=== PATIENT | male | born 1970 | race Caucasian/White ===

== ENCOUNTER 2018-01-30 13:18 | Emergency (ER) | payer MEDICAID, SELFPAY ==
[2018-01-30 13:31] VITALS: BP 142/74; PULSE 94; RESP 16; TEMP 36.6; O2SAT 99
--- NOTE | 2018-01-30 14:40 | W.ED.GENAD ---
Discharge Plan Disposition Patient Disposition: HOME Condition: Stable Discharge Details Chief Complaint: GenMedical Clinical Impression: Abscess, Cellulitis Primary Care Provider: Jefferson Bhakta ED Provider: Deb Ramirez Home Meds and New Rx's Prescriptions: New clindamycin HCl 150 mg capsule 450 mg PO TID 7 Days Qty: 63 RF: 0 Continue blood sugar diagnostic [FreeStyle Lite Strips] 1 EACH strip 1 ea Miscellaneous BID Qty: 100 RF: 0 blood-glucose meter [FreeStyle Lite Meter] 1 EACH kit 1 ea Miscellaneous DAILY PRNQty: 1 RF: 0 lancets [FreeStyle Lancets] 1 EACH misc 1 ea Miscellaneous BID Qty: 100 RF: 0 insulin glargine [Lantus Solostar U-100 Insulin] 100 UNIT/1 ML insulin pen 14 unit SQ HS Qty: 5 RF: 3 glimepiride 4 MG tablet 4 mg PO DAILY Qty: 90 RF: 3 pen needle, diabetic 1 EACH needle 1 ea Miscellaneous DAILY Qty: 100 RF: 11 tenofovir disoproxil fumarate [Viread] 300 mg tablet 300 mg PO DAILY Qty: 60 RF: 0 buprenorphine-naloxone [Suboxone] 8-2 mg Film 6 mg Sublingual RF: 0 metformin [Glucophage XR] 500 MG tablet extended release 24 hr 500 mg PO DAILY RF: 0 Discharge Instructions Instructions: Cellulitis (ED), Abscess (ED) Additional Instructions: Take the antibiotics until finished. Check your sugar regularly and take your regular medications as directed. Apply warm compresses to the affected area several times daily for 20 minutes at a time. Follow-up with your primary care doctor in 1 week for reevaluation. Return immediately to the emergency department any worsening or new concerning symptoms such as fever, increased pain redness or swelling. Discharge Data Discharge Physician: Deb Ramirez Medical Decision Making 47-year-old male with history of diabetes hepatitis B who presents for right buttock abscess for the past month. Vitals within normal limits. Patient afebrile and he appears nontoxic. There is an approximate 4 x 4 centimeter area of tender erythematous induration on the right upper buttock. It is not in the midline and not consistent with a pilonidal abscess. The area appears more indurated and is not fluctuant. He was offered incision and drainage for further treatment, but he is declining and would rather treat with warm compresses and antibiotics. It was discussed that the area may become worse due to not performing an incision and drainage and patient is aware and will return immediately if worse. Patient has been checking his sugars regularly and have been in the 140s. Patient declines Accu-Chek here and will check it when he gets home. Patient states he is having problems with it would fill the prescription until tomorrow. We will give 1 dose of clindamycin here, 1 dose for home tonight and tomorrow morning. HPI General Mode of arrival: ambulatory. Date/Time Provider Initiated Documentation: 01/30/18 13:48. Limitations to Documentation: no limitations. Information obtained by: patient. HPI Narrative: Patient is a 47-year-old male with a history of diabetes and hepatitis B who presents for tender lump on his right buttock for the past month. Patient states that initially started as a rash several months ago which had been itchy and which seemed to improve with [id number] hemorrhoid creams. Patient states 1 month ago he noticed a small bump that is now become bigger and painful. Patient states he tried to pop it a few days ago with some discharge but none since then. Patient states he has been eating and drinking well. He denies any fever or recent antibiotics. Past medical history: Diabetes, hepatitis B Surgical history: None Social history: Smokes tobacco, denies alcohol or drugs Medications: Suboxone, glimepiride, insulin, metformin, tenofovir Allergies: NKDA PCP: [facility] Related Data Home Medications Medication Instructions Recorded Confirmed blood sugar diagnostic [FreeStyle #100 strip 03/25/16 11/25/17 Lite Strips] blood-glucose meter [FreeStyle #1 kit 03/25/16 11/25/17 Lite Meter] lancets [FreeStyle Lancets] #100 ea 03/25/16 11/25/17 insulin glargine [Lantus Solostar 14 unit SQ HS #5 pen 05/05/17 01/30/18 U-100 Insulin] glimepiride 4 mg PO DAILY #90 tab-cap 06/22/17 01/30/18 pen needle, diabetic #100 units 07/23/17 11/25/17 tenofovir disoproxil fumarate 300 300 mg PO DAILY #60 tab 11/27/17 01/30/18 mg tablet buprenorphine-naloxone [Suboxone] 6 mg SUBLINGUAL 01/30/18 clindamycin HCl 450 mg PO TID 7 Days #63 cap 01/30/18 metformin [Glucophage XR] 500 mg PO DAILY 01/30/18 01/30/18 Previous Rx's Medication Instructions Recorded insulin glargine [Lantus Solostar 14 unit SQ HS #5 pen 05/05/17 U-100 Insulin] glimepiride 4 mg PO DAILY #90 tab-cap 06/22/17 pen needle, diabetic #100 units 07/23/17 tenofovir disoproxil fumarate 300 300 mg PO DAILY #60 tab 11/27/17 mg tablet clindamycin HCl 450 mg PO TID 7 Days #63 cap 01/30/18 Allergies Allergy/AdvReac Type Severity Reaction Status Date / Time No Known Allergies Allergy Unverified 01/30/18 13:33 General Stated Complaint: GenMedical JAMES: 3 Review of Systems Review of Systems All systems reviewed & are unremarkable except as noted in HPI and below Constitutional Reports as per HPI, Denies chills and Denies fever(s) Eyes Denies blurry vision ENT Denies dizziness, Denies sore throat and Denies throat swelling Cardiovascular Denies chest pain and Denies dyspnea Respiratory Denies dyspnea Gastrointestinal Denies abdominal pain, Denies diarrhea and Denies vomiting Genitourinary Denies hematuria and Denies dysuria Musculoskeletal Denies back pain and Denies numbness Integumentary/Breasts Reports lesions and Denies rash Neurologic Denies dizziness and Denies numbness Allergic/Immunologic Denies throat swelling PFSH Family History Brother No problems noted. Brother No problems noted. Sister No problems noted. Social History Smoking/Tobacco Use Status: Current every day Surgical History Endoscopy (12/09/12) Exam Const General: cooperative and healthy appearing Orientation: alert and awake [facility] Head: normal to inspection Ears: hearing grossly normal bilaterally and external ears normal General nose exam: external nose normal Face and sinus: normal facial exam Eyes General: appearance normal, both eyes and all related structures Eyelids: eyelids normal Neck Neck: normal visual inspection Resp Effort & Inspection: normal respiratory effort and able to speak in complete sentences Cardio Rate: regular rate Back/Spine/Pelvis Back/spine/pelvis image: 1. 4x4cm tender erythematous area of induration noted on R side of upper medial buttock. There is an approximately 1x1cm crusted yellow erosion in center. No discrete fluctuance or drainage noted. Neuro General: alert and awake Cognition: normal cognition Speech: speech normal Gait: normal gait Motor: muscle tone normal throughout Sensory Exam: no sensory deficits noted Extrem General: normal to inspection and full ROM Psych Appearance: grossly normal Mental Status: mental status grossly normal Speech and Movement: speech and movement normal Affect: normal affect Thought Process: normal Course Vital Signs Temperature 97.9 F 01/30/18 13:31 Pulse 94 H 01/30/18 13:31 Respiratory Rate 16 01/30/18 13:31 Blood Pressure 142/74 H 01/30/18 13:31 Pulse Oximetry 99 01/30/18 13:31 Temperature 97.9 F 01/30/18 13:31 Temperature Source Temporal Artery Scan 01/30/18 13:31 Pulse 94 H 01/30/18 13:31 Respiratory Rate 16 01/30/18 13:31 Blood Pressure 142/74 H 01/30/18 13:31 Blood Pressure Position Sitting 01/30/18 13:31 Pulse Oximetry 99 01/30/18 13:31 Oxygen Delivery Method Room Air 01/30/18 13:31 Oxygen Flow Rate 0 01/30/18 13:31 Pain Level 6 01/30/18 13:31
[2018-01-30] MEDS: Clindamycin 150 MG CAP 900 MG PO (14:53)
[2018-01-30] MEDS: Clindamycin 150 MG CAP 450 MG PO (14:56)
--- NOTE | 2018-01-30 15:00 | ED.GENADUL_ITS ---
Discharge Plan Disposition Patient Disposition: HOME Condition: Stable Discharge Details Chief Complaint: GenMedical Clinical Impression: Abscess, Cellulitis Primary Care Provider: Jefferson Bhakta ED Provider: Deb Ramirez Home Meds and New Rx's Prescriptions: New clindamycin HCl 150 mg capsule 450 mg PO TID 7 Days Qty: 63 RF: 0 Continue blood sugar diagnostic [FreeStyle Lite Strips] 1 EACH strip 1 ea Miscellaneous BID Qty: 100 RF: 0 blood-glucose meter [FreeStyle Lite Meter] 1 EACH kit 1 ea Miscellaneous DAILY PRNQty: 1 RF: 0 lancets [FreeStyle Lancets] 1 EACH misc 1 ea Miscellaneous BID Qty: 100 RF: 0 insulin glargine [Lantus Solostar U-100 Insulin] 100 UNIT/1 ML insulin pen 14 unit SQ HS Qty: 5 RF: 3 glimepiride 4 MG tablet 4 mg PO DAILY Qty: 90 RF: 3 pen needle, diabetic 1 EACH needle 1 ea Miscellaneous DAILY Qty: 100 RF: 11 tenofovir disoproxil fumarate [Viread] 300 mg tablet 300 mg PO DAILY Qty: 60 RF: 0 buprenorphine-naloxone [Suboxone] 8-2 mg Film 6 mg Sublingual RF: 0 metformin [Glucophage XR] 500 MG tablet extended release 24 hr 500 mg PO DAILY RF: 0 Discharge Instructions Instructions: Cellulitis (ED), Abscess (ED) Additional Instructions: Take the antibiotics until finished. Check your sugar regularly and take your regular medications as directed. Apply warm compresses to the affected area several times daily for 20 minutes at a time. Follow-up with your primary care doctor in 1 week for reevaluation. Return immediately to the emergency department any worsening or new concerning symptoms such as fever, increased pain redness or swelling. Discharge Data Discharge Physician: Deb Ramirez Medical Decision Making 47-year-old male with history of diabetes hepatitis B who presents for right buttock abscess for the past month. Vitals within normal limits. Patient afebrile and he appears nontoxic. There is an approximate 4 x 4 centimeter area of tender erythematous induration on the right upper buttock. It is not in the midline and not consistent with a pilonidal abscess. The area appears more indurated and is not fluctuant. He was offered incision and drainage for further treatment, but he is declining and would rather treat with warm compresses and antibiotics. It was discussed that the area may become worse due to not performing an incision and drainage and patient is aware and will return immediately if worse. Patient has been checking his sugars regularly and have been in the 140s. Patient declines Accu-Chek here and will check it when he gets home. Patient states he is having problems with it would fill the prescription until tomorrow. We will give 1 dose of clindamycin here, 1 dose for home tonight and tomorrow morning. HPI General Mode of arrival: ambulatory . Date/Time Provider Initiated Documentation: 01/30/18 13:48 . Limitations to Documentation: no limitations . Information obtained by: patient . HPI Narrative: Patient is a 47-year-old male with a history of diabetes and hepatitis B who presents for tender lump on his right buttock for the past month. Patient states that initially started as a rash several months ago which had been itchy and which seemed to improve with [id number]-[id number] hemorrhoid creams. Patient states 1 month ago he noticed a small bump that is now become bigger and painful. Patient states he tried to pop it a few days ago with some discharge but none since then. Patient states he has been eating and drinking well. He denies any fever or recent antibiotics. Past medical history: Diabetes, hepatitis B Surgical history: None Social history: Smokes tobacco, denies alcohol or drugs Medications: Suboxone, glimepiride, insulin, metformin, tenofovir Allergies: NKDA PCP: [facility] Related Data Home Medications Medication Instructions Recorded Confirmed blood sugar diagnostic [FreeStyle #100 strip 03/25/16 11/25/17 Lite Strips] blood-glucose meter [FreeStyle #1 kit 03/25/16 11/25/17 Lite Meter] lancets [FreeStyle Lancets] #100 ea 03/25/16 11/25/17 insulin glargine [Lantus Solostar 14 unit SQ HS #5 pen 05/05/17 01/30/18 U-100 Insulin] glimepiride 4 mg PO DAILY #90 tab-cap 06/22/17 01/30/18 pen needle, diabetic #100 units 07/23/17 11/25/17 tenofovir disoproxil fumarate 300 300 mg PO DAILY #60 tab 11/27/17 01/30/18 mg tablet buprenorphine-naloxone [Suboxone] 6 mg SUBLINGUAL 01/30/18 clindamycin HCl 450 mg PO TID 7 Days #63 cap 01/30/18 metformin [Glucophage XR] 500 mg PO DAILY 01/30/18 01/30/18 Previous Rx's Medication Instructions Recorded insulin glargine [Lantus Solostar 14 unit SQ HS #5 pen 05/05/17 U-100 Insulin] glimepiride 4 mg PO DAILY #90 tab-cap 06/22/17 pen needle, diabetic #100 units 07/23/17 tenofovir disoproxil fumarate 300 300 mg PO DAILY #60 tab 11/27/17 mg tablet clindamycin HCl 450 mg PO TID 7 Days #63 cap 01/30/18 Allergies Allergy/AdvReac Type Severity Reaction Status Date / Time No Known Allergies Allergy Unverified 01/30/18 13:33 General Stated Complaint: GenMedical JAMES: 3 Review of Systems Review of Systems All systems reviewed & are unremarkable except as noted in HPI and below Constitutional Reports as per HPI, Denies chills and Denies fever(s) Eyes Denies blurry vision ENT Denies dizziness, Denies sore throat and Denies throat swelling Cardiovascular Denies chest pain and Denies dyspnea Respiratory Denies dyspnea Gastrointestinal Denies abdominal pain, Denies diarrhea and Denies vomiting Genitourinary Denies hematuria and Denies dysuria Musculoskeletal Denies back pain and Denies numbness Integumentary/Breasts Reports lesions and Denies rash Neurologic Denies dizziness and Denies numbness Allergic/Immunologic Denies throat swelling PFSH Family History Brother No problems noted. Brother No problems noted. Sister No problems noted. Social History Smoking/Tobacco Use Status: Current every day Surgical History Endoscopy (12/09/12) Exam Const General: cooperative and healthy appearing Orientation: alert and awake [facility] Head: normal to inspection Ears: hearing grossly normal bilaterally and external ears normal General nose exam: external nose normal Face and sinus: normal facial exam Eyes General: appearance normal, both eyes and all related structures Eyelids: eyelids normal Neck Neck: normal visual inspection Resp Effort & Inspection: normal respiratory effort and able to speak in complete sentences Cardio Rate: regular rate Back/Spine/Pelvis Back/spine/pelvis image: 2 1. 4x4cm tender erythematous area of induration noted on R side of upper medial buttock. There is an approximately 1x1cm crusted yellow erosion in center. No discrete fluctuance or drainage noted. Neuro General: alert and awake Cognition: normal cognition Speech: speech normal Gait: normal gait Motor: muscle tone normal throughout Sensory Exam: no sensory deficits noted Extrem General: normal to inspection and full ROM Psych Appearance: grossly normal Mental Status: mental status grossly normal Speech and Movement: speech and movement normal Affect: normal affect Thought Process: normal Course Vital Signs Temperature 97.9 F 01/30/18 13:31 Pulse 94 H 01/30/18 13:31 Respiratory Rate 16 01/30/18 13:31 Blood Pressure 142/74 H 01/30/18 13:31 Pulse Oximetry 99 01/30/18 13:31 Temperature 97.9 F 01/30/18 13:31 Temperature Source Temporal Artery Scan 01/30/18 13:31 Pulse 94 H 01/30/18 13:31 Respiratory Rate 16 01/30/18 13:31 Blood Pressure 142/74 H 01/30/18 13:31 Blood Pressure Position Sitting 01/30/18 13:31 Pulse Oximetry 99 01/30/18 13:31 Oxygen Delivery Method Room Air 01/30/18 13:31 Oxygen Flow Rate 0 01/30/18 13:31 Pain Level 6 01/30/18 13:31
== END 2018-01-30 14:52 | disposition home or self-care (01) ==
LOC: ER 15:00
PROVIDERS: Emergency Provider Physician Assistant; PCP Family Medicine
DX: L02.31 Cutaneous abscess of buttock (principal); L03.317 Cellulitis of buttock; E11.9 Type 2 diabetes mellitus without complications; Z79.4 Long term (current) use of insulin
CPT/HCPCS: 99283

== ENCOUNTER 2018-03-07 13:46 | Emergency (ER) | payer MEDICAID, SELFPAY ==
[2018-03-07 13:56] VITALS: BP 151/83; PULSE 61; RESP 16; TEMP 37; O2SAT 100
--- NOTE | 2018-03-07 17:47 | NUR.NOTE ---
Patient was triaged by the nurse and was seated in the rear waiting room, patient eloped before he was brought back to a room.
== END 2018-03-07 16:25 ==
PROVIDERS: PCP Family Medicine
DX: Z53.21 Procedure and treatment not carried out due to patient leaving prior to being seen by health care provider (principal)

== ENCOUNTER 2018-03-08 15:53 | Emergency (ER) | payer MEDICAID, SELFPAY ==
[2018-03-08 16:11] VITALS: BP 118/67; PULSE 72; RESP 20; TEMP 36.7; O2SAT 98
--- NOTE | 2018-03-08 16:18 | DI.RAD_ITS ---
SYMPTOM/DIAGNOSIS: COUGH, PAIN LT LOWER RIBS PA AND LATERAL CHEST: Comparison is made with 08/25/17. There has been clearing of the previously noted bilateral infiltrates. The heart size is normal. No new abnormalities are seen. IMPRESSION: Negative chest xray.
--- NOTE | 2018-03-08 16:46 | ED.GENADUL_ITS ---
Discharge Plan Disposition Patient Disposition: HOME Condition: Good Discharge Details Chief Complaint: RespSymp Clinical Impression: Pneumonia, Mild reactive airways disease Primary Care Provider: Jefferson Bhakta ED Provider: Brodie Fernandes Home Meds and New Rx's Prescriptions: New azithromycin 250 mg tablet See Rx Instructions .ROUTE .COMPLEX Qty: 6 RF: 0 prednisone 50 MG tablet 50 mg PO DAILY Qty: 5 RF: 0 albuterol sulfate 90 mcg/actuation HFA aerosol inhaler 1 puff IH Q6H PRN (Reason: shortness of breath or wheezing) Qty: 6.7 RF: 0 No Action FreeStyle Lite Strips 1 EACH strip 1 ea Miscellaneous BID Qty: 100 RF: 0 blood-glucose meter [FreeStyle Lite Meter] 1 EACH kit 1 ea Miscellaneous DAILY PRNQty: 1 RF: 0 lancets [FreeStyle Lancets] 1 EACH misc 1 ea Miscellaneous BID Qty: 100 RF: 0 Lantus Solostar U-100 Insulin 100 UNIT/1 ML insulin pen 14 unit SQ HS Qty: 5 RF: 3 glimepiride 4 MG tablet 4 mg PO DAILY Qty: 90 RF: 3 pen needle, diabetic 1 EACH needle 1 ea Miscellaneous DAILY Qty: 100 RF: 11 tenofovir disoproxil fumarate [Viread] 300 mg tablet 300 mg PO DAILY Qty: 60 RF: 0 buprenorphine-naloxone [Suboxone] 8-2 mg Film 6 mg Sublingual RF: 0 metformin [Glucophage XR] 500 MG tablet extended release 24 hr 500 mg PO DAILY RF: 0 Discharge Instructions Instructions: Reactive Airways Disease (ED), Pneumonia (ED) Additional Instructions: Please take the antibiotic, steroid, and inhaler as directed. If you notice any worsening of your symptoms, or any new symptoms such as vomiting, diarrhea, fever, chills, shortness of breath, chest pain, numbness, weakness, or fainting , please return immediately to the emergency department for reevaluation. Please follow up with your primary care provider as soon as possible for reassessment and reevaluation. As always, it was a pleasure participating in your medical care today. Referrals: Jefferson Bhakta DO [Primary Care Provider] - Medical Decision Making This is a 47-year-old male who presents today for evaluation of cough with productive green sputum for the last week. He has no associated fever or chills. Vital signs are stable and reassuring. Lung sounds are clear. Patient states that his symptoms resemble the last 2 times he has had pneumonia. We will get a chest x-ray to evaluate. We will give a breathing treatment as well as he has had notable improvement with this at home. 5: 42 PM Patient's chest x-ray shows no acute signs of pneumonia per virtual radiology however does appear to be some scarring versus mild pneumonia on the left side. This correlates with the patient's mild pain as well. May be secondary to old scarring versus pneumonia. With his cough, productive green sputum, and consistent symptoms for a week, as well as his risk factors of tobacco use, I do feel that he would be a good candidate for treatment of clinical pneumonia. He had improvement with the breathing treatment. We will give him a prescription for home albuterol so he does not have to use his friend's albuterol. Get steroids, and azithromycin. We discussed red flags which return the importance of smoking cessation and close follow-up I have extensively reviewed the treatment plan and discharge instructions with the patient. I have addressed all patient concerns at this time. The patient was made aware of what symptoms to monitor for that would warrant a return to the emergency department. Discussed the plan with the patient, they demonstrate verbal understanding and agreement with our assessment and plan at this time. . FINDINGS: The lung tovar are clear bilaterally. No focal pulmonary consolidation is present. The cardiac silhouette is within normal limits. The costophrenic angles are sharp. The bony structures appear unremarkable. IMPRESSION: No evidence of acute cardiopulmonary disease. Dictated and Authenticated by: Joel Pruitt MD. HPI General Date/Time Provider Initiated Documentation: 03/08/18 15:55 . 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 Patient states that for the last week he has had a cough that is productive with green sputum. It is associated left and right sided chest pain that is only present with cough. Symptoms are improved with breathing treatment. The patient denies any associated fever or chills. He does state that this feels similar but not as severe as his previous episodes of pneumonia. The patient has received his pneumonia vaccine. Patient denies any other modifying factors. Related Data Home Medications Medication Instructions Recorded Confirmed FreeStyle Lite Strips #100 strip 03/25/16 03/08/18 blood-glucose meter [FreeStyle #1 kit 03/25/16 03/08/18 Lite Meter] lancets [FreeStyle Lancets] #100 ea 03/25/16 03/08/18 Lantus Solostar U-100 Insulin 14 unit SQ HS #5 pen 05/05/17 03/08/18 glimepiride 4 mg PO DAILY #90 tab-cap 06/22/17 03/08/18 pen needle, diabetic #100 units 07/23/17 03/08/18 buprenorphine-naloxone [Suboxone] 6 mg SUBLINGUAL 01/30/18 metformin [Glucophage XR] 500 mg PO DAILY 01/30/18 03/08/18 tenofovir disoproxil fumarate 300 300 mg PO DAILY #60 tab 03/01/18 03/08/18 mg tablet albuterol sulfate 1 puff IH Q6H PRN #6.7 gm 03/08/18 azithromycin See Rx Instructions .ROUTE 03/08/18 .COMPLEX #6 tab prednisone 50 mg PO DAILY #5 tab 03/08/18 Previous Rx's Medication Instructions Recorded Lantus Solostar U-100 Insulin 14 unit SQ HS #5 pen 05/05/17 glimepiride 4 mg PO DAILY #90 tab-cap 06/22/17 pen needle, diabetic #100 units 07/23/17 tenofovir disoproxil fumarate 300 300 mg PO DAILY #60 tab 03/01/18 mg tablet albuterol sulfate 1 puff IH Q6H PRN #6.7 gm 03/08/18 azithromycin See Rx Instructions .ROUTE 03/08/18 .COMPLEX #6 tab prednisone 50 mg PO DAILY #5 tab 03/08/18 Allergies Allergy/AdvReac Type Severity Reaction Status Date / Time No Known Allergies Allergy Unverified 03/08/18 16:13 General Stated Complaint: RespSymp JAMES: 3 Review of Systems Review of Systems All systems reviewed & are unremarkable except as noted in HPI and below PFSH Social History Smoking/Tobacco Use Status: Current every day Exam Narrative Exam Narrative: 1.Const: Well-nourished, Well-developed, appearing stated age 2.Eyes: PERRL, no conjunctival injection, and symmetrical lids. 3.ENT: Atraumatic external nose and ears. Moist MM. Neck: Symmetric, trachea midline, No thyromegaly. 4.CVS: +S1/S2, No murmurs or gallops. Peripheral pulses 2+ and equal in all extremities. Brisk capillary refill in all extremities. 5.RESP: Unlabored respiratory effort. Clear to auscultation bilaterally. No wheezes rales or rhonchi 6.GI: Soft, Nontender/Nondistended, No hepatosplenomegaly. No guarding or rebound. 7.MSK: Normocephalic/Atraumatic, Extremities w/o deformity or ttp No cyanosis or clubbing, Normal movement of all extremities 8.Skin: Warm, Dry. No rashes or lesions. 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 Sensation grossly intact, no focal neurologic deficits. 10.Psych: (AAO) x3. Appropriate mood and affect Course Vital Signs Temperature 36.7 C 03/08/18 16:11 Pulse 72 03/08/18 16:11 Respiratory Rate 20 03/08/18 16:11 Blood Pressure 118/67 03/08/18 16:11 Pulse Oximetry 98 03/08/18 16:11 Temperature 36.7 C 03/08/18 16:11 Temperature Source Temporal Artery Scan 03/08/18 16:11 Pulse 72 03/08/18 16:11 Respiratory Rate 20 03/08/18 16:11 Respiratory Effort Non-Labored 03/08/18 16:11 Blood Pressure 118/67 03/08/18 16:11 Blood Pressure Position Sitting 03/08/18 16:11 Pulse Oximetry 98 03/08/18 16:11 Oxygen Delivery Method Room Air 03/08/18 16:11 Oxygen Flow Rate 0 03/08/18 16:11 Pain Level 4 03/08/18 16:11
[2018-03-08 17:03] VITALS: PULSE 72; RESP 20; O2SAT 98
[2018-03-08] MEDS: Albuterol/Ipratropium 3 ML UPD VIAL UPD (17:03)
--- NOTE | 2018-03-08 17:12 | DI.VRAD_ITS ---
EXAM: XR Chest, 2 Views EXAM DATE/TIME: 03/08/2018 4:19 PM CLINICAL HISTORY: 47 years old, male; Signs and symptoms; Cough TECHNIQUE: XR of the chest, 2 views. COMPARISON: CR CHEST 2 VIEWS PA,LAT 08/25/2017 6:26 AM FINDINGS: The lung tovar are clear bilaterally. No focal pulmonary consolidation is present. The cardiac silhouette is within normal limits. The costophrenic angles are sharp. The bony structures appear unremarkable. IMPRESSION: No evidence of acute cardiopulmonary disease. Dictated and Authenticated by: Joel Pruitt MD. Ordering:MONICA Calloway MD
[2018-03-08 17:47] VITALS: BP 118/67; PULSE 72; RESP 20; TEMP 36.7; O2SAT 98
== END 2018-03-08 18:00 | disposition home or self-care (01) ==
PROVIDERS: Emergency Provider Student in an Organized Health Care Education/Training Program; PCP Family Medicine
DX: J18.9 Pneumonia, unspecified organism (principal); J45.909 Unspecified asthma, uncomplicated
CPT/HCPCS: 94640; 99283; 71046; J7620

== ENCOUNTER 2018-04-24 14:25 | Emergency (ER) | payer MEDICAID, SELFPAY ==
[2018-04-24 14:30] VITALS: BP 139/81; PULSE 88; RESP 16; TEMP 37.2; O2SAT 96
[2018-04-24] MEDS: Acetaminophen 325 MG TAB 650 MG PO (15:30)
--- NOTE | 2018-04-24 15:40 | DI.RAD_ITS ---
SYMPTOM/DIAGNOSIS: COUGH, RT PELVIC HEMATOMA AP PELVIS: Two views. No acute fracture or dislocation is seen. The sacroiliac joints and symphysis pubis are unremarkable. The soft tissues are unremarkable. IMPRESSION: No acute abnormality. PA AND LATERAL CHEST: Comparison is made with 03/08/18. The heart is normal in size. The lungs are clear. The mediastinal structures and pleura appear intact. CONCLUSION: Normal chest.
--- NOTE | 2018-04-24 16:22 | DI.VRAD_ITS ---
EXAM: XR Pelvis, 1 or 2 Views EXAM DATE/TIME: 04/24/2018 4:02 PM CLINICAL HISTORY: 47 years old, male; Signs and symptoms; Other: Right pelvic hematoma TECHNIQUE: XR pelvis, 1 or 2 views COMPARISON: No relevant prior studies available. FINDINGS: Bones/joints: There is no evidence of acute fracture.. There is no evidence of malalignment or dislocation. Soft tissues: Normal. Gastrointestinal tract: Constipation in the right colon IMPRESSION: There is no evidence of acute fracture.. Dictated and Authenticated by: Sravanthi Cortes MD. Ordering:CHARU Shahid MD
--- NOTE | 2018-04-24 16:30 | W.ED.GENAD ---
Discharge Plan Disposition Patient Disposition: HOME Discharge Details Chief Complaint: RespSymp Clinical Impression: Bronchitis, Traumatic hematoma of lower back Primary Care Provider: Jefferson Bhakta ED Provider: Kleber Fernandez Home Meds and New Rx's Prescriptions: Continued Lantus Solostar U-100 Insulin 100 unit/mL (3 mL) insulin pen 36 unit subcut HS RF: 0 buprenorphine-naloxone 2-0.5 mg tablet, sublingual 2 tab SL DAILY Qty: 28 RF: 0 FreeStyle Lite Strips 1 EACH strip 1 ea Miscellaneous BID Qty: 100 RF: 0 blood-glucose meter [FreeStyle Lite Meter] 1 EACH kit 1 ea Miscellaneous DAILY PRNQty: 1 RF: 0 lancets [FreeStyle Lancets] 1 EACH misc 1 ea Miscellaneous BID Qty: 100 RF: 0 pen needle, diabetic 1 EACH needle 1 ea Miscellaneous DAILY Qty: 100 RF: 11 tenofovir disoproxil fumarate [Viread] 300 mg tablet 300 mg PO DAILY Qty: 60 RF: 0 metformin [Glucophage XR] 500 MG tablet extended release 24 hr 500 mg PO DAILY RF: 0 albuterol sulfate 90 mcg/actuation HFA aerosol inhaler 1 puff IH Q6H PRN (Reason: shortness of breath or wheezing) Qty: 6.7 RF: 0 Discharge Instructions Instructions: Acute Bronchitis (ED), Contusion in Adults (ED) Additional Instructions: Please contact your primary care physician to arrange follow-up as needed. Return to the ER for any worsening or new concerning symptoms. Referrals: Jefferson Bhakta DO [Primary Care Provider] - Medical Decision Making 47-year-old male smoker here with 2 days of cough productive of lopez sputum with associated body aches. Patient is saturating well and in no respiratory distress. He has no wheeze. Chest x-ray reviewed and interpreted by radiology: No acute findings. Suspect bronchitis. Antibiotics are not indicated. Consider flu. I recommend checking rapid flu testing and patient provided informed refusal. I also recommended checking a fingerstick glucose and patient provided informed refusal. Patient also with right lower back hematoma over his iliac crest from fall 1 week ago. X-ray of the pelvis was performed and reviewed and interpreted by radiology: There is no evidence of acute fracture. Plan to treat supportively. Usual and customary discharge instructions were provided -I explained to patient that antibiotics were not indicated at this time HPI General Mode of arrival: ambulatory. Date/Time Provider Initiated Documentation: 04/24/18 14:49. Limitations to Documentation: no limitations. Information obtained by: patient. HPI Narrative: 47-year-old male with history of insulin-dependent diabetes, presents with chief complaint of cough. Patient notes that he has had cough for the past 2 days, intermittently productive of lopez sputum, with associated generalized body aches, symptoms are moderate, no modifiers. No fever. Patient also notes that about a week ago he slipped and fell on ice and landed on his right low back and leg. He was seen by his primary care physician who ordered an x-ray that has not yet been performed. Patient is concerned that he had an area of swelling right lower back over his pelvis that has persisted and is tender. Patient does note sugars have been well controlled. Related Data Home Medications Medication Instructions Recorded Confirmed FreeStyle Lite Strips #100 strip 03/25/16 04/24/18 blood-glucose meter [FreeStyle #1 kit 03/25/16 04/24/18 Lite Meter] lancets [FreeStyle Lancets] #100 ea 03/25/16 04/24/18 pen needle, diabetic #100 units 07/23/17 04/24/18 metformin [Glucophage XR] 500 mg PO DAILY 01/30/18 04/24/18 tenofovir disoproxil fumarate 300 300 mg PO DAILY #60 tab 03/01/18 04/24/18 mg tablet albuterol sulfate 1 puff IH Q6H PRN #6.7 gm 03/08/18 04/24/18 insulin glargine (U-100) 100 36 unit SUBCUT HS ml 04/06/18 04/24/18 unit/mL (3 mL) subcutaneous pen buprenorphine 2 mg-naloxone 0.5 mg 2 tab SL DAILY #28 tab 04/20/18 04/24/18 sublingual tablet Previous Rx's Medication Instructions Recorded pen needle, diabetic #100 units 07/23/17 tenofovir disoproxil fumarate 300 300 mg PO DAILY #60 tab 03/01/18 mg tablet albuterol sulfate 1 puff IH Q6H PRN #6.7 gm 03/08/18 buprenorphine 2 mg-naloxone 0.5 mg 2 tab SL DAILY #28 tab 04/20/18 sublingual tablet Allergies Allergy/AdvReac Type Severity Reaction Status Date / Time No Known Allergies Allergy Verified 04/24/18 14:30 General Stated Complaint: RespSymp JAMES: 3 Review of Systems Review of Systems All systems reviewed & are unremarkable except as noted in HPI and below Constitutional Reports body ache(s) and Denies fever(s) Respiratory Reports as per HPI Musculoskeletal Reports as per HPI [facility] Medical History Adventitious breath sounds (Resolved) Urinary frequency (Chronic 08/16/13) Type II diabetes mellitus, uncontrolled (Chronic) Smoker (Chronic 05/06/11) Opioid use disorder, moderate, dependence (Chronic 12/10/15) Opioid dependence on agonist therapy (Chronic) Onychomycosis of toenail (Resolved 08/16/13) Folliculitis (Resolved 05/17/12) Continuous opioid dependence (Chronic 03/05/05) Cirrhosis of liver (Chronic 05/06/11) Chronic hepatitis C (Resolved 08/11/05) Hep B w/ coma, chronic, 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 Brother No problems noted. Sister No problems noted. 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 what type of physical activity do you participate in: none Smoking and Tabacco status: Current every day alcohol intake: never working smoke detector in home: Yes carbon monox detector in home: Yes Exam Const General: cooperative and no acute distress HENMT Head: normocephalic and atraumatic Mouth: moist mucous membranes Eyes Conjunctivae: normal conjunctivae Sclera: normal sclerae EOM: EOM intact bilaterally Neck Neck: trachea midline and supple Resp Auscultation: clear to auscultation bilaterally, no rales, no rhonchi and no wheezes Cardio Jugular venous pressure: no JVD Rate: regular rate and not tachycardic Rhythm: regular rhythm GI Palpation: soft, not firm, no guarding, no masses, not rigid and nontender Back/Spine/Pelvis Cervical Spine: No cervical spinal tenderness Thoracic/Lumbar Spine: No thoracic spinal tenderness and No lumbar spinal tenderness Pelvis: other (hematoma right iliac crest, ttp) Coccyx: other (hematoma right iliac crest, ttp) Skin General skin exam: no rashes or lesions noted Neuro General: alert, awake, oriented x3 and tone normal Extrem General: no edema Right lower extremity: hip/thigh Details: no tenderness Psych Appearance: grossly normal Mental Status: mental status grossly normal Speech and Movement: speech and movement normal Course Vital Signs Temperature 37.2 C 04/24/18 14:30 Pulse 88 04/24/18 14:30 Respiratory Rate 16 04/24/18 14:30 Blood Pressure 139/81 04/24/18 14:30 Pulse Oximetry 96 04/24/18 14:30 Temperature 37.2 C 04/24/18 14:30 Temperature Source Temporal Artery Scan 04/24/18 14:30 Pulse 88 04/24/18 14:30 Respiratory Rate 16 04/24/18 14:30 Respiratory Effort 04/24/18 14:34 Blood Pressure 139/81 04/24/18 14:30 Blood Pressure Position Sitting 04/24/18 14:30 Pulse Oximetry 96 04/24/18 14:30 Oxygen Delivery Method Room Air 04/24/18 14:30 Oxygen Flow Rate 0 04/24/18 14:30
--- NOTE | 2018-04-24 16:38 | DI.VRAD_ITS ---
EXAM: XR Chest, 2 Views EXAM DATE/TIME: 04/24/2018 3:42 PM CLINICAL HISTORY: 47 years old, male; Signs and symptoms; Other: Cough 2 days TECHNIQUE: XR of the chest, 2 views. COMPARISON: CR XR CHEST 2V PA LATERAL 03/08/2018 4:47 PM FINDINGS: Lungs: Unremarkable. No consolidation. Pleural space: Unremarkable. No pleural effusion. No pneumothorax. Heart/Mediastinum: Unremarkable. No cardiomegaly. Bones/joints: Unremarkable. IMPRESSION: No acute findings. Dictated and Authenticated by: Sravanthi Cortes MD. Ordering:CHARU Shahid MD
--- NOTE | 2018-04-24 19:04 | NUR.NOTE ---
pt left without notifying staff after being asked to wait. rn walked back to the room and pt was missing =
== END 2018-04-24 15:05 | disposition home or self-care (01) ==
PROVIDERS: Emergency Provider Student in an Organized Health Care Education/Training Program; PCP Family Medicine
DX: M79.10 Myalgia, unspecified site (principal); J20.9 Acute bronchitis, unspecified; M54.5 Low back pain; S30.0XXA Contusion of lower back and pelvis, initial encounter; W00.0XXA Fall on same level due to ice and snow, initial encounter; E11.9 Type 2 diabetes mellitus without complications; Z79.4 Long term (current) use of insulin; Z53.29 Procedure and treatment not carried out because of patient's decision for other reasons
CPT/HCPCS: 99284; 71046; 72170; 99285

== ENCOUNTER 2018-05-24 08:02 | Emergency (ER) | payer MEDICAID, SELFPAY ==
[2018-05-24] VITALS (29 sets, daily range): BP systolic 110–140; BP diastolic 58–75; PULSE 56–70; RESP 13–31; TEMP 36.5–36.7; O2SAT 96–100
--- NOTE | 2018-05-24 08:31 | ED.GENADUL_ITS ---
Discharge Plan Disposition Patient Disposition: HOME Condition: Stable Discharge Details Chief Complaint: Chest Pain Clinical Impression: Pneumonia, Chest pain Primary Care Provider: Jefferson Bhakta ED Provider: Deepika Fernandez Home Meds and New Rx's Prescriptions: New levofloxacin [Levaquin] 750 mg tablet 750 mg PO DAILY Qty: 4 RF: 0 Continued Lantus Solostar U-100 Insulin 100 unit/mL (3 mL) insulin pen 40 unit subcut HS RF: 0 buprenorphine-naloxone 2-0.5 mg tablet, sublingual 2 tab SL DAILY Qty: 56 RF: 0 albuterol sulfate 90 mcg/actuation HFA aerosol inhaler 1 puff IH Q6H PRN (Reason: shortness of breath or wheezing) Qty: 6.7 RF: 12 FreeStyle Lite Strips 1 EACH strip 1 ea Miscellaneous BID Qty: 100 RF: 0 blood-glucose meter [FreeStyle Lite Meter] 1 EACH kit 1 ea Miscellaneous DAILY PRNQty: 1 RF: 0 lancets [FreeStyle Lancets] 1 EACH misc 1 ea Miscellaneous BID Qty: 100 RF: 0 pen needle, diabetic 1 EACH needle 1 ea Miscellaneous DAILY Qty: 100 RF: 11 tenofovir disoproxil fumarate [Viread] 300 mg tablet 300 mg PO DAILY Qty: 60 RF: 0 metformin [Glucophage XR] 500 MG tablet extended release 24 hr 500 mg PO DAILY RF: 0 Discharge Instructions Instructions: Chest Pain (ED), Pneumonia (ED) Additional Instructions: Please return immediately to the emergency department if you develop any new or worsening symptoms or if you become otherwise concerned. It is extremely important that you make an appointment to be seen as soon as possible by your primary care doctor in follow-up for this visit. Referrals: Jefferson Bhakta DO [Primary Care Provider] - Discharge Data Discharge Date/Time-TO BE ENTERED AT DEPARTURE: 05/24/18 13:33 Medical Decision Making Shaw Kowalski is a 47-year-old man with history of diabetes, hepatitis C, opiate use on buprenorphine who presented to the emergency department with several days of bilateral lateral chest pain, worse on the left and persistent cough over the past month. On exam patient is well and nontoxic appearing and appears comfortable until he has a slight position change which elicits his lateral rib pain. He is exquisitely tender over bilateral lateral lower ribs. Concern for musculoskeletal pain, pleurisy, pneumonia, influenza, other. Doubt PE, ACS. Exam/history is not consistent with acute aortic etiology, sepsis, acute emergent intra-abdominal process. Will monitor and reassess. D-dimer elevated. Plan for CTA of the chest for rule out PE. Chest x-ray visualized and interpreted by myself in conjunction with radiology shows possi ble left lower lobe atelectasis versus infiltrate. CT of the chest shows left lower lobe infiltrate, no PE. Patient was recently on doxycycline, plan for Levaquin for possible continued pneumonia. I had a lengthy discussion with the patient regarding return to emergency department precautions and importance of outpatient follow-up with his PCP. Patient verbalized understanding of the plan and is amenable. All questions were answered Medical Records Medical records reviewed: Yes I reviewed the patient's medical records. Imaging Data Radiologic Study: Attestation: I personally reviewed and interpreted this imaging study as follows: Radiologist's impression: CT SCAN OF THE CHEST: CT angiography was performed with multi slice acquisition and multi planar and 3D reconstruction. CT scan of the chest was performed according to the pulmonary embolus protocol. There is mild patient motion artifact present. There is no evidence of a pulmonary embolus. The thoracic aorta is normal in caliber. No evidence of thoracic aortic dissection or aneurysm is seen. The heart size is within normal limits. No significant pericardial effusion is seen. No evidence of right ventricular dysfunction is present. No significant thoracic adenopathy, pleural effusion or pneumothorax is present. Mild central lobular emphysematous changes are present. There is a small infiltrate in the lateral aspect of the left lower lobe. This may represent atelectasis. Pneumonia cannot be excluded. The tracheobronchial tree is unremarkable. The thoracic spine appears intact. IMPRESSION: 1. No evidence of a pulmonary embolus, thoracic aortic dissection or aneurysm. 2. Small infiltrate in the lateral aspect of the left lower lobe. This may represent atelectasis. Pneumonia cannot be excluded. CHEST X-RAY, PA AND LATERAL: Comparison is 04/24/18. The heart size and pulmonary vasculature are within normal limits. There is plate atelectasis in the left lung base. No focal consolidating infiltrate, effusion or pneumothorax is identified. The bones appear intact. IMPRESSION: Atelectatic changes in the left lung base. No acute pulmonary process. Lab Data Lab results reviewed: Yes I reviewed the patient's lab results. ECG Data Attestation: I personally reviewed and interpreted this ECG (s) as follows: Interpretation: EKG shows sinus bradycardia at 57, normal axis, [address] elevation in V1, V2, V3, no other ST changes, no STEMI, nondiagnostic EKG HPI General Mode of arrival: ambulatory . Date/Time Provider Initiated Documentation: 05/24/18 08:30 . Limitations to Documentation: no limitations . Information obtained by: patient, RN notes reviewed and old records reviewed . HPI Narrative: Shaw Kowalski is a 47-year-old man with history of insulin dependent diabetes, opiate use in the past now on buprenorphine, hepatitis C presenting to the emergency department with chest pain. Patient reports that he has had chronic cough for the past month or so. He was given steroids and doxycycline within the past few weeks that he finished at least a week ago. Patient reports that his symptoms did seem to improve while he was taking his medications, however he has had return of symptoms in the past 2 or 3 days. Patient reports symptoms of cough and bilateral lateral rib pain. He reports that pain is present with coughing and also just when you touch the skin. Pain is positional and pleuritic but not exertional. He has had chills but no fevers. Does not feel short of breath. No vomiting, diarrhea, weakness the extremities, or other pain. Patient is a smoker. Related Data Home Medications Medication Instructions Recorded Confirmed FreeStyle Lite Strips #100 strip 03/25/16 04/27/18 blood-glucose meter [FreeStyle #1 kit 03/25/16 04/27/18 Lite Meter] lancets [FreeStyle Lancets] #100 ea 03/25/16 04/27/18 pen needle, diabetic #100 units 07/23/17 04/27/18 metformin [Glucophage XR] 500 mg PO DAILY 01/30/18 05/24/18 tenofovir disoproxil fumarate 300 300 mg PO DAILY #60 tab 03/01/18 05/24/18 mg tablet insulin glargine (U-100) 100 40 unit SUBCUT HS ml 04/27/18 05/24/18 unit/mL (3 mL) subcutaneous pen albuterol sulfate HFA 90 1 puff IH Q6H PRN #6.7 gm 05/04/18 05/24/18 mcg/actuation aerosol inhaler buprenorphine 2 mg-naloxone 0.5 mg 2 tab SL DAILY #56 tab 05/04/18 05/24/18 sublingual tablet levofloxacin [Levaquin] 750 mg PO DAILY #4 tab 05/24/18 Previous Rx's Medication Instructions Recorded pen needle, diabetic #100 units 07/23/17 tenofovir disoproxil fumarate 300 300 mg PO DAILY #60 tab 03/01/18 mg tablet albuterol sulfate HFA 90 1 puff IH Q6H PRN #6.7 gm 05/04/18 mcg/actuation aerosol inhaler buprenorphine 2 mg-naloxone 0.5 mg 2 tab SL DAILY #56 tab 05/04/18 sublingual tablet levofloxacin [Levaquin] 750 mg PO DAILY #4 tab 05/24/18 Allergies Allergy/AdvReac Type Severity Reaction Status Date / Time No Known Allergies Allergy Verified 05/24/18 09:10 General AJMES: 3 Review of Systems Review of Systems Constitutional: denies fevers, reports chills Eyes: denies eye pain ENT: denies facial pain, dental pain, sore throat Cardiovascular: Reports bilateral lateral chest pain Respiratory: denies SOB, reports cough GI: denies abdominal pain, vomiting, diarrhea : denies flank pain MSK: denies back pain, neck pain, arthralgias, myalgias Skin: denies rash Neuro: denies headaches, weakness, reports chronic tingling in both feet that is unchanged. 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) Adjustment disorder, unspecified (Resolved 12/10/15) Social History Smoking/Tobacco Use Status: Current every day Tobacco Type: cigarettes Alcohol Intake: current Alcohol Intake frequency: holidays/special occasions only Drug use: Current Sobriety Substance use type: does not use Details: on Suboxone Housing: apartment Number of Children: 2 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 Appears uncomfortable with any slight position change HENT: head atraumatic/normocephalic/normal inspection, mucous membranes moist Eyes: conjunctiva normal, sclera normal, pupils 3mm b/l Neck: no stridor, normal ROM, trachea midline Chest: normal inspection. Exquisite tenderness to palpation with light touch to bilateral lower lateral ribs without overlying skin changes, crepitus Resp: normal work of breathing, LCTAB Cardio: normal rate, normal rhythm, no murmur appreciated Back: normal inspection, no rash Skin: warm, dry, normal color, no rash Neuro: alert, not altered, grossly non-focal, normal tone Ext: no edema, no posterior calf tenderness to palpation Psych: normal mood, normal affect, normal behavior
[2018-05-24] MEDS: Normal Saline 1,000 ML 1000 ML IV (08:50)
[2018-05-24] MEDS: Ketorolac 15 MG/ML VIAL IVP (08:56)
[2018-05-24 09:08] LABS: Abs Immature Grans 0.02 k/cumm (0.0-0.09); Absolute Basophil Count 0.02 k/cumm (0.0-0.2); Absolute Eosinophil Count 0.09 k/cumm (0.0-0.7); Absolute Lymphocyte Count 0.99 k/cumm (1.2-3.4); Absolute Monocyte Count 0.51 k/cumm (0.11-0.7); Absolute Neutrophil Count 3.84 k/cumm (1.2-6.7); Basophils % 0.4; Eosinophils % 1.6; HCT 42.5 % (40.0-50.0); HGB 15.3 g/dL (13.5-17.5); Immature Grans % 0.4; Lymphocytes % 18.1; Mean Corpuscular Hemoglobin 33.6 pg (27.0-33.0); Mean Corpuscular Volume 93.4 fL (80-95); Mean Platelet Volume 9.6 fL (8.0-11.0); Monocytes % 9.3; Neutrophils % 70.2; Platelet Count 128 x1000/uL (130-400); RBC 4.55 m/cumm (4.50-6.00); RBC Distribution Width 13.5 % (11.8-14.1); White Blood Cell Count 5.47 k/cumm (4.4-10.8)
--- NOTE | 2018-05-24 09:21 | DI.RAD_ITS ---
SYMPTOMS/DIAGNOSIS: BILATERAL CHEST PAIN, COUGH CHEST X-RAY, PA AND LATERAL: Comparison is 04/24/18. The heart size and pulmonary vasculature are within normal limits. There is plate atelectasis in the left lung base. No focal consolidating infiltrate, effusion or pneumothorax is identified. The bones appear intact. IMPRESSION: Atelectatic changes in the left lung base. No acute pulmonary process.
--- NOTE | 2018-05-24 09:26 | NUR.NOTE ---
Nursing Note: Pt refused a Flu swab.
[2018-05-24 09:29] LABS: ALT 63 U/L (12-78); AST 70 U/L (15-37); Albumin 3.7 g/dL (3.4-5.0); Alkaline Phosphatase 92 U/L (46-116); BUN 10 mg/dL (7-18); Bilirubin, Total 1.1 mg/dL (0.2-1.0); CREATININE 0.77 mg/dL (0.70-1.30); Chloride 96 mmol/L (98-107); Glucose 328 mg/dL (70-100); Sodium 133 mmol/L (136-145); Total Protein 7.3 g/dL (6.4-8.2)
[2018-05-24 09:32] LABS: Troponin I < 0.02 ng/mL (0.00-0.06)
[2018-05-24 09:40] LABS: D-Dimer 635 ng/mlFEU (<500)
--- NOTE | 2018-05-24 09:46 | DI.CT_ITS ---
SYMPTOMS/DIAGNOSIS: BILATERAL CHEST PAIN CT SCAN OF THE CHEST: CT angiography was performed with multi slice acquisition and multi planar and 3D reconstruction. CT scan of the chest was performed according to the pulmonary embolus protocol. There is mild patient motion artifact present. There is no evidence of a pulmonary embolus. The thoracic aorta is normal in caliber. No evidence of thoracic aortic dissection or aneurysm is seen. The heart size is within normal limits. No significant pericardial effusion is seen. No evidence of right ventricular dysfunction is present. No significant thoracic adenopathy, pleural effusion or pneumothorax is present. Mild central lobular emphysematous changes are present. There is a small infiltrate in the lateral aspect of the left lower lobe. This may represent atelectasis. Pneumonia cannot be excluded. The tracheobronchial tree is unremarkable. The thoracic spine appears intact. IMPRESSION: 1. No evidence of a pulmonary embolus, thoracic aortic dissection or aneurysm. 2. Small infiltrate in the lateral aspect of the left lower lobe. This may represent atelectasis. Pneumonia cannot be excluded. The findings were discussed with the Emergency Department on the date of the examination.
[2018-05-24] MEDS: Omnipaque 350 MG/ML 100 ML BTL IV (11:01)
[2018-05-24 12:49] LABS: Troponin I < 0.02 ng/mL (0.00-0.06)
[2018-05-24] MEDS: Ibuprofen 400 MG TAB PO (13:29)
[2018-05-24] MEDS: LEVOFLOXACIN 500 MG, LEVOFLOXACIN 250 MG 750 MG PO (13:30)
== END 2018-05-24 13:33 | disposition home or self-care (01) ==
PROVIDERS: Emergency Provider Student in an Organized Health Care Education/Training Program; PCP Family Medicine
DX: F17.210 Nicotine dependence, cigarettes, uncomplicated (principal); E11.9 Type 2 diabetes mellitus without complications
CPT/HCPCS: 36415; 71275; 80053; 87449; 96361; 96374; 99285; 71046; 84484; 85025; 85379; 99284; J1885; J3490

== ENCOUNTER 2018-08-16 10:05 | Emergency (ER) | payer SELFPAY ==
[2018-08-16 10:11] VITALS: BP 136/83; PULSE 101; RESP 18; TEMP 37.1; O2SAT 97
--- NOTE | 2018-08-16 10:15 | ED.GENADUL_ITS ---
Discharge Plan Disposition Patient Disposition: HOME Condition: Stable Discharge Details Chief Complaint: Chest/Rib Clinical Impression: Cough Primary Care Provider: Jefferson Bhakta ED Provider: Deepika Fernandez Home Meds and New Rx's Prescriptions: New doxycycline hyclate 100 mg tablet 100 mg PO DAILY Qty: 13 RF: 0 Discontinued levofloxacin [Levaquin] 750 mg tablet 750 mg PO DAILY Qty: 7 RF: 0 No Action Lantus Solostar U-100 Insulin 100 unit/mL (3 mL) insulin pen 40 unit subcut HS RF: 0 tenofovir disoproxil fumarate [Viread] 300 mg tablet 300 mg PO DAILY Qty: 90 RF: 3 albuterol sulfate 90 mcg/actuation HFA aerosol inhaler 1 puff IH Q6H PRN (Reason: shortness of breath or wheezing) Qty: 6.7 RF: 12 FreeStyle Lite Strips 1 EACH strip 1 ea Miscellaneous BID Qty: 100 RF: 0 blood-glucose meter [FreeStyle Lite Meter] 1 EACH kit 1 ea Miscellaneous DAILY PRNQty: 1 RF: 0 lancets [FreeStyle Lancets] 1 EACH misc 1 ea Miscellaneous BID Qty: 100 RF: 0 pen needle, diabetic 1 EACH needle 1 ea Miscellaneous DAILY Qty: 100 RF: 11 metformin [Glucophage XR] 500 MG tablet extended release 24 hr 500 mg PO DAILY RF: 0 Discharge Instructions Instructions: Doxycycline (By mouth), Acute Cough (ED) Additional Instructions: Please return immediately to the emergency department he develop any new or worsening symptoms or if you become otherwise concerned. It is extremely important that you call as soon as possible to make an appointment to be seen in follow-up by your primary care doctor. Referrals: Jefferson Bhakta DO [Primary Care Provider] - Medical Decision Making Shaw Kowalski is a 48 y/o man with history of hepatitis, opioid use disorder on Suboxone, recurrent pulmonary infections over the past year treated with an tibiotics who presented to the emergency department with his typical symptoms of lung infection with our lateral lower rib pain and cough. On exam patient is well and nontoxic appearing but with frequent productive cough. Lungs are clear to auscultation bilaterally. Pt with borderline tachycardia triage, heart rate 80 at my encounter. Exam/history is not consistent with ACS, sepsis. Doubt PE a t this time, however patient does not rule out by PERC given tachycardia at triage. I discussed plan for d-dimer with patient, and he states repeatedly that his symptoms are exactly typical of his prior lung infections and he does not want to wait for blood draw. Patient reports that he missed his Suboxone dose yesterday, feels that he is beginning to have withdrawal symptoms and needs to leave the emergency department as soon as possible for Suboxone dosing. He agrees to chest x-ray only and no other work-up. Chest x-ray negative per radiology over the phone, concern for occult pneumonia. Plan to treat with doxycycline. I had a lengthy discussion with the patient regarding smoking cessation, return to emergency department precautions, home care, importance of outpatient follow-up with his PCP. Patient verbalized understanding of the plan was amenable. Patient was discharged home with clear plan for outpatient follow-up. All questions were answered. Medical Records Medical records reviewed: Yes I reviewed the patient's medical records. ECG Data Attestation: I personally reviewed and interpreted this ECG (s) as follows: Interpretation: EKG shows sinus rhythm 88 with nl axis, no STEMI, non-diagnostic EKG HPI General Mode of arrival: ambulatory . Date/Time Provider Initiated Documentation: 08/16/18 10:14 . Limitations to Documentation: no limitations . Information obtained by: patient, RN notes reviewed and old records reviewed . HPI Narrative: Shaw Kowalski is a 48 y/o man with history of diabetes, hepatitis, opiate use disorder on Suboxone presenting to the emergency department with bilateral rib pain. Patient reports that he has had 4 to 5 lung infections over the past year that have been treated with antibiotics. He was seen at [facility] for this 05/25 and treated with antibiotics after being diagnosed with pneumonia. Patient reports that he saw his PCP approximately 1 month ago, was diagnosed clinically with pneumonia and was started on Levaquin. Patient reports that after each course of antibiotics he has felt significantly improved, and then symptoms gradually returned. Patient reports that he has had several days of cough, and bilateral lower lateral rib pain, consistent with all of his prior lung infections. Patient denies any exertional symptoms. Patient reports that he does not have pain while resting if he holds his breath, but he does have pain in the right and left lower ribs laterally when breathing. He reports that he has had a productive cough for the past few days and nasal congestion. He denies fevers, shortness of breath, vomiting, diarrhea, any other pain. Has been eating and drinking as usual. 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 No recent travel. No other recent illness. Related Data Home Medications Medication Instructions Recorded Confirmed FreeStyle Lite Strips #100 strip 03/25/16 07/26/18 blood-glucose meter [FreeStyle #1 kit 03/25/16 07/26/18 Lite Meter] lancets [FreeStyle Lancets] #100 ea 03/25/16 07/26/18 pen needle, diabetic #100 units 07/23/17 07/26/18 metformin [Glucophage XR] 500 mg PO DAILY 01/30/18 07/26/18 insulin glargine (U-100) 100 40 unit SUBCUT HS ml 04/27/18 07/26/18 unit/mL (3 mL) subcutaneous pen albuterol sulfate HFA 90 1 puff IH Q6H PRN #6.7 gm 05/04/18 07/26/18 mcg/actuation aerosol inhaler tenofovir disoproxil fumarate 300 300 mg PO DAILY #90 tab 07/26/18 07/26/18 mg tablet doxycycline hyclate 100 mg PO DAILY #13 tab 08/16/18 Previous Rx's Medication Instructions Recorded pen needle, diabetic #100 units 07/23/17 albuterol sulfate HFA 90 1 puff IH Q6H PRN #6.7 gm 05/04/18 mcg/actuation aerosol inhaler tenofovir disoproxil fumarate 300 300 mg PO DAILY #90 tab 07/26/18 mg tablet doxycycline hyclate 100 mg PO DAILY #13 tab 08/16/18 Allergies Allergy/AdvReac Type Severity Reaction Status Date / Time No Known Allergies Allergy Verified 08/16/18 10:14 General Stated Complaint: Chest/Rib JAMES: 3 Review of Systems Review of Systems Constitutional: denies fevers Eyes: denies eye pain ENT: denies facial pain, dental pain, sore throat Cardiovascular: denies chest pain, edema, reports lower lateral rib pain on left and right Respiratory: denies SOB, reports productive cough GI: denies abdominal pain, vomiting, diarrhea : denies flank pain MSK: denies back pain, neck pain, arthralgias, myalgias Skin: denies rash Neuro: denies headaches, numbness, weakness [facility] Medical History Adventitious breath sounds (Resolved) Urinary frequency (Chronic 08/16/13) Type II diabetes mellitus, uncontrolled (Chronic) Smoker (Chronic 05/06/11) Opioid use disorder, moderate, dependence (Chronic 12/10/15) Opioid dependence on agonist therapy (Chronic) Onychomycosis of toenail (Resolved 08/16/13) Folliculitis (Resolved 05/17/12) Continuous opioid dependence (Chronic 03/05/05) Cirrhosis of liver (Chronic 05/06/11) Chronic hepatitis C (Resolved 08/11/05) Hep B w/ coma, chronic, 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) Adjustment disorder, unspecified (Resolved 12/10/15) Social History Smoking/Tobacco Use Status: Current-Occasional Tobacco Type: cigarettes Alcohol Intake: current Alcohol Intake frequency: holidays/special occasions only Drug use: Current Sobriety Substance use type: does not use Details: on Suboxone Household members: significant other Housing: apartment Number of Children: 2 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 What is your relationship status?: living with partner Panel score (0-1 are the most socially isolated patients): 1 What type of physical activity do you participate in: none Drive intox or ride w/intox medical delivery driver: No Working smoke detector in home: Yes Carbon monox detector in home: Yes Do you feel safe at home: Yes Do you feel safe in your relationship?: Yes Exam Narrative Exam Narrative: Constitutional: well and [id number], pleasant, conversing normally, frequent cough HENT: head atraumatic/normocephalic/normal inspection, mucous membranes moist Eyes: conjunctiva normal, sclera normal, pupils 3mm b/l Neck: no stridor, normal ROM, trachea midline Chest: normal inspection Resp: normal work of breathing, LCTAB, left and right lower lateral ribs tender to palpation without crepitus or deformity Cardio: normal rate, normal rhythm, no murmur appreciated Back: normal inspection, no rash Skin: warm, dry, normal color, no rash Neuro: alert, not altered, grossly non-focal, normal tone Ext: no edema, no posterior calf tenderness to palpation Psych: normal mood, normal affect, normal behavior Course Vital Signs Temperature 37.1 C 08/16/18 10:11 Pulse 101 H 08/16/18 10:11 Respiratory Rate 18 08/16/18 10:11 Blood Pressure 136/83 08/16/18 10:11 Pulse Oximetry 97 08/16/18 10:11 Temperature 37.1 C 08/16/18 10:11 Temperature Source Temporal Artery Scan 08/16/18 10:11 Pulse 101 H 08/16/18 10:11 Respiratory Rate 18 08/16/18 10:11 Blood Pressure 136/83 08/16/18 10:11 Pulse Oximetry 97 08/16/18 10:11 Oxygen Delivery Method Room Air 08/16/18 10:11 Oxygen Flow Rate 0 08/16/18 10:11
--- NOTE | 2018-08-16 10:28 | NUR.NOTE ---
Nursing Note:EKG provided to
--- NOTE | 2018-08-16 10:53 | DI.RAD_ITS ---
SYMPTOM/DIAGNOSIS: COUGH CHEST X-RAY: PA and lateral. Comparison 05/24/18 The heart is normal in size. The lungs are clear. The mediastinal structures and pleura appear intact. CONCLUSION: Normal chest.
[2018-08-16 11:12] VITALS: BP 141/88; PULSE 81; RESP 14; O2SAT 95
[2018-08-16] MEDS: Doxycycline Hyclate 100 MG CAP PO (11:18)
== END 2018-08-16 11:22 | disposition home or self-care (01) ==
LOC: ER 11:33
PROVIDERS: Emergency Provider Student in an Organized Health Care Education/Training Program; PCP Family Medicine
DX: R05 Cough (principal); R07.89 Other chest pain; F11.20 Opioid dependence, uncomplicated
CPT/HCPCS: 99283; 71046

== ENCOUNTER 2018-09-14 08:22 | Emergency (ER) | payer MEDICAID, SELFPAY ==
[2018-09-14 08:29] VITALS: BP 157/85; PULSE 71; RESP 18; TEMP 36.6; O2SAT 98
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
--- NOTE | 2018-09-14 09:06 | DI.RAD_ITS ---
SYMPTOM/DIAGNOSIS: LATERAL PLANTAR LACERATION, CONCERN FOR FOREIGN BODY RIGHT FOOT: 09/14 Three views were obtained. No bony abnormality is seen. Some superficial or soft tissue debris is present adjacent to the IP joints of the 5th toe. Please correlate with site of patient's injury. No gross foreign body identified.
[2018-09-14] MEDS: Ibuprofen 600 MG TAB PO (09:22)
[2018-09-14] MEDS: Ciprofloxacin 500 MG TAB PO (10:09)
[2018-09-14] MEDS: Cephalexin 500 MG CAP PO (10:09)
[2018-09-14] MEDS: Tetanus & Diphtheria Tox,ADULT 0.5 ML VIAL IM (10:22)
--- NOTE | 2018-09-14 10:27 | NUR.NOTE ---
Nursing Note: Dressing applied to right foot. Walking shoe applied as well per [employer] request.
== END 2018-09-14 10:51 | disposition home or self-care (01) ==
PROVIDERS: Emergency Provider Nurse Practitioner Family; PCP Family Medicine
DX: S91.311A Laceration without foreign body, right foot, initial encounter (principal); F10.10 Alcohol abuse, uncomplicated; E11.9 Type 2 diabetes mellitus without complications
CPT/HCPCS: 90471; 99283; 73630

== ENCOUNTER 2018-10-19 15:14 | Emergency (ER) | payer MEDICAID, SELFPAY ==
--- NOTE | 2018-10-19 15:18 | NUR.NOTE ---
Nursing Note: of PT is in ER pt states that wile i was here i figured id get checked up for the toxins that are in my lungs i get this all the time i have been seen here by every doctor for this PT describes a sharp pain in his right side and states that antibiotics always fix it in a day they kill the toxins
[2018-10-19 15:20] VITALS: BP 138/72; PULSE 77; RESP 17; TEMP 36.6; O2SAT 95
--- NOTE | 2018-10-19 15:31 | W.ED.GENAD ---
Discharge Plan Disposition Patient Disposition: HOME Condition: Stable Discharge Details Chief Complaint: RespSymp Clinical Impression: Bronchitis Primary Care Provider: Jefferson Bhakta ED Provider: Trey Benton Home Meds and New Rx's Prescriptions: New azithromycin 250 mg tablet See Rx Instructions .ROUTE .COMPLEX Qty: 6 RF: 0 No Action Lantus Solostar U-100 Insulin 100 unit/mL (3 mL) insulin pen 40 unit subcut HS RF: 0 tenofovir disoproxil fumarate [Viread] 300 mg tablet 300 mg PO DAILY Qty: 90 RF: 3 albuterol sulfate 90 mcg/actuation HFA aerosol inhaler 1 puff IH Q6H PRN (Reason: shortness of breath or wheezing) Qty: 6.7 RF: 12 (DME) FreeStyle Lite Strips 1 EACH strip 1 ea Miscellaneous BID Qty: 100 RF: 0 (DME) blood-glucose meter [FreeStyle Lite Meter] 1 EACH kit 1 ea Miscellaneous DAILY Qty: 1 RF: 0 (DME) lancets [FreeStyle Lancets] 1 EACH misc 1 ea Miscellaneous BID Qty: 100 RF: 0 (DME) pen needle, diabetic 1 EACH needle 1 ea Miscellaneous DAILY Qty: 100 RF: 11 doxycycline hyclate 100 mg tablet 100 mg PO DAILY Qty: 13 RF: 0 metformin [Glucophage XR] 500 MG tablet extended release 24 hr 500 mg PO DAILY RF: 0 Discharge Instructions Instructions: Acute Bronchitis (ED) Medical Decision Making Pt comes in requesting abx for cough. He states he has had an increase in cough for the past 3 days without fevers or chills. He states he thinks it is something to do with where he lives. has no severe pain and is speaking in full sentences on exam in no distress. He has clear lungs and appears well systemically with stable vitals. He is convinced abx will get rid of the cough and I am unsure ofthis given lack of physical exam finidngs, declining xray or other workup at this time. Will start azithromycin and advised f/u with his pcp and return if worsening Differential Diagnosis bronchitis, copd HPI General Mode of arrival: ambulatory. Date/Time Provider Initiated Documentation: 10/19/18 15:24. Limitations to Documentation: no limitations. Information obtained by: patient. History of Present Illness 48 year old M presents to the emergency department with the chief complaint of cough, described as moderate, No relieving factors improve symptom(s), No exacerbating factors reported . Patient did receive the following treatments prior to arrival, none Related Data Home Medications Medication Instructions Recorded Confirmed FreeStyle Lite Strips #100 strip 03/25/16 10/19/18 blood-glucose meter [FreeStyle #1 kit 03/25/16 10/19/18 Lite Meter] lancets [FreeStyle Lancets] #100 ea 03/25/16 10/19/18 pen needle, diabetic #100 units 07/23/17 10/19/18 metformin [Glucophage XR] 500 mg PO DAILY 01/30/18 10/19/18 insulin glargine 100 unit/mL (3 40 unit SUBCUT HS ml 04/27/18 10/19/18 mL) subcutaneous pen albuterol sulfate 90 mcg/actuation 1 puff IH Q6H PRN #6.7 gm 05/04/18 10/19/18 aerosol inhaler tenofovir disoproxil fumarate 300 300 mg PO DAILY #90 tab 07/26/18 10/19/18 mg tablet doxycycline hyclate 100 mg PO DAILY #13 tab 08/16/18 10/19/18 azithromycin See Rx Instructions .ROUTE 10/19/18 .COMPLEX #6 tab Previous Rx's Medication Instructions Recorded pen needle, diabetic #100 units 07/23/17 albuterol sulfate 90 mcg/actuation 1 puff IH Q6H PRN #6.7 gm 05/04/18 aerosol inhaler tenofovir disoproxil fumarate 300 300 mg PO DAILY #90 tab 07/26/18 mg tablet doxycycline hyclate 100 mg PO DAILY #13 tab 08/16/18 azithromycin See Rx Instructions .ROUTE 10/19/18 .COMPLEX #6 tab Allergies Allergy/AdvReac Type Severity Reaction Status Date / Time No Known Allergies Allergy Verified 10/19/18 15:22 General Stated Complaint: RespSymp JAMES: 4 Review of Systems Review of Systems All systems reviewed & are unremarkable except as noted in HPI and below Constitutional Denies chills, Denies fever(s) and Denies weakness Cardiovascular Denies chest pain and Denies dyspnea Respiratory Denies cough and Denies dyspnea Gastrointestinal Denies abdominal pain, Denies nausea and Denies vomiting Musculoskeletal Denies joint swelling Neurologic Denies weakness PFSH Social History Smoking/Tobacco Use Status: Current-Occasional Tobacco Type: cigarettes Alcohol Intake: never Drug use: Current Sobriety Substance use type: does not use Details: on Suboxone Household members: significant other Housing: apartment Number of Children: 2 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 What is your relationship status?: living with partner Panel score (0-1 are the most socially isolated patients): 1 What type of physical activity do you participate in: none Drive intox or ride w/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: No Working smoke detector in home: Yes Carbon monox detector in home: Yes Do you feel safe at home: Yes Do you feel safe in your relationship?: Yes Exam Const General: no acute distress Orientation: alert HENMT Head: normal to inspection Ears: external ears normal General nose exam: external nose normal Mouth: moist mucous membranes Eyes General: appearance normal, both eyes and all related structures Neck Neck: normal visual inspection Resp Effort & Inspection: normal respiratory effort and able to speak in complete sentences Cardio Rate: regular rate Skin General skin exam: no rashes or lesions noted Neuro General: alert and oriented x3 Extrem General: normal to inspection Psych Mental Status: mental status grossly normal Course Vital Signs Temperature 36.6 C 10/19/18 15:20 Pulse 77 10/19/18 15:20 Respiratory Rate 17 10/19/18 15:20 Blood Pressure 138/72 10/19/18 15:20 Pulse Oximetry 95 10/19/18 15:20 Temperature 36.6 C 10/19/18 15:20 Temperature Source Skin 10/19/18 15:20 Pulse 77 10/19/18 15:20 Respiratory Rate 17 10/19/18 15:20 Respiratory Effort 10/19/18 15:23 Blood Pressure 138/72 10/19/18 15:20 Blood Pressure Position Supine 10/19/18 15:20 Pulse Oximetry 95 10/19/18 15:20 Oxygen Delivery Method Room Air 10/19/18 15:20 Oxygen Flow Rate 0 10/19/18 15:20 Pain Level 5 10/19/18 15:20
== END 2018-10-19 15:43 | disposition home or self-care (01) ==
LOC: ER 15:44
PROVIDERS: Emergency Provider Emergency Medicine; PCP Family Medicine
DX: J20.9 Acute bronchitis, unspecified (principal); E11.9 Type 2 diabetes mellitus without complications; Z79.4 Long term (current) use of insulin
CPT/HCPCS: 99283

== ENCOUNTER 2018-10-27 12:09 | Emergency (ER) | payer MEDICAID, SELFPAY ==
[2018-10-27 12:12] VITALS: BP 135/70; PULSE 100; RESP 16; TEMP 36.6; O2SAT 96
--- NOTE | 2018-10-27 12:46 | DI.RAD_ITS ---
SYMPTOMS/DIAGNOSIS: TRAUMA DISTAL DIGIT LACERATION, ? GLASS LEFT HAND: Three views were obtained. The patient has reportedly had trauma to the index finger. There is a soft tissue defect of the index finger. No underlying bony abnormality or foreign body seen.
--- NOTE | 2018-10-27 13:40 | W.ED.GENAD ---
Discharge Plan Disposition Patient Disposition: HOME Condition: Stable Discharge Details Chief Complaint: Laceration Clinical Impression: Laceration of left index finger Primary Care Provider: Jefferson Bhakta ED Provider: Socrates Alcantara Home Meds and New Rx's Prescriptions: New cephalexin 500 mg tablet 500 mg PO QID 5 Days Qty: 20 RF: 0 Continued Lantus Solostar U-100 Insulin 100 unit/mL (3 mL) insulin pen 40 unit subcut HS RF: 0 tenofovir disoproxil fumarate [Viread] 300 mg tablet 300 mg PO DAILY Qty: 90 RF: 3 albuterol sulfate 90 mcg/actuation HFA aerosol inhaler 1 puff IH Q6H PRN (Reason: shortness of breath or wheezing) Qty: 6.7 RF: 12 (DME) FreeStyle Lite Strips 1 EACH strip 1 ea Miscellaneous BID Qty: 100 RF: 0 (DME) blood-glucose meter [FreeStyle Lite Meter] 1 EACH kit 1 ea Miscellaneous DAILY Qty: 1 RF: 0 (DME) lancets [FreeStyle Lancets] 1 EACH misc 1 ea Miscellaneous BID Qty: 100 RF: 0 (DME) pen needle, diabetic 1 EACH needle 1 ea Miscellaneous DAILY Qty: 100 RF: 11 insulin NPH and regular human 100 unit/mL (70-30) Insulin Pen SUBCUT RF: 0 buprenorphine-naloxone [Suboxone] 4-1 mg Film 6 film RF: 0 metformin [Glucophage XR] 500 MG tablet extended release 24 hr 500 mg PO DAILY RF: 0 Discharge Instructions Instructions: Finger Laceration (ED) Additional Instructions: Please take your antibiotics as prescribed and return to the emergency department in 2 days for wound reassessment to ensure that your wound is continued to heal well. You may leave dressing that we placed on for the next 24 to 48-hour and then wound may be left open to air as long as it would be in a clean and dry environment. Return immediately for any significant or rapid worsening of symptoms. Referrals: [facility] Emergency Dept. [Outside] - 2 days (Return to emergency department for reassessment of your wound) Discharge Data Discharge Date/Time-TO BE ENTERED AT DEPARTURE: 10/27/18 14:24 Medical Decision Making Patient presenting to the emergency department for chief complaint of left index finger laceration. He states that this occurred 2 days ago when attempting to reposition a window that he was not where was broken. Patient denies any fever chills, streaking redness, or purulent drainage, physical exam shows open laceration to left index finger with well-controlled bleeding. There is slight necrosis versus ecchymosis to the distal aspect of the fingertip. Plan to do radiological imaging to ensure no foreign bodies or retained and no bony involvement. Patient reports tetanus within the last 2 months. After review of radiological imaging that shows no foreign body or bony involvement discussed with patient healing via secondary intention given that patient is a diabetic and that initial wound occurred 2 days ago. Patient was placed upon Keflex due to being a diabetic and concern for possible development of infection in spite of none currently being seen. I do feel that patient needs reassessment of his wound given distal necrosis/ecchymosis but I do not feel that any interventions are needed at this time. Discussed close return precautions with patient. After discussion of diagnosis and plan of care patient has no further needs, questions, or concerns and states clear understanding to return to the emergency department for any worsening symptoms. HPI General Mode of arrival: ambulatory. Date/Time Provider Initiated Documentation: 10/27/18 12:46. Limitations to Documentation: no limitations. Information obtained by: patient and RN notes reviewed. History of Present Illness 48 year old M presents to the emergency department with the chief complaint of Left index finger laceration, described as moderate, with intensity rated at 6. Quality is described as aching, and is localized to the left and upper extremity. Patient started experiencing this day(s) (2) and it has been constant. Patient notes no other symptoms.. Patient did receive the following treatments prior to arrival, none Related Data Home Medications Medication Instructions Recorded Confirmed FreeStyle Lite Strips #100 strip 03/25/16 10/19/18 blood-glucose meter [FreeStyle #1 kit 03/25/16 10/19/18 Lite Meter] lancets [FreeStyle Lancets] #100 ea 03/25/16 10/19/18 pen needle, diabetic #100 units 07/23/17 10/19/18 metformin [Glucophage XR] 500 mg PO DAILY 01/30/18 10/27/18 insulin glargine 100 unit/mL (3 40 unit SUBCUT HS ml 04/27/18 10/27/18 mL) subcutaneous pen albuterol sulfate 90 mcg/actuation 1 puff IH Q6H PRN #6.7 gm 05/04/18 10/27/18 aerosol inhaler tenofovir disoproxil fumarate 300 300 mg PO DAILY #90 tab 07/26/18 10/27/18 mg tablet buprenorphine-naloxone [Suboxone] 6 film 10/27/18 cephalexin 500 mg PO QID 5 Days #20 tab 10/27/18 insulin NPH and regular human SUBCUT 10/27/18 Previous Rx's Medication Instructions Recorded pen needle, diabetic #100 units 07/23/17 albuterol sulfate 90 mcg/actuation 1 puff IH Q6H PRN #6.7 gm 05/04/18 aerosol inhaler tenofovir disoproxil fumarate 300 300 mg PO DAILY #90 tab 07/26/18 mg tablet cephalexin 500 mg PO QID 5 Days #20 tab 10/27/18 Allergies Allergy/AdvReac Type Severity Reaction Status Date / Time No Known Allergies Allergy Verified 10/19/18 15:22 General Stated Complaint: Laceration JAMES: 4 Review of Systems Constitutional Denies chills and Denies fever(s) Musculoskeletal Reports as per HPI, Denies limited range of motion and Denies numbness Integumentary/Breasts Reports as per HPI Neurologic Denies numbness and Denies paresthesias PFS Social History Smoking/Tobacco Use Status: Current-Occasional Tobacco Type: cigarettes Alcohol Intake: never Drug use: Current Sobriety Substance use type: does not use Details: on Suboxone Household members: significant other Housing: apartment Number of Children: 2 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 What is your relationship status?: living with partner Panel score (0-1 are the most socially isolated patients): 1 What type of physical activity do you participate in: none Drive intox 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: No Working smoke detector in home: Yes Carbon monox detector in home: Yes Do you feel safe at home: Yes Do you feel safe in your relationship?: Yes Exam Const General: cooperative and no acute distress Orientation: alert, awake and oriented x3 Resp Effort & Inspection: normal respiratory effort and able to speak in complete sentences Cardio Rate: regular rate Rhythm: regular rhythm Skin Trauma: laceration left palmar 2nd finger linear, flap, motor nerve function intact and sensation intact; does not involve muscle tissue Extrem General: normal exam except as noted Course Vital Signs Temperature 36.6 C 10/27/18 12:12 Pulse 100 H 10/27/18 12:12 Respiratory Rate 16 10/27/18 12:12 Blood Pressure 135/70 10/27/18 12:12 Pulse Oximetry 96 10/27/18 12:12 Temperature 36.6 C 10/27/18 12:12 Temperature Source Temporal Artery Scan 10/27/18 12:12 Pulse 100 H 10/27/18 12:12 Respiratory Rate 16 10/27/18 12:12 Blood Pressure 135/70 10/27/18 12:12 Blood Pressure Position Sitting 10/27/18 12:12 Pulse Oximetry 96 10/27/18 12:12 Oxygen Delivery Method Room Air 10/27/18 12:12 Oxygen Flow Rate 0 10/27/18 12:12
[2018-10-27] MEDS: Cephalexin 500 MG CAP PO (13:56)
== END 2018-10-27 14:24 | disposition home or self-care (01) ==
PROVIDERS: Emergency Provider Nurse Practitioner Family; PCP Family Medicine
DX: S61.211A Laceration without foreign body of left index finger without damage to nail, initial encounter (principal); W25.XXXA Contact with sharp glass, initial encounter; E11.9 Type 2 diabetes mellitus without complications; Z79.4 Long term (current) use of insulin
CPT/HCPCS: 99283; 73140

== ENCOUNTER 2018-11-04 11:47 | Emergency (ER) | payer MEDICAID, SELFPAY ==
[2018-11-04 11:53] VITALS: BP 137/80; PULSE 85; RESP 16; TEMP 36.7; O2SAT 96
--- NOTE | 2018-11-04 12:09 | ED.GENADUL_ITS ---
Discharge Plan Disposition Patient Disposition: HOME Condition: Stable Discharge Details Chief Complaint: Recheck Clinical Impression: Stab wound of left index finger Primary Care Provider: Jefferson Bhakta ED Provider: Trey Benton Home Meds and New Rx's Prescriptions: New cephalexin 500 mg tablet 500 mg PO TID Qty: 21 RF: 0 Continued Lantus Solostar U-100 Insulin 100 unit/mL (3 mL) insulin pen 40 unit subcut HS RF: 0 tenofovir disoproxil fumarate [Viread] 300 mg tablet 300 mg PO DAILY Qty: 90 RF: 3 albuterol sulfate 90 mcg/actuation HFA aerosol inhaler 1 puff IH Q6H PRN (Reason: shortness of breath or wheezing) Qty: 6.7 RF: 12 (DME) FreeStyle Lite Strips 1 EACH strip 1 ea Miscellaneous BID Qty: 100 RF: 0 (DME) blood-glucose meter [FreeStyle Lite Meter] 1 EACH kit 1 ea Miscellaneous DAILY Qty: 1 RF: 0 (DME) lancets [FreeStyle Lancets] 1 EACH misc 1 ea Miscellaneous BID Qty: 100 RF: 0 (DME) pen needle, diabetic 1 EACH needle 1 ea Miscellaneous DAILY Qty: 100 RF: 11 insulin NPH and regular human 100 unit/mL (70-30) Insulin Pen SUBCUT RF: 0 buprenorphine-naloxone [Suboxone] 4-1 mg Film 6 film RF: 0 metformin [Glucophage XR] 500 MG tablet extended release 24 hr 500 mg PO DAILY RF: 0 Discharge Instructions Additional Instructions: if redness spreads down the finger or you have fevers return to the emergency department try to soak the finger twice daily and if it gets dirty Medical Decision Making 48 yo male comes in with left distal finger wound. Cut it on glass 4 days ago an d seen in ED. He was prescribed cephalexin at that time but never filled it. Denies fevers or chills, came back today because he lost his script. He has a 1cm laceration to distal anterior finger and the very tip of the finger is blue/black. Does have intact sensation. suspect the skin is going to fall off and will heal by secondar intention. Has mild erythema around the wound which I will tx with abx. Has no flexor tendon pain and full rom so doubt felxor tenosynovitis. Will d/c with abx and return precautions given Differential Diagnosis wound, cellulitis HPI General Mode of arrival: ambulatory . Date/Time Provider Initiated Documentation: 11/04/18 12:00 . Limitations to Documentation: no limitations . Information obtained by: patient . History of Present Illness 48 year old M presents to the emergency department with the chief complaint of left finger wound, described as moderate, Patient started experiencing this day(s) (4) and it has been constant. No relieving factors improve symptom(s), No exacerbating factors reported . Patient did receive the following treatments prior to arrival, none Related Data Home Medications Medication Instructions Recorded Confirmed FreeStyle Lite Strips #100 strip 03/25/16 10/19/18 blood-glucose meter [FreeStyle #1 kit 03/25/16 10/19/18 Lite Meter] lancets [FreeStyle Lancets] #100 ea 03/25/16 10/19/18 pen needle, diabetic #100 units 07/23/17 10/19/18 metformin [Glucophage XR] 500 mg PO DAILY 01/30/18 11/04/18 insulin glargine 100 unit/mL (3 40 unit SUBCUT HS ml 04/27/18 11/04/18 mL) subcutaneous pen albuterol sulfate 90 mcg/actuation 1 puff IH Q6H PRN #6.7 gm 05/04/18 11/04/18 aerosol inhaler tenofovir disoproxil fumarate 300 300 mg PO DAILY #90 tab 07/26/18 11/04/18 mg tablet buprenorphine-naloxone [Suboxone] 6 film 10/27/18 insulin NPH and regular human SUBCUT 10/27/18 cephalexin 500 mg PO TID #21 tab 11/04/18 Previous Rx's Medication Instructions Recorded pen needle, diabetic #100 units 07/23/17 albuterol sulfate 90 mcg/actuation 1 puff IH Q6H PRN #6.7 gm 05/04/18 aerosol inhaler tenofovir disoproxil fumarate 300 300 mg PO DAILY #90 tab 07/26/18 mg tablet cephalexin 500 mg PO TID #21 tab 11/04/18 Allergies Allergy/AdvReac Type Severity Reaction Status Date / Time No Known Allergies Allergy Verified 11/04/18 11:57 General Stated Complaint: Recheck JAMES: 5 Review of Systems Review of Systems All systems reviewed & are unremarkable except as noted in HPI and below Constitutional Denies chills, Denies fever(s) and Denies weakness Eyes Denies loss of vision ENT Denies change in voice Cardiovascular Denies chest pain and Denies dyspnea Respiratory Denies cough and Denies dyspnea Gastrointestinal Denies abdominal pain, Denies nausea and Denies vomiting Musculoskeletal Denies joint swelling Neurologic Denies loss of vision and Denies weakness Psychiatric Denies depression Endocrine Denies cold intolerance and Denies heat intolerance PFSH Social History Smoking/Tobacco Use Status: Current-Occasional Tobacco Type: cigarettes Alcohol Intake: never Drug use: Current Sobriety Substance use type: does not use Details: on Suboxone Household members: significant other Housing: apartment Number of Children: 2 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 What is your relationship status?: living with partner Panel score (0-1 are the most socially isolated patients): 1 What type of physical activity do you participate in: none Drive intox 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: No Working smoke detector in home: Yes Carbon monox detector in home: Yes Do you feel safe at home: Yes Do you feel safe in your relationship?: Yes Exam Const General: no acute distress Orientation: alert HENMT Head: normal to inspection Ears: external ears normal General nose exam: external nose normal Mouth: moist mucous membranes Eyes General: appearance normal, both eyes and all related structures Neck Neck: normal visual inspection Resp Effort & Inspection: normal respiratory effort and able to speak in complete sentences Cardio Rate: regular rate Skin General skin exam: elasticity normal Neuro General: alert and oriented x3 Extrem General: full ROM Psych Mental Status: mental status grossly normal Course Vital Signs Temperature 36.7 C 11/04/18 11:53 Pulse 85 11/04/18 11:53 Respiratory Rate 16 11/04/18 11:53 Blood Pressure 137/80 11/04/18 11:53 Pulse Oximetry 96 11/04/18 11:53 Temperature 36.7 C 11/04/18 11:53 Temperature Source Skin 11/04/18 11:53 Pulse 85 11/04/18 11:53 Respiratory Rate 16 11/04/18 11:53 Respiratory Effort Non-Labored 11/04/18 11:53 Blood Pressure 137/80 11/04/18 11:53 Blood Pressure Position Sitting 11/04/18 11:53 Pulse Oximetry 96 11/04/18 11:53 Oxygen Delivery Method Room Air 11/04/18 11:53 Oxygen Flow Rate 0 11/04/18 11:53 Pain Level 6 11/04/18 11:53
[2018-11-04] MEDS: Cephalexin 500 MG CAP PO (12:15)
[2018-11-04] MEDS: Ibuprofen 600 MG TAB PO (12:15)
== END 2018-11-04 12:17 | disposition home or self-care (01) ==
PROVIDERS: Emergency Provider Emergency Medicine; PCP Family Medicine
DX: S61.211D Laceration without foreign body of left index finger without damage to nail, subsequent encounter (principal); W25.XXXD Contact with sharp glass, subsequent encounter; Z76.0 Encounter for issue of repeat prescription; E11.9 Type 2 diabetes mellitus without complications; Z79.4 Long term (current) use of insulin
CPT/HCPCS: 99283; 99282

== ENCOUNTER 2018-12-31 13:12 | Outpatient (REF) | payer MEDICAID, SELFPAY ==
[2018-12-31 15:10] LABS: COMMENT (LAB VIEW ONLY) 70.69 mg/dL
[2018-12-31 15:11] LABS: Microalb ug/mg Crea 155.3 ug/mg Cr
== END 2018-12-31 13:32 ==
LOC: NCHCN 13:12
PROVIDERS: Visit Provider Nurse Practitioner Family
DX: E11.9 Type 2 diabetes mellitus without complications (principal)
CPT/HCPCS: 82043; 82570

== ENCOUNTER 2019-01-08 20:11 | Inpatient (IN) | payer MEDICAID, SELFPAY ==
[2019-01-08] VITALS (7 sets, daily range): BP systolic 124–136; BP diastolic 65–82; PULSE 79–91; RESP 16–20; TEMP 36.4–37.5; O2SAT 95–98
[2019-01-08] MEDS: Normal Saline 1,000 ML 1000 ML IV ×2 (20:31→22:08)
--- NOTE | 2019-01-08 20:31 | DI.CT_ITS ---
EXAM: CT HEAD WO CT HEAD WO CT HEAD WO CLINICAL HISTORY: syncpe, hit head. syncpe, hit head syncpe, hit head TECHNIQUE: Imaging Protocol: Axial computed tomography images with coronal and sagittal reformatted images were created and reviewed COMPARISON: No exams were available for comparison FINDINGS: Ventricles and Extra axial spaces: Normal in size and morphology for the patient's age. Hemorrhage: None. Cerebral parenchyma: Normal. Midline shift: None. Brainstem/Cerebellum: Normal. Calvarium: Normal. Visualized Paranasal sinuses/Mastoids: Clear. IMPRESSION: Normal CT of the head. DATA REPOSITORY: All CT scans at this facility are submitted to the National Radiology Data Registry (NRDR) Dose Index Registry (DIR) with the [employer] (A[employer]). RADIATION OPTIMIZATION: All CT scans at this facility use at least one of these dose optimization te chniques: automated exposure control; mA and/or kV adjustment per patient size (includes targeted exa ms where dose is matched to clinical indication); or iterative reconstruction.
--- NOTE | 2019-01-08 20:33 | ED.GENADUL_ITS ---
Discharge Plan Disposition Patient Disposition: [facility] INPATIENT Condition: Good Discharge Details Chief Complaint: Diabetes Clinical Impression: History of medication noncompliance, Acute hyperglycemia, Syncope Primary Care Provider: Unknown,Unknown ED Provider: Brodie Fernandes Home Meds and New Rx's Prescriptions: No Action Lantus Solostar U-100 Insulin 100 unit/mL (3 mL) insulin pen 40 unit subcut HS RF: 0 tenofovir disoproxil fumarate [Viread] 300 mg tablet 300 mg PO DAILY Qty: 90 RF: 3 albuterol sulfate 90 mcg/actuation HFA aerosol inhaler 1 puff IH Q6H PRN (Reason: shortness of breath or wheezing) Qty: 6.7 RF: 12 (DME) FreeStyle Lite Strips 1 EACH strip 1 ea Miscellaneous BID Qty: 100 RF: 0 (DME) blood-glucose meter [FreeStyle Lite Meter] 1 EACH kit 1 ea Miscellaneous DAILY Qty: 1 RF: 0 (DME) lancets [FreeStyle Lancets] 1 EACH misc 1 ea Miscellaneous BID Qty: 100 RF: 0 (DME) pen needle, diabetic 1 EACH needle 1 ea Miscellaneous DAILY Qty: 100 RF: 11 insulin NPH and regular human 100 unit/mL (70-30) Insulin Pen SUBCUT RF: 0 buprenorphine-naloxone [Suboxone] 4-1 mg Film 6 film sublingual DAILY RF: 0 metformin [Glucophage XR] 500 MG tablet extended release 24 hr 500 mg PO DAILY RF: 0 methadone 10 mg Tablet 10 mg PO DAILY RF: 0 Medical Decision Making This is a 48-year-old male with past medical history of type 2 diabe kenny on subcu insulin, as well as reactive airway disease, chronic hepatitis C and previous hepatitis B. He presents today for evaluation of uncontrolled blood sugar secondary to taking no insulin over the last few weeks which he attributes to being homeless and not having any medications. He is also had one episode of syncope associated with mild dizziness over the last states that sugars continue to climb. He denies any significant headache eye pain chest pain shortness of breath. Neurologic exam demonstrates no focal neurologic deficits. He is mildly tachycardic but otherwise hemodynamically stable. Blood sugar is greater than 500. Additionally the patient does admit to alcohol intake today which will certainly obscure to degree his clinical picture. Differential at this time includes HHN K, potential alcoholic ketosis, notable hyperglycemia and suspected severe dehydration. We will evaluate for any acute cardiac etiology, get a CT scan of his head and chest x-ray secondary to his syncope. We will rehydrate, treat with subcu insulin to start, and reassess. 10:15 PM Patient's labs have returned are notably unremarkable. Electrolytes do show mild hyponatremia at 127, no anion gap, no acidosis. Lactate is elevated at 3.2, glucose 500. Troponin normal. CT head and chest x-ray unremarkable per virtual radiology. Lipase normal. Patient tolerating p.o. well. Urinalysis shows no ketones. Patient feels well. The patient's notably elevated blood sugars which are improving now down to the 400s after insulin and fluids, feel that there is no indication for IV insulin at all. However because of the patient's current homeless status, and his lack of medical compliance in addition to his lack of insulin at home I do feel that he would benefit from 24- hour observation, evaluation by case management, potential health and resource assistance at home to help with his lack of medications. Discussed the plan with hospitalist Dr. Zimmerman, he agrees with the assessment and plan. I have extensively reviewed the treatment plan with the patient. I have addressed all patient concerns at this time. I have also discussed the plan with the admitting physician and they agree with the current assessment and plan and have agreed to assume responsibility for the patient. All parties demonstrate verbal understanding and agreement with our assessment and plan at this time. EKG 20: 39 Rate 79, MT 154, QTc 481, QRS 98, sinus rhythm, negative precordial T waves, questionable U waves in V3. No evidence of STEMI. Less than [address] elevation in V3, with no reciprocal depression. Review from prior EKG on 08/16/2018 demonstrates similar repolarization and previous V2. FINDINGS: Lungs: Unremarkable. No consolidation. Pleural space: Unremarkable. No pleural effusion. No pneumothorax. Heart/Mediastinum: Unremarkable. No cardiomegaly. Bones/joints: Unremarkable. IMPRESSION: No acute findings. Thank you for allowing us to participate in the care of your patient. Dictated and Authenticated by: Jefferson Perez DO 01/08/2019 9:54 PM Eastern Time ([place] & [place]) FINDINGS: Brain: Normal. No hemorrhage. Unremarkable white matter. No mass effect. Ventricles: Normal. No ventriculomegaly. Bones/joints: Unremarkable. No acute fracture. Sinuses: Scattered, opacified mucoperiosteal thickening in left frontal both maxillary sinuses. ethmoid air cells Mastoid air cells: Visualized mastoid air cells are well aerated. Soft tissues: Unremarkable. IMPRESSION: 1. No acute intracerebral findings. 2. Sinus disease. Thank you for allowing us to participate in the care of your patient. Dictated and Authenticated by: Jefferson Perez DO 01/08/2019 9:53 PM Eastern Time ([place] & [place]) HPI General Date/Time Provider Initiated Documentation: 01/08/19 20:21 . HPI Narrative: This is a 48-year-old male with a past medical history of reactive airway, type 2 diabetes on both long-acting and short acting insulin including metformin who presents today for evaluation of lightheadedness, syncope, notably high sugars. Patient states that over the last few weeks he has been homeless and because of this he has not taken any insulin. He has not been managing his blood sugars at all. Today as his sugars continued to climb he noticed his symptoms of dizziness and lightheadedness even more. When he did pass out he did hit his head earlier today. He denies any exertional complaints of chest pain or shortness of breath. He denies any cough fever or chills. He does admit to chronic numbness and tingling in his feet, but states that this is normal for him. He does also admit to drinking alcohol today. He did miss his methadone today. He denies any other complaints at this time. He denies any other modifying factors. Related Data Home Medications Medication Instructions Recorded Confirmed FreeStyle Lite Strips #100 strip 03/25/16 10/19/18 blood-glucose meter [FreeStyle #1 kit 03/25/16 10/19/18 Lite Meter] lancets [FreeStyle Lancets] #100 ea 03/25/16 10/19/18 pen needle, diabetic #100 units 07/23/17 10/19/18 metformin [Glucophage XR] 500 mg PO DAILY 01/30/18 01/08/19 insulin glargine 100 unit/mL (3 40 unit SUBCUT HS ml 04/27/18 01/08/19 mL) subcutaneous pen albuterol sulfate 90 mcg/actuation 1 puff IH Q6H PRN #6.7 gm 05/04/18 01/08/19 aerosol inhaler tenofovir disoproxil fumarate 300 300 mg PO DAILY #90 tab 07/26/18 01/08/19 mg tablet buprenorphine-naloxone [Suboxone] 6 film SUBLINGUAL DAILY 10/27/18 01/08/19 insulin NPH and regular human SUBCUT 10/27/18 methadone 10 mg PO DAILY 01/08/19 01/08/19 Previous Rx's Medication Instructions Recorded pen needle, diabetic #100 units 07/23/17 albuterol sulfate 90 mcg/actuation 1 puff IH Q6H PRN #6.7 gm 05/04/18 aerosol inhaler tenofovir disoproxil fumarate 300 300 mg PO DAILY #90 tab 07/26/18 mg tablet Allergies Allergy/AdvReac Type Severity Reaction Status Date / Time No Known Allergies Allergy Verified 01/08/19 20:20 General Stated Complaint: Diabetes JAMES: 3 Review of Systems All systems reviewed & are unremarkable except as noted in HPI and below PFSH Social History Smoking/Tobacco Use Status: Current every day Tobacco Type: cigarettes Alcohol Intake: current Alcohol Intake frequency: holidays/special occasions only Drug use: Occasionally Substance use type: marijuana Details: on Suboxone Household members: significant other Housing: apartment Number of Children: 2 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 3.ENT: Atraumatic external nose and ears. Notably dry MM. Neck: Symmetric, trachea midline, No thyromegaly. There is no evidence of raccoon eyes, decker sign, CSF rhinorrhea, mastoid tenderness, cranial crepitus, exophthalmos, or hyphema. Patient demonstrates intact dentition with no signs of tooth avulsion or fracture, no signs of jaw deformity, no evidence of a LeFort's fracture, with an intact palate, nose and orbital region. There is no evidence of a nasal septal hematoma. No proptosis. Jaw closes symmetrically. Airway is clear. 4.CVS: +S1/S2, No murmurs or gallops. Peripheral pulses 2+ and equal in all extremities. Brisk capillary refill in all extremities. 5.RESP: Unlabored respiratory effort. Mild crackles in right lower lung field. No wheezes or rhonchi. 6.GI: Soft, Nontender/Nondistended, No hepatosplenomegaly. No guarding or rebound. 7.MSK: Normocephalic/Atraumatic, Extremities w/o deformity or ttp No cyanosis or clubbing, Normal movement of all extremities 8.Skin: Warm, Dry. No rashes or lesions. 9.Neuro: solutions development analyst II-XII grossly intact. Sensation grossly intact except for over his feet which the patient states is chronic, no focal neurologic deficits. All 6 cardinal planes of vision are fully intact. No evidence of rotatory or vertical nystagmus. The patient demonstrated a normal [id number], good dexterity. There was no evidence of dysdiadochokinesia. Patient was able to ambulate without difficulty. There was no wide-based gait. Sensation was intact bilaterally as well as muscle strength bilaterally for all extremities. Patient was able to verbalize butter cup with no slurring, or miss pronunciation. 10.Psych: (AAO) x3. Appropriate mood and affect Course Vital Signs Vital signs: Vital Signs Temperature 36.4 C L 01/08/19 20:15 Pulse 91 H 01/08/19 20:15 Respiratory Rate 01/08/19 20:15 Blood Pressure 136/82 01/08/19 20:15 Pulse Oximetry 98 01/08/19 20:15 Temperature 36.4 C L 01/08/19 20:15 Temperature Source Skin 01/08/19 20:15 Pulse 91 H 01/08/19 20:15 Respiratory Rate 01/08/19 20:15 Respiratory Effort 01/08/19 20:20 Blood Pressure 136/82 01/08/19 20:15 Blood Pressure Position Sitting 01/08/19 20:15 Pulse Oximetry 98 01/08/19 20:15 Oxygen Delivery Method Room Air 01/08/19 20:15 Oxygen Flow Rate 0 01/08/19 20:15 Pain Level 0 01/08/19 20:15
[2019-01-08] MEDS: Insulin REGULAR-Human 100 UNITS/ML UNIT 20 UNITS SC (20:37)
--- NOTE | 2019-01-08 20:37 | DI.RAD_ITS ---
EXAM: XR CHEST 2V PA LATERAL CLINICAL HISTORY: cough, crackles Right lower lung TECHNIQUE: 2D digital imaging was performed. COMPARISON: XR CHEST 2V PA LATERAL from 08/16/2018 FINDINGS: The heart is not enlarged. The lungs are clear and well expanded. No pleural effusion seen. Mediastin al contours appear intact. IMPRESSION: Normal chest
[2019-01-08 20:41] LABS: BE (Venous) 3.9 mmol/L (-3-3); HCO3 (Venous) 29 mmol/L (22-28); O2 Sat (Venous) 92 % (70-80); TCO2 (Venous) 25 mmol/L (22-29); pCO2 (Venous) 45 mm/Hg (34-47); pH (Venous) 7.41 (7.32-7.43); pO2 (Venous) 69 mm/Hg (28-44)
[2019-01-08 20:43] LABS: Abs Immature Grans 0.01 k/cumm (0.0-0.09); Absolute Basophil Count 0.03 k/cumm (0.0-0.2); Absolute Eosinophil Count 0.01 k/cumm (0.0-0.7); Absolute Lymphocyte Count 1.65 k/cumm (1.2-3.4); Absolute Monocyte Count 0.38 k/cumm (0.11-0.7); Basophils % 0.3; Eosinophils % 0.1; HGB 14.4 g/dL (13.5-17.5); Immature Grans % 0.1; Lymphocytes % 18.2; Mean Corp. HGB Concentration 36.9 g/dL (32.0-36.0); Mean Corpuscular Hemoglobin 34.3 pg (27.0-33.0); Mean Corpuscular Volume 92.9 fL (80-95); Monocytes % 4.2; Neutrophils % 77.1; Platelet Count 135 x1000/uL (130-400); RBC Distribution Width 12.2 % (11.8-14.1); White Blood Cell Count 9.08 k/cumm (4.4-10.8)
[2019-01-08 20:46] LABS: Lactate 3.2 mmol/L (0.6-1.4)
[2019-01-08 20:51] LABS: INR 0.9 (0.9-1.1); PTT Activated 24.1 sec (21.0-31.4); Prothrombin Time 9.4 sec (9.3-11.0)
[2019-01-08 20:58] LABS: ALT 66 U/L (16-63); AST 51 U/L (15-37); Alkaline Phosphatase 97 U/L (46-116); Anion Gap 6.9 mmol/L (3-11); BUN 8 mg/dL (7-18); Bilirubin, Total 0.6 mg/dL (0.2-1.0); CO2 26.1 mmol/L (21.0-32.0); CREATININE 0.79 mg/dL (0.70-1.30); Calcium 8.6 mg/dL (8.5-10.1); Chloride 94 mmol/L (98-107); ETHANOL BLOOD 247.4 mg/dL (<3); Lipase 132 U/L (73-393); Potassium 4.2 mmol/L (3.5-5.1); Sodium 127 mmol/L (136-145); Total Protein 7.9 g/dL (6.4-8.2)
[2019-01-08 21:02] LABS: Glucose 505 mg/dL (70-100)
[2019-01-08 21:03] LABS: Troponin I < 0.05 ng/mL (0.00-0.06)
--- NOTE | 2019-01-08 21:54 | DI.VRAD_ITS ---
PROCEDURE INFORMATION: Exam: CT Head Without Contrast Exam date and time: 01/08/2019 8:32 PM Clinical history: 48 years old, male; Injury or trauma; Fall; Initial encounter; Injury details: Syncope, hit head TECHNIQUE: Imaging protocol: Computed tomography of the head without contrast. COMPARISON: No relevant prior studies available. FINDINGS: Brain: Normal. No hemorrhage. Unremarkable white matter. No mass effect. Ventricles: Normal. No ventriculomegaly. Bones/joints: Unremarkable. No acute fracture. Sinuses: Scattered, opacified mucoperiosteal thickening in left frontal both maxillary sinuses. ethmoid air cells Mastoid air cells: Visualized mastoid air cells are well aerated. Soft tissues: Unremarkable. IMPRESSION: 1. No acute intracerebral findings. 2. Sinus disease. Dictated and Authenticated by: Jefferson Perez MD. Ordering:MONICA Calloway MD
--- NOTE | 2019-01-08 21:54 | DI.VRAD_ITS ---
PROCEDURE INFORMATION: Exam: XR Chest, 2 Views Exam date and time: 01/08/2019 8:38 PM Clinical history: 48 years old, male; Cough TECHNIQUE: Imaging protocol: XR of the chest Views: 2 views. COMPARISON: CR XR CHEST 2V PA LATERAL 08/16/2018 11:04 AM FINDINGS: Lungs: Unremarkable. No consolidation. Pleural space: Unremarkable. No pleural effusion. No pneumothorax. Heart/Mediastinum: Unremarkable. No cardiomegaly. Bones/joints: Unremarkable. IMPRESSION: No acute findings. Dictated and Authenticated by: Jefferson Perez MD. Ordering:MONICA Calloway MD
[2019-01-08 21:55] LABS: Bilirubin Negative (Negative); Blood Trace-intact (Negative); Clarity Clear (Clear); Glucose 500 mg/dL (Negative); Ketones Negative (Negative); Leukocyte Esterase Negative (Negative); Nitrite Negative (Negative)
[2019-01-08 22:00] LABS: Bacteria Rare HPF (Negative); C & S Indicated? No; Casts Negative LPF (Negative); Crystals Negative HPF (Negative); Epithelial Cells Rare HPF (Negative); Mucus Negative (Negative); Other Cells Negative (Negative); RBC 0-2 (0-2); WBC Negative HPF (0-5)
--- NOTE | 2019-01-08 22:26 | W.PM.HP.N ---
Date of service: 01/08/19 Time of Service: 22:26 Assessment and Plan Assessment and plan (1) Type II diabetes mellitus, uncontrolled: Start date: 01/08/19 Status: Acute Assessment and plan: This a 48-year-old gentleman who is been homeless for the last several weeks and off his usual regimen of insulin with hyperglycemia in the ED which responded quickly to regular insulin and in fact he did have a glucometer below 100 after receiving his lower dose of Lantus upon admission. We will watch for hypoglycemia and IV hydrate with the patient restarting his short acting insulin but we may need to reevaluate the use of Lantus. Long-term need to have discharged on his medications with some social security assessor evaluation for his homeless situation. He appears to have more a picture of HHNC than DKA has been off his usual insulin treatment. He will have rehydration as part of his treatment. Qualifiers: Glycemic state: with hyperglycemia Qualified Code(s): E11.65 - Type 2 diabetes mellitus with hyperglycemia (2) Syncope and collapse: Start date: 01/08/19 Status: Acute Assessment and plan: Patient has several abrasions which appear at variable stages of healing and has been drinking more recently with most likely his intoxication causing his falling. Also he is homeless and very unkempt with dirt under his fingernails and toenails. To be living in the outside recently. I am unsure of his hydration and nutritional status. We will monitor home on telemetry but there is no reason to trend his troponins. Neurologically he is intact and his CT scan of the head was negative. (3) Cellulitis: Start date: 01/08/19 Status: Acute Assessment and plan: Left hand appears to be swollen and have early signs of cellulitis with the patient being diabetic uncontrolled and also having some compromised immunity with his diabetes and chronic hepatitis B not on treatment recently for either. We will treat him aggressively with IV antibiotics which will cover his cellulitis but also his sinusitis which was seen on CT. He is a smoker and not complaining of sinus pain or pressure. He has had no fever. Qualifiers: Site of cellulitis: unspecified site Qualified Code(s): L03.90 - Cellulitis, unspecified (4) Continuous opioid dependence: Status: Chronic Assessment and plan: The patient's methadone dose will be confirmed in the morning and restarted. Long-term he will follow-up with [facility]. (5) Smoker: Status: Chronic Assessment and plan: Nicotine patch will be applied and patient counseled in the hospital. Long-term he should stop smoking and drinking alcohol though this will be a long-term effort with his local physician. (6) Hep B w/ coma, chronic, w/o delt: Status: Chronic Assessment and plan: Patient's antiviral medication will be restarted appropriate since he has been on this for years having been treated and cleared of hepatitis C in the past. He should follow-up with hepatology long-term. History of Present Illness History of Present Illness Chief Complaint: Uncontrolled hyperglycemia Narrative: This is a 48-year-old male patient who is been homeless for several weeks after losing his housing with financial stressors during his separation from his . He uses on insulin and has been out of insulin and most of his medications for the last few weeks. He reported to the ED because of controlled hypertension and was excessively drinking high alcohol content beer at least for the last week. He had been falling and had several abrasions over his head and extremities with noted erythema and swelling with some tenderness over his hands especially when he was [facility]. He denied any fever chills or shakes and he had no headache or focal neurological symptoms. His imaging in the ED was negative. 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 In the ED his evaluation did not reveal any acidosis or ketosis and he was dehydrated with his recent drinking. He usually is on methadone and missed his last dose prior to this admission. Will be checked in the morning. Other than being depressed with his recent events patient had no other complaints. He denies any IV use and most likely was falling because of his drinking. Review of Systems Narrative: 13 point review of systems otherwise unrevealing or stable. [facility] Medical History Adjustment disorder, unspecified (Resolved 12/10/15) Adventitious breath sounds (Resolved) Chronic hepatitis C (Resolved 08/11/05) RX [facility] DARIO JACOB; began Aniceto 08/07/14 Cirrhosis of liver (Chronic 05/06/11) Continuous opioid dependence (Chronic 03/05/05) [facility] RX [place], <2004; counselling Meagan Garcia; prefers tablets Folliculitis (Resolved 05/17/12) Dr Donnie ng, consult Dr. 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) [facility] Onychomycosis of toenail (Resolved 08/16/13) Opioid dependence on agonist therapy (Chronic) [facility] RX [place], <2004; prefers tablets (PA) due to dental plate; counselor Zhang Atkins Opioid use disorder, moderate, dependence (Chronic 12/10/15) Smoker (Chronic 05/06/11) Type II diabetes mellitus, uncontrolled (Chronic) A1c 9.4 01/2014; uncontrolled; goal A1c < 7.5 Urinary frequency (Chronic 08/16/13) Surgical History Endoscopy (12/09/12) repeat in 3 years Family History Brother No problems noted. Brother No problems noted. Sister No problems noted. 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 What is your relationship status?: living with partner Panel score (0-1 are the most socially isolated patients): 1 What type of physical activity do you participate in: none Drive intox or ride w/intox team driver: No Working smoke detector in home: Yes Carbon monox detector in home: Yes Do you feel safe at home: Yes Do you feel safe in your relationship?: Yes Meds Home Medications and Allergies Home Medications Medication Instructions Recorded Confirmed Type FreeStyle Lite Strips #100 strip 03/25/16 10/19/18 History blood-glucose meter [FreeStyle #1 kit 03/25/16 10/19/18 History Lite Meter] lancets [FreeStyle Lancets] #100 ea 03/25/16 10/19/18 History pen needle, diabetic #100 units 07/23/17 10/19/18 Rx metformin [Glucophage XR] 500 mg PO DAILY 01/30/18 01/08/19 History insulin glargine 100 unit/mL (3 40 unit SUBCUT HS ml 04/27/18 01/08/19 History mL) subcutaneous pen albuterol sulfate 90 mcg/actuation 1 puff IH Q6H PRN #6.7 gm 05/04/18 01/08/19 Rx aerosol inhaler tenofovir disoproxil fumarate 300 300 mg PO DAILY #90 tab 07/26/18 01/08/19 Rx mg tablet buprenorphine-naloxone [Suboxone] 6 film SUBLINGUAL DAILY 10/27/18 01/08/19 History insulin NPH and regular human SUBCUT 10/27/18 History methadone 10 mg PO DAILY 01/08/19 01/08/19 History Allergies Allergy/AdvReac Type Severity Reaction Status Date / Time No Known Allergies Allergy Verified 01/08/19 20:20 Exam Narrative Exam Narrative: General: Patient appears appropriate for age but disheveled and with pressured speech and poor eye contact. He appears to hand over his head and extremities with a Band-Aid marj over his left hand which is white appearing to have been protecting them from the sun. He is alert and oriented x2 with answering the wrong date. He is in moderate distress with moderate inebriation. HEENT: Normocephalic and atraumatic with his right forehead revealing what appears to be old abrasions. There is no swelling over the face. Eyes reveal pupils equal and reactive to light symmetrically, extraocular movement intact and sclera anicteric. Ears normal. Oropharynx with dry oral mucosa and poor dentition. Neck: Supple without JVD. Lungs: Bronchovesicular breath sounds diffusely without rales, rhonchi or expiratory wheezing. Slightly decreased aeration diffusely. Chest: Symmetrical and no focal tenderness. Heart: Regular rate and rhythm no appreciable murmurs or gallops. Back: Stooped posture with no CVA tenderness. Abdomen: Scaphoid contour, soft and nontender to palpation with no palpable hepatosplenomegaly. Bowel sounds positive in all quadrants. Genitalia and rectal: Not examined. Extremities: Without clubbing, cyanosis or edema. There is erythema and slight localized swelling of the dorsum of his left hand with abrasions and slight tenderness to palpation over the same area. There are old abrasions over the right hand and right lower extremity without swelling and less erythema but what appears to be signed burn at least first-degree over the extremities that were exposed. No joint swelling or decreased range of motion over the joints. Peripheral pulses are intact. Skin: Sun tanning or at least first-degree sunburn over his face and neck as well as his extremities especially the left hand with the Band-Aids over the fracture abrasions removed with a white shadow of where they existed. Normal turgor and no other rashes. Neuro: Cranial nerves II through XII grossly intact, no focalizing motor deficits, sensory appears grossly intact. Psych: Decreased eye contact but flattened affect, slightly restless and seemed to not want to give a history of are discussed most about his situation with some denial as to how much he has been drinking recently. He appears depressed. Results Imaging Imaging Studies: Exam(s) PROCEDURE INFORMATION: Exam: XR Chest, 2 Views Exam date and time: 01/08/2019 8:38 PM Clinical history: 48 years old, male; Cough TECHNIQUE: Imaging protocol: XR of the chest Views: 2 views. COMPARISON: CR XR CHEST 2V PA LATERAL 08/16/2018 11:04 AM FINDINGS: Lungs: Unremarkable. No consolidation. Pleural space: Unremarkable. No pleural effusion. No pneumothorax. Heart/Mediastinum: Unremarkable. No cardiomegaly. Bones/joints: Unremarkable. IMPRESSION: No acute findings. Dictated and Authenticated by: Jefferson Perez MD Exam(s) PROCEDURE INFORMATION: Exam: CT Head Without Contrast Exam date and time: 01/08/2019 8:32 PM Clinical history: 48 years old, male; Injury or trauma; Fall; Initial encounter; Injury details: Syncope, hit head TECHNIQUE: Imaging protocol: Computed tomography of the head without contrast. COMPARISON: No relevant prior studies available. FINDINGS: Brain: Normal. No hemorrhage. Unremarkable white matter. No mass effect. Ventricles: Normal. No ventriculomegaly. Bones/joints: Unremarkable. No acute fracture. Sinuses: Scattered, opacified mucoperiosteal thickening in left frontal both maxillary sinuses. ethmoid air cells Mastoid air cells: Visualized mastoid air cells are well aerated. Soft tissues: Unremarkable. IMPRESSION: 1. No acute intracerebral findings. 2. Sinus disease. Dictated and Authenticated by: Jefferson Perez MD. Labs Result diagrams: 01/08/19 20:30 01/08/19 20:30 Labs: Laboratory Results - last 24 hr 01/08/19 01/08/19 01/08/19 20:30 20:30 20:30 WBC 9.08 RBC 4.20 L Hgb 14.4 Hct 39.0 L MCV 92.9 MCH 34.3 H MCHC 36.9 H RDW 12.2 Plt Count 135 MPV 9.0 Immature Gran % 0.1 Neutrophils % 77.1 Lymphocytes % 18.2 Monocytes % 4.2 Eosinophils % 0.1 Basophils % 0.3 Absolute Neutrophils 7.00 H Absolute Lymphocytes 1.65 Absolute Monocytes 0.38 Absolute Eosinophils 0.01 Absolute Basophils 0.03 PT INR APTT VBG pH VBG pCO2 VBG pO2 VBG HCO3 VBG Total CO2 VBG O2 Saturation VBG Base Excess Sodium 127 L Potassium 4.2 Chloride 94 L Carbon Dioxide 26.1 Anion Gap 6.9 BUN 8 Creatinine 0.79 Estimated GFR/1.73 m2 >= 60.00 Glucose 505 H* Lactate 3.2 H* Calcium 8.6 Total Bilirubin 0.6 AST 51 H ALT 66 H Alkaline Phosphatase 97 Troponin I Total Protein 7.9 Albumin 4.0 Lipase 132 Urine Color Urine Clarity Urine pH Ur Specific [place] Urine Protein Urine Ketones Urine Blood Urine Nitrite Urine Bilirubin Urine Urobilinogen Ur Leukocyte Esterase Urine RBC Urine WBC Ur Epithelial Cells Urine Crystals Urine Bacteria Urine Casts Urine Mucus Urine Other Ur Culture Indicated? Urine Glucose Ethyl Alcohol 247.4 01/08/19 01/08/19 01/08/19 20:30 20:30 20:30 WBC RBC Hgb Hct MCV MCH MCHC RDW Plt Count MPV Immature Gran % Neutrophils % Lymphocytes % Monocytes % Eosinophils % Basophils % Absolute Neutrophils Absolute Lymphocytes Absolute Monocytes Absolute Eosinophils Absolute Basophils PT 9.4 INR 0.9 APTT 24.1 VBG pH 7.41 VBG pCO2 45 VBG pO2 69 H VBG HCO3 29 H VBG Total CO2 25 VBG O2 Saturation 92 H VBG Base Excess 3.9 H Sodium Potassium Chloride Carbon Dioxide Anion Gap BUN Creatinine Estimated GFR/1.73 m2 Glucose Lactate Calcium Total Bilirubin AST ALT Alkaline Phosphatase Troponin I < 0.05 Total Protein Albumin Lipase Urine Color Urine Clarity Urine pH Ur Specific [place] Urine Protein Urine Ketones Urine Blood Urine Nitrite Urine Bilirubin Urine Urobilinogen Ur Leukocyte Esterase Urine RBC Urine WBC Ur Epithelial Cells Urine Crystals Urine Bacteria Urine Casts Urine Mucus Urine Other Ur Culture Indicated? Urine Glucose Ethyl Alcohol 01/08/19 21:48 WBC RBC Hgb Hct MCV MCH MCHC RDW Plt Count MPV Immature Gran % Neutrophils % Lymphocytes % Monocytes % Eosinophils % Basophils % Absolute Neutrophils Absolute Lymphocytes Absolute Monocytes Absolute Eosinophils Absolute Basophils PT INR APTT VBG pH VBG pCO2 VBG pO2 VBG HCO3 VBG Total CO2 VBG O2 Saturation VBG Base Excess Sodium Potassium Chloride Carbon Dioxide Anion Gap BUN Creatinine Estimated GFR/1.73 m2 Glucose Lactate Calcium Total Bilirubin AST ALT Alkaline Phosphatase Troponin I Total Protein Albumin Lipase Urine Color Straw Urine Clarity Clear Urine pH 6.0 Ur Specific [place] 1.010 Urine Protein Negative Urine Ketones Negative Urine Blood Trace-intact H Urine Nitrite Negative Urine Bilirubin Negative Urine Urobilinogen 1.0 H Ur Leukocyte Esterase Negative Urine RBC 0-2 Urine WBC Negative Ur Epithelial Cells Rare Urine Crystals Negative Urine Bacteria Rare Urine Casts Negative Urine Mucus Negative Urine Other Negative Ur Culture Indicated? No Urine Glucose 500 H Ethyl Alcohol Last Vital Signs Temp 36.4 C L 01/08/19 20:15 Pulse 79 01/08/19 21:00 Resp 17 01/08/19 21:10 BP 124/67 01/08/19 21:00 Pulse Ox 95 01/08/19 21:10
[2019-01-08 23:13] LABS: Magnesium 2.3 mg/dL (1.8-2.4)
[2019-01-09] VITALS (9 sets, daily range): BP systolic 140–156; BP diastolic 76–83; PULSE 57–84; RESP 17–18; TEMP 36.2–37.4; O2SAT 97–99
[2019-01-09] MEDS: Acetaminophen 325 MG TAB 650 MG PO ×3 (00:50→20:12)
[2019-01-09] MEDS: Docusate Sodium 100 MG CAP PO (00:50)
[2019-01-09] MEDS: Insulin Glargine 300 UNITS/3 ML PEN 20 UNITS SC (00:51)
[2019-01-09] MEDS: Normal Saline 1,000 ML 250 ML IV ×3 (00:52→11:13)
[2019-01-09] MEDS: Dextrose 50%-Water 25 GM/50 ML SYR IVP (01:12)
[2019-01-09] MEDS: PIPERACILLIN/TAZO 4.5 GM in Normal Saline 100 ML IVPB ×2 (01:25→08:19)
[2019-01-09 08:08] LABS: ALT 68 U/L (16-63); AST 63 U/L (15-37); Albumin 3.6 g/dL (3.4-5.0); Alkaline Phosphatase 104 U/L (46-116); Anion Gap 10.5 mmol/L (3-11); BUN 12 mg/dL (7-18); CO2 29.5 mmol/L (21.0-32.0); CREATININE 0.71 mg/dL (0.70-1.30); Calcium 8.5 mg/dL (8.5-10.1); Chloride 101 mmol/L (98-107); Potassium 3.5 mmol/L (3.5-5.1); Total Protein 7.4 g/dL (6.4-8.2)
[2019-01-09 08:09] LABS: HCT 39.5 % (40.0-50.0); HGB 14.4 g/dL (13.5-17.5); Mean Corp. HGB Concentration 36.5 g/dL (32.0-36.0); Mean Corpuscular Hemoglobin 34.2 pg (27.0-33.0); Mean Corpuscular Volume 93.8 fL (80-95); Mean Platelet Volume 9.7 fL (8.0-11.0); Platelet Count 124 x1000/uL (130-400); RBC 4.21 m/cumm (4.50-6.00); RBC Distribution Width 12.1 % (11.8-14.1); White Blood Cell Count 6.47 k/cumm (4.4-10.8)
[2019-01-09 08:16] LABS: Glucose 81 mg/dL (70-100); Sodium 141 mmol/L (136-145)
[2019-01-09] MEDS: Methadone 5 MG TAB 15 MG PO (08:18)
[2019-01-09] MEDS: Enoxaparin 40 MG/0.4 ML SYR SC (08:18)
[2019-01-09 08:44] LABS: Lactate 0.6 mmol/L (0.6-1.4)
[2019-01-09] MEDS: THIAMINE 100 MG in Normal Saline 100 ML 200 MG IVPB (11:13)
--- NOTE | 2019-01-09 11:34 | PGE_ITS ---
Date of Service Date of service: 01/09/19 Time of Service: 11:34 Assessment and Plan Assessment and plan (1) Type II diabetes mellitus, uncontrolled: Start date: 01/09/19 Start time: 11:57 Status: Acute Assessment and plan: Improving. 97 by fingerstick this am. Continue to monitor blood glucose. Tolerating PO. Qualifiers: Glycemic state: with hyperglycemia Qualified Code(s): E11.65 - Type 2 diabetes mellitus with hyperglycemia (2) Syncope and collapse: Start date: 01/09/19 Start time: 11:59 Status: Acute Assessment and plan: Enodrses drinking beers daily, will drink until intoxicated then passes out. Denies withdrawal from alcohol in the past. Placed on CIWA, telemetry, thiamine, folic acid and multivitamin. Continue to monitor w/d sx. (3) Alcohol use: Start date: 01/09/19 Start time: 12:01 Status: Acute Assessment and plan: Use in the last 24 hours. On CIWA see above. (4) Cellulitis: Start date: 01/09/19 Start time: 12:01 Status: Acute Assessment and plan: Left hand moderate erythema, with edema, multiple abrasions to left hand. Mild erythema to right hand with abraisions. Afebrile. No leukocytosis. CRP 2.10. lactate Transitioned to PO augmentin and doxycycline. Repeat CRP in am. Monitor CBC. Qualifiers: Site of cellulitis: unspecified site Qualified Code(s): L03.90 - Cellulitis, unspecified (5) Continuous opioid dependence: Start date: 01/09/19 Start time: 12:04 Status: Chronic Assessment and plan: Confirmed with BARRT 15 mg daily. (6) Smoker: Start date: 01/09/19 Start time: 12:05 Status: Chronic Assessment and plan: Nicoderm patch, continue to assess readiness to quit. (7) Hep B w/ coma, chronic, w/o delt: Start date: 01/09/19 Start time: 12:05 Status: Chronic Assessment and plan: Patient's antiviral medication will be restarted appropriate since he has been on this for years having been treated and cleared of hepatitis C in the past. He should follow-up with hepatology long-term. (8) DVT prophylaxis: Start date: 01/09/19 Start time: 12:05 Status: Acute Assessment and plan: Enoxaparin Above case has been discussed with Dr. Hardy who is in agreement. Subjective Subjective Patient reports: no new complaints Interval history since last seen: Does have complaints of numbness and tingling to bilateral feet. Denies withdrawal to alcohol in the past, does endorse drinking several beers in a day. Last drink in last 24 hours. Multiple scabbed areas to bilateral hands, denies IVDU recently, last use 20 years ago. Mild erythema on right hand, moderate erythema and edema to left hand. Origianlly on zosyn, however afebrile without leukocytosis, tranistioned to PO augmentin and doxy. Am bgl 97. Repeat lactate this am 0.6 and CRP 2.10. Denies CP, SOB, n/v/d. CM to help without patient resources for diabetes medication and housing Exam Narrative Exam Narrative: Cont: older than stated age male sitting up in bed. Cooperative, pleasant. Eyes: PERRLA, EOMI Neck: no JVD, goiter, lymphedema Resp: LSC, nonlabored and even respirations. Cardio: Regular rate and rhythm, no murmur appreciated GI: BS x 4 quads Skin: mild erythema to right hand with multiple small scabbed areas to knuckles, palmar surface, and dorsal. Left hand with moderate erythema and edema. Multiple scabbed areas to dorsal aspect of hand and one to palmar surface Neuro: AAOx 3 Objective Objective Clinical Data: Abnormal lab results 01/08/19 01/08/19 01/08/19 Range/Units 20:30 20:30 20:30 RBC 4.20 L (4.50-6.00) m/cumm Hct 39.0 L (40.0-50.0) % MCH 34.3 H (27.0-33.0) pg MCHC 36.9 H (32.0-36.0) g/dL Plt Count (130-400) x1000/uL Absolute Neutrophils 7.00 H (1.2-6.7) k/cumm VBG pO2 (28-44) mm/Hg VBG HCO3 (22-28) mmol/L VBG O2 Saturation (70-80) % VBG Base Excess (-3-3) mmol/L Sodium 127 L (136-145) mmol/L Chloride 94 L (98-107) mmol/L Glucose 505 H* (70-100) mg/dL Lactate 3.2 H* (0.6-1.4) mmol/L AST 51 H (15-37) U/L ALT 66 H (16-63) U/L C-Reactive Protein (0.0-0.3) mg/dL Urine Blood (Negative) Urine Urobilinogen (Up TO 0.2) EU/dL Urine Glucose (Negative) mg/dL 01/08/19 01/08/19 01/09/19 Range/Units 20:30 21:48 06:55 RBC (4.50-6.00) m/cumm Hct (40.0-50.0) % MCH (27.0-33.0) pg MCHC (32.0-36.0) g/dL Plt Count (130-400) x1000/uL Absolute Neutrophils (1.2-6.7) k/cumm VBG pO2 69 H (28-44) mm/Hg VBG HCO3 29 H (22-28) mmol/L VBG O2 Saturation 92 H (70-80) % VBG Base Excess 3.9 H (-3-3) mmol/L Sodium (136-145) mmol/L Chloride (98-107) mmol/L Glucose (70-100) mg/dL Lactate (0.6-1.4) mmol/L AST 63 H (15-37) U/L ALT 68 H (16-63) U/L C-Reactive Protein (0.0-0.3) mg/dL Urine Blood Trace-intact H (Negative) Urine Urobilinogen 1.0 H (Up TO 0.2) EU/dL Urine Glucose 500 H (Negative) mg/dL 01/09/19 01/09/19 Range/Units 06:55 06:55 RBC 4.21 L (4.50-6.00) m/cumm Hct 39.5 L (40.0-50.0) % MCH 34.2 H (27.0-33.0) pg MCHC 36.5 H (32.0-36.0) g/dL Plt Count 124 L (130-400) x1000/uL Absolute Neutrophils (1.2-6.7) k/cumm VBG pO2 (28-44) mm/Hg VBG HCO3 (22-28) mmol/L VBG O2 Saturation (70-80) % VBG Base Excess (-3-3) mmol/L Sodium (136-145) mmol/L Chloride (98-107) mmol/L Glucose (70-100) mg/dL Lactate (0.6-1.4) mmol/L AST (15-37) U/L ALT (16-63) U/L C-Reactive Protein 2.10 H (0.0-0.3) mg/dL Urine Blood (Negative) Urine Urobilinogen (Up TO 0.2) EU/dL Urine Glucose (Negative) mg/dL Vital Signs Temperature 36.5 C 01/09/19 07:30 Temperature Source Tympanic 01/09/19 07:30 Pulse 75 01/09/19 08:54 Pulse Rhythm Irregular 01/08/19 23:35 Pulse 82 01/08/19 21:10 Respiratory Rate 17 01/09/19 03:13 Respiratory Effort 01/08/19 23:35 Respiratory Depth Normal 01/08/19 23:35 Respiratory Pattern Normal 01/08/19 23:35 Blood Pressure 156/76 H 01/09/19 07:30 Blood Pressure Mean 79 01/08/19 21:00 Blood Pressure Position Sitting 01/08/19 20:15 Pulse Oximetry 98 01/09/19 07:30 Oxygen Delivery Method Room Air 01/09/19 07:30 Oxygen Flow Rate 0 01/09/19 07:30 Pain Level 6 01/09/19 07:30 Comment 01/09/19 07:30 Intake & Output 01/08/19 01/08/19 01/09/19 11:59 23:59 10:59 Intake Total 1999 3610 / 3610 Output Total 900 / 900 Balance 1999 2710 / 2710 Weight 69.1 kg 72.7 kg Intake: IV 1999 2100 / 2100 Oral 1510 / 1510 Output: Urine 900 / 900 Other: Urine Color Light Maria Luisa Urine Appearance Clear Voiding Methods Urinal Laboratory Results WBC 6.47 k/cumm (4.4-10.8) 01/09/19 06:55 RBC 4.21 m/cumm (4.50-6.00) L 01/09/19 06:55 Hgb 14.4 g/dL (13.5-17.5) 01/09/19 06:55 Hct 39.5 % (40.0-50.0) L 01/09/19 06:55 MCV 93.8 fL (80-95) 01/09/19 06:55 MCH 34.2 pg (27.0-33.0) H 01/09/19 06:55 MCHC 36.5 g/dL (32.0-36.0) H 01/09/19 06:55 RDW 12.1 % (11.8-14.1) 01/09/19 06:55 Plt Count 124 x1000/uL (130-400) L 01/09/19 06:55 MPV 9.7 fL (8.0-11.0) 01/09/19 06:55 Immature Gran % 0.1 01/08/19 20:30 Neutrophils % 77.1 01/08/19 20:30 Lymphocytes % 18.2 01/08/19 20:30 Monocytes % 4.2 01/08/19 20:30 Eosinophils % 0.1 01/08/19 20:30 Basophils % 0.3 01/08/19 20:30 Absolute Neutrophils 7.00 k/cumm (1.2-6.7) H 01/08/19 20:30 Absolute Lymphocytes 1.65 k/cumm (1.2-3.4) 01/08/19 20:30 Absolute Monocytes 0.38 k/cumm (0.11-0.7) 01/08/19 20:30 Absolute Eosinophils 0.01 k/cumm (0.0-0.7) 01/08/19 20:30 Absolute Basophils 0.03 k/cumm (0.0-0.2) 01/08/19 20:30 PT 9.4 sec (9.3-11.0) 01/08/19 20:30 INR 0.9 (0.9-1.1) 01/08/19 20:30 APTT 24.1 sec (21.0-31.4) 01/08/19 20:30 VBG pH 7.41 (7.32-7.43) 01/08/19 20:30 VBG pCO2 45 mm/Hg (34-47) 01/08/19 20:30 VBG pO2 69 mm/Hg (28-44) H 01/08/19 20:30 VBG HCO3 29 mmol/L (22-28) H 01/08/19 20:30 VBG Total CO2 25 mmol/L (22-29) 01/08/19 20:30 VBG O2 Saturation 92 % (70-80) H 01/08/19 20:30 VBG Base Excess 3.9 mmol/L (-3-3) H 01/08/19 20:30 Sodium 141 mmol/L (136-145) D 01/09/19 06:55 Potassium 3.5 mmol/L (3.5-5.1) 01/09/19 06:55 Chloride 101 mmol/L (98-107) 01/09/19 06:55 Carbon Dioxide 29.5 mmol/L (21.0-32.0) 01/09/19 06:55 Anion Gap 10.5 mmol/L (3-11) 01/09/19 06:55 BUN 12 mg/dL (7-18) 01/09/19 06:55 Creatinine 0.71 mg/dL (0.70-1.30) 01/09/19 06:55 Estimated GFR/1.73 m2 >= 60.00 (mL/min/1.73m2) 01/09/19 06:55 Glucose 81 mg/dL (70-100) D 01/09/19 06:55 Lactate 0.6 mmol/L (0.6-1.4) 01/09/19 08:38 Calcium 8.5 mg/dL (8.5-10.1) 01/09/19 06:55 Magnesium 2.3 mg/dL (1.8-2.4) 01/08/19 22:17 Total Bilirubin 1.0 mg/dL (0.2-1.0) 01/09/19 06:55 AST 63 U/L (15-37) H 01/09/19 06:55 ALT 68 U/L (16-63) H 01/09/19 06:55 Alkaline Phosphatase 104 U/L (46-116) 01/09/19 06:55 Troponin I < 0.05 ng/mL (0.00-0.06) 01/08/19 20:30 C-Reactive Protein 2.10 mg/dL (0.0-0.3) H 01/09/19 06:55 Total Protein 7.4 g/dL (6.4-8.2) 01/09/19 06:55 Albumin 3.6 g/dL (3.4-5.0) 01/09/19 06:55 Lipase 132 U/L (73-393) 01/08/19 20:30 Urine Color Straw (Yellow) 01/08/19 21:48 Urine Clarity Clear (Clear) 01/08/19 21:48 Urine pH 6.0 (5-8) 01/08/19 21:48 Ur Specific [place] 1.010 (1.005-1.025) 01/08/19 21:48 Urine Protein Negative mg/dL (Negative) 01/08/19 21:48 Urine Ketones Negative mg/dL (Negative) 01/08/19 21:48 Urine Blood Trace-intact (Negative) H 01/08/19 21:48 Urine Nitrite Negative (Negative) 01/08/19 21:48 Urine Bilirubin Negative (Negative) 01/08/19 21:48 Urine Urobilinogen 1.0 EU/dL (Up TO 0.2) H 01/08/19 21:48 Ur Leukocyte Esterase Negative (Negative) 01/08/19 21:48 Urine RBC 0-2 (0-2) 01/08/19 21:48 Urine WBC Negative HPF (0-5) 01/08/19 21:48 Ur Epithelial Cells Rare HPF (Negative) 01/08/19 21:48 Urine Crystals Negative HPF (Negative) 01/08/19 21:48 Urine Bacteria Rare HPF (Negative) 01/08/19 21:48 Urine Casts Negative LPF (Negative) 01/08/19 21:48 Urine Mucus Negative (Negative) 01/08/19 21:48 Urine Other Negative (Negative) 01/08/19 21:48 Ur Culture Indicated? No 01/08/19 21:48 Urine Glucose 500 mg/dL (Negative) H 01/08/19 21:48 Ethyl Alcohol 247.4 mg/dL (<3) 01/08/19 20:30
[2019-01-09] MEDS: Doxycycline Hyclate 100 MG CAP PO ×2 (11:49→21:36)
[2019-01-09] MEDS: Insulin Aspart 300 UNITS/3 ML PEN SC ×3 (11:50→21:36)
[2019-01-09] MEDS: Nicotine 21 MG/24 HR PATCH TD (11:50)
[2019-01-09] MEDS: Normal Saline Flush 10 ML SYR (11:51)
--- NOTE | 2019-01-09 12:28 | INITIAL_ITS ---
- If Service Date Differs Date of service: 01/09/19 Time of Service: 12:28 Care Management Initial Assess REASON FOR HOSPITALIZATION:: Uncontrolled NIDDM PAST MEDICAL HISTORY/PAST SURGICAL HISTORY:: Medical History. Adjustment disorder, unspecified (Resolved 12/10/15). Adventitious breath sounds (Resolved). Chronic hepatitis C (Resolved 08/11/05). RX [facility] DARIO JACOB; began Harvoni 08/07/14. Cirrhosis of liver (Chronic 05/06/11). Continuous opioid dependence (Chronic 03/05/05). [facility] RX [place], <2004; counselling Meagan Garcia; prefers tablets. Folliculitis (Resolved 05/17/12). Dr Donnie ng, consult Dr. Leblanc (not completed). Hep B w/ coma, chronic, 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). [facility]. Onychomycosis of toenail (Resolved 08/16/13). Opioid dependence on agonist therapy (Chronic). [facility] RX [place], <2004; prefers tablets (PA) due to dental plate; counselor Zhang Atkins. Opioid use disorder, moderate, dependence (Chronic 12/10/15). Smoker (Chronic 05/06/11). Type II diabetes mellitus, uncontrolled (Chronic). A1c 9.4 01/2014; uncontrolled; goal A1c < 7.5. Urinary frequency (Chronic 08/16/13). Surgical History. Endoscopy (12/09/12) PREVIOUS FUNCTIONAL STATUS/SOCIAL/FAMILY SUPPORTS:: Shaw previously lived in [place] [facility], but reports he is now homeless due to financial difficulties and separation from his . 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 He most recently 'graduated' from [facility] (12/29/18) and was living at the [facility] on [facility] in [place] until he began to drink again. He reports that he does not have family in the area or any supports in the community. CURRENT FUNCTIONAL STATUS:: Shaw was sitting up in bed when CM met with him. He discussed his history of drug/alcohol use and his family history with CM. He stated that his children are currently in DCF custody and his goal is to be reunited with them once he is doing better. He reported that he has met with Celestina Davenport at [facility] for an initial intake but he has not begun any treatment or services with them yet. He stated that his goal is to go to the [facility] in [place], but he would be agreeable to returning to the [facility] [place] in [facility] if he could also be connected with supports in the community. He stated that he feels overwhelmed by the problems he is facing currently, but he is motivated to work on improving his life. CM will continue to follow. ADVANCE DIRECTIVES:: None on file. 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 PLAN:: Anticipate Shaw will return to the [facility] [place] in [facility] once he is medically cleared. CM will connect him with a refinery operator vapor recovery unit, and provide support to help him meet his goals. CM will continue to follow.
--- NOTE | 2019-01-09 14:48 | PHARADMIT ---
Addendum entered by Nelda Kaminski 01/10/19 17:11: Pharmacy Note Subjective Objective VS-okay Assessment -nursing called to ask about gabapentin dosing as pt said he was taking gabapentin but not on home med list. pts own bottle in pharmacy stated gabapentin 600 mg tid scheduled. Was last filled 12/31/18 for 30 day supply but bottle that was given to pharmacy is empty. aware of this, ordered med as did not want pt to have withdrawal side effects -methadone changed from tabs to liquid -augmentin and doxycycline continue -scheduled insulin glargine and aspart ordered, sitagliptin discontinued, metformin resumed (MD aware about increased risk of lactic acidosis in pt's with liver dysfunction and other risks like alcohol use) -ketoconazole and terbinafine creams ordered, clotrimazole discontinued Plan CM working on discharge plan so pt can be compliant with insulin use (access to refrigerator current barrier to use per progress note) watch BG due to all the med changes today Original Note: Admission Pharmacy Clinical Review UNCONTROLLED NIDDM Code Status Full Code Current Weight 72.7 kg Renally Cleared and Narrow Therapeutic Index Meds CrCl~114ml/min QTc Value / Action Taken QTC 481 BP Control, Fever BP 152/82 Afebrile CIWA 1 Pain 5/10 Electrolytes reviewed K+ 3.5 Mag 2.3 DVT Prophylaxis Lovenox 40mg Opiate Usage / Scheduled Bowel Regimen Ordered Plt/SCr for Heparin / Enoxaparin Plt 124 SCr 0.71 INR for Warfarin H/H stable, WBC/Bands H/H 14.4/39.5 WBC 6.47 Antibiotic appropriateness Augmentin/Doxy orally for possible infection of hand (lost IV access this morning) Cultures and Sensitivities Surgical ABX d/c within 24 hr DM control / Insulin Dosing BG 81 FSBS @ noon was 324 (was 505 in ED) Novolog scale Heart Failure (Check EF%) (RUSTAM's, B-Block, Diuretics) IV to PO Switch Home Meds Reviewed Pt's own Viread for Hepatitis-B....brought in and in med cassette Home Meds Not Ordered Suboxone not ordered, Metformin, Amaryl, Lantus not ordered Comments On telemetry for withdrawl Methadone 15mg daily....Luke verified with [facility] LFT's Will likely start detoxing Thursday/
[2019-01-09] MEDS: Normal Saline 1,000 ML 125 ML IV (19:15)
[2019-01-09] MEDS: Clotrimazole 1% 15 GM TUBE TP (19:31)
[2019-01-09] MEDS: Amoxicillin 875/Clav. 125 TAB PO (19:31)
--- NOTE | 2019-01-09 22:45 | NUR.NOTE ---
Nursing Note: FS at bedtime was 345 and covered with 6 units of Novolog according to sliding scale. Pt was asking for his Lantus since it was given last night. RN Incharge notified and verified the order was discontinued. Pt was upset about it. Advised to discuss with health team tomorrow. Pt was non compliant on diet, took 2 cups of ice cream as verbalized. Re educated on diet but with poor insight.
[2019-01-10] VITALS (8 sets, daily range): BP systolic 135–179; BP diastolic 65–93; PULSE 57–89; RESP 14–18; TEMP 36.3–37; O2SAT 98–100
[2019-01-10] MEDS: Normal Saline 1,000 ML 125 ML IV ×3 (02:59→18:59)
[2019-01-10] MEDS: Folic Acid 1 MG TAB PO (08:06)
[2019-01-10] MEDS: Enoxaparin 40 MG/0.4 ML SYR SC (08:06)
[2019-01-10] MEDS: SITagliptin 100 MG TAB PO (08:06)
[2019-01-10] MEDS: Amoxicillin 875/Clav. 125 TAB PO ×2 (08:06→20:22)
[2019-01-10] MEDS: Clotrimazole 1% 15 GM TUBE TP (08:06)
[2019-01-10] MEDS: Thiamine 100 MG TAB PO (08:06)
[2019-01-10] MEDS: Multivitamin TAB 1 TAB PO (08:06)
[2019-01-10] MEDS: Insulin Aspart 300 UNITS/3 ML PEN SC ×5 (08:08→21:58)
[2019-01-10] MEDS: Methadone 5 MG TAB 15 MG PO (08:09)
[2019-01-10] MEDS: Acetaminophen 325 MG TAB 650 MG PO ×2 (09:45→17:08)
[2019-01-10] MEDS: Doxycycline Hyclate 100 MG CAP PO ×2 (09:46→21:58)
[2019-01-10 10:46] LABS: Absolute Basophil Count 0.01 k/cumm (0.0-0.2); Absolute Eosinophil Count 0.03 k/cumm (0.0-0.7); Absolute Lymphocyte Count 0.67 k/cumm (1.2-3.4); Absolute Monocyte Count 0.22 k/cumm (0.11-0.7); Absolute Neutrophil Count 2.93 k/cumm (1.2-6.7); Basophils % 0.3; Eosinophils % 0.8; HCT 39.6 % (40.0-50.0); HGB 14.4 g/dL (13.5-17.5); Lymphocytes % 17.4; Mean Corp. HGB Concentration 36.4 g/dL (32.0-36.0); Mean Corpuscular Volume 93.4 fL (80-95); Mean Platelet Volume 9.8 fL (8.0-11.0); Monocytes % 5.7; Neutrophils % 75.8; RBC 4.24 m/cumm (4.50-6.00); RBC Distribution Width 12.1 % (11.8-14.1); White Blood Cell Count 3.86 k/cumm (4.4-10.8)
[2019-01-10 11:10] LABS: Diff Comment Diff Reviewed; Platelet Count 92 x1000/uL (130-400); RBC Morphology Normal
[2019-01-10] MEDS: Nicotine 21 MG/24 HR PATCH TD (11:37)
[2019-01-10 11:44] LABS: Anion Gap 13.7 mmol/L (3-11); BUN 11 mg/dL (7-18); CO2 23.3 mmol/L (21.0-32.0); CREATININE 0.79 mg/dL (0.70-1.30); Calcium 9.3 mg/dL (8.5-10.1); Chloride 97 mmol/L (98-107); Glucose 346 mg/dL (70-100); Potassium 4.5 mmol/L (3.5-5.1); Sodium 134 mmol/L (136-145)
[2019-01-10 11:59] LABS: C-Reactive Protein 1.09 mg/dL (0.0-0.3)
--- NOTE | 2019-01-10 16:14 | W.PM.PROGNOT ---
Date of Service Date of service: 01/10/19 Time of Service: 16:14 Assessment and Plan Assessment and plan (1) Type II diabetes mellitus, uncontrolled: Status: Acute Assessment and plan: Start lantus 20 units SC HS, increase sliding scale to patient's usual (2:50>150), and schedule prandial insulin (3 units). Resume metformin. Patient's access to refrigeration is a barrier to him being compliant with insulin as he uses pens and is worried about going to syringes - they would trigger him to start using drugs, he thinks. Care management on board, and patient is trying to work out access to a refrigerator. Qualifiers: Glycemic state: with hyperglycemia Qualified Code(s): E11.65 - Type 2 diabetes mellitus with hyperglycemia (2) Syncope and collapse: Status: Acute Assessment and plan: Appears wholly related to drinking and not to be cardiogenic in origin. No further w/u. D/c tele. (3) Alcohol use: Status: Acute Assessment and plan: Continue CIWA/vitamins, monitor lytes. (4) Cellulitis: Status: Acute Assessment and plan: of the left hand - improving. Continue PO doxycycline/augmentin. Qualifiers: Site of cellulitis: unspecified site Qualified Code(s): L03.90 - Cellulitis, unspecified (5) Continuous opioid dependence: Status: Chronic Assessment and plan: Continue methadone 15 mg PO daily - dose confirmed with with TERESA. We will change him over to the liquid formulation. (6) Smoker: Status: Chronic Assessment and plan: Nicoderm patch, continue to assess readiness to quit. (7) Tinea pedis: Status: Acute Assessment and plan: Start ketoconazole topically for the feet and terbinafine for the onychomychosis. (8) Diabetic neuropathy: Status: Acute Assessment and plan: resume gabapentin (9) Hepatitis B infection: Status: Acute Assessment and plan: Continue tenofovir (10) DVT prophylaxis: Status: Acute Assessment and plan: D/c lovenox due to drop in plts (could be due to liver disease, augmentin, lovenox). Continue TEDs + SCDs Subjective Subjective Interval history since last seen: State the L hand looks better. Denies dizziness, chest pain, shortness of breath, nausea. Complains of cough when drinking beer. Also, complains of neuropathy and athletes' foot. Exam Narrative Exam Narrative: General: very pleasant seemingly fit middle-aged male, A&OX3, sitting comfortably in a chair HEENT: EOMI, MMM Heart: RRR, no m/r/g Lungs: CTAB GI: abdomen is soft, nontender, nondistended Extremities; no e/c/c BLE's, +1 pedal pulses B; no broken skin on B feet, but does have onychomychosis and ketochonazole Objective Objective Clinical Data: Abnormal lab results 01/10/19 01/10/19 Range/Units 10:15 11:12 WBC 3.86 L D (4.4-10.8) k/cumm RBC 4.24 L (4.50-6.00) m/cumm Hct 39.6 L (40.0-50.0) % MCH 34.0 H (27.0-33.0) pg MCHC 36.4 H (32.0-36.0) g/dL Plt Count 92 L (130-400) x1000/uL Absolute Lymphocytes 0.67 L (1.2-3.4) k/cumm Sodium 134 L (136-145) mmol/L Chloride 97 L (98-107) mmol/L Anion Gap 13.7 H (3-11) mmol/L Glucose 346 H D (70-100) mg/dL C-Reactive Protein 1.09 H (0.0-0.3) mg/dL Vital Signs Temperature 37 C 01/10/19 07:24 Temperature Source Tympanic 01/10/19 07:24 Pulse 89 01/10/19 15:10 Pulse Rhythm Regular 01/10/19 07:33 Pulse 82 01/08/19 21:10 Respiratory Rate 16 01/10/19 07:24 Respiratory Effort Non-Labored 01/10/19 07:33 Respiratory Depth Normal 01/10/19 07:33 Respiratory Pattern Normal 01/10/19 07:33 Blood Pressure 140/86 01/10/19 07:24 Blood Pressure Mean 79 01/08/19 21:00 Blood Pressure Position Sitting 01/08/19 20:15 Pulse Oximetry 99 01/10/19 07:24 Oxygen Delivery Method Room Air 01/10/19 07:24 Oxygen Flow Rate 0 01/10/19 07:24 Pain Level 5 01/10/19 09:45 Comment 01/09/19 07:30 Intake & Output 01/09/19 01/10/19 01/10/19 23:59 11:59 23:59 Intake Total 2831 / 6981 1966.66 / 1965.667 Output Total 575 / 575 Balance 2831 / 6081 1391.667 / 1391.667 Weight 71.8 kg Intake: IV 2101 / 4251 1965.7 / 7 Oral 730 / 2730 Output: Urine 575 / 575 Other: Urine Color Yellow Urine Appearance Clear Urine Odor Normal Comment independent to toilet. Voiding Methods Toilet Urinal Laboratory Results WBC 3.86 k/cumm (4.4-10.8) L D 01/10/19 10:15 RBC 4.24 m/cumm (4.50-6.00) L 01/10/19 10:15 Hgb 14.4 g/dL (13.5-17.5) 01/10/19 10:15 Hct 39.6 % (40.0-50.0) L 01/10/19 10:15 MCV 93.4 fL (80-95) 01/10/19 10:15 MCH 34.0 pg (27.0-33.0) H 01/10/19 10:15 MCHC 36.4 g/dL (32.0-36.0) H 01/10/19 10:15 RDW 12.1 % (11.8-14.1) 01/10/19 10:15 Plt Count 92 x1000/uL (130-400) L 01/10/19 10:15 MPV 9.8 fL (8.0-11.0) 01/10/19 10:15 Immature Gran % 0.0 01/10/19 10:15 Neutrophils % 75.8 01/10/19 10:15 Lymphocytes % 17.4 01/10/19 10:15 Monocytes % 5.7 01/10/19 10:15 Eosinophils % 0.8 01/10/19 10:15 Basophils % 0.3 01/10/19 10:15 Absolute Neutrophils 2.93 k/cumm (1.2-6.7) 01/10/19 10:15 Absolute Lymphocytes 0.67 k/cumm (1.2-3.4) L 01/10/19 10:15 Absolute Monocytes 0.22 k/cumm (0.11-0.7) 01/10/19 10:15 Absolute Eosinophils 0.03 k/cumm (0.0-0.7) 01/10/19 10:15 Absolute Basophils 0.01 k/cumm (0.0-0.2) 01/10/19 10:15 Differential Comment Diff reviewed 01/10/19 10:15 RBC Morphology Normal 01/10/19 10:15 PT 9.4 sec (9.3-11.0) 01/08/19 20:30 INR 0.9 (0.9-1.1) 01/08/19 20:30 APTT 24.1 sec (21.0-31.4) 01/08/19 20:30 VBG pH 7.41 (7.32-7.43) 01/08/19 20:30 VBG pCO2 45 mm/Hg (34-47) 01/08/19 20:30 VBG pO2 69 mm/Hg (28-44) H 01/08/19 20:30 VBG HCO3 29 mmol/L (22-28) H 01/08/19 20:30 VBG Total CO2 25 mmol/L (22-29) 01/08/19 20:30 VBG O2 Saturation 92 % (70-80) H 01/08/19 20:30 VBG Base Excess 3.9 mmol/L (-3-3) H 01/08/19 20:30 Sodium 134 mmol/L (136-145) L 01/10/19 11:12 Potassium 4.5 mmol/L (3.5-5.1) D 01/10/19 11:12 Chloride 97 mmol/L (98-107) L 01/10/19 11:12 Carbon Dioxide 23.3 mmol/L (21.0-32.0) 01/10/19 11:12 Anion Gap 13.7 mmol/L (3-11) H 01/10/19 11:12 BUN 11 mg/dL (7-18) 01/10/19 11:12 Creatinine 0.79 mg/dL (0.70-1.30) 01/10/19 11:12 Estimated GFR/1.73 m2 >= 60.00 (mL/min/1.73m2) 01/10/19 11:12 Glucose 346 mg/dL (70-100) H D 01/10/19 11:12 Lactate 0.6 mmol/L (0.6-1.4) 01/09/19 08:38 Calcium 9.3 mg/dL (8.5-10.1) 01/10/19 11:12 Magnesium 2.0 mg/dL (1.8-2.4) 01/10/19 11:12 Total Bilirubin 1.0 mg/dL (0.2-1.0) 01/09/19 06:55 AST 63 U/L (15-37) H 01/09/19 06:55 ALT 68 U/L (16-63) H 01/09/19 06:55 Alkaline Phosphatase 104 U/L (46-116) 01/09/19 06:55 Troponin I < 0.05 ng/mL (0.00-0.06) 01/08/19 20:30 C-Reactive Protein 1.09 mg/dL (0.0-0.3) H 01/10/19 11:12 Total Protein 7.4 g/dL (6.4-8.2) 01/09/19 06:55 Albumin 3.6 g/dL (3.4-5.0) 01/09/19 06:55 Lipase 132 U/L (73-393) 01/08/19 20:30 Urine Color Straw (Yellow) 01/08/19 21:48 Urine Clarity Clear (Clear) 01/08/19 21:48 Urine pH 6.0 (5-8) 01/08/19 21:48 Ur Specific [place] 1.010 (1.005-1.025) 01/08/19 21:48 Urine Protein Negative mg/dL (Negative) 01/08/19 21:48 Urine Ketones Negative mg/dL (Negative) 01/08/19 21:48 Urine Blood Trace-intact (Negative) H 01/08/19 21:48 Urine Nitrite Negative (Negative) 01/08/19 21:48 Urine Bilirubin Negative (Negative) 01/08/19 21:48 Urine Urobilinogen 1.0 EU/dL (Up TO 0.2) H 01/08/19 21:48 Ur Leukocyte Esterase Negative (Negative) 01/08/19 21:48 Urine RBC 0-2 (0-2) 01/08/19 21:48 Urine WBC Negative HPF (0-5) 01/08/19 21:48 Ur Epithelial Cells Rare HPF (Negative) 01/08/19 21:48 Urine Crystals Negative HPF (Negative) 01/08/19 21:48 Urine Bacteria Rare HPF (Negative) 01/08/19 21:48 Urine Casts Negative LPF (Negative) 01/08/19 21:48 Urine Mucus Negative (Negative) 01/08/19 21:48 Urine Other Negative (Negative) 01/08/19 21:48 Ur Culture Indicated? No 01/08/19 21:48 Urine Glucose 500 mg/dL (Negative) H 01/08/19 21:48 Ethyl Alcohol 247.4 mg/dL (<3) 01/08/19 20:30
--- NOTE | 2019-01-10 17:10 | PDOC.CMPRO ---
Care Management Progress Note S/O: Shaw was lying in bed when CM met with him. He spoke in length about his current situation and his concerns around multiple aspects of his life including services, medications and relationships. He reports having a positive interaction with Recovery Coaches today and is hopeful for a rehabilitative disposition or to return to [facility] to wean off from methadone prior to going to [facility] in [place], [place]. A: 48 year old male admitted to [facility] for Uncontrolled NIDDM P: Anticipate Shaw will return to the [facility] in [facility] once he is medically cleared. He will meet with the volleyball coach again tomorrow. CM will continue to provide support to help him meet his goals. CM will continue to follow.
[2019-01-10] MEDS: Gabapentin 600 MG TAB PO (20:22)
[2019-01-10] MEDS: metFORMIN 500 MG TAB 1000 MG PO (20:22)
[2019-01-10] MEDS: Insulin Glargine 300 UNITS/3 ML PEN 20 UNITS SC (21:58)
[2019-01-11] MEDS: Normal Saline 1,000 ML 125 ML IV ×2 (01:57→08:22)
[2019-01-11 03:24] VITALS: BP 124/73; PULSE 62; RESP 17; TEMP 36.8; O2SAT 100
[2019-01-11 07:40] VITALS: BP 142/92; PULSE 77; RESP 18; TEMP 36.8; O2SAT 97
[2019-01-11] MEDS: Methadone Liquid 10 MG/ML 15 MG PO (08:19)
[2019-01-11] MEDS: Insulin Aspart 300 UNITS/3 ML PEN SC ×4 (08:22→11:57)
[2019-01-11] MEDS: Ketoconazole 2% CREAM 15 GM TUBE TP (08:23)
[2019-01-11] MEDS: Amoxicillin 875/Clav. 125 TAB PO (08:24)
[2019-01-11] MEDS: Thiamine 100 MG TAB PO (08:24)
[2019-01-11] MEDS: metFORMIN 500 MG TAB 1000 MG PO (08:24)
[2019-01-11] MEDS: Multivitamin TAB 1 TAB PO (08:25)
[2019-01-11] MEDS: Gabapentin 600 MG TAB PO ×2 (08:25→14:12)
[2019-01-11] MEDS: Pantoprazole 40 MG TABCR PO (08:25)
[2019-01-11] MEDS: Folic Acid 1 MG TAB PO (08:25)
[2019-01-11 09:05] LABS: Absolute Basophil Count 0.02 k/cumm (0.0-0.2); Absolute Eosinophil Count 0.09 k/cumm (0.0-0.7); Absolute Lymphocyte Count 0.94 k/cumm (1.2-3.4); Absolute Monocyte Count 0.25 k/cumm (0.11-0.7); Absolute Neutrophil Count 2.33 k/cumm (1.2-6.7); Basophils % 0.6; Eosinophils % 2.5; HCT 39.8 % (40.0-50.0); HGB 14.3 g/dL (13.5-17.5); Lymphocytes % 25.9; Mean Corp. HGB Concentration 35.9 g/dL (32.0-36.0); Mean Corpuscular Volume 94.5 fL (80-95); Mean Platelet Volume 9.6 fL (8.0-11.0); Monocytes % 6.9; Neutrophils % 64.1; Platelet Count 102 x1000/uL (130-400); RBC 4.21 m/cumm (4.50-6.00); RBC Distribution Width 12.1 % (11.8-14.1); White Blood Cell Count 3.63 k/cumm (4.4-10.8)
[2019-01-11 09:22] LABS: Anion Gap 9.9 mmol/L (3-11); BUN 11 mg/dL (7-18); CO2 26.1 mmol/L (21.0-32.0); CREATININE 0.75 mg/dL (0.70-1.30); Calcium 8.7 mg/dL (8.5-10.1); Chloride 101 mmol/L (98-107); Glucose 315 mg/dL (70-100); Potassium 4.2 mmol/L (3.5-5.1); Sodium 137 mmol/L (136-145)
[2019-01-11 09:24] LABS: Magnesium 1.8 mg/dL (1.8-2.4)
[2019-01-11] MEDS: Doxycycline Hyclate 100 MG CAP PO (09:58)
[2019-01-11 10:05] LABS: Vitamin B12 907 pg/mL (193-986)
[2019-01-11 10:06] LABS: Folate > 20.0 ng/mL (8.6-20.0)
[2019-01-11 11:05] VITALS: BP 153/81; PULSE 73; RESP 16; TEMP 36.8; O2SAT 98
--- NOTE | 2019-01-11 15:03 | W.PM.DS.N ---
Date of service: 01/11/19 Time of Service: 15:03 DS: Diagnosis Discharge Diagnosis (1) Type II diabetes mellitus, uncontrolled: Status: Acute (2) Syncope and collapse: Status: Ruled-out Asessment and Plan: Likely episodes of blacking out due to drinking; no further cardiac workup is indicated at this time. (3) Alcohol use: Status: Acute (4) Cellulitis: Status: Acute (5) Continuous opioid dependence: Status: Chronic (6) Smoker: Status: Chronic (7) Tinea pedis: Status: Acute (8) Diabetic neuropathy: Status: Acute (9) Hepatitis B infection: Status: Acute Discharge Plan Disposition Patient Disposition: OTHER Condition: Good Discharge Details Chief Complaint: Diabetes Clinical Impression: History of medication noncompliance, Acute hyperglycemia, Syncope Reason For Visit: UNCONTROLLED NIDDM Admit Date/Time: 01/08/19 22:13 Admit Provider: Cliff Zimmerman Attending Provider: Cliff Zimmerman Primary Care Provider: Unknown,Unknown ED Provider: Brodie Fernandes Hospital Course Hospital Course: Mr Kowalski is a 48 year old male with PMHx of IDDM2 with neuropathy, uncontrolled, alcohol abuse, opioid dependence on methadone, Hepatitis B infection on treatment, who was admitted to [facility] on 01/08/19 with hyperglycemia due to uncontrolled diabetes as well as cellulitis of his left hand. Achieving blood sugar control in the hospital was difficult as the patient did not know his disposition, cited access to refrigerator as a barrier to using insulin pens, and is worried about using insulin vials and syringes due to his drug use history - he does not feel it would be a good idea. The patient states that, as long as he takes his insulin, his sugars are controlled. In this setting, I do not feel that changing his outpatient insulin doses is a good idea and that his PCP should be following up with him to see what his blood sugars actually are doing when he takes the insulin. The patient does have a safe disposition plan as far as that goes tonight - he will likely be staying with his sponsor Carlos A who lives on [address] [facility] here in [facility]. For the cellulitis of his Left hand, the patient was transitioned to PO doxycycline and augmentin, which have produced impressive clinical results - the patient should continue the antibiotics for another 3 days. The patient is medically stable for discharge today. Care for patient as well as completion of his discharge paperwork on day of discharge took 45 minutes. Home Meds and New Rx's Prescriptions: New doxycycline hyclate 100 mg Capsule 100 mg PO Q12H Qty: 14 RF: 0 folic acid 1 mg Tablet 1 mg PO DAILY Qty: 30 RF: 0 ketoconazole 2 % Cream 1 applic topical DAILY Qty: 30 RF: 1 amoxicillin-pot clavulanate 875-125 mg Tablet 1 tab PO BID Qty: 14 RF: 0 multivitamin [Multiple Vitamins] Tablet 1 tab PO DAILY Qty: 30 RF: 0 terbinafine HCl 1 % Cream 1 applic topical DAILY Qty: 30 RF: 1 pantoprazole 40 mg Tablet,Delayed Release (Dr/Ec) 40 mg PO DAILY@0730 Qty: 30 RF: 0 nicotine 21 mg/24 hr Patch 24 Hour 21 mg transdermal DAILY PRN PRNQty: 30 RF: 0 thiamine mononitrate (vit B1) [Vitamin B-1 (mononitrate)] 100 mg Tablet 100 mg PO DAILY Qty: 30 RF: 0 Continued tenofovir disoproxil fumarate [Viread] 300 mg tablet 300 mg PO DAILY Qty: 90 RF: 3 albuterol sulfate 90 mcg/actuation HFA aerosol inhaler 1 puff IH Q6H PRN (Reason: shortness of breath or wheezing) Qty: 6.7 RF: 12 (DME) FreeStyle Lite Strips 1 EACH strip 1 ea Miscellaneous BID Qty: 100 RF: 0 (DME) blood-glucose meter [FreeStyle Lite Meter] 1 EACH kit 1 ea Miscellaneous DAILY Qty: 1 RF: 0 (DME) lancets [FreeStyle Lancets] 1 EACH misc 1 ea Miscellaneous BID Qty: 100 RF: 0 (DME) pen needle, diabetic 1 EACH needle 1 ea Miscellaneous DAILY Qty: 100 RF: 11 methadone 10 mg Tablet 15 mg PO DAILY RF: 0 gabapentin 600 mg Tablet 600 mg PO TID RF: 0 metformin 1,000 mg Tablet 1,000 mg PO BID RF: 0 insulin lispro [Humalog KwikPen Insulin] 100 unit/mL Insulin Pen See Rx Instructions .ROUTE .COMPLEX Qty: 15 RF: 0 Lantus Solostar U-100 Insulin 100 unit/mL (3 mL) insulin pen 40 unit subcut HS Qty: 15 RF: 0 Discharge Instructions Instructions: Skin Yeast Infection (GEN) Additional Instructions: Return to the hospital with any fever, bleeding, chest pain, shortness of breath. Finish your antibiotics as prescribed. Follow up with your PCP in 1-2 weeks. Care Plan Goals: Follow up with [facility] therapist tomorrow, 01/12/19, as previously scheduled. Follow up with PCP as scheduled. Referrals: Tamika Valdes [NURSE PRACTITIONER] - Activity:: Activity as Tolerated Equipment/Supplies:: No Equipment Needed Diet:: Carb Counting Discharge Orders Discharge Orders: Discharge Order (Routine); Ordered 01/11/19 Ordered By: Genoveva Hardy DS: Summary Status at Discharge Functional status at discharge: independent ambulation Overall status at discharge: patient is back to baseline Mental Status: mental status grossly normal Speech and Movement: speech and movement normal Mood: congruent mood Affect: normal affect Exam Narrative Exam Narrative: General: very pleasant seemingly fit middle-aged male, A&OX3, ambulating in the hallway HEENT: EOMI, MMM Heart: RRR, no m/r/g Lungs: nonlabored breathing GI: abdomen is soft, nontender, nondistended Extremities: L hand cellulitis much improved Psych Mental Status: mental status grossly normal Speech and Movement: speech and movement normal Mood: congruent mood Affect: normal affect DS: Data Vitals/I&O Vitals and I&O: Vital Signs Temperature 36.8 C 01/11/19 11:05 Temperature Source Tympanic 01/11/19 11:05 Pulse 73 01/11/19 11:05 Pulse Rhythm Irregular 01/11/19 11:19 Pulse 82 01/08/19 21:10 Respiratory Rate 16 01/11/19 11:05 Respiratory Effort 01/11/19 11:19 Respiratory Depth Normal 01/11/19 11:19 Respiratory Pattern Normal 01/11/19 11:19 Blood Pressure 153/81 H 01/11/19 11:05 Blood Pressure Mean 79 01/08/19 21:00 Blood Pressure Position Sitting 01/08/19 20:15 Pulse Oximetry 98 01/11/19 11:05 Oxygen Delivery Method Room Air 01/11/19 11:05 Oxygen Flow Rate 0 01/11/19 11:05 Pain Level 4 01/11/19 11:05 Comment 01/11/19 11:05 Intake & Output 01/10/19 01/11/19 01/11/19 23:59 11:59 23:59 Intake Total 1264.583 / 3231.250 3472.916 / 3472.916 Balance 1264.583 / 2656.250 3472.916 / 3472.916 Weight 72.5 kg Intake: IV 964.583 / 2931.250 2672.916 / 2672.916 Oral 300 / 300 800 / 800 Other: Urine Appearance Clear Comment voids independently in toilet. pt gets up AD OLAF to void. Voiding Methods Toilet Toilet Data Completed and Pending Completed studies during hospitalization [Text1]: CT head 01/08/19: Normal CT of the head. CXR 01/08/19: Normal chest Labs on day of discharge: Labs from last 24 hours 01/11/19 01/11/19 01/11/19 08:53 08:53 08:53 WBC 3.63 L RBC 4.21 L Hgb 14.3 Hct 39.8 L MCV 94.5 MCH 34.0 H MCHC 35.9 RDW 12.1 Plt Count 102 L MPV 9.6 Immature Gran % 0.0 Neutrophils % 64.1 Lymphocytes % 25.9 Monocytes % 6.9 Eosinophils % 2.5 Basophils % 0.6 Absolute Neutrophils 2.33 Absolute Lymphocytes 0.94 L Absolute Monocytes 0.25 Absolute Eosinophils 0.09 Absolute Basophils 0.02 Sodium 137 Potassium 4.2 Chloride 101 Carbon Dioxide 26.1 Anion Gap 9.9 BUN 11 Creatinine 0.75 Estimated GFR/1.73 m2 >= 60.00 Glucose 315 H Calcium 8.7 Magnesium 1.8 C-Reactive Protein 0.50 H Vitamin B12 907 Folate > 20.0 H [facility] Medical History Adjustment disorder, unspecified (Resolved 12/10/15) Adventitious breath sounds (Resolved) Chronic hepatitis C (Resolved 08/11/05) RX [facility] [place]ACOB; began Harvoni 08/07/14 Cirrhosis of liver (Chronic 05/06/11) Continuous opioid dependence (Chronic 03/05/05) [facility] RX [facility]CE [place], <2004; counselling Meagan Garcia; prefers tablets Folliculitis (Resolved 05/17/12) Dr Donnie ng, consult Dr. 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) [facility] Onychomycosis of toenail (Resolved 08/16/13) Opioid dependence on agonist therapy (Chronic) [facility]UP RX [place], <2005; prefers tablets (PA) due to dental plate; counselor Zhang Atkins Opioid use disorder, moderate, dependence (Chronic 12/10/15) Smoker (Chronic 05/06/11) Type II diabetes mellitus, uncontrolled (Chronic) A1c 9.4 01/2014; uncontrolled; goal A1c < 7.5 Urinary frequency (Chronic 08/16/13) Surgical History Endoscopy (12/09/12) repeat in 3 years Family History Brother No problems noted. Brother No problems noted. Sister No problems noted. 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
[2019-01-11 15:40] VITALS: BP 144/87; PULSE 76; RESP 20; TEMP 36.2; O2SAT 98
--- NOTE | 2019-01-11 17:26 | PDOC.CMDIS ---
- If Service Date Differs Date of service: 01/11/19 Time of Service: 17:27 LACE Index Scoring Tool - Questions: Length of Stay (in days): 4 - 6 Acuity (Admit via E.D.?): Yes Comorbidities: Diabetes w/o Complication, Liver or Renal Disease E.D. Visits: 11 - Answers: Total Score: 16 Risk of Readmission: High Risk Care Management Discharge Reason for Hospitalization: Uncontrolled NIDDM Discharge Plan: Dhaval will be discharged to stay with a friend overnight before transitioning to the [facility] in [place], [place]. CM discussed the plan with Ninoska Normanlie's financial wellness coach, who will provide transportation via private vehicle. He will have a follow up appointment with his PCP, as recommended. Patient/Family Education Needs: Review discharge instructions regarding medications, discussion of self care needs including Ask Me Three
== END 2019-01-11 16:26 | disposition other institution (70) | DRG 638 ==
LOC: ER 22:51 → MS 23:32
PROVIDERS: Nurse Practitioner Family; Admitting Provider Family Medicine; Emergency Provider Student in an Organized Health Care Education/Training Program; Visit Provider Internal Medicine
DX: E11.65 Type 2 diabetes mellitus with hyperglycemia (principal); L03.114 Cellulitis of left upper limb; F11.20 Opioid dependence, uncomplicated; B18.1 Chronic viral hepatitis B without delta-agent; T38.3X6A Underdosing of insulin and oral hypoglycemic [antidiabetic] drugs, initial encounter; E86.0 Dehydration; S60.512A Abrasion of left hand, initial encounter; X58.XXXA Exposure to other specified factors, initial encounter; B35.3 Tinea pedis; Z59.0 Homelessness; E11.42 Type 2 diabetes mellitus with diabetic polyneuropathy; F17.210 Nicotine dependence, cigarettes, uncomplicated; F10.10 Alcohol abuse, uncomplicated
CPT/HCPCS: 36415; 36416; 80048; 80053; 82805; 82962; 83690; 85027; 93005; 96360; 99223; 99232; 99233; 99239; 99285; J1650; 70450; 71046; 80320; 81003; 81015; 82607; 82746; 83605; 83735; 84484; 85025; 85610; 85730; 86140; 93010; J2543; J3490

== ENCOUNTER 2019-02-04 12:33 | Emergency (ER) | payer MEDICAID, SELFPAY ==
[2019-02-04 12:36] VITALS: BP 145/72; PULSE 89; RESP 18; TEMP 36.9; O2SAT 97
--- NOTE | 2019-02-04 13:16 | ED.GENADUL_ITS ---
Discharge Plan Discharge Details Chief Complaint: Diabetes Primary Care Provider: Tamika Valdes ED Provider: Kleber Fernandez Home Meds and New Rx's Prescriptions: No Action tenofovir disoproxil fumarate [Viread] 300 mg tablet 300 mg PO DAILY Qty: 90 RF: 3 albuterol sulfate 90 mcg/actuation HFA aerosol inhaler 1 puff IH Q6H PRN (Reason: shortness of breath or wheezing) Qty: 6.7 RF: 12 (DME) FreeStyle Lite Strips 1 EACH strip 1 ea Miscellaneous BID Qty: 100 RF: 0 (DME) blood-glucose meter [FreeStyle Lite Meter] 1 EACH kit 1 ea Miscellaneous DAILY Qty: 1 RF: 0 (DME) lancets [FreeStyle Lancets] 1 EACH misc 1 ea Miscellaneous BID Qty: 100 RF: 0 (DME) pen needle, diabetic 1 EACH needle 1 ea Miscellaneous DAILY Qty: 100 RF: 11 methadone 10 mg Tablet 15 mg PO DAILY RF: 0 gabapentin 600 mg Tablet 600 mg PO TID RF: 0 metformin 1,000 mg Tablet 1,000 mg PO BID RF: 0 doxycycline hyclate 100 mg Capsule 100 mg PO Q12H Qty: 14 RF: 0 folic acid 1 mg Tablet 1 mg PO DAILY Qty: 30 RF: 0 ketoconazole 2 % Cream 1 applic topical DAILY Qty: 30 RF: 1 amoxicillin-pot clavulanate 875-125 mg Tablet 1 tab PO BID Qty: 14 RF: 0 multivitamin [Multiple Vitamins] Tablet 1 tab PO DAILY Qty: 30 RF: 0 terbinafine HCl 1 % Cream 1 applic topical DAILY Qty: 30 RF: 1 pantoprazole 40 mg Tablet,Delayed Release (Dr/Ec) 40 mg PO DAILY@0730 Qty: 30 RF: 0 nicotine 21 mg/24 hr Patch 24 Hour 21 mg transdermal DAILY PRN PRNQty: 30 RF: 0 thiamine mononitrate (vit B1) [Vitamin B-1 (mononitrate)] 100 mg Tablet 100 mg PO DAILY Qty: 30 RF: 0 insulin lispro [Humalog KwikPen Insulin] 100 unit/mL Insulin Pen See Rx Instructions .ROUTE .COMPLEX Qty: 15 RF: 0 Lantus Solostar U-100 Insulin 100 unit/mL (3 mL) insulin pen 40 unit subcut HS Qty: 15 RF: 0 (DME) blood-glucose meter [FreeStyle Flash System] Kit See Rx Instructions .ROUTE .MEDSUPPLY Qty: 1 RF: 0 Discharge Data Discharge Date/Time-TO BE ENTERED AT DEPARTURE: 02/04/19 13:38 Medical Decision Making 13:20 -- 48-year-old male with type 2 diabetes, homelessness, medication noncompliance, here with request for refill of insulin and equipment. Blood sugar elevated at 350. Plan to check chemistry given he has not had insulin for approximately 1 week. --Labs reviewed and anion gap 16 noted. Plan for IV fluid bolus and insulin. I have spoken with care management about assisting in arranging outpatient resources. --Prior to discussion results and treatment plan with the patient, he eloped from the emerge department. An overhead hospitalwide page was placed. No response from the patient. Patient eloped from the ED prior to completion no further work-up and treatment. HPI General Mode of arrival: ambulatory . Date/Time Provider Initiated Documentation: 02/04/19 12:54 . Limitations to Documentation: no limitations . Information obtained by: patient . HPI Narrative: 48 year old male with past medical history of IDDM2 with neuropathy, uncontrolled, alcohol abuse, opioid dependence on methadone, Hepatitis B, here with chief complaint of medication refill. Patient notes that since discharge from an [facility] inpatient hospitalization on 01/11/2019, he has had difficulty securing housing and also securing his insulin. He specifically requesting insulin needles and Lantus. 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 Patient states he is been taking his metformin intermittently and not as prescribed because he sometimes forgets to take it. Patient notes that wound on his right hand has been healing with no signs of infection. Related Data Home Medications Medication Instructions Recorded Confirmed FreeStyle Lite Strips #100 strip 03/25/16 10/19/18 blood-glucose meter [FreeStyle #1 kit 03/25/16 10/19/18 Lite Meter] lancets [FreeStyle Lancets] #100 ea 03/25/16 10/19/18 pen needle, diabetic #100 units 07/23/17 10/19/18 albuterol sulfate 90 mcg/actuation 1 puff IH Q6H PRN #6.7 gm 05/04/18 01/08/19 aerosol inhaler tenofovir disoproxil fumarate 300 300 mg PO DAILY #90 tab 07/26/18 01/08/19 mg tablet methadone 15 mg PO DAILY 01/08/19 01/09/19 gabapentin 600 mg PO TID 01/10/19 01/10/19 metformin 1,000 mg PO BID 01/10/19 01/10/19 amoxicillin-pot clavulanate 1 tab PO BID #14 tab 01/11/19 blood-glucose meter [FreeStyle #1 each 01/11/19 Flash System] doxycycline hyclate 100 mg PO Q12H #14 cap 01/11/19 folic acid 1 mg PO DAILY #30 tab 01/11/19 insulin glargine [Lantus Solostar 40 unit SUBCUT HS #15 ml 01/11/19 U-100 Insulin] insulin lispro [Humalog KwikPen See Rx Instructions .ROUTE 01/11/19 Insulin] .COMPLEX #15 ml ketoconazole 1 applic TOPICAL DAILY #30 gm 01/11/19 multivitamin [Multiple Vitamins] 1 tab PO DAILY #30 tab 01/11/19 nicotine 21 mg TRANSDERMAL DAILY PRN PRN 01/11/19 #30 ea pantoprazole 40 mg PO DAILY@0730 #30 tab 01/11/19 terbinafine HCl 1 applic TOPICAL DAILY #30 gm 01/11/19 thiamine mononitrate (vit B1) 100 mg PO DAILY #30 tab 01/11/19 [Vitamin B-1 (mononitrate)] Previous Rx's Medication Instructions Recorded pen needle, diabetic #100 units 07/23/17 albuterol sulfate 90 mcg/actuation 1 puff IH Q6H PRN #6.7 gm 05/04/18 aerosol inhaler tenofovir disoproxil fumarate 300 300 mg PO DAILY #90 tab 07/26/18 mg tablet amoxicillin-pot clavulanate 1 tab PO BID #14 tab 01/11/19 blood-glucose meter [FreeStyle #1 each 01/11/19 Flash System] doxycycline hyclate 100 mg PO Q12H #14 cap 01/11/19 folic acid 1 mg PO DAILY #30 tab 01/11/19 insulin glargine [Lantus Solostar 40 unit SUBCUT HS #15 ml 01/11/19 U-100 Insulin] insulin lispro [Humalog KwikPen See Rx Instructions .ROUTE 01/11/19 Insulin] .COMPLEX #15 ml ketoconazole 1 applic TOPICAL DAILY #30 gm 01/11/19 multivitamin [Multiple Vitamins] 1 tab PO DAILY #30 tab 01/11/19 nicotine 21 mg TRANSDERMAL DAILY PRN PRN 01/11/19 #30 ea pantoprazole 40 mg PO DAILY@0730 #30 tab 01/11/19 terbinafine HCl 1 applic TOPICAL DAILY #30 gm 01/11/19 thiamine mononitrate (vit B1) 100 mg PO DAILY #30 tab 01/11/19 [Vitamin B-1 (mononitrate)] Allergies Allergy/AdvReac Type Severity Reaction Status Date / Time No Known Allergies Allergy Verified 02/04/19 12:43 General Stated Complaint: Diabetes JAMES: 3 Review of Systems All systems reviewed & are unremarkable except as noted in HPI and below Gastrointestinal Gastrointestinal: Denies nausea and Denies vomiting Genitourinary Genitourinary: Reports other (No polyuria) [facility] Medical History Adjustment disorder, unspecified (Resolved 12/10/15) Adventitious breath sounds (Resolved) Alcohol use (Acute) Chronic hepatitis C (Chronic 08/11/05) RX [facility] [place] DARIO JACOB; began Aniceto 08/07/14 Cirrhosis of liver (Chronic 05/06/11) Continuous opioid dependence (Chronic 03/05/05) [facility]UP RX [facility]INCE [place], <2004; counselling Meagan Garcia; prefers tablets Folliculitis (Resolved 05/17/12) Dr Donnie ng, consult Dr. 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) [facility] [place] Onychomycosis of toenail (Resolved 08/16/13) Opioid dependence on agonist therapy (Chronic) BUP RX SINCE [place], <2004; prefers tablets (PA) due to dental plate; counselor Zhang Atkins Opioid use disorder, moderate, dependence (Chronic 12/10/15) Smoker (Chronic 05/06/11) Type II diabetes mellitus, uncontrolled (Acute) A1c 9.4 01/2014; uncontrolled; goal A1c < 7.5 Urinary frequency (Chronic 08/16/13) Surgical History Endoscopy (12/09/12) repeat in 3 years Family History Brother No problems noted. Brother No problems noted. Sister No problems noted. 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 What is your relationship status?: living with partner Panel score (0-1 are the most socially isolated patients): 1 What type of physical activity do you participate in: none Drive intox or ride w/intox cryogenic transport driver: No Working smoke detector in home: Yes Carbon monox detector in home: Yes Do you feel safe at home: Yes Do you feel safe in your relationship?: Yes Exam Const General: cooperative, comfortable and no acute distress Orientation: alert and awake HENMT Mouth: moist mucous membranes Resp Effort & Inspection: normal respiratory effort Auscultation: clear to auscultation bilaterally Cardio Rate: regular rate Rhythm: regular rhythm Skin Wounds: wounds noted (Right palm wound without erythema or induration) Neuro General: alert and awake Cognition: normal cognition Psych Appearance: grossly normal Mental Status: mental status grossly normal Course Vital Signs Vital signs: Vital Signs Temperature 36.9 C 02/04/19 12:36 Pulse 89 02/04/19 12:36 Respiratory Rate 18 02/04/19 12:36 Blood Pressure 145/72 H 02/04/19 12:36 Pulse Oximetry 97 02/04/19 12:36 Temperature 36.9 C 02/04/19 12:36 Temperature Source Skin 02/04/19 12:36 Pulse 89 02/04/19 12:36 Respiratory Rate 18 02/04/19 12:36 Blood Pressure 145/72 H 02/04/19 12:36 Blood Pressure Position Sitting 02/04/19 12:36 Pulse Oximetry 97 02/04/19 12:36 Oxygen Delivery Method Room Air 02/04/19 12:36 Oxygen Flow Rate 0 02/04/19 12:36 Pain Level 6 02/04/19 12:36
[2019-02-04 13:21] LABS: Anion Gap 16.1 mmol/L (3-11); BUN 12 mg/dL (7-18); CO2 22.9 mmol/L (21.0-32.0); CREATININE 0.78 mg/dL (0.70-1.30); Chloride 96 mmol/L (98-107); Glucose 361 mg/dL (74-106); Potassium 4.2 mmol/L (3.5-5.1); Sodium 135 mmol/L (136-145)
--- NOTE | 2019-02-04 13:34 | NUR.NOTE ---
Nursing Note: pt walked out of the department without talking with anyone. unsure if pt is coming back.
--- NOTE | 2019-02-04 13:57 | NUR.NOTE ---
Nursing Note: pt overhead paged approx 15 minutes ago and he has not returned to the dept.
== END 2019-02-04 13:38 ==
LOC: ER 12:49
PROVIDERS: Emergency Provider Student in an Organized Health Care Education/Training Program; PCP Nurse Practitioner Family
DX: E11.65 Type 2 diabetes mellitus with hyperglycemia (principal); Z91.14 Patient's other noncompliance with medication regimen; Z79.4 Long term (current) use of insulin; Z59.0 Homelessness; Z53.29 Procedure and treatment not carried out because of patient's decision for other reasons
CPT/HCPCS: 36415; 36416; 80048; 82962; 99282

== ENCOUNTER 2019-03-08 09:48 | Emergency (ER) | payer MEDICAID, SELFPAY ==
--- NOTE | 2019-03-08 09:57 | W.ED.GENAD ---
Discharge Plan Disposition Patient Disposition: HOME Condition: Good Discharge Details Chief Complaint: Abd Prob Clinical Impression: Enteritis Primary Care Provider: Tamika Valdes ED Provider: Yaneli Barrett Home Meds and New Rx's Prescriptions: Continued tenofovir disoproxil fumarate [Viread] 300 mg tablet 300 mg PO DAILY Qty: 90 RF: 3 albuterol sulfate 90 mcg/actuation HFA aerosol inhaler 1 puff IH Q6H PRN (Reason: shortness of breath or wheezing) Qty: 6.7 RF: 12 (DME) FreeStyle Lite Strips 1 EACH strip 1 ea Miscellaneous BID Qty: 100 RF: 0 (DME) blood-glucose meter [FreeStyle Lite Meter] 1 EACH kit 1 ea Miscellaneous DAILY Qty: 1 RF: 0 (DME) lancets [FreeStyle Lancets] 1 EACH misc 1 ea Miscellaneous BID Qty: 100 RF: 0 (DME) pen needle, diabetic 1 EACH needle 1 ea Miscellaneous DAILY Qty: 100 RF: 11 methadone 10 mg Tablet 15 mg PO DAILY RF: 0 gabapentin 600 mg Tablet 600 mg PO TID RF: 0 metformin 1,000 mg Tablet 1,000 mg PO BID RF: 0 doxycycline hyclate 100 mg Capsule 100 mg PO Q12H Qty: 14 RF: 0 folic acid 1 mg Tablet 1 mg PO DAILY Qty: 30 RF: 0 ketoconazole 2 % Cream 1 applic topical DAILY Qty: 30 RF: 1 amoxicillin-pot clavulanate 875-125 mg Tablet 1 tab PO BID Qty: 14 RF: 0 multivitamin [Multiple Vitamins] Tablet 1 tab PO DAILY Qty: 30 RF: 0 terbinafine HCl 1 % Cream 1 applic topical DAILY Qty: 30 RF: 1 pantoprazole 40 mg Tablet,Delayed Release (Dr/Ec) 40 mg PO DAILY@0730 Qty: 30 RF: 0 nicotine 21 mg/24 hr Patch 24 Hour 21 mg transdermal DAILY PRN PRNQty: 30 RF: 0 thiamine mononitrate (vit B1) [Vitamin B-1 (mononitrate)] 100 mg Tablet 100 mg PO DAILY Qty: 30 RF: 0 insulin lispro [Humalog KwikPen Insulin] 100 unit/mL Insulin Pen See Rx Instructions .ROUTE .COMPLEX Qty: 15 RF: 0 Lantus Solostar U-100 Insulin 100 unit/mL (3 mL) insulin pen 40 unit subcut HS Qty: 15 RF: 0 (DME) blood-glucose meter [FreeStyle Flash System] Kit See Rx Instructions .ROUTE .MEDSUPPLY Qty: 1 RF: 0 Discharge Instructions Instructions: Enteritis (ED) Additional Instructions: Encourage water intake. Instructed on alcohol. Please consider going back to [facility] [place] or the treatment center for your continued alcohol use. Your labs show abnormalities as discussed that are consistent with your baseline lab values. CT scan shows inflammation as discussed consistent with enteritis. I would like you to follow-up with primary care as soon as possible for reevaluation. You may continue with ibuprofen as needed for discomfort. Please take your medications as prescribed and on a daily basis. If you develop new or worsening symptoms please seek care urgently once again. Referrals: Tamika Valdes [Primary Care Provider] - Discharge Data Discharge Date/Time-TO BE ENTERED AT DEPARTURE: 03/08/19 13:56 Medical Decision Making Patient presents today with severe abdominal pain that is been going on since the discharge from [facility] [place] over 1 month ago. States pain is diffuse. Denies any fevers or chills. Endorses nausea vomiting and diarrhea. Denies any evidence of bleeding. Endorses dysuria yesterday, states that this is since subsided is not having any today. Patient is primarily concerned that this may be associated with patient his hepatitis C and progressive liver dysfunction. States he had one episode of emesis today. Is endorsing nausea. Reports one loose bowel movement today. No watery or bloody diarrhea. Denies any testicular pain. No fevers or chills. Patient was seen here 1 month ago. At that time, patient eloped from the ED. At the time he was here, he was requesting medication refill and was not endorsing abdominal pain. Patient endorses drinking 10 large beers daily. Denies any illicit drug use. EKG was obtained and reviewed by Dr. Ramirez. Patient centimeters rhythm with a rate of 74. T wave in version in lead V2 otherwise no acute ischemic changes. Differential is large. He does not have any focal findings. He does not have any focal area of discomfort on exam. When I am not in room, patient is resting comfortably and is often sleeping. Seems much more uncomfortable when I am present. Plan for labs and imaging. Labs reviewed. No leukocytosis, again slightly low but this is typical for the patient. Anion gap of 14, this is down from sixteen 1 month ago. He is receiving IV hydration. Glucose is 242 which is not atypical for the patient as he is quite noncompliant with his medications. AST is 84, ALT is 70, both of these measurements are not greatly elevated from his typical. Lipase within normal limits. Urinalysis significant for 15 ketones. No evidence of infection. Patient is positive for opiates, UDS otherwise negative. He is positive for alcohol at 17. CT reviewed by radiologist. Fatty liver, ?enteritis in LUQ. CT examination of the abdomen and pelvis was performed with bolus infusion of 100 cc of Omnipaque 350. Images obtained through the lung bases are unremarkable. Note is made of hepatic steatosis. Otherwise liver spleen and pancreas appear normal. Gallbladder is unremarkable in appearance by CT criteria. No biliary dilatation. Adrenals and kidneys appear normal. No evidence of urinary tract obstruction or calcification. No significant abdominal wall hernia seen. No abdominal or pelvic adenopathy. Appendix appears normal. No evidence of bowel obstruction or diverticulitis. There is mild dilatation and a questionable slight wall thickening of a few small bowel loops in the left upper quadrant, nonspecific finding but could represent enteritis. IMPRESSION: hepatic steatosis. Mild small bowel dilatation and wall thickening in left upper quadrant, question enteritis. Please correlate clinically. Discussed findings with the patient. Offered symptomatic management in regard to discomfort and nausea. Patient is not currently nauseated. Will give ibuprofen and GI cocktail for this pain. Seems to be more consistent with skin pain the patient reports that even just touching the skin causes severe discomfort. We also discussed chronic dependence on narcotics would also be altering his perception of pain. Patient has not had any change in his dosing of Suboxone recently. Would prefer to treat with nonnarcotic options. Will give GI cocktail and ibuprofen. Patient did not allow the GI cocktail or ibuprofen to set him. Got very upset with the idea of moving to hallway bed based on the critical nature of the department at this point. Is requesting discharge. I do not see any evidence of emergent etiology in the labs or CT imaging, laboratory evaluation or physical exam. I did offer other treatment to help with his discomfort associated with his enteritis. However, patient is requesting discharge. He does express frustration regarding his persistent discomfort. I did encourage close follow-up. He is aware that he may return anytime for further evaluation and care. Patient is cognitively appropriate and is able to leave the department on his own well. HPI General Mode of arrival: ambulatory. Date/Time Provider Initiated Documentation: 03/08/19 09:57. Limitations to Documentation: no limitations. Information obtained by: patient and RN notes reviewed. HPI Narrative: Patient is a 48-year-old male with history of hepatitis B, alcohol abuse, opioid dependence, poorly controlled type 2 diabetes, hepatitis C, presenting today with chief complaint of abdominal pain and liver issues. He reports that this pain has been persistent since his discharge from [facility] [place] 1 month ago. Patient reports he was diagnosed hepatitis C approximate 20 years ago after IV drug use. He has not sought treatment for this historically. Patient is fairly noncompliant. He was seen here on 02/04/2019, just after being discharged from [facility] [place], for assistance with refills of medication, primarily his insulin. At that time, patient had eloped prior to completion of his evaluation. Patient has had almost this recently. At that time, had been associating that with his medication noncompliance. Patient states that he occasionally takes his medications. He did take his insulin today but often goes multiple days like taking this. Unclear as to why the patient does not take his medications. He does report that he has access to them. Patient is on Suboxone was dosed this morning. No recent changes in his Suboxone dosing. States that his pain has been severe and rates his pain at a 10 out of 10. Denies any chest pain but reports that the pain in his abdomen can make you feel short of breath at times. Denies any fevers or chills. He endorses nausea and vomiting. States that he typically vomits in the morning. Endorses one episode of emesis today thus far. Denies any hematemesis. States that he is having 1 loose bowel movement today as well but denies any melena or hematochezia. States that yesterday he was having some dysuria but denies any penile discharge. No testicular pain. Denies any new or recent sexual partners. Reports that his abdomen feels bloated and feels like his face is bloated as well. Related Data Home Medications Medication Instructions Recorded Confirmed FreeStyle Lite Strips #100 strip 03/25/16 10/19/18 blood-glucose meter [FreeStyle #1 kit 03/25/16 10/19/18 Lite Meter] lancets [FreeStyle Lancets] #100 ea 03/25/16 10/19/18 pen needle, diabetic #100 units 07/23/17 10/19/18 albuterol sulfate 90 mcg/actuation 1 puff IH Q6H PRN #6.7 gm 05/04/18 01/08/19 aerosol inhaler tenofovir disoproxil fumarate 300 300 mg PO DAILY #90 tab 07/26/18 01/08/19 mg tablet methadone 15 mg PO DAILY 01/08/19 01/09/19 gabapentin 600 mg PO TID 01/10/19 01/10/19 metformin 1,000 mg PO BID 01/10/19 01/10/19 Lantus Solostar U-100 Insulin 40 unit SUBCUT HS #15 ml 01/11/19 amoxicillin-pot clavulanate 1 tab PO BID #14 tab 01/11/19 blood-glucose meter [FreeStyle #1 each 01/11/19 Flash System] doxycycline hyclate 100 mg PO Q12H #14 cap 01/11/19 folic acid 1 mg PO DAILY #30 tab 01/11/19 insulin lispro [Humalog KwikPen See Rx Instructions .ROUTE 01/11/19 Insulin] .COMPLEX #15 ml ketoconazole 1 applic TOPICAL DAILY #30 gm 01/11/19 multivitamin [Multiple Vitamins] 1 tab PO DAILY #30 tab 01/11/19 nicotine 21 mg TRANSDERMAL DAILY PRN PRN 01/11/19 #30 ea pantoprazole 40 mg PO DAILY@0730 #30 tab 01/11/19 terbinafine HCl 1 applic TOPICAL DAILY #30 gm 01/11/19 thiamine mononitrate (vit B1) 100 mg PO DAILY #30 tab 01/11/19 [Vitamin B-1 (mononitrate)] Previous Rx's Medication Instructions Recorded pen needle, diabetic #100 units 07/23/17 albuterol sulfate 90 mcg/actuation 1 puff IH Q6H PRN #6.7 gm 05/04/18 aerosol inhaler tenofovir disoproxil fumarate 300 300 mg PO DAILY #90 tab 07/26/18 mg tablet Lantus Solostar U-100 Insulin 40 unit SUBCUT HS #15 ml 01/11/19 amoxicillin-pot clavulanate 1 tab PO BID #14 tab 01/11/19 blood-glucose meter [FreeStyle #1 each 01/11/19 Flash System] doxycycline hyclate 100 mg PO Q12H #14 cap 01/11/19 folic acid 1 mg PO DAILY #30 tab 01/11/19 insulin lispro [Humalog KwikPen See Rx Instructions .ROUTE 01/11/19 Insulin] .COMPLEX #15 ml ketoconazole 1 applic TOPICAL DAILY #30 gm 01/11/19 multivitamin [Multiple Vitamins] 1 tab PO DAILY #30 tab 01/11/19 nicotine 21 mg TRANSDERMAL DAILY PRN PRN 01/11/19 #30 ea pantoprazole 40 mg PO DAILY@0730 #30 tab 01/11/19 terbinafine HCl 1 applic TOPICAL DAILY #30 gm 01/11/19 thiamine mononitrate (vit B1) 100 mg PO DAILY #30 tab 01/11/19 [Vitamin B-1 (mononitrate)] Allergies Allergy/AdvReac Type Severity Reaction Status Date / Time No Known Allergies Allergy Verified 02/04/19 12:43 General JAMES: 3 Review of Systems Constitutional Constitutional: Reports as per HPI, Denies chills, Denies fatigue, Denies fever(s) and Denies headache(s) ENT Ears, Nose, Mouth, and Throat: Denies headache(s) Cardiovascular Cardiovascular: Reports as per HPI, Denies chest pain and Denies dyspnea Respiratory Respiratory: Reports as per HPI, Denies cough and Denies dyspnea Gastrointestinal Gastrointestinal: Reports as per HPI Genitourinary Genitourinary: Denies system reviewed and no additional complaints, except as docu (patient denies any change in urinary habits) Musculoskeletal Musculoskeletal: Reports as per HPI and Denies back pain Integumentary/Breasts Skin/Breast: Reports as per HPI and Denies rash Neurologic Neurologic: Reports as per HPI and Denies headache(s) Endocrine Endocrine: Denies fatigue [facility] Medical History Adjustment disorder, unspecified (Resolved 12/10/15) Adventitious breath sounds (Resolved) Alcohol use (Acute) Chronic hepatitis C (Chronic 08/11/05) [facility] [place] DAR[facility] JACOB; began Aniceto 08/07/14 Cirrhosis of liver (Chronic 05/06/11) Continuous opioid dependence (Chronic 03/05/05) [facility], <2004; counselling Meagan Garcia; prefers tablets Folliculitis (Resolved 05/17/12) Dr Donnie ng, consult Dr. 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) [facility] [place] Onychomycosis of toenail (Resolved 08/16/13) Opioid dependence on agonist therapy (Chronic) [facility] [place], <2004; prefers tablets (PA) due to dental plate; counselor Zhang Atkins Opioid use disorder, moderate, dependence (Chronic 12/10/15) Smoker (Chronic 05/06/11) Type II diabetes mellitus, uncontrolled (Acute) A1c 9.4 01/2014; uncontrolled; goal A1c < 7.5 Urinary frequency (Chronic 08/16/13) Surgical History Endoscopy (12/09/12) repeat in 3 years Social History Smoking/Tobacco Use Status: Current every day Tobacco Type: cigarettes Alcohol Intake: current Alcohol Intake frequency: 3 or more drinks per day Drug use: Occasionally Substance use type: marijuana Details: on Suboxone Household members: significant other Housing: apartment Number of Children: 2 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 What is your relationship status?: living with partner Panel score (0-1 are the most socially isolated patients): 1 What type of physical activity do you participate in: none Drive intox or ride w/intox oil truck driver: No Working smoke detector in home: Yes Carbon monox detector in home: Yes Do you feel safe at home: Yes Do you feel safe in your relationship?: Yes Exam Const General: cooperative, healthy appearing, comfortable, no acute distress and well developed Nutritional Appearance: average body habitus and well nourished Orientation: alert and awake HENMT Head: normal to inspection Mouth: moist mucous membranes Resp Effort & Inspection: normal respiratory effort, able to speak in complete sentences and no respiratory distress Auscultation: clear to auscultation bilaterally, no rales, no rhonchi and no wheezes Cardio Rate: regular rate Rhythm: regular rhythm Heart Sounds: S1 normal and S2 normal Back/Spine/Pelvis Back: no CVA tenderness Skin General skin exam: no rashes or lesions noted Trauma: no lacerations or abrasions Neuro General: alert and awake Cognition: normal cognition Speech: speech normal Gait: normal gait Psych Appearance: grossly normal and well kempt Mental Status: mental status grossly normal Speech and Movement: speech and movement normal
[2019-03-08 09:59] VITALS: BP 158/72; PULSE 86; RESP 18; TEMP 37.9; O2SAT 98
[2019-03-08] MEDS: Normal Saline 1,000 ML 1000 ML IV (10:48)
[2019-03-08 10:49] LABS: Absolute Basophil Count 0.01 k/cumm (0.0-0.2); Absolute Eosinophil Count 0.06 k/cumm (0.0-0.7); Absolute Lymphocyte Count 0.67 k/cumm (1.2-3.4); Absolute Monocyte Count 0.25 k/cumm (0.11-0.7); Absolute Neutrophil Count 2.07 k/cumm (1.2-6.7); Basophils % 0.3; HCT 36.2 % (40.0-50.0); HGB 13.1 g/dL (13.5-17.5); Lymphocytes % 21.9; Mean Corp. HGB Concentration 36.2 g/dL (32.0-36.0); Mean Corpuscular Hemoglobin 33.8 pg (27.0-33.0); Mean Corpuscular Volume 93.3 fL (80-95); Mean Platelet Volume 9.1 fL (8.0-11.0); Monocytes % 8.2; Neutrophils % 67.6; RBC 3.88 m/cumm (4.50-6.00); RBC Distribution Width 13.7 % (11.8-14.1); White Blood Cell Count 3.06 k/cumm (4.4-10.8)
[2019-03-08 11:02] LABS: Bilirubin Negative (Negative); Blood Small (Negative); Clarity Clear (Clear); Glucose 500 mg/dL (Negative); Ketones 15 mg/dL (Negative); Leukocyte Esterase Negative (Negative); Nitrite Negative (Negative); Specific Gravity 1.025 (1.005-1.025); Urobilinogen 0.2 EU/dL (Up TO 0.2); pH 5.5 (5-8)
[2019-03-08 11:10] LABS: ALT 70 U/L (16-63); AST 84 U/L (15-37); Albumin 3.5 g/dL (3.4-5.0); Alkaline Phosphatase 97 U/L (46-116); Anion Gap 14.3 mmol/L (3-11); BUN 10 mg/dL (7-18); Bilirubin, Total 0.6 mg/dL (0.2-1.0); CO2 24.7 mmol/L (21.0-32.0); CREATININE 0.64 mg/dL (0.70-1.30); Calcium 8.9 mg/dL (8.5-10.1); Chloride 101 mmol/L (98-107); Glucose 242 mg/dL (74-106); Lipase 73 U/L (73-393); Potassium 3.9 mmol/L (3.5-5.1); Sodium 140 mmol/L (136-145); Total Protein 7.1 g/dL (6.4-8.2)
[2019-03-08 11:11] LABS: Platelet Count 88 x1000/uL (130-400)
[2019-03-08 11:12] LABS: Diff Comment RBC Morph Reviewed; Poikilocytes 1+
[2019-03-08 11:16] LABS: Bacteria Rare HPF (Negative); Crystals Negative HPF (Negative); Epithelial Cells Rare HPF (Negative); Mucus Moderate (Negative); RBC 0-2 HPF (0-2); WBC 0-2 HPF (0-5)
[2019-03-08 11:17] LABS: C & S Indicated? No; Casts 3-5 Hyaline LPF (Negative)
[2019-03-08 11:21] LABS: *AMPHETAMINES SCREEN URINE Negative (Negative); *BARBITURATES SCREEN URINE Negative (Negative); *BENZODIAZEPINES SCREEN URINE Negative (Negative); Cannabinoids THC Negative (Negative); Cocaine Screen,Urine Negative (Negative); METHADONE URINE SCREEN Negative (Negative); OPIATES URINE SCREEN POSITIVE (Negative)
[2019-03-08 11:27] LABS: Tricyclic Antidepressants Negative (Negative)
[2019-03-08] MEDS: Omnipaque 350 MG/ML 100 ML BTL IJ (12:25)
--- NOTE | 2019-03-08 12:26 | DI.CT_ITS ---
EXAM: CT ABDOMEN PELVIS W CLINICAL HISTORY: diffuse pain TECHNIQUE: COMPARISON: CT CHEST PE CTA from 05/24/2018 FINDINGS: CT examination of the abdomen and pelvis was performed with bolus infusion of 100 cc of Omnipaque 35 0. Images obtained through the lung bases are unremarkable. Note is made of hepatic steatosis. Oth erwise liver spleen and pancreas appear normal. Gallbladder is unremarkable in appearance by CT criteria. No biliary dilatation. Adrenals and kidneys appear normal. No evidence of urinary tract obstruction or calcification. No significant abdominal wall hernia seen. No abdominal or pelvic adenopathy. Appendix appears normal. No evidence of bowel obstruction or diverticulitis. There is mild dilatati on and a questionable slight wall thickening of a few small bowel loops in the left upper quadrant, n onspecific finding but could represent enteritis. IMPRESSION: hepatic steatosis. Mild small bowel dilatation and wall thickening in left upper quadrant, question enteritis. Please co rrelate clinically.
[2019-03-08] MEDS: Nicotine 21 MG/24 HR PATCH TD (12:37)
[2019-03-08] MEDS: Ibuprofen 600 MG TAB PO (13:31)
== END 2019-03-08 13:56 | disposition home or self-care (01) ==
PROVIDERS: Emergency Provider Physician Assistant; PCP Nurse Practitioner Family
DX: K52.9 Noninfective gastroenteritis and colitis, unspecified (principal); Z91.14 Patient's other noncompliance with medication regimen; K76.0 Fatty (change of) liver, not elsewhere classified; R79.9 Abnormal finding of blood chemistry, unspecified; E11.8 Type 2 diabetes mellitus with unspecified complications; Z79.4 Long term (current) use of insulin
CPT/HCPCS: 80053; 80307; 83690; 93005; 96360; 96361; 99285; 74177; 80320; 81003; 81015; 85025; 93010; 99284; J3490

== ENCOUNTER 2019-03-14 10:33 | Outpatient (REF) | payer MEDICAID, SELFPAY ==
[2019-03-15 12:32] LABS: Campylobacter PCR Negative (Negative); Salmonella PCR Negative (Negative); Shiga Toxin PCR Negative (Negative); Shigella/Enteroinvasive Ecoli Negative (Negative)
== END 2019-03-14 10:53 ==
LOC: NCHCN 10:33
PROVIDERS: PCP Nurse Practitioner Family; Visit Provider Nurse Practitioner Family
DX: K52.9 Noninfective gastroenteritis and colitis, unspecified (principal)
CPT/HCPCS: 87505

== ENCOUNTER 2019-03-23 11:58 | Outpatient (CLI) | payer MEDICAID, SELFPAY ==
--- NOTE | 2019-03-23 12:10 | DI.RAD_ITS ---
EXAM: XR CHEST 2V PA LATERAL CLINICAL HISTORY: CHEST WALL PAIN R07.89. TECHNIQUE: 2D digital imaging was performed. COMPARISON: XR CHEST 2V PA LATERAL from 01/08/2019 FINDINGS: LUNGS: Clear. No pleural abnormality seen. HEART: Normal. MEDIASTINUM: Normal. OTHER FINDINGS:Normal. BONE:Normal. IMPRESSION: No acute pulmonary findings.
== END 2019-03-23 12:18 ==
PROVIDERS: PCP Nurse Practitioner Family; Visit Provider Nurse Practitioner Family
DX: R07.89 Other chest pain (principal)
CPT/HCPCS: 71046

== ENCOUNTER 2019-03-23 12:59 | Emergency (ER) | payer MEDICAID, SELFPAY ==
[2019-03-23 13:02] VITALS: BP 133/73; PULSE 74; RESP 16; TEMP 36.4
--- NOTE | 2019-03-23 14:35 | ED.GENADUL_ITS ---
Discharge Plan Disposition Patient Disposition: HOME Condition: Stable Discharge Details Chief Complaint: DrugWithdr Clinical Impression: Medical clearance for psychiatric admission Primary Care Provider: Tamika Valdes ED Provider: Jason aDwson Home Meds and New Rx's Prescriptions: No Action tenofovir disoproxil fumarate [Viread] 300 mg tablet 300 mg PO DAILY Qty: 90 RF: 3 albuterol sulfate 90 mcg/actuation HFA aerosol inhaler 1 puff IH Q6H PRN (Reason: shortness of breath or wheezing) Qty: 6.7 RF: 12 (DME) FreeStyle Lite Strips 1 EACH strip 1 ea Miscellaneous BID Qty: 100 RF: 0 (DME) blood-glucose meter [FreeStyle Lite Meter] 1 EACH kit 1 ea Miscellaneous DAILY Qty: 1 RF: 0 (DME) lancets [FreeStyle Lancets] 1 EACH misc 1 ea Miscellaneous BID Qty: 100 RF: 0 (DME) pen needle, diabetic 1 EACH needle 1 ea Miscellaneous DAILY Qty: 100 RF: 11 gabapentin 600 mg Tablet 600 mg PO TID RF: 0 metformin 1,000 mg Tablet 1,000 mg PO BID RF: 0 doxycycline hyclate 100 mg Capsule 100 mg PO Q12H Qty: 14 RF: 0 folic acid 1 mg Tablet 1 mg PO DAILY Qty: 30 RF: 0 ketoconazole 2 % Cream 1 applic topical DAILY Qty: 30 RF: 1 multivitamin [Multiple Vitamins] Tablet 1 tab PO DAILY Qty: 30 RF: 0 terbinafine HCl 1 % Cream 1 applic topical DAILY Qty: 30 RF: 1 pantoprazole 40 mg Tablet,Delayed Release (Dr/Ec) 40 mg PO DAILY@0730 Qty: 30 RF: 0 nicotine 21 mg/24 hr Patch 24 Hour 21 mg transdermal DAILY PRN PRNQty: 30 RF: 0 thiamine mononitrate (vit B1) [Vitamin B-1 (mononitrate)] 100 mg Tablet 100 mg PO DAILY Qty: 30 RF: 0 insulin lispro [Humalog KwikPen Insulin] 100 unit/mL Insulin Pen See Rx Instructions .ROUTE .COMPLEX Qty: 15 RF: 0 Lantus Solostar U-100 Insulin 100 unit/mL (3 mL) insulin pen 40 unit subcut HS Qty: 15 RF: 0 (DME) blood-glucose meter [FreeStyle Flash System] Kit See Rx Instructions .ROUTE .MEDSUPPLY Qty: 1 RF: 0 trazodone 150 mg Tablet 150 mg PO HS RF: 0 buprenorphine-naloxone [Suboxone] 2-0.5 mg Film 6 film RF: 0 Discharge Instructions Additional Instructions: 1. Drink plenty of fluids. 2. Continue all medications as prescribed. 3. Acetaminophen 1000mg every 4 hours (up to 5 time a day) and/or ibuprofen 600mg every 6 hours as needed for fever or pain. 4. You have been medically cleared for the [facility] facility. Return to the Emergency Department (ED) if your condition worsens, does not improve as expected, or for ANY other concerns. Specifically, return if you have new or uncontrolled pain, worsening fever, difficulty breathing, vomiting, or are unable to drink fluids. Discharge Data Discharge Date/Time-TO BE ENTERED AT DEPARTURE: 03/23/19 16:36 Medical Decision Making 48-year-old gentleman with a history of diabetes, cirrhosis, opiate use disorder, and alcohol abuse. Presents here for medical clearance to enter into the [facility] facility. No distress on arrival with no constitutional complaints. Full normal exam. Tolerating oral intake without difficulty. Also measured his serum glucose level here which was slightly elevated but within normal range management. Discharged with a plan for transport to [facility]. Medically cleared for intake there. Medical Records Medical records reviewed: Yes I reviewed the patient's medical records. Lab Data Lab results reviewed: Yes I reviewed the patient's lab results. HPI 48-year-old gentleman with past medical history which includes just first order, tobacco use, alcohol abuse, cirrhosis, chronic hepatitis C, and opiate abuse. Presents for medical clearance to enter the [facility] facility. According to [facility], he had recently relapsed in terms of his alcohol abuse. He otherwise has been compliant with his diabetes medications and recently was evaluated by his PCP with baseline labs (elevated A1c). On arrival here, he denies subjective withdrawal symptoms, he has no headache, fever/chills, dyspnea, chest pain, vomiting, abdominal pain, change in bowel habits, melena/hematochezia. General Date/Time Provider Initiated Documentation: 03/23/19 14:28 . Related Data Home Medications Medication Instructions Recorded Confirmed FreeStyle Lite Strips #100 strip 03/25/16 03/23/19 blood-glucose meter [FreeStyle #1 kit 03/25/16 03/23/19 Lite Meter] lancets [FreeStyle Lancets] #100 ea 03/25/16 03/23/19 pen needle, diabetic #100 units 07/23/17 03/23/19 albuterol sulfate 90 mcg/actuation 1 puff IH Q6H PRN #6.7 gm 05/04/18 03/23/19 aerosol inhaler tenofovir disoproxil fumarate 300 300 mg PO DAILY #90 tab 07/26/18 03/23/19 mg tablet gabapentin 600 mg PO TID 01/10/19 03/23/19 metformin 1,000 mg PO BID 01/10/19 03/23/19 Lantus Solostar U-100 Insulin 40 unit SUBCUT HS #15 ml 01/11/19 03/23/19 blood-glucose meter [FreeStyle #1 each 01/11/19 03/23/19 Flash System] doxycycline hyclate 100 mg PO Q12H #14 cap 01/11/19 03/23/19 folic acid 1 mg PO DAILY #30 tab 01/11/19 03/23/19 insulin lispro [Humalog KwikPen See Rx Instructions .ROUTE 01/11/19 03/23/19 Insulin] .COMPLEX #15 ml ketoconazole 1 applic TOPICAL DAILY #30 gm 01/11/19 03/23/19 multivitamin [Multiple Vitamins] 1 tab PO DAILY #30 tab 01/11/19 03/23/19 nicotine 21 mg TRANSDERMAL DAILY PRN PRN 01/11/19 03/23/19 #30 ea pantoprazole 40 mg PO DAILY@0730 #30 tab 01/11/19 03/23/19 terbinafine HCl 1 applic TOPICAL DAILY #30 gm 01/11/19 03/23/19 thiamine mononitrate (vit B1) 100 mg PO DAILY #30 tab 01/11/19 03/23/19 [Vitamin B-1 (mononitrate)] buprenorphine-naloxone [Suboxone] 6 film 03/23/19 trazodone 150 mg PO HS 03/23/19 03/23/19 Previous Rx's Medication Instructions Recorded pen needle, diabetic #100 units 07/23/17 albuterol sulfate 90 mcg/actuation 1 puff IH Q6H PRN #6.7 gm 05/04/18 aerosol inhaler tenofovir disoproxil fumarate 300 300 mg PO DAILY #90 tab 07/26/18 mg tablet Lantus Solostar U-100 Insulin 40 unit SUBCUT HS #15 ml 01/11/19 blood-glucose meter [FreeStyle #1 each 01/11/19 Flash System] doxycycline hyclate 100 mg PO Q12H #14 cap 01/11/19 folic acid 1 mg PO DAILY #30 tab 01/11/19 insulin lispro [Humalog KwikPen See Rx Instructions .ROUTE 01/11/19 Insulin] .COMPLEX #15 ml ketoconazole 1 applic TOPICAL DAILY #30 gm 01/11/19 multivitamin [Multiple Vitamins] 1 tab PO DAILY #30 tab 01/11/19 nicotine 21 mg TRANSDERMAL DAILY PRN PRN 01/11/19 #30 ea pantoprazole 40 mg PO DAILY@0730 #30 tab 01/11/19 terbinafine HCl 1 applic TOPICAL DAILY #30 gm 01/11/19 thiamine mononitrate (vit B1) 100 mg PO DAILY #30 tab 01/11/19 [Vitamin B-1 (mononitrate)] Allergies Allergy/AdvReac Type Severity Reaction Status Date / Time No Known Allergies Allergy Verified 03/23/19 14:03 General Stated Complaint: DrugWithdr JAMES: 3 Review of Systems All systems reviewed & are unremarkable except as noted in HPI and below PFSH Medical History Adjustment disorder, unspecified (Resolved 12/10/15) Adventitious breath sounds (Resolved) Alcohol use (Acute) Chronic hepatitis C (Chronic 08/11/05) RX [facility] D[facility]IO JACOB; began [facility] 08/07/14 Cirrhosis of liver (Chronic 05/06/11) Continuous opioid dependence (Chronic 03/05/05) [facility] RX [place], <2004; counselling Meagan Garcia; prefers tablets Folliculitis (Resolved 05/17/12) Dr Donnie ng, consult Dr. 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 Brother No problems noted. Sister No problems noted. 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 GENERAL: alert, active, no acute distress, well -hydrated, well-nourished HEENT: atraumatic/normocephalic, PERRLA, EOMI, conjunctiva clear, external ears/canals normal, nasal mucosa normal NECK: supple, full range of motion, no mass, normal lymphadenopathy, no thyromegaly CARDIOVASCULAR: RRR, no murmurs, nl pulses, no edema PULMONARY: nl effort, no audible wheezing or stridor, nl breath sounds with no focal deficit. no chest wall tenderness ABDOMEN: soft, non-tender, non-distended, no mass, no organomegaly EXTREMITY: normal muscle tone, all joints with FROM, no deformity or tenderness SKIN: no exanthem appreciated NEURO: gross motor exam normal, normal stance and gait PSYCH: alert and oriented, Course Vital Signs Vital signs: Vital Signs Temperature 97.5 F L 03/23/19 13:02 Pulse 74 03/23/19 13:02 Respiratory Rate 16 03/23/19 13:02 Blood Pressure 133/73 03/23/19 13:02 Temperature 97.5 F L 03/23/19 13:02 Temperature Source Temporal Artery Scan 03/23/19 13:02 Pulse 74 03/23/19 13:02 Respiratory Rate 16 03/23/19 13:02 Respiratory Effort Non-Labored 03/23/19 14:03 Respiratory Pattern Normal 03/23/19 13:47 Blood Pressure 133/73 03/23/19 13:02 Blood Pressure Position Sitting 03/23/19 13:02 Oxygen Delivery Method Room Air 03/23/19 13:02 Oxygen Flow Rate 0 03/23/19 13:02 Pain Level 0 03/23/19 13:02
--- NOTE | 2019-03-24 11:35 | CMPROGNOTE_ITS ---
- If Service Date Differs Date of service: 03/23/19 Time of Service: 15:00 Care Management Progress Note S/O: KAYLEIGH met with the patient as requested by the ED provider Shaw is awaiting a bed at [facility]. He was sent to the ED for medical clearance before he could go to the retreat. The admission to the rehabilitation center was being coordinated as outpatient prior to arrival to the ED. Shaw has been staying at the local [facility] and he is working with a agile scrum coach to gain admission to [facility]. CM faxed medical clearance to and spoke with Marleny. There is not a bed today Shaw has been instructed to call in the morning to confirm bed offer. Shaw will [facility] and continue supports through agile scrum coach and plan to transition to in the morning. P: [facility] planned for admission on 03/25/2019. Shaw will be discharged from the ED and will continue to receive agile scrum coach services with assistance to treatment r/t substance abuse and need for rehabilitation. KAYLEIGH confirmed with risk management that patient can resume his outreach to substance abuse services as an outpatient. CM coordinated [facility] as well as sent in request for prior auth for transport thru [place] [employer].
== END 2019-03-23 16:36 | disposition home or self-care (01) ==
PROVIDERS: Emergency Provider Emergency Medicine; PCP Nurse Practitioner Family
DX: F11.20 Opioid dependence, uncomplicated (principal); F10.10 Alcohol abuse, uncomplicated; E11.9 Type 2 diabetes mellitus without complications; Z79.4 Long term (current) use of insulin
CPT/HCPCS: 99283

== ENCOUNTER 2019-04-11 08:59 | Emergency (ER) | payer MEDICAID, SELFPAY ==
[2019-04-11] VITALS (13 sets, daily range): BP systolic 126–152; BP diastolic 66–87; PULSE 63–96; RESP 14–19; TEMP 36.5–36.9; O2SAT 95–98
--- NOTE | 2019-04-11 09:29 | ED.GENADUL_ITS ---
Discharge Plan [facility]position [facility] Condition: Stable Discharge Details Chief Complaint: DrugWithdr Clinical Impression: Polysubstance abuse, Depression Primary Care Provider: Tamika Valdes ED Provider: Adwoa Batres Home Meds and New Rx's Prescriptions: No Action tenofovir disoproxil fumarate [Viread] 300 mg tablet 300 mg PO DAILY Qty: 90 RF: 3 albuterol sulfate 90 mcg/actuation HFA aerosol inhaler 1 puff IH Q6H PRN (Reason: shortness of breath or wheezing) Qty: 6.7 RF: 12 (DME) FreeStyle Lite Strips 1 EACH strip 1 ea Miscellaneous BID Qty: 100 RF: 0 (DME) blood-glucose meter [FreeStyle Lite Meter] 1 EACH kit 1 ea Miscellaneous DAILY Qty: 1 RF: 0 (DME) lancets [FreeStyle Lancets] 1 EACH misc 1 ea Miscellaneous BID Qty: 100 RF: 0 (DME) pen needle, diabetic 1 EACH needle 1 ea Miscellaneous DAILY Qty: 100 RF: 11 gabapentin 600 mg Tablet 600 mg PO TID RF: 0 metformin 1,000 mg Tablet 1,000 mg PO BID RF: 0 folic acid 1 mg Tablet 1 mg PO DAILY Qty: 30 RF: 0 ketoconazole 2 % Cream 1 applic topical DAILY Qty: 30 RF: 1 multivitamin [Multiple Vitamins] Tablet 1 tab PO DAILY Qty: 30 RF: 0 terbinafine HCl 1 % Cream 1 applic topical DAILY Qty: 30 RF: 1 pantoprazole 40 mg Tablet,Delayed Release (Dr/Ec) 40 mg PO DAILY@0730 Qty: 30 RF: 0 nicotine 21 mg/24 hr Patch 24 Hour 21 mg transdermal DAILY PRN PRNQty: 30 RF: 0 thiamine mononitrate (vit B1) [Vitamin B-1 (mononitrate)] 100 mg Tablet 100 mg PO DAILY Qty: 30 RF: 0 insulin lispro [Humalog KwikPen Insulin] 100 unit/mL Insulin Pen See Rx Instructions .ROUTE .COMPLEX Qty: 15 RF: 0 Lantus Solostar U-100 Insulin 100 unit/mL (3 mL) insulin pen 40 unit subcut HS Qty: 15 RF: 0 (DME) blood-glucose meter [FreeStyle Flash System] Kit See Rx Instructions .ROUTE .MEDSUPPLY Qty: 1 RF: 0 trazodone 150 mg Tablet 150 mg PO HS RF: 0 buprenorphine-naloxone [Suboxone] 2-0.5 mg Film 6 film RF: 0 Discharge Instructions Additional Instructions: Go directly to [facility]. Discharge Data Discharge Date/Time-TO BE ENTERED AT DEPARTURE: 04/11/19 16:35 Medical Decision Making <MANDEEP Ha - Last Filed: 04/12/19 09:06> Is a 48-year-old patient presenting for mental health evaluation as he is seeking replacement in [facility] after being discharged on 29 March. Patient reports since discharge he continues to drink and has been using heroin. Patient has now lost his housing at the long-term due to use of alcohol. Patient reports last drink was at 2-3 o'clock this morning and last heroin use at 9:00 last night. Patient denies any medical concerns or complaints at this time. Patient reports he has intermittently relapsed for the last 3 years and knows he needs to sober up. He did have a period of greater than 10 years during which he had remained sober prior to this last 3 years of intermittent use. Patient reports he is battling with depression. Does feel depressed at this time. Does report no difficulty eating or drinking. Patient is sleeping. Denies any other concerns or complaints at this time. Patient has been noncompliant with his diabetes medications. Upon initial arrival patient's blood sugar greater than 500. IV fluids provided. men's swim coach at the bedside to evaluate patient. Recheck of serum blood sugar reveals glucose of 528. After IV fluids improved to 400, will provide insulin 7 units subcu at this time and follow blood sugars. Patient does not appear to be in DKA. Patient has no symptoms associated with his hyperglycemia. Mental health evaluated patient and reports that they have spoken with [facility] who will likely accept this patient. Pending acceptance. Spoke with HADOOP ARCHITECT at [facility] to discuss Dr to conversation. Pt transfer accepted. <Deb Ramirez DO - Last Filed: 04/13/19 15:11> Please see MANDEEP Corey's note for presentation, exam and disposition. I did not see or participate in the care of this patient HPI <MANDEEP Ha - Last Filed: 04/12/19 09:06> General Date/Time Provider Initiated Documentation: 04/11/19 09:14 . HPI Narrative: Is a 48-year-old patient presenting to the emergency room for concern of mental health as well as polysubstance abuse. Patient reports a history of sobriety for greater than a decade and in the last 3 years his began using again and he relapsed into using alcohol and now has been using heroin as well. Patient reports he is now currently homeless. He was recently admitted and discharged from [facility]. Discharge on 29 March. Patient reports he is seeking readmission to [facility]. Patient reports he has been using heroin last use at 9:00 PM last night. Last alcohol at 2-3 o'clock this mor brian. Patient reports he has been noncompliant with his daily medications. Specifically he has not had insulin in several days. Patient is compliant with gabapentin. Patient denies any specific medical concerns or complaints at this time. Denies headache, dizziness, nausea, vomiting, abdominal pain. Denies chest pain, difficulty breathing shortness of breath or wheezing. Denies bowel changes. Denies suicidality or homicidality. Related Data Home Medications Medication Instructions Recorded Confirmed FreeStyle Lite Strips #100 strip 03/25/16 04/11/19 blood-glucose meter [FreeStyle #1 kit 03/25/16 03/23/19 Lite Meter] lancets [FreeStyle Lancets] #100 ea 03/25/16 03/23/19 pen needle, diabetic #100 units 07/23/17 03/23/19 albuterol sulfate 90 mcg/actuation 1 puff IH Q6H PRN #6.7 gm 05/04/18 04/11/19 aerosol inhaler tenofovir disoproxil fumarate 300 300 mg PO DAILY #90 tab 07/26/18 04/11/19 mg tablet gabapentin 600 mg PO TID 01/10/19 04/11/19 metformin 1,000 mg PO BID 01/10/19 04/11/19 Lantus Solostar U-100 Insulin 40 unit SUBCUT HS #15 ml 01/11/19 04/11/19 blood-glucose meter [FreeStyle #1 each 01/11/19 03/23/19 Flash System] folic acid 1 mg PO DAILY #30 tab 01/11/19 04/11/19 insulin lispro [Humalog KwikPen See Rx Instructions .ROUTE 01/11/19 04/11/19 Insulin] .COMPLEX #15 ml ketoconazole 1 applic TOPICAL DAILY #30 gm 01/11/19 04/11/19 multivitamin [Multiple Vitamins] 1 tab PO DAILY #30 tab 01/11/19 04/11/19 nicotine 21 mg TRANSDERMAL DAILY PRN PRN 01/11/19 04/11/19 #30 ea pantoprazole 40 mg PO DAILY@0730 #30 tab 01/11/19 04/11/19 terbinafine HCl 1 applic TOPICAL DAILY #30 gm 01/11/19 04/11/19 thiamine mononitrate (vit B1) 100 mg PO DAILY #30 tab 01/11/19 04/11/19 [Vitamin B-1 (mononitrate)] buprenorphine-naloxone [Suboxone] 6 film 03/23/19 trazodone 150 mg PO HS 03/23/19 04/11/19 Previous Rx's Medication Instructions Recorded pen needle, diabetic #100 units 07/23/17 albuterol sulfate 90 mcg/actuation 1 puff IH Q6H PRN #6.7 gm 05/04/18 aerosol inhaler tenofovir disoproxil fumarate 300 300 mg PO DAILY #90 tab 07/26/18 mg tablet Lantus Solostar U-100 Insulin 40 unit SUBCUT HS #15 ml 01/11/19 blood-glucose meter [FreeStyle #1 each 01/11/19 Flash System] folic acid 1 mg PO DAILY #30 tab 01/11/19 insulin lispro [Humalog KwikPen See Rx Instructions .ROUTE 01/11/19 Insulin] .COMPLEX #15 ml ketoconazole 1 applic TOPICAL DAILY #30 gm 01/11/19 multivitamin [Multiple Vitamins] 1 tab PO DAILY #30 tab 01/11/19 nicotine 21 mg TRANSDERMAL DAILY PRN PRN 01/11/19 #30 ea pantoprazole 40 mg PO DAILY@0730 #30 tab 01/11/19 terbinafine HCl 1 applic TOPICAL DAILY #30 gm 01/11/19 thiamine mononitrate (vit B1) 100 mg PO DAILY #30 tab 01/11/19 [Vitamin B-1 (mononitrate)] Allergies Allergy/AdvReac Type Severity Reaction Status Date / Time No Known Allergies Allergy Verified 04/11/19 09:13 General Stated Complaint: DrugWithdr JAMES: 2 Review of Systems <MANDEEP Ha - Last Filed: 04/12/19 09:06> All systems reviewed & are unremarkable except as noted in HPI and below Constitutional Constitutional: Denies chills, Reports fatigue, Denies fever(s), Denies headache(s) and Denies malaise ENT Ears, Nose, Mouth, and Throat: Denies headache(s) Cardiovascular Cardiovascular: Denies dyspnea and Denies dyspnea on exertion Respiratory Respiratory: Denies cough, Denies dyspnea, Denies dyspnea on exertion and Denies wheezing Gastrointestinal Gastrointestinal: Denies abdominal pain, Denies diarrhea, Denies nausea and Denies vomiting Genitourinary Genitourinary: Denies dysuria Neurologic Neurologic: Denies headache(s) Psychiatric Psychiatric: Reports anxiety, Reports depression, Denies hallucinations, Denies homicidal ideation and Denies suicidal ideation Endocrine Endocrine: Reports fatigue Allergic/Immunologic Allergic/Immunologic: Denies wheezing PFSH <MANDEEP Ha - Last Filed: 04/12/19 09:06> Medical History Adjustment disorder, unspecified (Resolved 12/10/15) Adventitious breath sounds (Resolved) Alcohol use (Acute) Chronic hepatitis C (Chronic 08/11/05) RX [facility] DARIO NIDIA; began [facility] 08/07/14 Cirrhosis of liver (Chronic 05/06/11) Continuous opioid dependence (Chronic 03/05/05) BUP RX [place]INCE [place], <2004; counselling Meagan Garcia; prefers tablets Folliculitis (Resolved 05/17/12) Dr Donnie ng, consult Dr. 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) [facility] Onychomycosis of toenail (Resolved 08/16/13) Opioid dependence on agonist therapy (Chronic) BUP RX [place]INCE [place], <2005; prefers tablets (PA) due to dental plate; counselor Zhang Atkins Opioid use disorder, moderate, dependence (Chronic 12/10/15) Smoker (Chronic 02/28/12) Type II diabetes mellitus, uncontrolled (Acute) A1c 9.4 01/2014; uncontrolled; goal A1c < 7.5 Urinary frequency (Chronic 08/16/13) Social History Smoking/Tobacco Use Status: Current every day Tobacco Type: cigarettes Alcohol Intake: current Alcohol Intake frequency: 3 or more drinks per day Alcohol type: beer Drug use: Occasionally Substance use type: marijuana Details: on Suboxone--off x 12 days Last ETOH 0200 today Heroin last at 2100 last yemi Household members: significant other Housing: apartment Number of Children: 2 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 Well hydrated. Alert and oriented. HENMT: Head nomocephalic, normal to inspection. Atraumatic. Hearing grossly normal. EYES: General normal appearance. Alignment normal. Eyelids normal. Conjunctiva normal. NECK: Normal visual inspection. FROM. Trachea midline. No Midline tenderness. CHEST: Normal insepection of the chest. RESP: Normal respiratory effort. Speaking full sentences. No cough. No audible wheezing. No retractions. CARDIO: No JVD. No murmur. Regular rate and rhythm NEURO: Alert and awake. Speech clear. PSYCH: Normal affect. Cooperative. Course <MANDEEP Ha - Last Filed: 04/12/19 09:06> Vital Signs Vital signs: Vital Signs Temperature 36.6 C 04/11/19 09:05 Pulse 96 H 04/11/19 09:05 Respiratory Rate 18 04/11/19 09:05 Blood Pressure 135/70 04/11/19 09:05 Pulse Oximetry 96 04/11/19 09:05 Temperature 36.6 C 04/11/19 09:05 Temperature Source Temporal Artery Scan 04/11/19 09:05 Pulse 96 H 04/11/19 09:05 Respiratory Rate 18 04/11/19 09:05 Respiratory Effort Non-Labored 04/11/19 09:11 Blood Pressure 135/70 04/11/19 09:05 Pulse Oximetry 96 04/11/19 09:05 Oxygen Delivery Method Room Air 04/11/19 09:05 Oxygen Flow Rate 0 04/11/19 09:05 Pain Level 0 04/11/19 09:05
[2019-04-11 09:56] LABS: *AMPHETAMINES SCREEN URINE Negative (Negative); *BARBITURATES SCREEN URINE Negative (Negative); *BENZODIAZEPINES SCREEN URINE Negative (Negative); Cannabinoids THC Negative (Negative); Cocaine Screen,Urine Negative (Negative); METHADONE URINE SCREEN Negative (Negative); OPIATES URINE SCREEN POSITIVE (Negative)
[2019-04-11 10:00] LABS: Tricyclic Antidepressants Negative (Negative)
[2019-04-11] MEDS: Normal Saline 1,000 ML 1000 ML IV (10:01)
[2019-04-11 10:06] LABS: ALT 40 U/L (16-63); AST 27 U/L (15-37); Alkaline Phosphatase 67 U/L (46-116); Anion Gap 8.9 mmol/L (3-11); BUN 13 mg/dL (7-18); Bilirubin, Total 0.7 mg/dL (0.2-1.0); CO2 27.1 mmol/L (21.0-32.0); CREATININE 1.01 mg/dL (0.70-1.30); Calcium 8.6 mg/dL (8.5-10.1); Chloride 95 mmol/L (98-107); Potassium 4.7 mmol/L (3.5-5.1); Sodium 131 mmol/L (136-145); Total Protein 7.1 g/dL (6.4-8.2)
[2019-04-11 10:09] LABS: Abs Immature Grans 0.01 k/cumm (0.0-0.09); Absolute Basophil Count 0.03 k/cumm (0.0-0.2); Absolute Eosinophil Count 0.06 k/cumm (0.0-0.7); Absolute Lymphocyte Count 1.15 k/cumm (1.2-3.4); Absolute Monocyte Count 0.53 k/cumm (0.11-0.7); Absolute Neutrophil Count 4.46 k/cumm (1.2-6.7); Basophils % 0.5; HCT 37.8 % (40.0-50.0); HGB 13.8 g/dL (13.5-17.5); Immature Grans % 0.2 %; Lymphocytes % 18.4; Mean Corp. HGB Concentration 36.5 g/dL (32.0-36.0); Mean Corpuscular Hemoglobin 33.7 pg (27.0-33.0); Mean Corpuscular Volume 92.2 fL (80-95); Mean Platelet Volume 9.1 fL (8.0-11.0); Monocytes % 8.5; Neutrophils % 71.4; Platelet Count 215 x1000/uL (130-400); White Blood Cell Count 6.24 k/cumm (4.4-10.8)
[2019-04-11 10:16] LABS: Glucose 528 mg/dL (74-106)
[2019-04-11 10:36] LABS: ETHANOL BLOOD < 3.0 mg/dL (<3)
[2019-04-11] MEDS: Insulin REGULAR-Human 100 UNITS/ML UNIT 7 UNITS SC (11:23)
--- NOTE | 2019-04-11 11:42 | PDOC.MHCN ---
Date of service: 04/11/19 Time of Service: 11:42 Mental Health Crisis Note Presenting Issue How did you arrive at the ED and why did you come: Justin came to the ER on his own. He is seeking a placement at [facility] stating he called and secured a bed for admission for his substance abuse. Shaw reported that he has also called and secured a bed at [facility] as well. Precipitating Factors Justin denied SI and HI. There are no signs of any thought disorder. Justin reports that he was discharged from [facility] in March and lived in a sober living home for a while. Justin reported that he has been drinking 8 8, 8% 25oz beers daily in the past 10 days and that he has also used heroin (one bag) via snorting 2 times in the 10 days. He took himself off his prescribed Seboxone 10 days ago as well. He reported that he has struggled with sobriety for the past 3 years. Justin reported that as a result his stressors/struggles are with DCF 2 children ages 12 and 8 in custody, legal- trespass charges, violations of conditions of release etc, financial because he is not working, relational, and houisng. Justin is currently homeless. Justin was kicked out his sober living placement in [place] this past weekend for drinking in the bathroom. Justin denied SI and HI. Disposition BEHAVIOR: Justin is cooperative and friendly. He is engaged in conversation during the assessment. He is a non problematic Pt. When he arrived to the ER he was observed taking a pill form his pocket and he reported that it was a prescribed gabapentin. He informed ER staff that he had only taken 1/2 pill at 8am and it was at the time of the incident 10am. It was at this time he was put in paper clothes. He did not challenge the decission made by the provider due to safety. EYE CONTACT: Justin makes good eye contact. MOOD: Justin's mood appears normal although frustrated with himself due to his substance abuse struggles. AFFECT: Justin' affect is normal. APPETITE: Justin reported no issue with appetite. SLEEP(trouble falling/staying asleep: Justin reported the last 2 nights have been a struggle with sleep. Plan this clinician will seek placement for detox at [facility] [place]. Provisional Diagnosis Adjustment d/o unspecified Signature Clinician's Name/Title: Linnea Chicas MS, [facility] Emergency Services Clinician
--- NOTE | 2019-04-11 15:21 | NUR.NOTE ---
Nursing Note: PT care report called to RN at receiving facility ([facility]). All Pt care information, treatments, and interventions transferred at this time.
== END 2019-04-11 16:35 | disposition short-term general hospital (02) ==
PROVIDERS: Emergency Provider Physician Assistant; PCP Nurse Practitioner Family
DX: F11.20 Opioid dependence, uncomplicated (principal); F10.20 Alcohol dependence, uncomplicated; F41.8 Other specified anxiety disorders; E11.65 Type 2 diabetes mellitus with hyperglycemia; Z79.4 Long term (current) use of insulin; T38.3X6A Underdosing of insulin and oral hypoglycemic [antidiabetic] drugs, initial encounter; Z59.0 Homelessness
CPT/HCPCS: 36415; 36416; 80053; 80307; 82962; 96360; 96372; 99285; 80320; 83735; 85025; 99284

== ENCOUNTER 2019-08-20 19:59 | Inpatient (IN) | payer MEDICAID, SELFPAY ==
[2019-08-20] VITALS (22 sets, daily range): BP systolic 106–147; BP diastolic 52–69; PULSE 59–92; RESP 11–21; TEMP 36.8; O2SAT 96–100
[2019-08-20] MEDS: Insulin REGULAR-Human 100 UNITS/ML UNIT 15 UNITS SC (20:40)
[2019-08-20 20:43] LABS: BE (Venous) 2.6 mmol/L (-3-3); HCO3 (Venous) 27 mmol/L (22-28); O2 Sat (Venous) 75 % (70-80); TCO2 (Venous) 24 mmol/L (22-29); pCO2 (Venous) 41 mm/Hg (34-47); pH (Venous) 7.43 (7.35-7.45); pO2 (Venous) 40 mm/Hg (28-44)
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
[2019-08-20 20:45] LABS: Abs Immature Grans 0.01 k/cumm (0.0-0.09); Absolute Basophil Count 0.02 k/cumm (0.0-0.2); Absolute Eosinophil Count 0.01 k/cumm (0.0-0.7); Absolute Lymphocyte Count 1.19 k/cumm (1.2-3.4); Absolute Monocyte Count 0.45 k/cumm (0.11-0.7); Absolute Neutrophil Count 3.86 k/cumm (1.2-6.7); Basophils % 0.4; Eosinophils % 0.2; HCT 39.5 % (40.0-50.0); Immature Grans % 0.2 %; Lymphocytes % 21.5; Mean Corpuscular Volume 90.4 fL (80-95); Mean Platelet Volume 9.3 fL (8.0-11.0); Monocytes % 8.1; Neutrophils % 69.6; Platelet Count 141 x1000/uL (130-400); RBC 4.37 m/cumm (4.50-6.00); RBC Distribution Width 13.5 % (11.8-14.1); White Blood Cell Count 5.54 k/cumm (4.4-10.8)
[2019-08-20] MEDS: LORazepam 2 MG/ML VIAL (20:48)
[2019-08-20] MEDS: MAGNESIUM SULFATE 8.12 MEQ, MULTIVITAMIN 10 ML, THIAMINE 100 MG, FOLIC ACID 1 MG in Nor... 168.867 MG IV (20:53)
[2019-08-20] MEDS: Folic Acid 50 MG/10 ML VIAL (20:55)
[2019-08-20] MEDS: Thiamine 200 MG/2 ML VIAL (20:56)
[2019-08-20 20:57] LABS: INR 1.1 (0.9-1.1); PTT Activated 22.1 sec (21.0-31.4); Prothrombin Time 10.6 sec (9.3-11.0)
[2019-08-20 21:07] LABS: ETHANOL BLOOD 246.1 mg/dL (<3); Magnesium 1.9 mg/dL (1.8-2.4); TSH (W/Ref FT4) 1.24 uIU/mL (0.36-3.74)
[2019-08-20 21:10] LABS: HGB 14.6 g/dL (13.5-17.5)
[2019-08-20 21:12] LABS: Mean Corpuscular Hemoglobin 33.4 pg (27.0-33.0)
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
[2019-08-20 21:38] LABS: ALT 150 U/L (16-63); AST 92 U/L (15-37); Albumin 3.9 g/dL (3.4-5.0); Alkaline Phosphatase 118 U/L (46-116); Anion Gap 15.6 mmol/L (3-11); BUN 7 mg/dL (7-18); Bilirubin, Total 0.6 mg/dL (0.2-1.0); CO2 26.4 mmol/L (21.0-32.0); CREATININE 1.01 mg/dL (0.70-1.30); Calcium 9.4 mg/dL (8.5-10.1); Chloride 93 mmol/L (98-107); Glucose 429 mg/dL (74-106); Potassium 3.8 mmol/L (3.5-5.1); Sodium 135 mmol/L (136-145); Total Protein 7.4 g/dL (6.4-8.2)
[2019-08-20 21:53] LABS: PHOSPHORUS 4.3 mg/dL (2.6-4.7)
[2019-08-21] VITALS (49 sets, daily range): BP systolic 90–146; BP diastolic 47–108; PULSE 48–84; RESP 11–23; TEMP 35.9–36.8; O2SAT 94–99
[2019-08-21] MEDS: Normal Saline 1,000 ML 150 ML IV ×4 (00:08→21:18)
[2019-08-21] MEDS: Insulin Aspart 300 UNITS/3 ML PEN SC ×4 (02:37→17:13)
[2019-08-21] MEDS: LORazepam 2 MG/ML VIAL IVP ×6 (03:03→19:16)
--- NOTE | 2019-08-21 03:29 | SUR.PHASEI ---
urine for UA and drug screen collected and delivered to lab.
[2019-08-21] MEDS: Heparin 5,000 UNITS/ML VIAL 5000 UNITS SC ×4 (06:03→21:29)
[2019-08-21 07:15] LABS: HGB 13.7 g/dL (13.5-17.5); Mean Corp. HGB Concentration 36.1 g/dL (32.0-36.0); Mean Corpuscular Hemoglobin 33.2 pg (27.0-33.0); Mean Platelet Volume 9.6 fL (8.0-11.0); Platelet Count 115 x1000/uL (130-400); RBC 4.13 m/cumm (4.50-6.00); RBC Distribution Width 13.7 % (11.8-14.1); White Blood Cell Count 2.42 k/cumm (4.4-10.8)
[2019-08-21] MEDS: Pantoprazole 40 MG TABCR PO (07:26)
[2019-08-21 07:31] LABS: ALT 126 U/L (16-63); AST 112 U/L (15-37); Albumin 3.4 g/dL (3.4-5.0); Alkaline Phosphatase 102 U/L (46-116); Anion Gap 10.1 mmol/L (3-11); BUN 7 mg/dL (7-18); Bilirubin, Total 0.8 mg/dL (0.2-1.0); CO2 25.9 mmol/L (21.0-32.0); CREATININE 0.76 mg/dL (0.70-1.30); Calcium 8.4 mg/dL (8.5-10.1); Chloride 103 mmol/L (98-107); Glucose 142 mg/dL (74-106); Potassium 3.8 mmol/L (3.5-5.1); Sodium 139 mmol/L (136-145); Total Protein 6.3 g/dL (6.4-8.2)
[2019-08-21] MEDS: Acetaminophen 325 MG TAB PO ×3 (08:08→19:16)
[2019-08-21] MEDS: Nicotine 21 MG/24 HR PATCH TD (08:09)
[2019-08-21] MEDS: Multivitamin TAB 1 TAB PO (08:09)
[2019-08-21] MEDS: Folic Acid 1 MG TAB PO (08:09)
[2019-08-21] MEDS: Gabapentin 600 MG TAB PO ×3 (08:09→21:29)
[2019-08-21] MEDS: Thiamine 100 MG TAB PO (08:09)
[2019-08-21 08:31] LABS: Bilirubin Negative (Negative); Blood Trace-intact (Negative); Clarity Clear (Clear); Glucose 500 mg/dL (Negative); Ketones Trace mg/dL (Negative); Leukocyte Esterase Negative (Negative); Nitrite Negative (Negative); Urobilinogen 0.2 EU/dL (Up TO 0.2); pH 6.5 (5-8)
[2019-08-21] MEDS: Buprenorphine/Naloxone 12 mg/3 mg FILM 1 EACH SL (08:35)
[2019-08-21 08:42] LABS: *AMPHETAMINES SCREEN URINE Negative (Negative); *BARBITURATES SCREEN URINE Negative (Negative); *BENZODIAZEPINES SCREEN URINE Negative (Negative); Cannabinoids THC Negative (Negative); Cocaine Screen,Urine Negative (Negative); METHADONE URINE SCREEN Negative (Negative); OPIATES URINE SCREEN Negative (Negative); Tricyclic Antidepressants Negative (Negative)
[2019-08-21 08:45] LABS: Bacteria Negative HPF (Negative); C & S Indicated? No; Casts Negative LPF (Negative); Crystals Negative HPF (Negative); Epithelial Cells Rare HPF (Negative); Mucus Negative (Negative); WBC 0-2 HPF (0-5)
[2019-08-21] MEDS: POTASSIUM CHLORIDE 20 MEQ/100 ML BAG 50 MEQ IVPB (09:44)
[2019-08-21] MEDS: diazePAM 5 MG TAB PO ×2 (09:44→13:50)
--- NOTE | 2019-08-21 09:55 | PDOC.CMIN ---
- If Service Date Differs Date of service: 08/21/19 Time of Service: 09:57 Care Management Initial Assess REASON FOR HOSPITALIZATION:: Uncontrolled NIDDM with hyperglycemia, alcohol use PAST MEDICAL HISTORY/PAST SURGICAL HISTORY:: Medical History . Adjustment disorder, unspecified (Resolved 12/10/15). Adventitious breath sounds (Resolved). Alcohol use (Acute). Chronic hepatitis C (Chronic 08/11/05). [place] [facility] [place] [place]; began Harvyuliya 08/07/14. Cirrhosis of liver (Chronic 05/06/11). Continuous opioid dependence (Chronic 03/05/05). [facility] RX [facility] [place], <2004; counselling Meagan Garcia; prefers tablets. Folliculitis (Resolved 05/17/12). Dr Donnie ng, consult Dr. Leblanc (not completed). Hep B w/ coma, chronic, 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). [facility] [place]. Onychomycosis of toenail (Resolved 08/16/13). Opioid dependence on agonist therapy (Chronic). [facility] RX [facility] [place], <2004; prefers tablets ([place]) due to dental plate; counselor Zhang Atkins. Opioid use disorder, moderate, dependence (Chronic 12/10/15). Smoker (Chronic 05/06/11). Type II diabetes mellitus, uncontrolled (Acute). A1c 9.4 01/2014; uncontrolled; goal A1c < 7.5. Urinary frequency (Chronic 08/16/13). Surgical History . Endoscopy (12/09/12). repeat in 3 years PREVIOUS FUNCTIONAL STATUS/SOCIAL/FAMILY SUPPORTS:: Shaw previously lived in [place] [place], but reports he is now homeless due to financial difficulties and separation from his . 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 He has sought treatment for his acohol use at [facility] (12/29/18) and was living at the [facility] on [facility] in [place] until he began to drink again. More recently, he went to [facility] (Apr 2019). He reports that he does not have family in the area or any supports in the community. CURRENT FUNCTIONAL STATUS:: Shaw was lying in bed in the ICU when CM met with him. He is currently actively withdrawing, and was not able to communicate his thoughts well to CM. CM explained that once he is more stable, CM will go over options and resources for him to assist with housing, rehab, and other community supports such as the cryolite recovery operator. He stated that he doesn't trust the recovery coaches because they all know his ex . CM will continue to follow. ADVANCE DIRECTIVES:: None on file. Has patient been provided with info about the portal/API?: Yes Did the patient sign up for the portal?: Yes (previously signed up) CODE STATUS:: Full Code INSURANCE COVERAGE / FINANCIAL ISSUES:: JENNI CURRENT HOME/COMMUNITY SERVICES/EQUIPMENT:: Shaw currently receives suboxone treatment at [facility]. He has had support from Lori in the past, as well as the CCC at his PCP office. PRIMARY CARE PHYSICIAN:: Tamika Valdes POTENTIAL DISCHARGE NEEDS:: Housing resources, cryolite recovery operator, evaluations for further needs, follow up appointments PATIENT/FAMILY EDUCATION NEEDS:: Review discharge instructions, discussion of self care needs including Ask Me Three ANTICIPATED BARRIERS TO DISCHARGE:: none identified at this time. TRANSPORTATION:: Anticipate RCT private vehicle. PLAN:: Shaw is being monitored at ICU level of care. Once he is medically cleared, disposition to be determined. CM will call cryolite recovery operator to talk to him to go over options and resources in the community. Anticipate RCT transportation via private vehicle. CM will continue to follow.
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
[2019-08-21] MEDS: Lidocaine 2% Jelly 6 ML SYR (11:18)
[2019-08-21] MEDS: Metoclopramide 10 MG/2 ML VIAL IVP (11:50)
[2019-08-21 15:07] LABS: COVID-19 RT-PCR UVMMC Result Negative (Negative)
[2019-08-21] MEDS: traZODone 50 MG TAB 150 MG PO (21:29)
[2019-08-22] VITALS (44 sets, daily range): BP systolic 98–145; BP diastolic 43–74; PULSE 43–69; RESP 9–22; TEMP 36.4–36.8; O2SAT 92–98
[2019-08-22] MEDS: Normal Saline 1,000 ML 150 ML IV ×4 (04:00→23:51)
[2019-08-22 07:15] LABS: Hemoglobin A1C 8.6 % (3.8-5.6)
[2019-08-22 07:21] LABS: ALT 95 U/L (16-63); AST 71 U/L (15-37); Albumin 2.7 g/dL (3.4-5.0); Alkaline Phosphatase 85 U/L (46-116); Anion Gap 7.6 mmol/L (3-11); BUN 11 mg/dL (7-18); Bilirubin, Direct 0.18 mg/dL (0.00-0.20); Bilirubin, Total 0.5 mg/dL (0.2-1.0); CO2 25.4 mmol/L (21.0-32.0); Calcium 7.8 mg/dL (8.5-10.1); Chloride 105 mmol/L (98-107); Glucose 229 mg/dL (74-106); Magnesium 1.7 mg/dL (1.8-2.4); Potassium 4.3 mmol/L (3.5-5.1); Sodium 138 mmol/L (136-145); Total Protein 5.3 g/dL (6.4-8.2)
[2019-08-22] MEDS: Insulin Aspart 300 UNITS/3 ML PEN SC ×4 (07:28→21:38)
[2019-08-22] MEDS: Multivitamin TAB 1 TAB PO (08:16)
[2019-08-22] MEDS: Pantoprazole 40 MG TABCR PO (08:16)
[2019-08-22] MEDS: Folic Acid 1 MG TAB PO (08:16)
[2019-08-22] MEDS: Buprenorphine/Naloxone 12 mg/3 mg FILM 1 EACH SL (08:16)
[2019-08-22] MEDS: Thiamine 100 MG TAB PO (08:16)
[2019-08-22] MEDS: Gabapentin 600 MG TAB PO ×3 (08:26→21:07)
[2019-08-22 11:06] LABS: Calculated LDL 100 mg/dL (<100); Cholesterol 212 mg/dL (<200); HDL Cholesterol 73 mg/dL (40-60); Triglyceride 195 mg/dL (<150)
--- NOTE | 2019-08-22 12:36 | PDOC.CMPRO ---
- If Service Date Differs Date of service: 08/22/19 Time of Service: 12:37 Care Management Progress Note S/O: Shaw remains acute and in the ICU. He is currently on a Ativan drip to manage his symptoms of alcohol withdrawal. CM did review patients chart and his plan of care was reviewed at multidisciplinary rounds. CM reviewed plan with primary nurse and did not awaken during rounds. A: Shaw is a 49 year old male with a long history alcohol abuse, admitted with uncontrolled NIDDM and ETOH withdrawal. P: Shaw will be discharged when he is medically ready per provider. CM will review substance abuse treatment programs and recovery supports when more alert. CM will continue to assess for discharge needs and provide supports during inpatient stay.
[2019-08-22 13:39] LABS: HCV RNA Qualitative Undetected (Undetected)
--- NOTE | 2019-08-22 14:03 | PHA.REVIEW ---
Pharmacy Admission Review - Admission Clinical Review (Last Reviewed 08/20/19 @ 21:28 by Cliff Zimmerman) DVT prophylaxis (Acute) Uncontrolled NIDDM w/ hyperglycemia, alcohol withdrawal No Known Allergies Allergy (Verified 04/11/19 09:13) Height 5 ft 11 in Weight 78.7 kg - Renal Dosing Renal Dosing: BUN 11 mg/dL (7-18) 08/22/19 06:15 Creatinine 0.80 mg/dL (0.70-1.30) 08/22/19 06:15 Medications needing adjustments: Reviewed (Crcl ~117 mL/min current meds okay) - Anticoagulation Anticoagulation: Hgb 13.7 g/dL (13.5-17.5) 08/21/19 06:20 Hct 38.0 % (40.0-50.0) L 08/21/19 06:20 Plt Count 115 x1000/uL (130-400) L 08/21/19 06:20 INR 1.1 (0.9-1.1) 08/20/19 20:39 Creatinine 0.80 mg/dL (0.70-1.30) 08/22/19 06:15 DVT Prohphylaxis: Reviewed Medications: Heparin Therapeutic Anticoagulation: N/A - Opiate Usage Evaluate Pain Scale/Pains Meds: Reviewed Scheduled Bowel Reg ordered if on Opiates?: No (has PRN meds ordered) - Relevant Labs Sodium 138 mmol/L (136-145) 08/22/19 06:15 Potassium 4.3 mmol/L (3.5-5.1) 08/22/19 06:15 Chloride 105 mmol/L (98-107) 08/22/19 06:15 Phosphorus 4.3 mg/dL (2.6-4.7) 08/20/19 20:33 Magnesium 1.7 mg/dL (1.8-2.4) L 08/22/19 06:15 Electrolytes, C-Reactive P, ESR: Reviewed (watch mag level) - DM Control DM Control: Glucose 229 mg/dL (74-106) H D 08/22/19 06:15 Hemoglobin A1c 8.6 % (3.8-5.6) H 08/22/19 06:15 Finger Stick Blood Glucose 193 Finger Stick Blood Glucose 193 Finger Stick Blood Glucose 249 Finger Stick Blood Glucose 249 Insulin Dosing: Reviewed (currently has sliding scale aspart ordered) - Heart Failure/GA EF%, RUSTAM's, B-Blockers, Diuretics: N/A - BP Control BP Control: Blood Pressure [Right Arm] 121/64 Blood Pressure 121/64 Blood Pressure 122/68 Blood Pressure 104/58 Blood Pressure 98/60 Blood Pressure 124/71 If elevated: N/A - Qtc Review If Elevated: N/A - IV to PO Switch IV Medications: N/A - Home Meds Home Med List reviewed: Reviewed (Multiple [employer] depressants: suboxone, gabapentin, and trazodone.) Relevent Home Meds Not ordered & why?: insulin lispro (has aspart ordered), ketoconazole, lantus, metformin (on hold), terbinafine - Current meds Current Medication Order Review: Intervened (entered PRN patch removal since nicotine patch is not scheduled) - Comments Comments/Follow Ups: watch BG, mag levels and for med changes.
[2019-08-22] MEDS: Heparin 5,000 UNITS/ML VIAL 5000 UNITS SC ×2 (14:14→21:08)
--- NOTE | 2019-08-22 14:42 | W.INDIABCONS ---
Date of service: 08/22/19 Time of Service: 14:42 Diabetes Inpatient Consult DESCRIPTION/ASSESSMENT: Diabetes Inpatient Consult received for Shaw. 49 year old male with hx of polysubstance abuse with uncontrolled Dm due to lack of access to insulin for last couple of days. Admitted to ER with hyperglycemia and ETOH withdrawl. Meds include Novolog SS, MVI, thiamin, folic acid. Recent A1C: 8.6% indicating poorly controlled DM, blood sugars in house ranging from 140-249 mg/dl. Triglycerides mildly elevated at 195mg/dl. Following Diabetic Diet with >75% meal completion. Estimated Needs: 2612-1697 kcal, 78-93 g protein, 2340 ml fluid. Shaw was sleeping when I visited, will follow up tomorrow. Time Spent in Nutritional Counseling and Treatment: 0
[2019-08-22] MEDS: Nicotine 21 MG/24 HR PATCH TD (14:57)
--- NOTE | 2019-08-22 15:00 | NUR.NOTE ---
Nursing Note:One nicotine patch removed from l shoulder at 1500 and one nicotine patch applied to right shoulder at 1502 for symptom control. Old patch discarded on black box.
--- NOTE | 2019-08-22 16:45 | PGE_ITS ---
Date of Service Date of service: 08/22/19 Time of Service: 09:45 Assessment and Plan Assessment and plan (1) Alcohol use: Status: Chronic Assessment and plan: Patient is currently in severe alcohol withdrawal, on ICU status. Now on Ativan drip, will stop diazepam scheduled as he is getting a basal rate on the drip and this will simplify titration. Continue CIWA protocol. He has a long history of alcohol use disorder and long peers sobriety until last year. He clearly struggles with some guilt and depression regarding relationships with his family. We will try to support him with mental health services once he is through with withdrawal. (2) Type II diabetes mellitus, uncontrolled: Status: Chronic Assessment and plan: Hyperglycemia off of insulin. Still getting some high numbers, has been on only sliding scale. Will add basal insulin glargine 20 mg. There are still no signs of acidosis. He was previously on Lantus and metformin as an outpatient, but we will hold the metformin until he clinically stabilizes and continue basal bolus insulin. A1c stable at 8.6. Qualifiers: Glycemic state: with hyperglycemia Qualified Code(s): E11.65 - Type 2 diabetes mellitus with hyperglycemia (3) Continuous opioid dependence: Status: Chronic Assessment and plan: Continue Suboxone at outpatient dose.. (4) Chronic hepatitis C: Status: Chronic Assessment and plan: Patient states that he has been treated for years ago with Harvoni. Hepatitis C viral load pending to confirm SVR and no reinfection.. Qualifiers: Hepatic coma status: without hepatic coma Qualified Code(s): B18.2 - Chronic viral hepatitis C (5) Cirrhosis of liver: Status: Chronic Assessment and plan: Did not appear to be decompensated either by labs or by exam on admission, labs stable today and not consistent with severe acute alcoholic hepatitis. Upon discharge make sure he has a plan for hepatocellular carcinoma screening and follow-up. (6) Hep B w/ coma, chronic, w/o delt: Status: Chronic Assessment and plan: Patient has been on tenofovir for his chronic hepatitis B. Continue this as to avoid avoid hepatitis B flare. (7) Smoker: Status: Chronic Assessment and plan: Nicotine replacement if requested. (8) DVT prophylaxis: Status: Acute Assessment and plan: He is on heparin 3 times daily. Subjective Subjective Patient reports: denies diarrhea, vomiting and fever Interval history since last seen: 24-hour: Patient placed on Ativan drip overnight due to increasing bowel syndrome symptoms. Blood catheter placed. Patient is somewhat sedated during my interview, but denies pain or other new complaints. He denies chest pain or shortness of breath. He complains of feeling shaky and anxious. Exam Narrative Exam Narrative: General: Patient is sleepy but arousable. Nods off intermittently during interview, as to questions with appropriate but single word answers. No acute distress. HEENT: Moist mucous membranes, sclera anicteric. Lungs: Clear to auscultation bilaterally with no wheezes, normal effort Heart: Regular rate and rhythm no murmurs gallops or rubs.. Abdomen: Active bowel sounds, soft, nontender. No palpable hepatosplenomegaly. Extremities: No clubbing, cyanosis or pitting edema. Neuro: Tremor noted in hands. Moving all 4 extremities.. Objective Objective Clinical Data: Abnormal lab results 08/22/19 08/22/19 Range/Units 06:15 06:15 Glucose 229 H D (74-106) mg/dL Hemoglobin A1c 8.6 H (3.8-5.6) % Calcium 7.8 L (8.5-10.1) mg/dL Magnesium 1.7 L (1.8-2.4) mg/dL AST 71 H (15-37) U/L ALT 95 H (16-63) U/L Total Protein 5.3 L (6.4-8.2) g/dL Albumin 2.7 L (3.4-5.0) g/dL Triglycerides 195 H (<150) mg/dL Total Cholesterol 212 H (<200) mg/dL Vital Signs Temperature 36.8 C 08/22/19 12:36 Temperature Source Temporal Artery Scan 08/22/19 12:36 Pulse 51 L 08/22/19 14:00 Pulse 55 L 08/22/19 14:00 Respiratory Rate 11 L 08/22/19 14:00 Respiratory Effort 08/22/19 12:36 Respiratory Depth Normal 08/22/19 12:36 Respiratory Pattern Normal 08/22/19 12:36 Blood Pressure 113/67 08/22/19 14:00 Blood Pressure Mean 79 08/22/19 14:00 Blood Pressure Position Supine 08/22/19 12:36 Pulse Oximetry 95 08/22/19 14:00 Oxygen Delivery Method Room Air 08/22/19 12:40 Oxygen Flow Rate 0 08/22/19 12:40 Pain Level 0 08/22/19 07:58 Intake & Output 08/21/19 08/22/19 08/22/19 23:59 11:59 23:59 Intake Total 1762.916 / 3663.200 3347.716 / 4460.866 1113.15 / 4460.866 Output Total 300 / 1575 350 / 550 200 / 550 Balance 1462.916 / 2088.200 2997.716 / 3910.866 913.15 / 3910.866 Weight 78.7 kg Intake: IV 1462.916 / 3123.200 3047.716 / 3960.866 913.15 / 3960.866 Oral 300 / 540 300 / 500 200 / 500 Output: Urine 300 / 1575 350 / 550 200 / 550 Other: Urine Color Light Parish Light [place] Dark [place] Urine Appearance Clear Clear Clear Comment palm in place draining light parish urine palm in place draining parish urine. palm patent anmd draing parish urine connected to gracity bag Laboratory Results WBC 2.42 k/cumm (4.4-10.8) L D 08/21/19 06:20 RBC 4.13 m/cumm (4.50-6.00) L 08/21/19 06:20 Hgb 13.7 g/dL (13.5-17.5) 08/21/19 06:20 Hct 38.0 % (40.0-50.0) L 08/21/19 06:20 MCV 92.0 fL (80-95) 08/21/19 06:20 MCH 33.2 pg (27.0-33.0) H 08/21/19 06:20 MCHC 36.1 g/dL (32.0-36.0) H 08/21/19 06:20 RDW 13.7 % (11.8-14.1) 08/21/19 06:20 Plt Count 115 x1000/uL (130-400) L 08/21/19 06:20 MPV 9.6 fL (8.0-11.0) 08/21/19 06:20 Immature Gran % 0.2 % 08/20/19 20:39 Neutrophils % 69.6 08/20/19 20:39 Lymphocytes % 21.5 08/20/19 20:39 Monocytes % 8.1 08/20/19 20:39 Eosinophils % 0.2 08/20/19 20:39 Basophils % 0.4 08/20/19 20:39 Absolute Neutrophils 3.86 k/cumm (1.2-6.7) 08/20/19 20:39 Absolute Lymphocytes 1.19 k/cumm (1.2-3.4) L 08/20/19 20:39 Absolute Monocytes 0.45 k/cumm (0.11-0.7) 08/20/19 20:39 Absolute Eosinophils 0.01 k/cumm (0.0-0.7) 08/20/19 20:39 Absolute Basophils 0.02 k/cumm (0.0-0.2) 08/20/19 20:39 PT 10.6 sec (9.3-11.0) 08/20/19 20:39 INR 1.1 (0.9-1.1) 08/20/19 20:39 APTT 22.1 sec (21.0-31.4) 08/20/19 20:39 VBG pH 7.43 (7.35-7.45) 08/20/19 20:39 VBG pCO2 41 mm/Hg (34-47) 08/20/19 20:39 VBG pO2 40 mm/Hg (28-44) 08/20/19 20:39 VBG HCO3 27 mmol/L (22-28) 08/20/19 20:39 VBG Total CO2 24 mmol/L (22-29) 08/20/19 20:39 VBG O2 Saturation 75 % (70-80) 08/20/19 20:39 VBG Base Excess 2.6 mmol/L (-3-3) 08/20/19 20:39 Sodium 138 mmol/L (136-145) 08/22/19 06:15 Potassium 4.3 mmol/L (3.5-5.1) 08/22/19 06:15 Chloride 105 mmol/L (98-107) 08/22/19 06:15 Carbon Dioxide 25.4 mmol/L (21.0-32.0) 08/22/19 06:15 Anion Gap 7.6 mmol/L (3-11) 08/22/19 06:15 BUN 11 mg/dL (7-18) 08/22/19 06:15 Creatinine 0.80 mg/dL (0.70-1.30) 08/22/19 06:15 Estimated GFR/1.73 m2 >= 60.00 (mL/min/1.73m2) 08/22/19 06:15 Glucose 229 mg/dL (74-106) H D 08/22/19 06:15 Hemoglobin A1c 8.6 % (3.8-5.6) H 08/22/19 06:15 Calcium 7.8 mg/dL (8.5-10.1) L 08/22/19 06:15 Phosphorus 4.3 mg/dL (2.6-4.7) 08/20/19 20:33 Magnesium 1.7 mg/dL (1.8-2.4) L 08/22/19 06:15 Total Bilirubin 0.5 mg/dL (0.2-1.0) 08/22/19 06:15 Conjugated Bilirubin 0.18 mg/dL (0.00-0.20) 08/22/19 06:15 AST 71 U/L (15-37) H 08/22/19 06:15 ALT 95 U/L (16-63) H 08/22/19 06:15 Alkaline Phosphatase 85 U/L (46-116) 08/22/19 06:15 Total Protein 5.3 g/dL (6.4-8.2) L 08/22/19 06:15 Albumin 2.7 g/dL (3.4-5.0) L 08/22/19 06:15 Triglycerides 195 mg/dL (<150) H 08/22/19 06:15 Total Cholesterol 212 mg/dL (<200) H 08/22/19 06:15 LDL Cholesterol, Calc 100 mg/dL (<100) 08/22/19 06:15 HDL Cholesterol 73 mg/dL (40-60) 08/22/19 06:15 TSH 1.24 uIU/mL (0.36-3.74) 08/20/19 20:39 Urine Color Yellow (Yellow) 08/21/19 03:00 Urine Clarity Clear (Clear) 08/21/19 03:00 Urine pH 6.5 (5-8) 08/21/19 03:00 Ur Specific [place] 1.020 (1.005-1.025) 08/21/19 03:00 Urine Protein Negative mg/dL (Negative) 08/21/19 03:00 Urine Ketones Trace mg/dL (Negative) H 08/21/19 03:00 Urine Blood Trace-intact (Negative) H 08/21/19 03:00 Urine Nitrite Negative (Negative) 08/21/19 03:00 Urine Bilirubin Negative (Negative) 08/21/19 03:00 Urine Urobilinogen 0.2 EU/dL (Up TO 0.2) 08/21/19 03:00 Ur Leukocyte Esterase Negative (Negative) 08/21/19 03:00 Urine RBC 3-5 HPF (0-2) H 08/21/19 03:00 Urine WBC 0-2 HPF (0-5) 08/21/19 03:00 Ur Epithelial Cells Rare HPF (Negative) 08/21/19 03:00 Urine Crystals Negative HPF (Negative) 08/21/19 03:00 Urine Bacteria Negative HPF (Negative) 08/21/19 03:00 Urine Casts Negative LPF (Negative) 08/21/19 03:00 Urine Mucus Negative (Negative) 08/21/19 03:00 Ur Culture Indicated? No 08/21/19 03:00 Urine Glucose 500 mg/dL (Negative) H 08/21/19 03:00 Urine Opiates Screen Negative (Negative) 08/21/19 03:00 Urine Methadone Screen Negative (Negative) 08/21/19 03:00 Ur Barbiturates Screen Negative (Negative) 08/21/19 03:00 Ur Tricyclics Screen Negative (Negative) 08/21/19 03:00 Ur Amphetamines Screen Negative (Negative) 08/21/19 03:00 U Benzodiazepines Scrn Negative (Negative) 08/21/19 03:00 Urine Cocaine Screen Negative (Negative) 08/21/19 03:00 Ur THC Screen Negative (Negative) 08/21/19 03:00 Ethyl Alcohol 246.1 mg/dL (<3) 08/20/19 20:39 COVID-19 PCR Negative (Negative) 08/20/19 21:38 Nasopharyn COVID-19 PCR Not Applicable 08/20/19 21:38 HCV RNA Qual (PCR) Undetected (Undetected) 08/21/19 06:30 Hepatitis C RNA Quant Not Applicable 08/21/19 06:30 Ref Test [facility] 08/20/19 21:38
[2019-08-22] MEDS: MAGNESIUM SULFATE 2 GM/50 ML BAG IVPB (17:09)
[2019-08-22] MEDS: Metoclopramide 10 MG/2 ML VIAL IVP (21:01)
[2019-08-22] MEDS: traZODone 50 MG TAB 150 MG PO (21:08)
[2019-08-22] MEDS: Insulin Glargine 300 UNITS/3 ML PEN 20 UNITS SC (21:39)
[2019-08-23] VITALS (39 sets, daily range): BP systolic 108–131; BP diastolic 57–72; PULSE 44–59; RESP 8–17; TEMP 36.4–36.7; O2SAT 92–97
[2019-08-23] MEDS: Heparin 5,000 UNITS/ML VIAL 5000 UNITS SC ×3 (06:11→22:29)
[2019-08-23] MEDS: Normal Saline 1,000 ML 150 ML IV (06:12)
[2019-08-23 07:05] LABS: Anion Gap 7.1 mmol/L (3-11); BUN 8 mg/dL (7-18); CO2 26.9 mmol/L (21.0-32.0); CREATININE 0.72 mg/dL (0.70-1.30); Calcium 7.7 mg/dL (8.5-10.1); Chloride 106 mmol/L (98-107); Glucose 128 mg/dL (74-106); Magnesium 1.7 mg/dL (1.8-2.4); Potassium 3.5 mmol/L (3.5-5.1); Sodium 140 mmol/L (136-145)
--- NOTE | 2019-08-23 07:45 | CMPROGNOTE_ITS ---
- If Service Date Differs Date of service: 08/23/19 Time of Service: 07:45 Care Management Progress Note S/O: Shaw is more alert today, he continues to have some confusion. He states to the CM that someone is following him and that there is a car with people in it watching him. He remains on an Ativan drip which is being titrated down. He continues to receive IV fluids, which will be titrated down per MD. CM requested an order for IS due to congested cough and immobilization, and to promote pulmonary function. Shaw states he wishes he could live somewhere and be sober, he states he has been living in the [facility] in [place] and does not want to return there. CM will continue to review resources with Shaw to aid in sobriety as he becomes more alert. A: Shaw is a 49 year old male with a long history alcohol abuse, admitted with uncontrolled NIDDM and ETOH withdrawal. P: Shaw will be discharged when he is medically ready per provider. CM will review substance abuse treatment programs and recovery supports when more alert. CM will continue to assess for discharge needs and provide supports during inpatient stay.
[2019-08-23] MEDS: Pantoprazole 40 MG TABCR PO (09:16)
[2019-08-23] MEDS: Multivitamin TAB 1 TAB PO (09:16)
[2019-08-23] MEDS: Thiamine 100 MG TAB PO (09:16)
[2019-08-23] MEDS: Folic Acid 1 MG TAB PO (09:16)
[2019-08-23] MEDS: Buprenorphine/Naloxone 12 mg/3 mg FILM 1 EACH SL (09:17)
[2019-08-23] MEDS: Normal Saline Flush 10 ML SYR ×3 (09:17→14:34)
[2019-08-23] MEDS: Gabapentin 600 MG TAB PO ×3 (09:17→20:02)
[2019-08-23] MEDS: Insulin Aspart 300 UNITS/3 ML PEN SC ×4 (11:05→22:18)
--- NOTE | 2019-08-23 11:46 | W.PM.PROGNOT ---
Date of Service Date of service: 08/23/19 Time of Service: 11:47 Assessment and Plan Assessment and plan (1) Alcohol withdrawal: Status: Acute Assessment and plan: continue with iv lorazepam along w/ PO Serax and thiamine and MVS and folic acid. monitor for seizures. once he is through the acute withdrawal then will have CM set him up with outpatient support Qualifiers: Complication of substance-induced condition: with delirium Qualified Code(s): F10.231 - Alcohol dependence with withdrawal delirium (2) Continuous opioid dependence: Status: Chronic Assessment and plan: Continue Suboxone at outpatient dose.. (3) Type II diabetes mellitus, uncontrolled: Status: Chronic Assessment and plan: cont. Lanatus and Novolog sliding scale; add scheduled Novolog w/ meals and snacks per carb coverage at ratio 1:5 Qualifiers: Glycemic state: with hyperglycemia Qualified Code(s): E11.65 - Type 2 diabetes mellitus with hyperglycemia (4) Chronic hepatitis C: Status: Chronic Assessment and plan: Patient states that he has been treated for years ago with Harvoni. Hepatitis C viral load pending to confirm SVR and no reinfection.. Qualifiers: Hepatic coma status: without hepatic coma Qualified Code(s): B18.2 - Chronic viral hepatitis C (5) Hepatitis B infection: Status: Acute Assessment and plan: cont. Tenofovir Qualifiers: Viral hepatitis chronicity: chronic Hepatic coma status: without hepatic coma Hepatitis delta agent presence: without delta-agent Qualified Code(s): B18.1 - Chronic viral hepatitis B without delta-agent (6) Cirrhosis of liver: Status: Chronic Assessment and plan: Did not appear to be decompensated either by labs or by exam on admission, labs stable today and not consistent with severe acute alcoholic hepatitis. Upon discharge make sure he has a plan for hepatocellular carcinoma screening and follow-up. Qualifiers: Hepatic cirrhosis type: other cirrhosis Qualified Code(s): K74.69 - Other cirrhosis of liver (7) Smoker: Status: Chronic Assessment and plan: Nicotine replacement if requested. (8) DVT prophylaxis: Status: Acute Assessment and plan: He is on heparin 3 times daily. Subjective Subjective Interval history since last seen: Patient in with acute alcohol withdrawal and still scoring from 9 to 16 on CIWA scale and currently is on lorazepam drip @ 5 mg/hr and had to be titrated up to 6 mg/hr but is now back down to 5 mg/hr in addition to two doses of Serax 45 mg each. He is more calm now and sitting up and watching TV. Complains of low back pain bilaterally. No radiation of his pain. Exam Narrative Exam Narrative: Patient was initially alert and responsive to me although I could only ascertain orientation to place and circumstance. But not to time. He is able to tell me he has a history of cirrhosis as well as hepatitis B and hepatitis C. Because he became a little more agitated as the lorazepam drip was decreased to 4 mg/h nursing staff had to sedate him with Serax 45 mg orally x3 doses this morning. He is now a lot more calm and actually somewhat somnolent but easily awakened. He describes lower back pain bilaterally that seems to be better when he lays on his side. There is no flank tenderness with palpation. General appearance plethoric appearance to his face and skin. Lungs are clear to auscultation. Heart is regular rate and rhythm. Abdomen is nondistended no discernible ascites. He has mild tenderness with deep palpation over his liver. Liver is palpably enlarged. Extremities with 1+ pitting edema of his hands wrist as well as both feet. There is no edema of the humeri bilaterally and no calf tenderness. Review of his intake and output shows he is 8 L positive over his hospitalization and 4800 mL positive since yesterday. His weight is up 10 kg since admission. Objective Objective Clinical Data: Abnormal lab results 08/23/19 Range/Units 06:15 Glucose 128 H D (74-106) mg/dL Calcium 7.7 L (8.5-10.1) mg/dL Magnesium 1.7 L (1.8-2.4) mg/dL Vital Signs Temperature 36.7 C 08/23/19 11:31 Temperature Source Temporal Artery Scan 08/23/19 11:31 Pulse 57 L 08/23/19 10:00 Pulse 54 L 08/23/19 11:00 Respiratory Rate 10 L 08/23/19 11:31 Respiratory Effort 08/23/19 11:31 Respiratory Depth Shallow 08/23/19 11:31 Respiratory Pattern Normal 08/23/19 11:31 Blood Pressure 121/60 08/23/19 10:00 Blood Pressure Mean 75 08/23/19 10:00 Blood Pressure Position Supine 08/23/19 04:14 Pulse Oximetry 95 08/23/19 11:31 Oxygen Delivery Method Room Air 08/23/19 11:31 Oxygen Flow Rate 0 08/23/19 11:31 Pain Level 8 08/23/19 11:31 Intake & Output 08/22/19 08/22/19 08/23/19 11:59 23:59 11:59 Intake Total 3347.716 / 5736.666 2388.950 / 5736.666 1320.95 / 1320.95 Output Total 350 / 900 550 / 900 200 / 200 Balance 2997.716 / 4836.666 1838.950 / 4836.666 1120.95 / 1120.95 Weight 78.7 kg 89.8 kg Intake: IV 3047.716 / 5036.666 1988.950 / 5036.666 1000.95 / 1000.95 Oral 300 / 700 400 / 700 320 / 320 Output: Urine 350 / 900 550 / 900 200 / 200 Other: Urine Color [place] Urine Appearance Clear Clear Clear Comment palm in place draining parish urine. medium praish urine Palm in place and draining light [place] urine Laboratory Results WBC 2.42 k/cumm (4.4-10.8) L D 08/21/19 06:20 RBC 4.13 m/cumm (4.50-6.00) L 08/21/19 06:20 Hgb 13.7 g/dL (13.5-17.5) 08/21/19 06:20 Hct 38.0 % (40.0-50.0) L 08/21/19 06:20 MCV 92.0 fL (80-95) 08/21/19 06:20 MCH 33.2 pg (27.0-33.0) H 08/21/19 06:20 MCHC 36.1 g/dL (32.0-36.0) H 08/21/19 06:20 RDW 13.7 % (11.8-14.1) 08/21/19 06:20 Plt Count 115 x1000/uL (130-400) L 08/21/19 06:20 MPV 9.6 fL (8.0-11.0) 08/21/19 06:20 Immature Gran % 0.2 % 08/20/19 20:39 Neutrophils % 69.6 08/20/19 20:39 Lymphocytes % 21.5 08/20/19 20:39 Monocytes % 8.1 08/20/19 20:39 Eosinophils % 0.2 08/20/19 20:39 Basophils % 0.4 08/20/19 20:39 Absolute Neutrophils 3.86 k/cumm (1.2-6.7) 08/20/19 20:39 Absolute Lymphocytes 1.19 k/cumm (1.2-3.4) L 08/20/19 20:39 Absolute Monocytes 0.45 k/cumm (0.11-0.7) 08/20/19 20:39 Absolute Eosinophils 0.01 k/cumm (0.0-0.7) 08/20/19 20:39 Absolute Basophils 0.02 k/cumm (0.0-0.2) 08/20/19 20:39 PT 10.6 sec (9.3-11.0) 08/20/19 20:39 INR 1.1 (0.9-1.1) 08/20/19 20:39 APTT 22.1 sec (21.0-31.4) 08/20/19 20:39 VBG pH 7.43 (7.35-7.45) 08/20/19 20:39 VBG pCO2 41 mm/Hg (34-47) 08/20/19 20:39 VBG pO2 40 mm/Hg (28-44) 08/20/19 20:39 VBG HCO3 27 mmol/L (22-28) 08/20/19 20:39 VBG Total CO2 24 mmol/L (22-29) 08/20/19 20:39 VBG O2 Saturation 75 % (70-80) 08/20/19 20:39 VBG Base Excess 2.6 mmol/L (-3-3) 08/20/19 20:39 Sodium 140 mmol/L (136-145) 08/23/19 06:15 Potassium 3.5 mmol/L (3.5-5.1) 08/23/19 06:15 Chloride 106 mmol/L (98-107) 08/23/19 06:15 Carbon Dioxide 26.9 mmol/L (21.0-32.0) 08/23/19 06:15 Anion Gap 7.1 mmol/L (3-11) 08/23/19 06:15 BUN 8 mg/dL (7-18) 08/23/19 06:15 Creatinine 0.72 mg/dL (0.70-1.30) 08/23/19 06:15 Estimated GFR/1.73 m2 >= 60.00 (mL/min/1.73m2) 08/23/19 06:15 Glucose 128 mg/dL (74-106) H D 08/23/19 06:15 Hemoglobin A1c 8.6 % (3.8-5.6) H 08/22/19 06:15 Calcium 7.7 mg/dL (8.5-10.1) L 08/23/19 06:15 Phosphorus 4.3 mg/dL (2.6-4.7) 08/20/19 20:33 Magnesium 1.7 mg/dL (1.8-2.4) L 08/23/19 06:15 Total Bilirubin 0.5 mg/dL (0.2-1.0) 08/22/19 06:15 Conjugated Bilirubin 0.18 mg/dL (0.00-0.20) 08/22/19 06:15 AST 71 U/L (15-37) H 08/22/19 06:15 ALT 95 U/L (16-63) H 08/22/19 06:15 Alkaline Phosphatase 85 U/L (46-116) 08/22/19 06:15 Total Protein 5.3 g/dL (6.4-8.2) L 08/22/19 06:15 Albumin 2.7 g/dL (3.4-5.0) L 08/22/19 06:15 Triglycerides 195 mg/dL (<150) H 08/22/19 06:15 Total Cholesterol 212 mg/dL (<200) H 08/22/19 06:15 LDL Cholesterol, Calc 100 mg/dL (<100) 08/22/19 06:15 HDL Cholesterol 73 mg/dL (40-60) 08/22/19 06:15 TSH 1.24 uIU/mL (0.36-3.74) 08/20/19 20:39 Urine Color Yellow (Yellow) 08/21/19 03:00 Urine Clarity Clear (Clear) 08/21/19 03:00 Urine pH 6.5 (5-8) 08/21/19 03:00 Ur Specific [place] 1.020 (1.005-1.025) 08/21/19 03:00 Urine Protein Negative mg/dL (Negative) 08/21/19 03:00 Urine Ketones Trace mg/dL (Negative) H 08/21/19 03:00 Urine Blood Trace-intact (Negative) H 08/21/19 03:00 Urine Nitrite Negative (Negative) 08/21/19 03:00 Urine Bilirubin Negative (Negative) 08/21/19 03:00 Urine Urobilinogen 0.2 EU/dL (Up TO 0.2) 08/21/19 03:00 Ur Leukocyte Esterase Negative (Negative) 08/21/19 03:00 Urine RBC 3-5 HPF (0-2) H 08/21/19 03:00 Urine WBC 0-2 HPF (0-5) 08/21/19 03:00 Ur Epithelial Cells Rare HPF (Negative) 08/21/19 03:00 Urine Crystals Negative HPF (Negative) 08/21/19 03:00 Urine Bacteria Negative HPF (Negative) 08/21/19 03:00 Urine Casts Negative LPF (Negative) 08/21/19 03:00 Urine Mucus Negative (Negative) 08/21/19 03:00 Ur Culture Indicated? No 08/21/19 03:00 Urine Glucose 500 mg/dL (Negative) H 08/21/19 03:00 Urine Opiates Screen Negative (Negative) 08/21/19 03:00 Urine Methadone Screen Negative (Negative) 08/21/19 03:00 Ur Barbiturates Screen Negative (Negative) 08/21/19 03:00 Ur Tricyclics Screen Negative (Negative) 08/21/19 03:00 Ur Amphetamines Screen Negative (Negative) 08/21/19 03:00 U Benzodiazepines Scrn Negative (Negative) 08/21/19 03:00 Urine Cocaine Screen Negative (Negative) 08/21/19 03:00 Ur THC Screen Negative (Negative) 08/21/19 03:00 Ethyl Alcohol 246.1 mg/dL (<3) 08/20/19 20:39 COVID-19 PCR Negative (Negative) 08/20/19 21:38 Nasopharyn COVID-19 PCR Not Applicable 08/20/19 21:38 HCV RNA Qual (PCR) Undetected (Undetected) 08/21/19 06:30 Hepatitis C RNA Quant Not Applicable 08/21/19 06:30 Ref Test Perform Site [facility] 08/20/19 21:38
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
[2019-08-23] MEDS: MAGNESIUM SULFATE 4 GM/100 ML BAG IVPB (13:00)
[2019-08-23] MEDS: Furosemide 20 MG/2 ML VIAL IVP (13:00)
[2019-08-23] MEDS: Potassium Chloride 20 MEQ TABCR 40 MEQ PO (13:00)
[2019-08-23] MEDS: Magnesium Oxide 400 MG TAB 800 MG PO ×2 (13:00→20:04)
[2019-08-23] MEDS: Potassium Chloride 20 MEQ TABCR PO (20:03)
[2019-08-23] MEDS: Normal Saline Flush 10 ML SYR 20 ML IVP (20:05)
[2019-08-23] MEDS: Insulin Glargine 300 UNITS/3 ML PEN 20 UNITS SC (22:20)
[2019-08-23] MEDS: traZODone 50 MG TAB 150 MG PO (22:29)
[2019-08-24] VITALS (29 sets, daily range): BP systolic 101–153; BP diastolic 57–81; PULSE 40–75; RESP 7–20; TEMP 36.4–37.2; O2SAT 93–99
[2019-08-24] MEDS: Insulin Aspart 300 UNITS/3 ML PEN SC ×4 (02:28→23:16)
[2019-08-24] MEDS: Heparin 5,000 UNITS/ML VIAL 5000 UNITS SC ×3 (05:24→23:11)
[2019-08-24 07:21] LABS: ALT 96 U/L (16-63); AST 93 U/L (15-37); Albumin 2.7 g/dL (3.4-5.0); Alkaline Phosphatase 89 U/L (46-116); Anion Gap 5.4 mmol/L (3-11); BUN 6 mg/dL (7-18); Bilirubin, Total 0.5 mg/dL (0.2-1.0); CO2 30.6 mmol/L (21.0-32.0); CREATININE 0.83 mg/dL (0.70-1.30); Calcium 8.1 mg/dL (8.5-10.1); Chloride 105 mmol/L (98-107); Glucose 75 mg/dL (74-106); Potassium 3.6 mmol/L (3.5-5.1); Sodium 141 mmol/L (136-145); Total Protein 5.5 g/dL (6.4-8.2)
[2019-08-24] MEDS: Nicotine 21 MG/24 HR PATCH TD (08:27)
[2019-08-24] MEDS: Naproxen 250 MG TAB PO ×2 (08:28→15:22)
[2019-08-24] MEDS: Buprenorphine/Naloxone 12 mg/3 mg FILM 1 EACH SL (08:28)
[2019-08-24] MEDS: Magnesium Oxide 400 MG TAB 800 MG PO ×2 (08:28→19:56)
[2019-08-24] MEDS: Multivitamin TAB 1 TAB PO (08:29)
[2019-08-24] MEDS: Pantoprazole 40 MG TABCR PO (08:29)
[2019-08-24] MEDS: Thiamine 100 MG TAB PO (08:29)
[2019-08-24] MEDS: Potassium Chloride 20 MEQ TABCR PO ×2 (08:30→19:56)
[2019-08-24] MEDS: Gabapentin 600 MG TAB PO ×3 (08:30→19:57)
[2019-08-24] MEDS: Folic Acid 1 MG TAB PO (08:30)
[2019-08-24] MEDS: Normal Saline Flush 10 ML SYR 20 ML IVP ×3 (09:49→19:57)
[2019-08-24] MEDS: LORazepam 2 MG/ML VIAL IVP (09:54)
--- NOTE | 2019-08-24 11:57 | PDOC.CMPRO ---
- If Service Date Differs Date of service: 08/24/19 Time of Service: 11:57 Care Management Progress Note S/O: Shaw remains in the ICU he continues to have symptoms of alcohol withdrawal. Ativan drip remains active. No change in the plan today he will remain in the ICU at this time. CM to continue to assess for discharge needs and supports through recovery services. A: Shaw is a 49 year old male with a long history alcohol abuse, admitted with uncontrolled NIDDM and ETOH withdrawal. P: Shaw will be discharged when he is medically ready per provider. CM will review substance abuse treatment programs and recovery supports when more alert. CM will continue to assess for discharge needs and provide supports during inpatient stay.
--- NOTE | 2019-08-24 12:51 | PGE_ITS ---
Date of Service Date of service: 08/24/19 Time of Service: 12:51 Assessment and Plan Assessment and plan (1) Alcohol withdrawal: Status: Acute Assessment and plan: continue with iv lorazepam along w/ PO Serax and thiamine and MVS and folic acid. monitor for seizures. once he is through the acute withdrawal then will have set him up with outpatient support. Because he still having acute delirium with his alcohol withdrawal, to put him on scheduled doses of Serax which seems to help keep him on a lower dose of the Ativan drip. Hopefully we can wean him off the IV Lorazepam. Qualifiers: Complication of substance-induced condition: with delirium Qualified Code(s): F10.231 - Alcohol dependence with withdrawal delirium (2) Continuous opioid dependence: Status: Chronic Assessment and plan: Continue Suboxone at outpatient dose.. (3) Type II diabetes mellitus, uncontrolled: Status: Chronic Assessment and plan: cont. Lanatus and Novolog sliding scale; add scheduled Novolog w/ meals and snacks per carb coverage at ratio 1:5, fasting glucose is much better today at 82. We will continue to monitor his response to insulin and modify as needed. Qualifiers: Glycemic state: with hyperglycemia Qualified Code(s): E11.65 - Type 2 diabetes mellitus with hyperglycemia (4) Chronic hepatitis C: Status: Chronic Assessment and plan: Patient states that he has been treated for years ago with Harvoni. Hepatitis C viral load pending to confirm SVR and no reinfection.. Qualifiers: Hepatic coma status: without hepatic coma Qualified Code(s): B18.2 - Chronic viral hepatitis C (5) Hepatitis B infection: Status: Acute Assessment and plan: cont. Tenofovir Qualifiers: Viral hepatitis chronicity: chronic Hepatic coma status: without hepatic coma Hepatitis delta agent presence: without delta-agent Qualified Code(s): B18.1 - Chronic viral hepatitis B without delta-agent (6) Cirrhosis of liver: Status: Chronic Assessment and plan: Did not appear to be decompensated either by labs or by exam on admission, labs stable today and not consistent with severe acute alcoholic hepatitis. Upon discharge make sure he has a plan for hepatocellular carcinoma screening and follow-up. Qualifiers: Hepatic cirrhosis type: other cirrhosis Qualified Code(s): K74.69 - Other cirrhosis of liver (7) Smoker: Status: Chronic Assessment and plan: Nicotine replacement if requested. (8) DVT prophylaxis: Status: Acute Assessment and plan: He is on heparin 3 times daily. Subjective Subjective Interval history since last seen: Patient continues to be treated for acute alcohol withdrawal delirium. He remains on an Ativan drip which is been weaned down to 2 mg/h. However this morning he started getting more agitated and see was score went up to 18. He did respond to Serax 45 mg orally and nursing staff is been able to keep the Ativan drip 2 mg/h rate although he did receive a bolus of 3 mg x 1 dose. At this time instead of using the Serax on a as needed basis admitted put on a scheduled dose of 45 mg 4 times daily to see if we can wean him off the Ativan drip. Over the next 24 to 48 hours I will then try to taper the Serax dose. For now he will remain in the intensive care unit. Exam Narrative Exam Narrative: Times he is alert and conversant and other times he seems lethargic and will fall asleep or just become very quiet but not actually be asleep. He still admits to visual hallucinations including seeing pretty women sitting on the edge of his bed and a sports car being parked in his room. Lungs are clear to auscultation. Heart is regular rate and rhythm. At times to become bradycardic when he falls asleep. Abdomen soft and nontender. Extremities still with 1+ pitting edema of his hands and forearms as well as his feet. Objective Objective Clinical Data: Abnormal lab results 08/24/19 Range/Units 06:30 BUN 6 L (7-18) mg/dL Calcium 8.1 L (8.5-10.1) mg/dL AST 93 H (15-37) U/L ALT 96 H (16-63) U/L Total Protein 5.5 L (6.4-8.2) g/dL Albumin 2.7 L (3.4-5.0) g/dL Vital Signs Temperature 36.6 C 08/24/19 04:00 Temperature Source Temporal Artery Scan 08/24/19 04:00 Pulse 62 08/24/19 09:28 Pulse 48 L 08/23/19 23:00 Respiratory Rate 17 08/24/19 09:28 Respiratory Effort 08/24/19 04:00 Respiratory Depth Normal 08/24/19 04:00 Respiratory Pattern Normal 08/24/19 04:00 Blood Pressure 114/66 08/24/19 04:00 Blood Pressure Mean 82 08/24/19 04:00 Blood Pressure Position Supine 08/24/19 04:00 Pulse Oximetry 95 08/24/19 09:28 Oxygen Delivery Method Room Air 08/24/19 04:00 Oxygen Flow Rate 0 08/24/19 04:00 Pain Level 7 08/24/19 09:28 Intake & Output 08/23/19 08/24/19 08/24/19 23:59 11:59 23:59 Intake Total 557.867 / 2186.650 140.067 / 140.067 Output Total 3900 / 4100 350 / 350 Balance -3342.133 / -1913.350 -209.933 / -209.933 Weight 87.6 kg Intake: IV 137.867 / 1446.650 20.067 / 20.067 Oral 420 / 740 120 / 120 Output: Urine 3900 / 4100 350 / 350 Other: Urine Color [place] Urine Appearance Clear Clear Comment pt has indwelling palm catheter, patent draining clear [place] urine pt has indwelling palm catheter, patent draining clear [place] urine Laboratory Results WBC 2.42 k/cumm (4.4-10.8) L D 08/21/19 06:20 RBC 4.13 m/cumm (4.50-6.00) L 08/21/19 06:20 Hgb 13.7 g/dL (13.5-17.5) 08/21/19 06:20 Hct 38.0 % (40.0-50.0) L 08/21/19 06:20 MCV 92.0 fL (80-95) 08/21/19 06:20 MCH 33.2 pg (27.0-33.0) H 08/21/19 06:20 MCHC 36.1 g/dL (32.0-36.0) H 08/21/19 06:20 RDW 13.7 % (11.8-14.1) 08/21/19 06:20 Plt Count 115 x1000/uL (130-400) L 08/21/19 06:20 MPV 9.6 fL (8.0-11.0) 08/21/19 06:20 Immature Gran % 0.2 % 08/20/19 20:39 Neutrophils % 69.6 08/20/19 20:39 Lymphocytes % 21.5 08/20/19 20:39 Monocytes % 8.1 08/20/19 20:39 Eosinophils % 0.2 08/20/19 20:39 Basophils % 0.4 08/20/19 20:39 Absolute Neutrophils 3.86 k/cumm (1.2-6.7) 08/20/19 20:39 Absolute Lymphocytes 1.19 k/cumm (1.2-3.4) L 08/20/19 20:39 Absolute Monocytes 0.45 k/cumm (0.11-0.7) 08/20/19 20:39 Absolute Eosinophils 0.01 k/cumm (0.0-0.7) 08/20/19 20: Absolute Basophils 0.02 k/cumm (0.0-0.2) 08/20/19 20:39 PT 10.6 sec (9.3-11.0) 08/20/19 20:39 INR 1.1 (0.9-1.1) 08/20/19 20:39 APTT 22.1 sec (21.0-31.4) 08/20/19 20:39 VBG pH 7.43 (7.35-7.45) 08/20/19 20:39 VBG pCO2 41 mm/Hg (34-47) 08/20/19 20:39 VBG pO2 40 mm/Hg (28-44) 08/20/19 20:39 VBG HCO3 27 mmol/L (22-28) 08/20/19 20:39 VBG Total CO2 24 mmol/L (22-29) 08/20/19 20:39 VBG O2 Saturation 75 % (70-80) 08/20/19 20:39 VBG Base Excess 2.6 mmol/L (-3-3) 08/20/19 20:39 Sodium 141 mmol/L (136-145) 08/24/19 06:30 Potassium 3.6 mmol/L (3.5-5.1) 08/24/19 06:30 Chloride 105 mmol/L (98-107) 08/24/19 06:30 Carbon Dioxide 30.6 mmol/L (21.0-32.0) 08/24/19 06:30 Anion Gap 5.4 mmol/L (3-11) 08/24/19 06:30 BUN 6 mg/dL (7-18) L 08/24/19 06:30 Creatinine 0.83 mg/dL (0.70-1.30) 08/24/19 06:30 Estimated GFR/1.73 m2 >= 60.00 (mL/min/1.73m2) 08/24/19 06:30 Glucose 75 mg/dL (74-106) D 08/24/19 06:30 Hemoglobin A1c 8.6 % (3.8-5.6) H 08/22/19 06:15 Calcium 8.1 mg/dL (8.5-10.1) L 08/24/19 06:30 Phosphorus 4.3 mg/dL (2.6-4.7) 08/20/19 20:33 Magnesium 2.0 mg/dL (1.8-2.4) 08/24/19 06:30 Total Bilirubin 0.5 mg/dL (0.2-1.0) 08/24/19 06:30 Conjugated Bilirubin 0.18 mg/dL (0.00-0.20) 08/22/19 06:15 AST 93 U/L (15-37) H 08/24/19 06:30 ALT 96 U/L (16-63) H 08/24/19 06:30 Alkaline Phosphatase 89 U/L (46-116) 08/24/19 06:30 Total Protein 5.5 g/dL (6.4-8.2) L 08/24/19 06:30 Albumin 2.7 g/dL (3.4-5.0) L 08/24/19 06:30 Triglycerides 195 mg/dL (<150) H 08/22/19 06:15 Total Cholesterol 212 mg/dL (<200) H 08/22/19 06:15 LDL Cholesterol, Calc 100 mg/dL (<100) 08/22/19 06:15 HDL Cholesterol 73 mg/dL (40-60) 08/22/19 06:15 TSH 1.24 uIU/mL (0.36-3.74) 08/20/19 20:39 Urine Color Yellow (Yellow) 08/21/19 03:00 Urine Clarity Clear (Clear) 08/21/19 03:00 Urine pH 6.5 (5-8) 08/21/19 03:00 Ur Specific [place] 1.020 (1.005-1.025) 08/21/19 03:00 Urine Protein Negative mg/dL (Negative) 08/21/19 03:00 Urine Ketones Trace mg/dL (Negative) H 08/21/19 03:00 Urine Blood Trace-intact (Negative) H 08/21/19 03:00 Urine Nitrite Negative (Negative) 08/21/19 03:00 Urine Bilirubin Negative (Negative) 08/21/19 03:00 Urine Urobilinogen 0.2 EU/dL (Up TO 0.2) 08/21/19 03:00 Ur Leukocyte Esterase Negative (Negative) 08/21/19 03:00 Urine RBC 3-5 HPF (0-2) H 08/21/19 03:00 Urine WBC 0-2 HPF (0-5) 08/21/19 03:00 Ur Epithelial Cells Rare HPF (Negative) 08/21/19 03:00 Urine Crystals Negative HPF (Negative) 08/21/19 03:00 Urine Bacteria Negative HPF (Negative) 08/21/19 03:00 Urine Casts Negative LPF (Negative) 08/21/19 03:00 Urine Mucus Negative (Negative) 08/21/19 03:00 Ur Culture Indicated? No 08/21/19 03:00 Urine Glucose 500 mg/dL (Negative) H 08/21/19 03:00 Urine Opiates Screen Negative (Negative) 08/21/19 03:00 Urine Methadone Screen Negative (Negative) 08/21/19 03:00 Ur Barbiturates Screen Negative (Negative) 08/21/19 03:00 Ur Tricyclics Screen Negative (Negative) 08/21/19 03:00 Ur Amphetamines Screen Negative (Negative) 08/21/19 03:00 U Benzodiazepines Scrn Negative (Negative) 08/21/19 03:00 Urine Cocaine Screen Negative (Negative) 08/21/19 03:00 Ur THC Screen Negative (Negative) 08/21/19 03:00 Ethyl Alcohol 246.1 mg/dL (<3) 08/20/19 20:39 COVID-19 PCR Negative (Negative) 08/20/19 21:38 Nasopharyn COVID-19 PCR Not Applicable 08/20/19 21:38 HCV RNA Qual (PCR) Undetected (Undetected) 08/21/19 06:30 Hepatitis C RNA Quant Not Applicable 08/21/19 06:30 Ref Test Perform Site [facility] 08/20/19 21:38
[2019-08-24] MEDS: Metoclopramide 10 MG/2 ML VIAL IVP (15:21)
[2019-08-24] MEDS: traZODone 50 MG TAB 150 MG PO (23:12)
[2019-08-24] MEDS: Insulin Glargine 300 UNITS/3 ML PEN 20 UNITS SC (23:12)
[2019-08-25] VITALS (26 sets, daily range): BP systolic 115–146; BP diastolic 56–87; PULSE 38–76; RESP 6–21; TEMP 36–37.1; O2SAT 94–99
[2019-08-25] MEDS: Heparin 5,000 UNITS/ML VIAL 5000 UNITS SC (05:36)
[2019-08-25] MEDS: Potassium Chloride 20 MEQ TABCR PO ×2 (08:42→22:35)
[2019-08-25] MEDS: Magnesium Oxide 400 MG TAB 800 MG PO ×2 (08:42→22:37)
[2019-08-25] MEDS: Gabapentin 600 MG TAB PO ×3 (08:42→22:37)
[2019-08-25] MEDS: Multivitamin TAB 1 TAB PO (08:42)
[2019-08-25] MEDS: Buprenorphine/Naloxone 12 mg/3 mg FILM 1 EACH SL (08:43)
[2019-08-25] MEDS: Thiamine 100 MG TAB PO (08:43)
[2019-08-25] MEDS: Pantoprazole 40 MG TABCR PO (08:43)
[2019-08-25] MEDS: Folic Acid 1 MG TAB PO (08:43)
[2019-08-25] MEDS: Normal Saline Flush 10 ML SYR 20 ML IVP ×2 (08:44→17:36)
[2019-08-25 08:51] LABS: Absolute Basophil Count 0.01 k/cumm (0.0-0.2); Absolute Lymphocyte Count 0.87 k/cumm (1.2-3.4); Absolute Monocyte Count 0.21 k/cumm (0.11-0.7); Absolute Neutrophil Count 1.21 k/cumm (1.2-6.7); Basophils % 0.4; Eosinophils % 4.2; HCT 37.5 % (40.0-50.0); Lymphocytes % 36.3; Mean Corp. HGB Concentration 34.7 g/dL (32.0-36.0); Mean Corpuscular Hemoglobin 33.3 pg (27.0-33.0); Mean Corpuscular Volume 96.2 fL (80-95); Mean Platelet Volume 10.4 fL (8.0-11.0); Monocytes % 8.8; Neutrophils % 50.3; RBC Distribution Width 13.8 % (11.8-14.1)
[2019-08-25 08:57] LABS: ALT 115 U/L (16-63); AST 153 U/L (15-37); Albumin 2.7 g/dL (3.4-5.0); Alkaline Phosphatase 93 U/L (46-116); Anion Gap 4.3 mmol/L (3-11); BUN 10 mg/dL (7-18); Bilirubin, Total 0.5 mg/dL (0.2-1.0); CO2 29.7 mmol/L (21.0-32.0); CREATININE 0.81 mg/dL (0.70-1.30); Calcium 8.5 mg/dL (8.5-10.1); Chloride 105 mmol/L (98-107); Glucose 158 mg/dL (74-106); Potassium 4.3 mmol/L (3.5-5.1); Sodium 139 mmol/L (136-145); Total Protein 5.5 g/dL (6.4-8.2)
[2019-08-25 09:07] LABS: Diff Comment PLT Morph Reviewed; Platelet Count 75 x1000/uL (130-400); RBC Morphology Normal
[2019-08-25] MEDS: Insulin Aspart 300 UNITS/3 ML PEN SC ×3 (09:26→13:25)
--- NOTE | 2019-08-25 09:36 | PGE_ITS ---
Date of Service Date of service: 08/25/19 Time of Service: 09:36 Assessment and Plan Assessment and plan (1) Alcohol withdrawal: Status: Acute Assessment and plan: IV Ativan drip along with scheduled dose of p.o. Serax. Continue multivitamin thiamine and folic acid supplementation. Continue monitoring in the ICU. Heart rhythm remains sinus rhythm with no significant ectopy. Qualifiers: Complication of substance-induced condition: with delirium Qualified Code(s): F10.231 - Alcohol dependence with withdrawal delirium (2) Continuous opioid dependence: Status: Chronic Assessment and plan: Continue Suboxone at outpatient dose.. (3) Type II diabetes mellitus, uncontrolled: Status: Chronic Assessment and plan: Continue basal bolus insulin treatment and monitoring of sugars before meals and at bedtime. Glucose appears to be well controlled. Fasting glucose 121 this morning. At at bedtime his glucose was 164. Throughout the day yesterday he ranged from 82-164. Qualifiers: Glycemic state: with hyperglycemia Qualified Code(s): E11.65 - Type 2 diabetes mellitus with hyperglycemia (4) Chronic hepatitis C: Status: Chronic Assessment and plan: Patient states that he has been treated for years ago with Harvoni. Quantitative HCV RNA was undetectable Qualifiers: Hepatic coma status: without hepatic coma Qualified Code(s): B18.2 - Chronic viral hepatitis C (5) Hepatitis B infection: Status: Acute Assessment and plan: cont. Tenofovir Qualifiers: Viral hepatitis chronicity: chronic Hepatic coma status: without hepatic coma Hepatitis delta agent presence: without delta-agent Qualified Code(s): B18.1 - Chronic viral hepatitis B without delta-agent (6) Cirrhosis of liver: Status: Chronic Assessment and plan: Transaminases mildly elevated in the 100-1 50 range. Total bilirubin is normal. Total protein and albumin levels are low reflecting poor nutritional status Qualifiers: Hepatic cirrhosis type: other cirrhosis Qualified Code(s): K74.69 - Other cirrhosis of liver (7) Smoker: Status: Chronic Assessment and plan: Nicotine replacement if requested. (8) DVT prophylaxis: Status: Acute Assessment and plan: He is on heparin 3 times daily. Subjective Subjective Interval history since last seen: Patient continues to have hallucinations. Although he seems much calm or more alert this morning. Nevertheless when they tried to wean him off the Ativan drip he started scoring higher on his CIWA scale. He continues to receive Serax 45 mg 4 times daily. Still has some tremors. Exam Narrative Exam Narrative: he is alert and conversant and sitting up in his chair eating his breakfast. He still admits to visual hallucinations including seeing pretty women sitting on the edge of his bed and a sports car being parked in his room. Lungs are clear to auscultation. Heart is regular rate and rhythm. At times to become bradycardic when he falls asleep. Abdomen soft and nontender. Extremities still with 1+ pitting edema of his hands and forearms as well as his feet. Objective Objective Clinical Data: Abnormal lab results 08/25/19 08/25/19 Range/Units 08:30 08:30 WBC 2.40 L (4.4-10.8) k/cumm RBC 3.90 L (4.50-6.00) m/cumm Hgb 13.0 L (13.5-17.5) g/dL Hct 37.5 L (40.0-50.0) % MCV 96.2 H (80-95) fL MCH 33.3 H (27.0-33.0) pg Plt Count 75 L (130-400) x1000/uL Absolute Lymphocytes 0.87 L (1.2-3.4) k/cumm Glucose 158 H D (74-106) mg/dL AST 153 H (15-37) U/L ALT 115 H (16-63) U/L Total Protein 5.5 L (6.4-8.2) g/dL Albumin 2.7 L (3.4-5.0) g/dL Vital Signs Temperature 37.1 C 08/25/19 04:35 Temperature Source Temporal Artery Scan 08/25/19 04:35 Pulse 41 L 08/25/19 06:01 Pulse 43 L 08/25/19 06:01 Respiratory Rate 12 08/25/19 06:01 Respiratory Effort Non-Labored 08/25/19 04:35 Respiratory Depth Normal 08/25/19 04:35 Respiratory Pattern Normal 08/25/19 04:35 Blood Pressure 119/58 L 08/25/19 06:01 Blood Pressure Mean 73 08/25/19 06:01 Blood Pressure Position Supine 08/25/19 04:35 Pulse Oximetry 94 L 08/25/19 06:01 Oxygen Delivery Method Room Air 06/18/20 04:35 Oxygen Flow Rate 0 08/25/19 04:35 Pain Level 6 08/24/19 16:22 Intake & Output 08/24/19 08/24/19 08/25/19 11:59 23:59 11:59 Intake Total 240.067 / 525.000 284.933 / 525.000 31.900 / 31.900 Output Total 350 / 1250 900 / 1250 550 / 550 Balance -109.933 / -725.000 -615.067 / -725.000 -518.100 / -518.100 Weight 87.6 kg Intake: IV 20.067 / 55.000 34.933 / 55.000 31.900 / 31.900 Oral 220 / 470 250 / 470 Output: Urine 350 / 1250 900 / 1250 550 / 550 Other: Urine Color Light Maria Luisa Yellow Light Maria Luisa [place] Urine Appearance Clear Clear Clear Comment Palm in place Palm in place patent and draining. Tea colored urine in palm bag Laboratory Results WBC 2.40 k/cumm (4.4-10.8) L 08/25/19 08:30 RBC 3.90 m/cumm (4.50-6.00) L 08/25/19 08:30 Hgb 13.0 g/dL (13.5-17.5) L 08/25/19 08:30 Hct 37.5 % (40.0-50.0) L 08/25/19 08:30 MCV 96.2 fL (80-95) H 08/25/19 08:30 MCH 33.3 pg (27.0-33.0) H 08/25/19 08:30 MCHC 34.7 g/dL (32.0-36.0) 08/25/19 08:30 RDW 13.8 % (11.8-14.1) 08/25/19 08:30 Plt Count 75 x1000/uL (130-400) L 08/25/19 08:30 MPV 10.4 fL (8.0-11.0) 08/25/19 08:30 Immature Gran % 0.0 % 08/25/19 08:30 Neutrophils % 50.3 08/25/19 08:30 Lymphocytes % 36.3 08/25/19 08:30 Monocytes % 8.8 08/25/19 08:30 Eosinophils % 4.2 08/25/19 08:30 Basophils % 0.4 08/25/19 08:30 Absolute Neutrophils 1.21 k/cumm (1.2-6.7) 08/25/19 08:30 Absolute Lymphocytes 0.87 k/cumm (1.2-3.4) L 08/25/19 08:30 Absolute Monocytes 0.21 k/cumm (0.11-0.7) 08/25/19 08:30 Absolute Eosinophils 0.10 k/cumm (0.0-0.7) 08/25/19 08:30 Absolute Basophils 0.01 k/cumm (0.0-0.2) 08/25/19 08:30 Differential Comment Plt morph reviewed 08/25/19 08:30 RBC Morphology Normal 08/25/19 08:30 PT 10.6 sec (9.3-11.0) 08/20/19 20:39 INR 1.1 (0.9-1.1) 08/20/19 20:39 APTT 22.1 sec (21.0-31.4) 08/20/19 20:39 VBG pH 7.43 (7.35-7.45) 08/20/19 20:39 VBG pCO2 41 mm/Hg (34-47) 08/20/19 20:39 VBG pO2 40 mm/Hg (28-44) 08/20/19 20:39 VBG HCO3 27 mmol/L (22-28) 08/20/19 20:39 VBG Total CO2 24 mmol/L (22-29) 08/20/19 20:39 VBG O2 Saturation 75 % (70-80) 08/20/19 20:39 VBG Base Excess 2.6 mmol/L (-3-3) 08/20/19 20:39 Sodium 139 mmol/L (136-145) 08/25/19 08:30 Potassium 4.3 mmol/L (3.5-5.1) 08/25/19 08:30 Chloride 105 mmol/L (98-107) 08/25/19 08:30 Carbon Dioxide 29.7 mmol/L (21.0-32.0) 08/25/19 08:30 Anion Gap 4.3 mmol/L (3-11) 08/25/19 08:30 BUN 10 mg/dL (7-18) 08/25/19 08:30 Creatinine 0.81 mg/dL (0.70-1.30) 08/25/19 08:30 Estimated GFR/1.73 m2 >= 60.00 (mL/min/1.73m2) 08/25/19 08:30 Glucose 158 mg/dL (74-106) H D 08/25/19 08:30 Hemoglobin A1c 8.6 % (3.8-5.6) H 08/22/19 06:15 Calcium 8.5 mg/dL (8.5-10.1) 08/25/19 08:30 Phosphorus 4.3 mg/dL (2.6-4.7) 08/20/19 20:33 Magnesium 2.0 mg/dL (1.8-2.4) 08/24/19 06:30 Total Bilirubin 0.5 mg/dL (0.2-1.0) 08/25/19 08:30 Conjugated Bilirubin 0.18 mg/dL (0.00-0.20) 08/22/19 06:15 AST 153 U/L (15-37) H 08/25/19 08:30 ALT 115 U/L (16-63) H 08/25/19 08:30 Alkaline Phosphatase 93 U/L (46-116) 08/25/19 08:30 Total Protein 5.5 g/dL (6.4-8.2) L 08/25/19 08:30 Albumin 2.7 g/dL (3.4-5.0) L 08/25/19 08:30 Triglycerides 195 mg/dL (<150) H 08/22/19 06:15 Total Cholesterol 212 mg/dL (<200) H 08/22/19 06:15 LDL Cholesterol, Calc 100 mg/dL (<100) 08/22/19 06:15 HDL Cholesterol 73 mg/dL (40-60) 08/22/19 06:15 TSH 1.24 uIU/mL (0.36-3.74) 08/20/19 20:39 Urine Color Yellow (Yellow) 08/21/19 03:00 Urine Clarity Clear (Clear) 08/21/19 03:00 Urine pH 6.5 (5-8) 08/21/19 03:00 Ur Specific [place] 1.020 (1.005-1.025) 08/21/19 03:00 Urine Protein Negative mg/dL (Negative) 08/21/19 03:00 Urine Ketones Trace mg/dL (Negative) H 08/21/19 03:00 Urine Blood Trace-intact (Negative) H 08/21/19 03:00 Urine Nitrite Negative (Negative) 08/21/19 03:00 Urine Bilirubin Negative (Negative) 08/21/19 03:00 Urine Urobilinogen 0.2 EU/dL (Up TO 0.2) 08/21/19 03:00 Ur Leukocyte Esterase Negative (Negative) 08/21/19 03:00 Urine RBC 3-5 HPF (0-2) H 08/21/19 03:00 Urine WBC 0-2 HPF (0-5) 08/21/19 03:00 Ur Epithelial Cells Rare HPF (Negative) 08/21/19 03:00 Urine Crystals Negative HPF (Negative) 08/21/19 03:00 Urine Bacteria Negative HPF (Negative) 08/21/19 03:00 Urine Casts Negative LPF (Negative) 08/21/19 03:00 Urine Mucus Negative (Negative) 08/21/19 03:00 Ur Culture Indicated? No 08/21/19 03:00 Urine Glucose 500 mg/dL (Negative) H 08/21/19 03:00 Urine Opiates Screen Negative (Negative) 08/21/19 03:00 Urine Methadone Screen Negative (Negative) 08/21/19 03:00 Ur Barbiturates Screen Negative (Negative) 08/21/19 03:00 Ur Tricyclics Screen Negative (Negative) 08/21/19 03:00 Ur Amphetamines Screen Negative (Negative) 08/21/19 03:00 U Benzodiazepines Scrn Negative (Negative) 08/21/19 03:00 Urine Cocaine Screen Negative (Negative) 08/21/19 03:00 Ur THC Screen Negative (Negative) 08/21/19 03:00 Ethyl Alcohol 246.1 mg/dL (<3) 08/20/19 20:39 COVID-19 PCR Negative (Negative) 08/20/19 21:38 Nasopharyn COVID-19 PCR Not Applicable 08/20/19 21:38 HCV RNA Qual (PCR) Undetected (Undetected) 08/21/19 06:30 Hepatitis C RNA Quant Not Applicable 08/21/19 06:30 Ref Test Perform Site [place] [facility] 08/20/19 21:38
[2019-08-25] MEDS: Naproxen 250 MG TAB PO (10:13)
--- NOTE | 2019-08-25 10:17 | CMPROGNOTE_ITS ---
- If Service Date Differs Date of service: 08/25/19 Time of Service: 10:17 Care Management Progress Note S/O: Shaw remains in the ICU he continues to have symptoms of alcohol withdrawal. Ativan drip remains active and is being titrated down. Shaw is alert today he is able to engage in assessment. He is weak and using paraprofessional education assistant aids for using his utensils. He continues to have edema in both of his arms. He states his barriers to sobriety are housing. He states that he has been in sever al programs and has not been successful. 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 He feels that housing would support his ability to remain sober with outpatient program. CM will send a referral to [facility] in addition to contacting the value stream coach. Shaw does not want to go to in inpatient program at this time. Shaw will benefit from ongoing PT and OT. A: Shaw is a 49 year old male with a long history alcohol abuse, admitted with uncontrolled NIDDM and ETOH withdrawal. P: Shaw will be discharged when he is medically ready per provider. Referral to [facility] for community case management. CM will review substance abuse treatment programs and recovery supports when more alert. CM will continue to assess for discharge needs and provide supports during inpatient stay.
--- NOTE | 2019-08-25 11:28 | W.NUTRFU ---
Date of service: 08/25/19 Time of Service: 11:29 Nutritional Follow up NOTE: Calorie Count averages 1500 kcal/70 g protein daily. Currently meeting 75% of calorie needs, 100% protein needs by mouth. takes 1-3 Glucerna shakes daily. BS is good control with current regime. Remains 9 kg above typical weight of concern, on dieurtics, fluid intake adequate. No longer considered at nutritional risk. Will continue to follow. Time Spent in Nutritional Counseling and Treatment: 5 min
[2019-08-25] MEDS: Normal Saline 500 ML 25 ML IV (14:15)
[2019-08-25] MEDS: traZODone 50 MG TAB 150 MG PO (22:35)
[2019-08-25] MEDS: Insulin Glargine 300 UNITS/3 ML PEN 20 UNITS SC (22:50)
[2019-08-26] VITALS (7 sets, daily range): BP systolic 128–145; BP diastolic 66–69; PULSE 47–72; RESP 14–18; TEMP 36–36.6; O2SAT 97–99
--- NOTE | 2019-08-26 00:47 | NUR.NOTE ---
pt insistent on leaving AMA, requested Hawkins Catheter out. Hawkins catheter removed per patient request. Discussed pros and cons of leaving AMA and plan of care. provider at bedside discussing plan of care with patient.
--- NOTE | 2019-08-26 01:06 | PGE_ITS ---
Date of Service Date of service: 08/26/19 Time of Service: 01:06 Assessment and Plan Assessment and plan (1) Alcohol withdrawal: Status: Acute Assessment and plan: Patient does appear to be stable off the Ativan drip. I talked with the nurses, and we are both comfortable with downgrading him to MedSurg status with less frequent vital sign assessments. After reviewing his h istory, we will change to scheduled benzodiazepine from oxazepam to diazepam. I have chosen a dose on the conservative side which should be slightly less than the oxazepam, but given the duration of the diazepam I feel this is prudent. A longer acting benzodiazepine will also make it less likely for him to have withdrawal seizures if he does leave AMA. He was getting a higher dose of gabapentin and while at [facility], there are some evidence that this helps people with severe alcohol cravings and withdrawal maintain their sobriety, I gave him the increased dose of 800 mg 3 times daily. We will continue as needed short acting benzodiazepine and oxazepam if the Valium is not enough to manage his withdrawal symptoms going forward. Qualifiers: Complication of substance-induced condition: with delirium Qualified Code(s): F10.231 - Alcohol dependence with withdrawal delirium Subjective Subjective Interval history since last seen: Events: Ativan drip stopped around 5 PM I was called to the room because patient was standing to leave AMA. He was feeling frustrated with being constantly on the monitor and not being able to relax. He states that he has had some bad experiences with oxazepam and would prefer alternative medication. He states he still wants to stay sober, and admits that if he left he would probably end up at a liquor store by tomorrow morning. Exam Narrative Exam Narrative: Patient is alert but appears slightly sedated. He is not tremulous or pain psychomotor agitation. His speech is slow but intelligible and coherent. He is oriented and denies any hallucinations. He is breathing comfortably. Objective Objective Clinical Data: Abnormal lab results 08/25/19 08/25/19 Range/Units 08:30 08:30 WBC 2.40 L (4.4-10.8) k/cumm RBC 3.90 L (4.50-6.00) m/cumm Hgb 13.0 L (13.5-17.5) g/dL Hct 37.5 L (40.0-50.0) % MCV 96.2 H (80-95) fL MCH 33.3 H (27.0-33.0) pg Plt Count 75 L (130-400) x1000/uL Absolute Lymphocytes 0.87 L (1.2-3.4) k/cumm Glucose 158 H D (74-106) mg/dL AST 153 H (15-37) U/L ALT 115 H (16-63) U/L Total Protein 5.5 L (6.4-8.2) g/dL Albumin 2.7 L (3.4-5.0) g/dL Vital Signs Temperature 36.3 C L 08/26/19 00:02 Temperature Source Temporal Artery Scan 08/26/19 00:02 Pulse 71 08/26/19 00:02 Pulse 45 L 08/25/19 18:01 Respiratory Rate 14 08/26/19 00:02 Respiratory Effort 08/26/19 00:02 Respiratory Depth Normal 08/26/19 00:02 Respiratory Pattern Normal 08/26/19 00:02 Blood Pressure 127/62 08/25/19 18:01 Blood Pressure Mean 78 08/25/19 18:01 Blood Pressure Position Supine 08/26/19 00:02 Pulse Oximetry 98 08/25/19 16:01 Oxygen Delivery Method Room Air 08/26/19 00:02 Oxygen Flow Rate 0 08/26/19 00:02 Pain Level 0 08/26/19 00:02 Intake & Output 08/25/19 08/25/19 08/26/19 11:59 23:59 11:59 Intake Total 397.900 / 1254.117 856.217 / 1254.117 Output Total 550 / 1525 975 / 1525 200 / 200 Balance -152.100 / -270.883 -118.783 / -270.883 -200 / -200 Intake: IV 47.900 / 184.117 136.217 / 184.117 Oral 350 / 1070 720 / 1070 Output: Urine 550 / 1525 975 / 1525 200 / 200 Other: Urine Color Light Maria Luisa Yellow Light Maria Luisa Urine Appearance Clear Clear Clear Comment Hawkins in place patent and draining. Hawkins in place patent and draining. Hawkins in place patent and draining. Laboratory Results WBC 2.40 k/cumm (4.4-10.8) L 08/25/19 08:30 RBC 3.90 m/cumm (4.50-6.00) L 08/25/19 08:30 Hgb 13.0 g/dL (13.5-17.5) L 08/25/19 08:30 Hct 37.5 % (40.0-50.0) L 08/25/19 08:30 MCV 96.2 fL (80-95) H 08/25/19 08:30 MCH 33.3 pg (27.0-33.0) H 08/25/19 08:30 MCHC 34.7 g/dL (32.0-36.0) 08/25/19 08:30 RDW 13.8 % (11.8-14.1) 08/25/19 08:30 Plt Count 75 x1000/uL (130-400) L 08/25/19 08:30 MPV 10.4 fL (8.0-11.0) 08/25/19 08:30 Immature Gran % 0.0 % 08/25/19 08:30 Neutrophils % 50.3 08/25/19 08:30 Lymphocytes % 36.3 08/25/19 08:30 Monocytes % 8.8 08/25/19 08:30 Eosinophils % 4.2 08/25/19 08:30 Basophils % 0.4 08/25/19 08:30 Absolute Neutrophils 1.21 k/cumm (1.2-6.7) 08/25/19 08:30 Absolute Lymphocytes 0.87 k/cumm (1.2-3.4) L 08/25/19 08:30 Absolute Monocytes 0.21 k/cumm (0.11-0.7) 08/25/19 08:30 Absolute Eosinophils 0.10 k/cumm (0.0-0.7) 08/25/19 08:30 Absolute Basophils 0.01 k/cumm (0.0-0.2) 08/25/19 08:30 Differential Comment Plt morph reviewed 08/25/19 08:30 RBC Morphology Normal 08/25/19 08:30 PT 10.6 sec (9.3-11.0) 08/20/19 20:39 INR 1.1 (0.9-1.1) 08/20/19 20:39 APTT 22.1 sec (21.0-31.4) 08/20/19 20:39 VBG pH 7.43 (7.35-7.45) 08/20/19 20:39 VBG pCO2 41 mm/Hg (34-47) 08/20/19 20:39 VBG pO2 40 mm/Hg (28-44) 08/20/19 20:39 VBG HCO3 27 mmol/L (22-28) 08/20/19 20:39 VBG Total CO2 24 mmol/L (22-29) 08/20/19 20:39 VBG O2 Saturation 75 % (70-80) 08/20/19 20:39 VBG Base Excess 2.6 mmol/L (-3-3) 08/20/19 20:39 Sodium 139 mmol/L (136-145) 08/25/19 08:30 Potassium 4.3 mmol/L (3.5-5.1) 08/25/19 08:30 Chloride 105 mmol/L (98-107) 08/25/19 08:30 Carbon Dioxide 29.7 mmol/L (21.0-32.0) 08/25/19 08:30 Anion Gap 4.3 mmol/L (3-11) 08/25/19 08:30 BUN 10 mg/dL (7-18) 08/25/19 08:30 Creatinine 0.81 mg/dL (0.70-1.30) 08/25/19 08:30 Estimated GFR/1.73 m2 >= 60.00 (mL/min/1.73m2) 08/25/19 08:30 Glucose 158 mg/dL (74-106) H D 08/25/19 08:30 Hemoglobin A1c 8.6 % (3.8-5.6) H 08/22/19 06:15 Calcium 8.5 mg/dL (8.5-10.1) 08/25/19 08:30 Phosphorus 4.3 mg/dL (2.6-4.7) 08/20/19 20:33 Magnesium 2.0 mg/dL (1.8-2.4) 08/24/19 06:30 Total Bilirubin 0.5 mg/dL (0.2-1.0) 08/25/19 08:30 Conjugated Bilirubin 0.18 mg/dL (0.00-0.20) 08/22/19 06:15 AST 153 U/L (15-37) H 08/25/19 08:30 ALT 115 U/L (16-63) H 08/25/19 08:30 Alkaline Phosphatase 93 U/L (46-116) 08/25/19 08:30 Total Protein 5.5 g/dL (6.4-8.2) L 08/25/19 08:30 Albumin 2.7 g/dL (3.4-5.0) L 08/25/19 08:30 Triglycerides 195 mg/dL (<150) H 08/22/19 06:15 Total Cholesterol 212 mg/dL (<200) H 08/22/19 06:15 LDL Cholesterol, Calc 100 mg/dL (<100) 08/22/19 06:15 HDL Cholesterol 73 mg/dL (40-60) 08/22/19 06:15 TSH 1.24 uIU/mL (0.36-3.74) 08/20/19 20:39 Urine Color Yellow (Yellow) 08/21/19 03:00 Urine Clarity Clear (Clear) 08/21/19 03:00 Urine pH 6.5 (5-8) 08/21/19 03:00 Ur Specific [place] 1.020 (1.005-1.025) 08/21/19 03:00 Urine Protein Negative mg/dL (Negative) 08/21/19 03:00 Urine Ketones Trace mg/dL (Negative) H 08/21/19 03:00 Urine Blood Trace-intact (Negative) H 08/21/19 03:00 Urine Nitrite Negative (Negative) 08/21/19 03:00 Urine Bilirubin Negative (Negative) 08/21/19 03:00 Urine Urobilinogen 0.2 EU/dL (Up TO 0.2) 08/21/19 03:00 Ur Leukocyte Esterase Negative (Negative) 08/21/19 03:00 Urine RBC 3-5 HPF (0-2) H 08/21/19 03:00 Urine WBC 0-2 HPF (0-5) 08/21/19 03:00 Ur Epithelial Cells Rare HPF (Negative) 08/21/19 03:00 Urine Crystals Negative HPF (Negative) 08/21/19 03:00 Urine Bacteria Negative HPF (Negative) 08/21/19 03:00 Urine Casts Negative LPF (Negative) 08/21/19 03:00 Urine Mucus Negative (Negative) 08/21/19 03:00 Ur Culture Indicated? No 08/21/19 03:00 Urine Glucose 500 mg/dL (Negative) H 08/21/19 03:00 Urine Opiates Screen Negative (Negative) 08/21/19 03:00 Urine Methadone Screen Negative (Negative) 08/21/19 03:00 Ur Barbiturates Screen Negative (Negative) 08/21/19 03:00 Ur Tricyclics Screen Negative (Negative) 08/21/19 03:00 Ur Amphetamines Screen Negative (Negative) 08/21/19 03:00 U Benzodiazepines Scrn Negative (Negative) 08/21/19 03:00 Urine Cocaine Screen Negative (Negative) 08/21/19 03:00 Ur THC Screen Negative (Negative) 08/21/19 03:00 Ethyl Alcohol 246.1 mg/dL (<3) 08/20/19 20:39 COVID-19 PCR Negative (Negative) 08/20/19 21:38 Nasopharyn COVID-19 PCR Not Applicable 08/20/19 21:38 HCV RNA Qual (PCR) Undetected (Undetected) 08/21/19 06:30 Hepatitis C RNA Quant Not Applicable 08/21/19 06:30 Ref Test Perform Site [facility] lab 08/20/19 21:38
--- NOTE | 2019-08-26 03:34 | NUR.NOTE ---
Pt becoming increasingly more restless. requesting, pants, shirt and sweathsirt from laundry, standing with stand by guard and occasional assistance to stay upright and demonstrating ataxic gait. Starting to become harder to redirect from leaving AMA. Pt is dissmissive of interventions to keep him safe and dissmissive of staff's presence in room.
--- NOTE | 2019-08-26 05:01 | NUR.NOTE ---
pt insistent on leaving AMA. Dr De León made aware. pt left voicemail for friend. case management made aware. Patient is aware he is leaving against medical advice, Picc line discontinued prior to leaving the Hospital.
--- NOTE | 2019-08-26 05:14 | NUR.NOTE ---
patient given AMA forms to sign. rescinded request to leave AMA at this time. requests to wait until Care management arrives this morning
--- NOTE | 2019-08-26 07:57 | OT.INNT ---
Date of service: 08/26/19 Time of Service: 07:45 Occupational Therapy Notes 08/26/19 OT consult received and pts chart was reviewed. OT attempted to see pt this morning who was sleeping when OT arrived. He was able to go from supine to sit (I) with slight LOB and was difficult to understand due to his speech. He states that he is leaving and that he does not feel that he needs to be here. He also denies performance of OT consult. From OT's observation while in pts room- his sitting balance static is normal, dynamic is fair-good. When asked if he was having pain he states that he is always in pain. He has AROM enough to (I) don and doff his long sleeved shirt. He did require vc for putting the shirt on the right way. He was very unsteady. It appears that he has a FWW in his room. He tried 3x in 5 minutes to stand without FWW with decreased standing tolerance. He denied answering questions regarding his baseline level of function. Nursing reports that he has been saying that he is leaving since last night. Due to pts refusal, OT was unable to assess pt at this time. With very minimal observation with pt, and discussion, pt is an increased fall risk and presents with decreased safety awareness. Sherri Carter OTR/[facility]
[2019-08-26] MEDS: Folic Acid 1 MG TAB PO (08:50)
[2019-08-26] MEDS: Magnesium Oxide 400 MG TAB 800 MG PO (08:51)
[2019-08-26] MEDS: Gabapentin 600 MG TAB 800 MG PO (08:51)
[2019-08-26] MEDS: Thiamine 100 MG TAB PO (08:51)
[2019-08-26] MEDS: Potassium Chloride 20 MEQ TABCR PO (08:51)
[2019-08-26] MEDS: Multivitamin TAB 1 TAB PO (08:51)
[2019-08-26] MEDS: Pantoprazole 40 MG TABCR PO (08:51)
[2019-08-26] MEDS: diazePAM 5 MG TAB 15 MG PO (08:52)
[2019-08-26] MEDS: Buprenorphine/Naloxone 12 mg/3 mg FILM 1 EACH SL (08:52)
[2019-08-26] MEDS: Gabapentin 800 MG TAB PO ×3 (09:02→20:45)
[2019-08-26] MEDS: Insulin Aspart 300 UNITS/3 ML PEN SC ×3 (09:18→22:13)
--- NOTE | 2019-08-26 10:44 | IN_ITS ---
Date of service: 08/26/19 Time of Service: 10:44 PT Notes Visit Reasons: UNCONTROLLED NIDDM W/HYPERGLYCEMIA, ALCOHOL WITHDR Physical Therapy Inpatient Initial Evaluation Date: 08/26/2019 Referring Doctor: Kaleb Valadez MD PT Orders: PT CONSULT: Extended-stay weakness Precautions: Fall. Standard. Activity as tolerated. Patient Profile/Admitting Diagnosis: Shaw is a 49-year-old who male presented to the ED on 09/06/2019 with chief presentation of increased blood sugar, malaise, and generalized weakness. He also complained of being shaky, anxious, and tremulous. He is diagnosed with initially with EtOH withdrawal but is now resolved. He is also diagnosed with ambulatory dysfunction, continuous opioid dependence, type II DM (chronic), chronic hepatitis C, and acute hep B infection l with referral for skilled physical for services to address functional mobility decline and strength deficits. PMHX: Medical History Adjustment disorder, unspecified (Resolved 12/10/15) Adventitious breath sounds (Resolved) Alcohol use (Acute) Chronic hepatitis C (Chronic 08/11/05) [facility] DARIO JACOB; began Harvyuliya 08/07/14 Cirrhosis of liver (Chronic 05/06/11) Continuous opioid dependence (Chronic 03/05/05) [facility] [place], <2004; counselling Meagan Garcia; prefers tablets Folliculitis (Resolved 05/17/12) Dr Donnie ng, consult Dr. 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 Care management is working out discharge destination that is safest for patient. He was independent with aspects of ADLs without the need for assistive ambulatory device. 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 He is currently from his . Has been to alcohol rehabilitation facility and sobriety homes. Equipment Owned/DME: None Subjective: Patient reports that he continues to bugs crawling on his but is aware of it being being a byproduct of his withdrawal episode. He reports being tired and wanting to rest in bed but is agreeable to a physical therapy consult. Indicated that his low back area is bothering him. Nurse Katherine is in the room and is aware of said complaint. Objective: General Observation: In paper clothing. Appears drowsy and fatigued. Mental Status: He is alert and is oriented as to person and place. Is able to follow instructions without any difficulty. Pain: Reported low back pain discomfort with movement ROM: Right Upper Extremity: Shoulder Flexion WFL. Shoulder abduction WFL. Elbow flexion WFL. Wrist flexion WFL. Opening and closing of hand WFL. Left Upper Extremity: Shoulder Flexion WFL. Shoulder abduction WFL. Elbow flexion WFL. Wrist flexion WFL. Opening and closing of hand WFL. Right Lower Extremity: Hip flexion WFL. Hip abduction WFL. Knee flexion WFL. Ankle dorsiflexion WFL. Ankle plantarflexion WFL. Left Lower Extremity: Hip flexion WFL. Hip abduction WFL. Knee flexion WFL. Ankle dorsiflexion WFL. Ankle plantarflexion WFL. Strength: Right Upper Extremity: Shoulder flexors 4/5. Shoulder abductors 5/5. Elbow flexors 5/5. Elbow extensors 5/5. 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 Left Upper Extremity: Shoulder flexors 4/5. Shoulder abductors 5/5. Elbow flexors 5/5. Elbow extensors 5/5. 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 Right Lower Extremity: Hip flexors 4/5. Hip abductors 5/5. Knee flexors 5/5. Knee extensors 4/5. Ankle dorsiflexors 4/5. Ankle plantarflexors 5/5. Left Lower Extremity:Hip flexors 4/5. Hip abductors 5/5. Knee flexors 5/5. Knee extensors 4/5. Ankle dorsiflexors 4/5. Ankle plantarflexors 5/5. Sensation: Intact as to pain and pressure on bilateral lower extremities. Bed Mobility/Transfers: Rolling supervision Supine to sit supervision Sit to supine supervision Sit to stand standby assist with cueing required for hand placement for safety Stand to sit standby assist with cueing required for hand placement for safety Bed to chair standby assist with cueing required for hand placement for safety Chair to bed standby assist with cueing required for hand placement for safety Gait: Patient tolerated level surface ambulation of 300 using front wheeled walker with minimal assist requiring moderate verbal cueing for walker management, posture, and path management. Moderate past deviation seen requ iring verbal cueing for safety. Step length decreased. [place] decreased. Gait significantly unsteady. No LOB. No SOB. Balance: Static Sitting: Normal Dynamic Sitting: Normal Static Standing: Fair Dynamic Standing: Fair Special Tests: Mobility Limitations Standardized Measure [facility] AM-PAC 6 clicks Basic Mobility Inpatient Short Form: Raw Score: 19 CMS Score: 42% deficit Informed Consent/Education: Patient instructed in purpose of PT consult and plan of care. Assessment: Shaw demonstrates significant functional mobility decline requiring use of front wheeled walker and minimal assist for safety due to significant gait instability, impaired safety awareness, and high risk for falls and injury. Shaw is a 49-year-old who male presented to the ED on 09/06/2019 with chief presentation of increased blood sugar, malaise, and generalized weakness. He also complained of being shaky, anxious, and tremulous. He is diagnosed with initially with EtOH withdrawal but is now resolved. He is also diagnosed with ambulatory dysfunction, continuous opioid dependence, type II DM (chronic), chronic hepatitis C, and acute hep B infection l with referral for skilled physical for services to address functional mobility decline and strength deficits. Patient presents with clinical signs and symptoms consistent with current/admitting diagnoses that have resulted to mobility limitations, gait instability, generalized weakness, and impairment of motor control as demonstrated by the following impairment level findings: 1. Decreased strength to B LE major muscle groups 2. Impaired sitting/standing balance 3. Impaired activity tolerance Impairments are contributing to the following functional limitations: 1. Increased dependence with transfers 2. Inability to safely ambulate without assistive device and physical assistance 3. Increase completion time for mobility ADL performance 4. Increased fall risk 5. Inability to negotiate steps alone safely Patient is assessed as a 67531 moderate complexity complexity based on the following: History: 49-year-old male with impairment level findings, functional limitations, and past medical history as indicated above Examination: Demonstrable impairment in strength, balance, and mobility level with underlying impairments and functional limitations as documented above Presentation:Evolving Decision Makin moderate complexity Goals: Goals X1 week 1. Supine-Sit independent 2. Sit-Supine independent 3. Sit-Stand independent 4. Stand-Sit independent 5. Bed-Chair independent 6. Chair-Bed independent 7. Independent gait on level surface with use of least restrictive device for at least 300 feet without report of pain nor dyspnea 8. Independent stair negotiation while holding onto bilateral rails for at least 10 steps without report of pain nor dyspnea 9. Independent with home exercise program 10. Good static and dynamic standing balance/tolerance Plan of Care/Treatment Plan: 1-2x/day, 7 days/week x 1 week. Plan of care has been reviewed with the HEALTH AND HUMAN PERFORMANCE PROFESSOR providing the service under Physical Therapy direction. Initiate Physical Therapy intervention for strengthening, bed mobility, transfers, gait, stairs, balance training, use of assistive device. PT intervention: Session today consisted of initial physical therapy elevation as well as education training on functional mobility ADL performance using front wheeled walker. DISCHARGE RECOMMENDATIONS: Will benefit from continued rehabilitation to regain premorbid independent functional level. Will need use of front wheeled walker for all mobility ADL performance at this time. TREATMENT CODE/TIME: 79456 x 31 minutes beginning at 10:44 AM. Thank you very much for this referral. Lori Avila PT, DPT, CLT [facility] [place], [place]
--- NOTE | 2019-08-26 12:11 | PGE_ITS ---
Date of Service Date of service: 08/26/19 Time of Service: 12:11 Assessment and Plan Assessment and plan (1) Ambulatory dysfunction: Status: Acute Assessment and plan: Gait instability due to multifactorial including excess benzodiazepines along with diabetic peripheral neuropathy. We will withhold benzodiazepines at this point as he is past the point of risk for acute alcohol withdrawal seizures. We will continue with his gabapentin for his peripheral neuropathy and continue to work with physical therapy and Occupational Therapy. If Case management is unable to arrange inpatient alcohol and drug rehabilitation and the patient may need to stay in a swing bed status here at [facility] for continued PT and OT. (2) Alcohol withdrawal: Status: Resolved Assessment and plan: Continue oral thiamine and folate and multivitamin supplementation. DC benzodiazepines. Allow time for clearance of the benzodiazepines of his system in order to improve his lethargy and see how his gait and balance are after the benzodiazepines are out of his system. Qualifiers: Complication of substance-induced condition: with delirium Qualified Code(s): F10.231 - Alcohol dependence with withdrawal delirium (3) Continuous opioid dependence: Status: Chronic Assessment and plan: Continue Suboxone at outpatient dose.. (4) Type II diabetes mellitus, uncontrolled: Status: Chronic Assessment and plan: Continue basal bolus insulin treatment and monitoring of sugars before meals and at bedtime. Glucose appears to be well controlled. Fasting glucose 121 this morning. At at bedtime his glucose was 164. Throughout the day yesterday he ranged from 82-164. Qualifiers: Glycemic state: with hyperglycemia Qualified Code(s): E11.65 - Type 2 diabetes mellitus with hyperglycemia (5) Chronic hepatitis C: Status: Chronic Assessment and plan: Patient states that he has been treated for years ago with Harvoni. Quantitative HCV RNA was undetectable Qualifiers: Hepatic coma status: without hepatic coma Qualified Code(s): B18.2 - Chronic viral hepatitis C (6) Hepatitis B infection: Status: Acute Assessment and plan: cont. Tenofovir Qualifiers: Viral hepatitis chronicity: chronic Hepatic coma status: without hepatic coma Hepatitis delta agent presence: without delta-agent Qualified Code(s): B18.1 - Chronic viral hepatitis B without delta-agent (7) Cirrhosis of liver: Status: Chronic Assessment and plan: Transaminases mildly elevated in the 100-1 50 range. Total bilirubin is normal. Total protein and albumin levels are low reflecting poor nutritional status Qualifiers: Hepatic cirrhosis type: other cirrhosis Qualified Code(s): K74.69 - Other cirrhosis of liver (8) Smoker: Status: Chronic Assessment and plan: Nicotine replacement if requested. (9) DVT prophylaxis: Status: Acute Assessment and plan: He is on heparin 3 times daily. (10) Discharge planning issues: Status: Acute Assessment and plan: Apparently the patient is agreeable to going to an inpatient alcohol and drug rehabilitation program and case management is working on making referral to [facility]. If he is not accepted or the patient refused admission to [facility] then the next best option would be continued s hort-term treatment under the swing bed status for continued PT and OT until his strength improves and his ambulatory status improves where he can be safely discharged. Subjective Subjective Interval history since last seen: Patient pulled out his midline last night. Dr. De León saw the patient and switch him over from Serax to Valium. At this point I do not feel that the patient needs continued benzodiazepines. He is past the point of being at risk for acute alcohol withdrawal seizures. However because the CIWA scale is a very subjective score and the patient knows the right things to say he could be potentially scored high and then would be medicated with high-dose benzodiazepines. Patient is alert and oriented to person place time and circumstance. He reports that he still has hallucinations however he seems to know where he is at what is being done for him and recalls his conversation with Dr. De León last night. At this point I do not believe that the hallucinations are legitimate he is not showing any tremors he is not diaphoretic and otherwise has no other signs of acute withdrawal at this point. At times he will be lethargic and when physical therapy got him up and walked him he did ambulate but required a gait belt and close following with a wheelchair. I think at this point we need to get rid of all benzodiazepines out of his system in order to reduce any lethargy. He does have chronic complaints of neuropathy pain in his legs for which she is on gabapentin and this was ordered by his primary care provider Dr. De León and we will leave that on board. He is known opioid abuser and has been in the Suboxone program and that will also be left on board. I have left the does rule as previously ordered 150 mg at at bedtime as this can help with his depression as well as his sleep. At this point he is a medical/surgical floor patient and would be discharged except that I feel that he still too weak and unsafe for discharge. We will continue to work with him through physical therapy and Occupational Therapy. Case management is looking at placement at [facility] to help him with his drug and alcohol addiction. At this point the patient is willing to go to an inpatient rehabilitation center. Exam Narrative Exam Narrative: Patient was initially sleeping when I walked in the room but awakened easily. He knows the month and year and knows the name of the hospital in the [facility] and is otherwise completely oriented. I personally observed him ambulating in the hallway with the physical therapist and his gait is slow and unsteady and he did require the use of a gait belt to support him with a wheelchair closely following behind him but he did not lose his balance. Hands are without tremors. He has generalized weakness in his arms and his legs but there is no focal paraparesis. Objective Objective Clinical Data: Vital Signs Temperature 36.3 C L 08/26/19 00:02 Temperature Source Temporal Artery Scan 08/26/19 00:02 Pulse 47 L 08/26/19 08:26 Pulse Rhythm Regular 08/26/19 08:26 Pulse 41 L 08/25/19 20:02 Respiratory Rate 14 08/26/19 00:02 Respiratory Effort 08/26/19 08:26 Respiratory Depth Normal 08/26/19 08:26 Respiratory Pattern Normal 08/26/19 08:26 Blood Pressure 128/69 08/26/19 08:26 Blood Pressure Mean 82 08/26/19 08:26 Blood Pressure Position Supine 08/26/19 00:02 Pulse Oximetry 98 08/25/19 16:01 Oxygen Delivery Method Room Air 08/26/19 00:02 Oxygen Flow Rate 0 08/26/19 00:02 Pain Level 0 08/26/19 00:02 Intake & Output 08/25/19 08/26/19 08/26/19 23:59 11:59 23:59 Intake Total 856.217 / 1254.117 300 / 300 Output Total 975 / 1525 1974 Balance -118.783 / -270.883 -1675 / -1675 Weight 84.3 kg Intake: IV 136.217 / 184.117 Oral 720 / 1070 300 / 300 Output: Urine 975 / 1525 1974 Other: Urine Color Yellow Light Maria Luisa Urine Appearance Clear Clear Comment Hawkins in place patent and draining. Hawkins in place patent and draining. Voiding Methods Urinal Laboratory Results WBC 2.40 k/cumm (4.4-10.8) L 08/25/19 08:30 RBC 3.90 m/cumm (4.50-6.00) L 08/25/19 08:30 Hgb 13.0 g/dL (13.5-17.5) L 08/25/19 08:30 Hct 37.5 % (40.0-50.0) L 08/25/19 08:30 MCV 96.2 fL (80-95) H 08/25/19 08:30 MCH 33.3 pg (27.0-33.0) H 08/25/19 08:30 MCHC 34.7 g/dL (32.0-36.0) 08/25/19 08:30 RDW 13.8 % (11.8-14.1) 08/25/19 08:30 Plt Count 75 x1000/uL (130-400) L 08/25/19 08:30 MPV 10.4 fL (8.0-11.0) 08/25/19 08:30 Immature Gran % 0.0 % 08/25/19 08:30 Neutrophils % 50.3 08/25/19 08:30 Lymphocytes % 36.3 08/25/19 08:30 Monocytes % 8.8 08/25/19 08:30 Eosinophils % 4.2 08/25/19 08:30 Basophils % 0.4 08/25/19 08:30 Absolute Neutrophils 1.21 k/cumm (1.2-6.7) 08/25/19 08:30 Absolute Lymphocytes 0.87 k/cumm (1.2-3.4) L 08/25/19 08:30 Absolute Monocytes 0.21 k/cumm (0.11-0.7) 08/25/19 08:30 Absolute Eosinophils 0.10 k/cumm (0.0-0.7) 08/25/19 08:30 Absolute Basophils 0.01 k/cumm (0.0-0.2) 08/25/19 08:30 Differential Comment Plt morph reviewed 08/25/19 08:30 RBC Morphology Normal 08/25/19 08:30 PT 10.6 sec (9.3-11.0) 08/20/19 20:39 INR 1.1 (0.9-1.1) 08/20/19 20:39 APTT 22.1 sec (21.0-31.4) 08/20/19 20:39 VBG pH 7.43 (7.35-7.45) 08/20/19 20:39 VBG pCO2 41 mm/Hg (34-47) 08/20/19 20:39 VBG pO2 40 mm/Hg (28-44) 08/20/19 20:39 VBG HCO3 27 mmol/L (22-28) 08/20/19 20:39 VBG Total CO2 24 mmol/L (22-29) 08/20/19 20:39 VBG O2 Saturation 75 % (70-80) 08/20/19 20:39 VBG Base Excess 2.6 mmol/L (-3-3) 08/20/19 20:39 Sodium 139 mmol/L (136-145) 08/25/19 08:30 Potassium 4.3 mmol/L (3.5-5.1) 08/25/19 08:30 Chloride 105 mmol/L (98-107) 08/25/19 08:30 Carbon Dioxide 29.7 mmol/L (21.0-32.0) 08/25/19 08:30 Anion Gap 4.3 mmol/L (3-11) 08/25/19 08:30 BUN 10 mg/dL (7-18) 08/25/19 08:30 Creatinine 0.81 mg/dL (0.70-1.30) 08/25/19 08:30 Estimated GFR/1.73 m2 >= 60.00 (mL/min/1.73m2) 08/25/19 08:30 Glucose 158 mg/dL (74-106) H D 08/25/19 08:30 Hemoglobin A1c 8.6 % (3.8-5.6) H 08/22/19 06:15 Calcium 8.5 mg/dL (8.5-10.1) 08/25/19 08:30 Phosphorus 4.3 mg/dL (2.6-4.7) 08/20/19 20:33 Magnesium 2.0 mg/dL (1.8-2.4) 08/24/19 06:30 Total Bilirubin 0.5 mg/dL (0.2-1.0) 08/25/19 08:30 Conjugated Bilirubin 0.18 mg/dL (0.00-0.20) 08/22/19 06:15 AST 153 U/L (15-37) H 08/25/19 08:30 ALT 115 U/L (16-63) H 08/25/19 08:30 Alkaline Phosphatase 93 U/L (46-116) 08/25/19 08:30 Total Protein 5.5 g/dL (6.4-8.2) L 08/25/19 08:30 Albumin 2.7 g/dL (3.4-5.0) L 08/25/19 08:30 Triglycerides 195 mg/dL (<150) H 08/22/19 06:15 Total Cholesterol 212 mg/dL (<200) H 08/22/19 06:15 LDL Cholesterol, Calc 100 mg/dL (<100) 08/22/19 06:15 HDL Cholesterol 73 mg/dL (40-60) 08/22/19 06:15 TSH 1.24 uIU/mL (0.36-3.74) 08/20/19 20:39 Urine Color Yellow (Yellow) 08/21/19 03:00 Urine Clarity Clear (Clear) 08/21/19 03:00 Urine pH 6.5 (5-8) 08/21/19 03:00 Ur Specific [place] 1.020 (1.005-1.025) 08/21/19 03:00 Urine Protein Negative mg/dL (Negative) 08/21/19 03:00 Urine Ketones Trace mg/dL (Negative) H 08/21/19 03:00 Urine Blood Trace-intact (Negative) H 08/21/19 03:00 Urine Nitrite Negative (Negative) 08/21/19 03:00 Urine Bilirubin Negative (Negative) 08/21/19 03:00 Urine Urobilinogen 0.2 EU/dL (Up TO 0.2) 08/21/19 03:00 Ur Leukocyte Esterase Negative (Negative) 08/21/19 03:00 Urine RBC 3-5 HPF (0-2) H 08/21/19 03:00 Urine WBC 0-2 HPF (0-5) 08/21/19 03:00 Ur Epithelial Cells Rare HPF (Negative) 08/21/19 03:00 Urine Crystals Negative HPF (Negative) 08/21/19 03:00 Urine Bacteria Negative HPF (Negative) 08/21/19 03:00 Urine Casts Negative LPF (Negative) 08/21/19 03:00 Urine Mucus Negative (Negative) 08/21/19 03:00 Ur Culture Indicated? No 08/21/19 03:00 Urine Glucose 500 mg/dL (Negative) H 08/21/19 03:00 Urine Opiates Screen Negative (Negative) 08/21/19 03:00 Urine Methadone Screen Negative (Negative) 08/21/19 03:00 Ur Barbiturates Screen Negative (Negative) 08/21/19 03:00 Ur Tricyclics Screen Negative (Negative) 08/21/19 03:00 Ur Amphetamines Screen Negative (Negative) 08/21/19 03:00 U Benzodiazepines Scrn Negative (Negative) 08/21/19 03:00 Urine Cocaine Screen Negative (Negative) 08/21/19 03:00 Ur THC Screen Negative (Negative) 08/21/19 03:00 Ethyl Alcohol 246.1 mg/dL (<3) 08/20/19 20:39 COVID-19 PCR Negative (Negative) 08/20/19 21:38 Nasopharyn COVID-19 PCR Not Applicable 08/20/19 21:38 HCV RNA Qual (PCR) Undetected (Undetected) 08/21/19 06:30 Hepatitis C RNA Quant Not Applicable 08/21/19 06:30 Ref Test Perform Site Critical access hospital lab 08/20/19 21:38
--- NOTE | 2019-08-26 12:36 | PDOC.CMPRO ---
- If Service Date Differs Date of service: 08/26/19 Time of Service: 12:36 Care Management Progress Note S/O:Shaw is sleepy today his speech is garbled and soft during assessment making it difficult to understand him. He continues to be treated for alcohol withdrawal symptoms. He did have a PT consult and plan for OT consult. Shaw remains homeless he has been to several programs and has not been able to find suitable housing. CM contacted [facility] which he agrees to awaiting a return call. Shaw housing situation will likely not be solved upon discharge. He understands how to access resources in the community including economic services for emergency housing. CM offered to contact sober houses he states he was not successful at [facility] or other sober living programs in the area. He is willing to attend inpatient program CM will continue to work with Shaw while he is at [facility] to find a suitable recovery program willing to accept him for services. A: Shaw is a 49 year old male with a long history alcohol abuse, admitted with uncontrolled NIDDM and ETOH withdrawal. P: Shaw will be discharged when he is medically vs inpatient substance abuse program ready per provider. Referral to [facility] for community case management. CM will review substance abuse treatment programs and recovery supports when more alert. CM will continue to assess for discharge needs and provide supports during inpatient stay.
[2019-08-26] MEDS: Normal Saline Flush 10 ML SYR 20 ML IVP (20:45)
[2019-08-26] MEDS: traZODone 50 MG TAB 150 MG PO (22:12)
[2019-08-26] MEDS: Insulin Glargine 300 UNITS/3 ML PEN 20 UNITS SC (22:13)
--- NOTE | 2019-08-27 | DI.CT_ITS ---
EXAM: CT HEAD WO CLINICAL HISTORY: 1 week history of double vision. TECHNIQUE: Imaging Protocol: Axial computed tomography images with coronal and sagittal reformatted images were created and reviewed COMPARISON: CT CT HEAD WO from 01/08/2019 FINDINGS: Ventricles and Extra axial spaces: Normal in size and morphology for the patient's age. Hemorrhage: None. Cerebral parenchyma: Normal. Midline shift: None. Brainstem/Cerebellum: Normal. Pituitary gland appears grossly unremarkable. Suprasellar region appea rs grossly unremarkable. Calvarium: Normal. Visualized Paranasal sinuses/Mastoids: Mild mucosal thickening in the ethmoid air cells. No fluid le vels are seen in the visualized paranasal sinuses or mastoid air cells. Soft Tissues: Unremarkable. IMPRESSION: No acute intracranial process. RADIATION DOSE DELIVERED: Total DLP DATA REPOSITORY: All CT scans at this facility are submitted to the National Radiology Data Registry (NRDR) Dose Index Registry (DIR) with the [employer] (ACR). RADIATION OPTIMIZATION: All CT scans at this facility use at least one of these dose optimization te chniques: automated exposure control; mA and/or kV adjustment per patient size (includes targeted exa ms where dose is matched to clinical indication); or iterative reconstruction.
[2019-08-27 03:00] VITALS: BP 126/65; PULSE 41; RESP 12; TEMP 36.6; O2SAT 95
[2019-08-27 07:27] VITALS: BP 138/74; PULSE 38; RESP 12; TEMP 37.1; O2SAT 97
[2019-08-27] MEDS: Nicotine 21 MG/24 HR PATCH TD (08:33)
[2019-08-27] MEDS: Folic Acid 1 MG TAB PO (08:34)
[2019-08-27] MEDS: Magnesium Oxide 400 MG TAB 800 MG PO (08:34)
[2019-08-27] MEDS: Buprenorphine/Naloxone 12 mg/3 mg FILM 1 EACH SL (08:34)
[2019-08-27] MEDS: Gabapentin 800 MG TAB PO ×2 (08:34→13:52)
[2019-08-27] MEDS: Pantoprazole 40 MG TABCR PO (08:34)
[2019-08-27] MEDS: Thiamine 100 MG TAB PO ×2 (08:34→17:16)
[2019-08-27] MEDS: Multivitamin TAB 1 TAB PO (08:34)
[2019-08-27] MEDS: Insulin Aspart 300 UNITS/3 ML PEN SC ×3 (08:36→21:24)
[2019-08-27 08:52] LABS: Absolute Basophil Count 0.01 k/cumm (0.0-0.2); Absolute Eosinophil Count 0.15 k/cumm (0.0-0.7); Absolute Lymphocyte Count 1.02 k/cumm (1.2-3.4); Absolute Monocyte Count 0.31 k/cumm (0.11-0.7); Absolute Neutrophil Count 1.45 k/cumm (1.2-6.7); Basophils % 0.3; Eosinophils % 5.1; HCT 40.2 % (40.0-50.0); HGB 14.4 g/dL (13.5-17.5); Lymphocytes % 34.7; Mean Corp. HGB Concentration 35.8 g/dL (32.0-36.0); Mean Corpuscular Hemoglobin 33.6 pg (27.0-33.0); Mean Corpuscular Volume 93.7 fL (80-95); Mean Platelet Volume 9.7 fL (8.0-11.0); Monocytes % 10.5; Neutrophils % 49.4; Platelet Count 100 x1000/uL (130-400); RBC 4.29 m/cumm (4.50-6.00); RBC Distribution Width 13.5 % (11.8-14.1); White Blood Cell Count 2.94 k/cumm (4.4-10.8)
[2019-08-27 09:11] LABS: Ammonia 12 umol/L (11-32)
[2019-08-27 09:12] LABS: Magnesium 2.1 mg/dL (1.8-2.4)
[2019-08-27 09:13] LABS: Anion Gap 5.7 mmol/L (3-11); BUN 10 mg/dL (7-18); CO2 31.3 mmol/L (21.0-32.0); CREATININE 0.79 mg/dL (0.70-1.30); Calcium 9.1 mg/dL (8.5-10.1); Chloride 102 mmol/L (98-107); Glucose 118 mg/dL (74-106); Sodium 139 mmol/L (136-145)
--- NOTE | 2019-08-27 10:00 | PT.INTREAT ---
Date of service: 08/27/19 Time of Service: 10:00 PT Notes Visit Reasons: UNCONTROLLED NIDDM W/HYPERGLYCEMIA, ALCOHOL WITHDR Physical Therapy Inpatient Treatment Note Date: 08/27/2019 Precautions: Fall. Standard. Activity as tolerated. Subjective: Shaw reports that he is concerned about his heart rate as a nursing staff told him this morning that his heart rate was 39 beats per minute. This PT measured patient's VS and HR showed 47 bpm even after an intensive exercise activity using 3 pound ankle weights. BP was in the low 90s systolically and high 50s diastolically. Nurse Suarez was updated of said measurements and about patient's concern. Patient also brought up the issue about his speech being a little slow and how he has been having a hard time putting his right hand to his mouth. Patient was assured that said concerns will be bought up by nurse Suarez with the MD. Shaw also was wondering about any updates regarding his referral to [facility]. Krysta Sam was informed about said query who said that she will see patient this afternoon. Objective: General Observation: In paper clothing. Appears more awake and alert today. Mental Status: He is alert and is oriented as to person and place. Is able to follow instructions without any difficulty. Pain: None reported Bed Mobility/Transfers: Rolling supervision Supine to sit supervision Sit to supine supervision Sit to stand standby assist with cueing required for hand placement for safety Stand to sit standby assist with cueing required for hand placement for safety Bed to chair standby assist with cueing required for hand placement for safety Chair to bed standby assist with cueing required for hand placement for safety Gait: Patient tolerated level surface ambulation of 230 feet + 100 feet using front wheeled walker with CGA requiring moderate verbal cueing for walker management, posture, and path management. Minimal past deviation seen requiring verbal cueing for safety. Step length increasing. [place] increasing. Gait more steady today compared to yesterday. No LOB. No SOB. Patient also tolerated twelve 4-inch steps and eight 6-inch steps while holding onto bilateral rails with supervision. Balance: Static Sitting: Normal Dynamic Sitting: Normal Static Standing: Fair Dynamic Standing: Fair Assessment: No asymmetry in strength seen in patient while doing strengthening exercises. Speech did seem to a bit slow. Shaw demonstrates significant functional mobility decline requiring use of front wheeled walker and minimal assist for safety due to significant gait instability, impaired safety awareness, and high risk for falls and injury. Shaw is a 49-year-old who male presented to the ED on 09/06/2019 with chief presentation of increased blood sugar, malaise, and generalized weakness. He also complained of being shaky, anxious, and tremulous. He is diagnosed with initially with EtOH withdrawal but is now resolved. He is also diagnosed with ambulatory dysfunction, continuous opioid dependence, type II DM (chronic), chronic hepatitis C, and acute hep B infection l with referral for skilled physical for services to address functional mobility decline and strength deficits. Plan of Care/Treatment Plan: Continue with PT POC as initially established DISCHARGE RECOMMENDATIONS: Will benefit from continued rehabilitation to regain premorbid independent functional level. Will need use of front wheeled walker for all mobility ADL performance at this time. TREATMENT CODE/TIME: 52036 x 25 minutes, 65066 x 14 beginning at 10:00 AM.
[2019-08-27] MEDS: Citalopram 20 MG TAB PO (11:07)
[2019-08-27 11:10] VITALS: PULSE 45
--- NOTE | 2019-08-27 11:42 | PDOC.CMPRO ---
- If Service Date Differs Date of service: 08/27/19 Time of Service: 11:42 Care Management Progress Note S/O: Shaw is lying in bed watching television when CM meets with him. He is pleasant and talkative. He expresses the desire to get clean and sober and become a productive member of society again. Shaw openly talks about some of his medical issues and shares how difficult it is to manage health problems while homeless. CM will continue to follow. A: Shaw is a 49 year old male admitted to [facility] on 08/20/2019 with uncontrolled NIDDM with hyperglycemia and ETOH withdrawal. P: Shaw will be discharged when he is medically cleared by provider. Referrals have been made to [facility] for community case management and to [facility] for inpatient substance abuse program. CM follows up on the referral to [facility] but has to leave a message asking for a return phone call. CM will continue to support patient and discharge planning needs.
[2019-08-27 15:45] VITALS: BP 110/68; PULSE 48; RESP 18; TEMP 35.9; O2SAT 97
--- NOTE | 2019-08-27 16:05 | PGE_ITS ---
Date of Service Date of service: 08/27/19 Time of Service: 16:07 Assessment and Plan Assessment and plan (1) Double vision: Status: Acute Assessment and plan: Obtain CT head, though this likely has to do with his nystagmus. He will need an outpatient ophthalmology referral. (2) Bradycardia: Status: Acute Assessment and plan: Check EKG. Reviewed with pharmacy - likely due to trazodone, which the patient normally takes prn. D/c trazodone. Continue to monitor on tele. 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 Continue working with PT. Decrease neurontin. (4) Alcohol withdrawal: Status: Resolved Assessment and plan: Resume thimaine/multivitaimns. Qualifiers: Complication of substance-induced condition: with delirium Qualified Code(s): F10.231 - Alcohol dependence with withdrawal delirium (5) Continuous opioid dependence: Status: Chronic Assessment and plan: Continue Suboxone. (6) Type II diabetes mellitus, uncontrolled: Status: Chronic Assessment and plan: Continue basal bolus insulin. Qualifiers: Glycemic state: with hyperglycemia Qualified Code(s): E11.65 - Type 2 diabetes mellitus with hyperglycemia (7) Chronic hepatitis C: Status: Chronic Assessment and plan: Continue Harvoni. Quantitative HCV RNA was undetectable Qualifiers: Hepatic coma status: without hepatic coma Qualified Code(s): B18.2 - Chronic viral hepatitis C (8) Hepatitis B infection: Status: Acute Assessment and plan: continue Tenofovir Qualifiers: Hepatic coma status: without hepatic coma Hepatitis delta agent presence: without delta-agent Viral hepatitis chronicity: chronic Qualified Code(s): B18.1 - Chronic viral hepatitis B without delta-agent (9) Cirrhosis of liver: Status: Chronic Assessment and plan: Ammonia ok. Monitor volume status. Qualifiers: Hepatic cirrhosis type: other cirrhosis Qualified Code(s): K74.69 - Other cirrhosis of liver (10) Smoker: Status: Chronic Assessment and plan: Nicotine replacement prn (11) DVT prophylaxis: Status: Acute Assessment and plan: Sc heparin, carefully monitoring platelets (12) Discharge planning issues: Status: Acute Assessment and plan: Full code On discharge, expected to go to inpatient alcohol and drug rehabilitation program vs short-term subacute rehab under swing bed status for continued PT and OT. Subjective Subjective Interval history since last seen: Mr Kowalski states that he is having blurred vision/double vision. He states this didn't start today - that it started since he's been in the hospital. He feels his speech is slurred (it is not). Denies dizziness, complains of feeling tired. Denies chest pain, shortness of breath, endorses feeling a little nauseated. Had loose stool earlier (per nursing, not diarrhea). Exam Narrative Exam Narrative: General: middle-aged male who appears slightly somnolent/intoxicated, A&Ox3 HEENT: EOMI with horizontal nystagmus when looking to R, MMM Heart: RRR, bradycardic (40s) Lungs: CTAB Abdomen: soft, nontender, nondistended Extremities: no e/c/c BLE's Objective Objective Clinical Data: Abnormal lab results 08/27/19 08/27/19 Range/Units 08:40 08:40 WBC 2.94 L (4.4-10.8) k/cumm RBC 4.29 L (4.50-6.00) m/cumm MCH 33.6 H (27.0-33.0) pg Plt Count 100 L (130-400) x1000/uL Absolute Lymphocytes 1.02 L (1.2-3.4) k/cumm Glucose 118 H (74-106) mg/dL Vital Signs Temperature 35.9 C L 08/27/19 15:45 Temperature Source Tympanic 08/27/19 15:45 Pulse 48 L 08/27/19 15:45 Pulse Rhythm Regular 08/27/19 15:21 Pulse 41 L 08/25/19 20:02 Respiratory Rate 18 08/27/19 15:45 Respiratory Effort Non-Labored 08/27/19 15:21 Respiratory Depth Normal 08/27/19 15:21 Respiratory Pattern Normal 08/27/19 15:21 Blood Pressure 110/68 08/27/19 15:45 Blood Pressure Mean 85 08/26/19 12:20 Blood Pressure Position Supine 08/26/19 00:02 Pulse Oximetry 97 08/27/19 15:45 Oxygen Delivery Method Room Air 08/27/19 15:45 Oxygen Flow Rate 0 08/27/19 15:45 Pain Level 7 08/27/19 15:45 Intake & Output 0608/27/19 08/27/19 23:59 11:59 23:59 Intake Total 250 / 550 480 / 1200 720 / 1200 Balance 250 / -1425 480 / 1200 720 / 1200 Weight 76.1 kg Intake: Oral 250 / 550 480 / 1200 720 / 1200 Other: Urine Color Yellow Urine Appearance Clear Clear Urine Odor None Comment voiding into urinal Voiding Methods Toilet Laboratory Results WBC 2.94 k/cumm (4.4-10.8) L 08/27/19 08:40 RBC 4.29 m/cumm (4.50-6.00) L 08/27/19 08:40 Hgb 14.4 g/dL (13.5-17.5) 08/27/19 08:40 Hct 40.2 % (40.0-50.0) 08/27/19 08:40 MCV 93.7 fL (80-95) 08/27/19 08:40 MCH 33.6 pg (27.0-33.0) H 08/27/19 08:40 MCHC 35.8 g/dL (32.0-36.0) 08/27/19 08:40 RDW 13.5 % (11.8-14.1) 08/27/19 08:40 Plt Count 100 x1000/uL (130-400) L 08/27/19 08:40 MPV 9.7 fL (8.0-11.0) 08/27/19 08:40 Immature Gran % 0.0 % 08/27/19 08:40 Neutrophils % 49.4 08/27/19 08:40 Lymphocytes % 34.7 08/27/19 08:40 Monocytes % 10.5 08/27/19 08:40 Eosinophils % 5.1 08/27/19 08:40 Basophils % 0.3 08/27/19 08:40 Absolute Neutrophils 1.45 k/cumm (1.2-6.7) 08/27/19 08:40 Absolute Lymphocytes 1.02 k/cumm (1.2-3.4) L 08/27/19 08:40 Absolute Monocytes 0.31 k/cumm (0.11-0.7) 08/27/19 08:40 Absolute Eosinophils 0.15 k/cumm (0.0-0.7) 08/27/19 08:40 Absolute Basophils 0.01 k/cumm (0.0-0.2) 08/27/19 08:40 Differential Comment Plt morph reviewed 08/25/19 08:30 RBC Morphology Normal 08/25/19 08:30 PT 10.6 sec (9.3-11.0) 08/20/19 20:39 INR 1.1 (0.9-1.1) 08/20/19 20:39 APTT 22.1 sec (21.0-31.4) 08/20/19 20:39 VBG pH 7.43 (7.35-7.45) 08/20/19 20:39 VBG pCO2 41 mm/Hg (34-47) 08/20/19 20:39 VBG pO2 40 mm/Hg (28-44) 08/20/19 20:39 VBG HCO3 27 mmol/L (22-28) 08/20/19 20:39 VBG Total CO2 24 mmol/L (22-29) 08/20/19 20:39 VBG O2 Saturation 75 % (70-80) 08/20/19 20:39 VBG Base Excess 2.6 mmol/L (-3-3) 08/20/19 20:39 Sodium 139 mmol/L (136-145) 08/27/19 08:40 Potassium 4.0 mmol/L (3.5-5.1) 08/27/19 08:40 Chloride 102 mmol/L (98-107) 08/27/19 08:40 Carbon Dioxide 31.3 mmol/L (21.0-32.0) 08/27/19 08:40 Anion Gap 5.7 mmol/L (3-11) 08/27/19 08:40 BUN 10 mg/dL (7-18) 08/27/19 08:40 Creatinine 0.79 mg/dL (0.70-1.30) 08/27/19 08:40 Estimated GFR/1.73 m2 >= 60.00 (mL/min/1.73m2) 08/27/19 08:40 Glucose 118 mg/dL (74-106) H 08/27/19 08:40 Hemoglobin A1c 8.6 % (3.8-5.6) H 08/22/19 06:15 Calcium 9.1 mg/dL (8.5-10.1) 08/27/19 08:40 Phosphorus 4.3 mg/dL (2.6-4.7) 08/20/19 20:33 Magnesium 2.1 mg/dL (1.8-2.4) 08/27/19 08:40 Total Bilirubin 0.5 mg/dL (0.2-1.0) 08/25/19 08:30 Conjugated Bilirubin 0.18 mg/dL (0.00-0.20) 08/22/19 06:15 AST 153 U/L (15-37) H 08/25/19 08:30 ALT 115 U/L (16-63) H 08/25/19 08:30 Alkaline Phosphatase 93 U/L (46-116) 08/25/19 08:30 Ammonia 12 umol/L (11-32) 08/27/19 08:40 Total Protein 5.5 g/dL (6.4-8.2) L 08/25/19 08:30 Albumin 2.7 g/dL (3.4-5.0) L 08/25/19 08:30 Triglycerides 195 mg/dL (<150) H 08/22/19 06:15 Total Cholesterol 212 mg/dL (<200) H 08/22/19 06:15 LDL Cholesterol, Calc 100 mg/dL (<100) 08/22/19 06:15 HDL Cholesterol 73 mg/dL (40-60) 08/22/19 06:15 TSH 1.24 uIU/mL (0.36-3.74) 08/20/19 20:39 Urine Color Yellow (Yellow) 08/21/19 03:00 Urine Clarity Clear (Clear) 08/21/19 03:00 Urine pH 6.5 (5-8) 08/21/19 03:00 Ur Specific [place] 1.020 (1.005-1.025) 08/21/19 03:00 Urine Protein Negative mg/dL (Negative) 08/21/19 03:00 Urine Ketones Trace mg/dL (Negative) H 08/21/19 03:00 Urine Blood Trace-intact (Negative) H 08/21/19 03:00 Urine Nitrite Negative (Negative) 08/21/19 03:00 Urine Bilirubin Negative (Negative) 08/21/19 03:00 Urine Urobilinogen 0.2 EU/dL (Up TO 0.2) 08/21/19 03:00 Ur Leukocyte Esterase Negative (Negative) 08/21/19 03:00 Urine RBC 3-5 HPF (0-2) H 08/21/19 03:00 Urine WBC 0-2 HPF (0-5) 08/21/19 03:00 Ur Epithelial Cells Rare HPF (Negative) 08/21/19 03:00 Urine Crystals Negative HPF (Negative) 08/21/19 03:00 Urine Bacteria Negative HPF (Negative) 08/21/19 03:00 Urine Casts Negative LPF (Negative) 08/21/19 03:00 Urine Mucus Negative (Negative) 08/21/19 03:00 Ur Culture Indicated? No 08/21/19 03:00 Urine Glucose 500 mg/dL (Negative) H 08/21/19 03:00 Urine Opiates Screen Negative (Negative) 08/21/19 03:00 Urine Methadone Screen Negative (Negative) 08/21/19 03:00 Ur Barbiturates Screen Negative (Negative) 08/21/19 03:00 Ur Tricyclics Screen Negative (Negative) 08/21/19 03:00 Ur Amphetamines Screen Negative (Negative) 08/21/19 03:00 U Benzodiazepines Scrn Negative (Negative) 08/21/19 03:00 Urine Cocaine Screen Negative (Negative) 08/21/19 03:00 Ur THC Screen Negative (Negative) 08/21/19 03:00 Ethyl Alcohol 246.1 mg/dL (<3) 08/20/19 20:39 COVID-19 PCR Negative (Negative) 08/20/19 21:38 Nasopharyn COVID-19 PCR Not Applicable 08/20/19 21:38 HCV RNA Qual (PCR) Undetected (Undetected) 08/21/19 06:30 Hepatitis C RNA Quant Not Applicable 08/21/19 06:30 Ref Test Perform Site [facility] [place] [facility] 08/20/19 21:38 EKG, CT head ordered, pending
--- NOTE | 2019-08-27 17:24 | DI.VRAD_ITS ---
PROCEDURE INFORMATION: Exam: CT Head Without Contrast Exam date and time: 08/27/2019 3:45 PM Age: 49 years old Clinical indication: Other: 1 week double vision TECHNIQUE: Imaging protocol: Computed tomography of the head without contrast. COMPARISON: CT HEAD WO 01/08/2019 9:33 PM FINDINGS: Brain: Normal. No hemorrhage. Unremarkable white matter. No mass effect. Ventricles: Normal. No ventriculomegaly. Bones/joints: Unremarkable. No acute fracture. Sinuses: Visualized sinuses are unremarkable. No fluid levels. Mastoid air cells: Visualized mastoid air cells are well aerated. Soft tissues: Unremarkable. Orbits: No identifiable abnormality IMPRESSION: No evidence of acute infarct nor clear etiology of the patient's diplopia. MRI of the brain with attention to the orbits with gadolinium could evaluate further if clinically indicated. Dictated and Authenticated by: Trey Kirby MD. Ordering:LAYO Tomas MD
[2019-08-27] MEDS: Gabapentin 600 MG TAB PO (19:44)
[2019-08-27] MEDS: Insulin Glargine 300 UNITS/3 ML PEN 20 UNITS SC (21:23)
[2019-08-27] MEDS: Melatonin 3 MG TAB 9 MG PO (22:29)
[2019-08-27 22:43] VITALS: BP 139/72; PULSE 55; RESP 18; TEMP 36.5; O2SAT 97
[2019-08-28 00:30] VITALS: PULSE 46
[2019-08-28 05:00] VITALS: BP 121/68; PULSE 40; RESP 16; TEMP 36.6; O2SAT 96
[2019-08-28 07:20] LABS: Absolute Basophil Count 0.01 k/cumm (0.0-0.2); Absolute Eosinophil Count 0.12 k/cumm (0.0-0.7); Absolute Lymphocyte Count 1.06 k/cumm (1.2-3.4); Absolute Monocyte Count 0.35 k/cumm (0.11-0.7); Absolute Neutrophil Count 1.28 k/cumm (1.2-6.7); Basophils % 0.4; Eosinophils % 4.3; HGB 13.4 g/dL (13.5-17.5); Lymphocytes % 37.6; Mean Corp. HGB Concentration 35.3 g/dL (32.0-36.0); Mean Corpuscular Hemoglobin 33.3 pg (27.0-33.0); Mean Corpuscular Volume 94.3 fL (80-95); Mean Platelet Volume 9.7 fL (8.0-11.0); Monocytes % 12.4; Neutrophils % 45.3; Platelet Count 107 x1000/uL (130-400); RBC 4.03 m/cumm (4.50-6.00); RBC Distribution Width 13.3 % (11.8-14.1); White Blood Cell Count 2.82 k/cumm (4.4-10.8)
[2019-08-28 07:24] LABS: Anion Gap 5.3 mmol/L (3-11); BUN 13 mg/dL (7-18); CO2 30.7 mmol/L (21.0-32.0); CREATININE 0.79 mg/dL (0.70-1.30); Calcium 8.7 mg/dL (8.5-10.1); Chloride 103 mmol/L (98-107); Glucose 108 mg/dL (74-106); Magnesium 1.8 mg/dL (1.8-2.4); Potassium 3.7 mmol/L (3.5-5.1); Sodium 139 mmol/L (136-145)
[2019-08-28] MEDS: Insulin Aspart 300 UNITS/3 ML PEN SC ×5 (08:25→21:35)
[2019-08-28 08:29] VITALS: BP 123/68; PULSE 60; RESP 14; TEMP 36.1; O2SAT 98
[2019-08-28] MEDS: Citalopram 20 MG TAB PO (10:02)
[2019-08-28] MEDS: Magnesium Oxide 400 MG TAB 800 MG PO (10:02)
[2019-08-28] MEDS: Buprenorphine/Naloxone 12 mg/3 mg FILM 1 EACH SL (10:03)
[2019-08-28] MEDS: Pantoprazole 40 MG TABCR PO (10:03)
[2019-08-28] MEDS: Nicotine 21 MG/24 HR PATCH TD (10:03)
[2019-08-28] MEDS: Multivitamin TAB 1 TAB PO (10:03)
[2019-08-28] MEDS: Gabapentin 600 MG TAB PO ×3 (10:03→20:00)
[2019-08-28] MEDS: Heparin 5,000 UNITS/ML VIAL 5000 UNITS SC ×2 (10:05→21:45)
[2019-08-28] MEDS: Thiamine 100 MG TAB PO (12:05)
--- NOTE | 2019-08-28 13:34 | PT.INTREAT ---
Date of service: 08/28/19 Time of Service: 13:34 PT Notes Visit Reasons: UNCONTROLLED NIDDM W/HYPERGLYCEMIA, ALCOHOL WITHDR Physical Therapy Inpatient Treatment Note Date: 08/28/2019 Precautions: Fall. Standard. Activity as tolerated. Subjective: I do not want to be booted out of here too early. This was patient's response when, midway through the PT session he was given feedback about how better he was walking and moving. He reports that he is glad with how he has been doing but would like to take his time recovering. He is still concerned about his heart rate. Objective: General Observation: In paper clothing. Appears significantly more awake and alert today. Mental Status: He is alert and is oriented as to person, place, and time. Cotninues to be able to follow instructions without any difficulty. Pain: None reported Bed Mobility/Transfers: Rolling supervision Supine to sit supervision Sit to supine supervision Sit to stand standby assist with cueing required for hand placement for safety Stand to sit standby assist with cueing required for hand placement for safety Bed to chair standby assist with cueing required for hand placement for safety Chair to bed standby assist with cueing required for hand placement for safety Gait: Patient tolerated level surface ambulation of 400' x 2 using front wheeled walker with SBA requiring minimal verbal cueing for walker management, posture, and path management. No path deviation seen today. Step length considerably increased. [place] significanly improved. Gait much more steady today compared to yesterday. No LOB. No SOB. Patient also tolerated eighteen 4-inch steps and twelve 6-inch steps while holding onto bilateral rails with supervision. HR low of 47 bpm and high of 53 throughout activity. Balance: Static Sitting: Normal Dynamic Sitting: Normal Static Standing: Fair Dynamic Standing: Fair Assessment: Posture more erect. Movement more precise. Gait pattern significantly improved. Speech more clear today. Level of alertness significantly increased. Plan of Care/Treatment Plan: Continue with PT POC as initially established. Will ramos on weaning off FWW as tolerated. DISCHARGE RECOMMENDATIONS: Will benefit from continued rehabilitation to regain premorbid independent functional level. Will need use of front wheeled walker for all mobility ADL performance at this time. TREATMENT CODE/TIME: 10021 x 29 minutes beginning at 13:34 PM.
--- NOTE | 2019-08-28 14:32 | W.PM.PROGNOT ---
Date of Service Date of service: 08/28/19 Time of Service: 14:32 Assessment and Plan Assessment and plan (1) Double vision: Status: Acute Assessment and plan: Improved. My feeling is that this has to with high doses of gabapentin as well as possible underlying eye disease. He will need an outpatient ophthalmology referral. (2) Bradycardia: Status: Acute Assessment and plan: Slightly better off trazodone. Asymptomatic. Continue to monitor on tele. 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 Continue working with PT. Continue decreased dose of neurontin. (4) Alcohol withdrawal: Status: Resolved Assessment and plan: Continue thimaine/multivitaimns. Qualifiers: Complication of substance-induced condition: with delirium Qualified Code(s): F10.231 - Alcohol dependence with withdrawal delirium (5) Continuous opioid dependence: Status: Chronic Assessment and plan: Continue Suboxone. (6) Type II diabetes mellitus, uncontrolled: Status: Chronic Assessment and plan: Continue basal bolus insulin. Qualifiers: Glycemic state: with hyperglycemia Qualified Code(s): E11.65 - Type 2 diabetes mellitus with hyperglycemia (7) Chronic hepatitis C: Status: Chronic Assessment and plan: Continue Harvoni. Quantitative HCV RNA was undetectable Qualifiers: Hepatic coma status: without hepatic coma Qualified Code(s): B18.2 - Chronic viral hepatitis C (8) Hepatitis B infection: Status: Acute Assessment and plan: continue Tenofovir Qualifiers: Viral hepatitis chronicity: chronic Hepatic coma status: without hepatic coma Hepatitis delta agent presence: without delta-agent Qualified Code(s): B18.1 - Chronic viral hepatitis B without delta-agent (9) Cirrhosis of liver: Status: Chronic Assessment and plan: Ammonia ok. Monitor volume status. Qualifiers: Hepatic cirrhosis type: other cirrhosis Qualified Code(s): K74.69 - Other cirrhosis of liver (10) Smoker: Status: Chronic Assessment and plan: Nicotine replacement prn (11) DVT prophylaxis: Status: Acute Assessment and plan: Sc heparin, carefully monitoring platelets (12) Discharge planning issues: Status: Acute Assessment and plan: Full code On discharge, expected to go to inpatient alcohol and drug rehabilitation program vs short-term subacute rehab under swing bed status for continued PT and OT. Anticipate being able to medically clear the patient in 24-48 hours. Subjective Subjective Interval history since last seen: Feels a lot better today as far as blurred vision and general wakefullness. Balance better when walking. Still slightly dizzy. Denies chest pain, reports mild RUQ pain (not there currently), denies shortness of breath, reports nausea. No vomiting. He does not remember that he had a BM yesterday (he did). Exam Narrative Exam Narrative: General: middle-aged male who appears more alert today, speaking faster, A&OX3 HEENT: EOMI, MMM Heart: RRR, no m/r/g (heart rate in the 60s) Lungs: CTAB Abdomen: soft, nontender, nondistended Extremities: no e/c/c BLE's Objective Objective Clinical Data: Abnormal lab results 08/28/19 08/28/19 Range/Units 06:48 06:48 WBC 2.82 L (4.4-10.8) k/cumm RBC 4.03 L (4.50-6.00) m/cumm Hgb 13.4 L (13.5-17.5) g/dL Hct 38.0 L (40.0-50.0) % MCH 33.3 H (27.0-33.0) pg Plt Count 107 L (130-400) x1000/uL Absolute Lymphocytes 1.06 L (1.2-3.4) k/cumm Glucose 108 H (74-106) mg/dL Vital Signs Temperature 36.1 C L 08/28/19 08:29 Temperature Source Tympanic 08/28/19 08:29 Pulse 60 08/28/19 08:29 Pulse Rhythm Regular 08/28/19 11:00 Pulse 41 L 08/25/19 20:02 Respiratory Rate 14 08/28/19 08:29 Respiratory Effort Non-Labored 08/28/19 11:00 Respiratory Depth Normal 08/28/19 11:00 Respiratory Pattern Normal 08/28/19 11:00 Blood Pressure 123/68 08/28/19 08:29 Blood Pressure Mean 85 08/26/19 12:20 Blood Pressure Position Supine 08/26/19 00:02 Pulse Oximetry 98 08/28/19 08:29 Oxygen Delivery Method Room Air 08/28/19 08:29 Oxygen Flow Rate 0 08/28/19 08:29 Pain Level 0 08/27/19 22:43 Comment 08/27/19 03:00 Intake & Output 08/27/19 08/28/19 08/28/19 23:59 11:59 23:59 Intake Total 1230 / 1710 1100 / 1350 250 / 1350 Output Total 1050 / 1050 Balance 1230 / 1710 50 / 300 250 / 300 Weight 73.7 kg Intake: IV Oral 1220 / 1700 1100 / 1350 250 / 1350 Output: Urine 1050 / 1050 Other: Urine Color Yellow Yellow Urine Appearance Clear Clear Urine Odor None Normal Comment voiding independently thnroughout shift Stool Size Moderate Stool Characteristics Soft Liquid Voiding Methods Toilet Urinal Laboratory Results WBC 2.82 k/cumm (4.4-10.8) L 08/28/19 06:48 RBC 4.03 m/cumm (4.50-6.00) L 08/28/19 06:48 Hgb 13.4 g/dL (13.5-17.5) L 08/28/19 06:48 Hct 38.0 % (40.0-50.0) L 08/28/19 06:48 MCV 94.3 fL (80-95) 08/28/19 06:48 MCH 33.3 pg (27.0-33.0) H 08/28/19 06:48 MCHC 35.3 g/dL (32.0-36.0) 08/28/19 06:48 RDW 13.3 % (11.8-14.1) 08/28/19 06:48 Plt Count 107 x1000/uL (130-400) L 08/28/19 06:48 MPV 9.7 fL (8.0-11.0) 08/28/19 06:48 Immature Gran % 0.0 % 08/28/19 06:48 Neutrophils % 45.3 08/28/19 06:48 Lymphocytes % 37.6 08/28/19 06:48 Monocytes % 12.4 08/28/19 06:48 Eosinophils % 4.3 08/28/19 06:48 Basophils % 0.4 08/28/19 06:48 Absolute Neutrophils 1.28 k/cumm (1.2-6.7) 08/28/19 06:48 Absolute Lymphocytes 1.06 k/cumm (1.2-3.4) L 08/28/19 06:48 Absolute Monocytes 0.35 k/cumm (0.11-0.7) 08/28/19 06:48 Absolute Eosinophils 0.12 k/cumm (0.0-0.7) 08/28/19 06:48 Absolute Basophils 0.01 k/cumm (0.0-0.2) 08/28/19 06:48 Differential Comment Plt morph reviewed 08/25/19 08:30 RBC Morphology Normal 08/25/19 08:30 PT 10.6 sec (9.3-11.0) 08/20/19 20:39 INR 1.1 (0.9-1.1) 08/20/19 20:39 APTT 22.1 sec (21.0-31.4) 08/20/19 20:39 VBG pH 7.43 (7.35-7.45) 08/20/19 20:39 VBG pCO2 41 mm/Hg (34-47) 08/20/19 20:39 VBG pO2 40 mm/Hg (28-44) 08/20/19 20:39 VBG HCO3 27 mmol/L (22-28) 08/20/19 20:39 VBG Total CO2 24 mmol/L (22-29) 08/20/19 20:39 VBG O2 Saturation 75 % (70-80) 08/20/19 20:39 VBG Base Excess 2.6 mmol/L (-3-3) 08/20/19 20:39 Sodium 139 mmol/L (136-145) 08/28/19 06:48 Potassium 3.7 mmol/L (3.5-5.1) 08/28/19 06:48 Chloride 103 mmol/L (98-107) 08/28/19 06:48 Carbon Dioxide 30.7 mmol/L (21.0-32.0) 08/28/19 06:48 Anion Gap 5.3 mmol/L (3-11) 08/28/19 06:48 BUN 13 mg/dL (7-18) 08/28/19 06:48 Creatinine 0.79 mg/dL (0.70-1.30) 08/28/19 06:48 Estimated GFR/1.73 m2 >= 60.00 (mL/min/1.73m2) 08/28/19 06:48 Glucose 108 mg/dL (74-106) H 08/28/19 06:48 Hemoglobin A1c 8.6 % (3.8-5.6) H 08/22/19 06:15 Calcium 8.7 mg/dL (8.5-10.1) 08/28/19 06:48 Phosphorus 4.3 mg/dL (2.6-4.7) 08/20/19 20:33 Magnesium 1.8 mg/dL (1.8-2.4) 08/28/19 06:48 Total Bilirubin 0.5 mg/dL (0.2-1.0) 08/25/19 08:30 Conjugated Bilirubin 0.18 mg/dL (0.00-0.20) 08/22/19 06:15 AST 153 U/L (15-37) H 08/25/19 08:30 ALT 115 U/L (16-63) H 08/25/19 08:30 Alkaline Phosphatase 93 U/L (46-116) 08/25/19 08:30 Ammonia 12 umol/L (11-32) 08/27/19 08:40 Total Protein 5.5 g/dL (6.4-8.2) L 08/25/19 08:30 Albumin 2.7 g/dL (3.4-5.0) L 08/25/19 08:30 Triglycerides 195 mg/dL (<150) H 08/22/19 06:15 Total Cholesterol 212 mg/dL (<200) H 08/22/19 06:15 LDL Cholesterol, Calc 100 mg/dL (<100) 08/22/19 06:15 HDL Cholesterol 73 mg/dL (40-60) 08/22/19 06:15 TSH 1.24 uIU/mL (0.36-3.74) 08/20/19 20:39 Urine Color Yellow (Yellow) 08/21/19 03:00 Urine Clarity Clear (Clear) 08/21/19 03:00 Urine pH 6.5 (5-8) 08/21/19 03:00 Ur Specific [place] 1.020 (1.005-1.025) 08/21/19 03:00 Urine Protein Negative mg/dL (Negative) 08/21/19 03:00 Urine Ketones Trace mg/dL (Negative) H 08/21/19 03:00 Urine Blood Trace-intact (Negative) H 08/21/19 03:00 Urine Nitrite Negative (Negative) 08/21/19 03:00 Urine Bilirubin Negative (Negative) 08/21/19 03:00 Urine Urobilinogen 0.2 EU/dL (Up TO 0.2) 08/21/19 03:00 Ur Leukocyte Esterase Negative (Negative) 08/21/19 03:00 Urine RBC 3-5 HPF (0-2) H 08/21/19 03:00 Urine WBC 0-2 HPF (0-5) 08/21/19 03:00 Ur Epithelial Cells Rare HPF (Negative) 08/21/19 03:00 Urine Crystals Negative HPF (Negative) 08/21/19 03:00 Urine Bacteria Negative HPF (Negative) 08/21/19 03:00 Urine Casts Negative LPF (Negative) 08/21/19 03:00 Urine Mucus Negative (Negative) 08/21/19 03:00 Ur Culture Indicated? No 08/21/19 03:00 Urine Glucose 500 mg/dL (Negative) H 08/21/19 03:00 Urine Opiates Screen Negative (Negative) 08/21/19 03:00 Urine Methadone Screen Negative (Negative) 08/21/19 03:00 Ur Barbiturates Screen Negative (Negative) 08/21/19 03:00 Ur Tricyclics Screen Negative (Negative) 08/21/19 03:00 Ur Amphetamines Screen Negative (Negative) 08/21/19 03:00 U Benzodiazepines Scrn Negative (Negative) 08/21/19 03:00 Urine Cocaine Screen Negative (Negative) 08/21/19 03:00 Ur THC Screen Negative (Negative) 08/21/19 03:00 Ethyl Alcohol 246.1 mg/dL (<3) 08/20/19 20:39 COVID-19 PCR Negative (Negative) 08/20/19 21:38 Nasopharyn COVID-19 PCR Not Applicable 08/20/19 21:38 HCV RNA Qual (PCR) Undetected (Undetected) 08/21/19 06:30 Hepatitis C RNA Quant Not Applicable 08/21/19 06:30 Ref Test [facility] 21:38 CT head w/o contrast: No evidence of acute infarct nor clear etiology of the patient's diplopia. MRI of the brain with attention to the orbits with gadolinium could evaluate further if clinically indicated.
[2019-08-28 15:45] VITALS: BP 148/77; PULSE 46; RESP 18; TEMP 36.4; O2SAT 98
[2019-08-28 19:34] VITALS: BP 106/62; PULSE 55; RESP 18; TEMP 36.2; O2SAT 98
--- NOTE | 2019-08-28 19:43 | PDOC.CMPRO ---
- If Service Date Differs Date of service: 08/28/19 Time of Service: 19:43 Care Management Progress Note S/O: No change in plan. Shaw reports feeling better today. His balance is improved, as is his vision and strength. Anticipate he will be ready for discharge in 24 - 48 hours. CM continues to follow. A: Shaw is a 49 year old male admitted to [facility] on 08/20/19 for uncontrolled NIDDM w/hyperglycemia and alcohol withdrawal. P: Plan remains the same. Shaw will be discharged when he is medically cleared by provider. Referrals have been made to [facility] for community case management and to [facility] for inpatient substance abuse program. CM will continue to support patient and discharge planning needs.
[2019-08-28] MEDS: Insulin Glargine 300 UNITS/3 ML PEN 20 UNITS SC (21:32)
[2019-08-28] MEDS: Melatonin 3 MG TAB 9 MG PO (21:32)
[2019-08-29 00:23] VITALS: BP 124/63; PULSE 47; RESP 16; TEMP 36.2; O2SAT 99
[2019-08-29 05:00] VITALS: BP 126/67; PULSE 42; RESP 16; TEMP 36.6; O2SAT 97
[2019-08-29 07:20] VITALS: BP 125/71; PULSE 50; RESP 17; TEMP 36.3; O2SAT 96
[2019-08-29] MEDS: Multivitamin TAB 1 TAB PO (08:27)
[2019-08-29] MEDS: Pantoprazole 40 MG TABCR PO (08:27)
[2019-08-29] MEDS: Magnesium Oxide 400 MG TAB 800 MG PO (08:27)
[2019-08-29] MEDS: Buprenorphine/Naloxone 12 mg/3 mg FILM 1 EACH SL (08:27)
[2019-08-29] MEDS: Gabapentin 600 MG TAB PO ×3 (08:27→20:29)
[2019-08-29] MEDS: Thiamine 100 MG TAB PO (08:27)
[2019-08-29] MEDS: Citalopram 20 MG TAB PO (08:28)
[2019-08-29] MEDS: Insulin Aspart 300 UNITS/3 ML PEN SC ×5 (08:29→22:07)
[2019-08-29] MEDS: Normal Saline Flush 10 ML SYR (08:30)
--- NOTE | 2019-08-29 09:51 | OTIE_ITS ---
Occupational Therapy Notes Inpatient Occupational Therapy Evaluation Date: 08/29/19 Referring Doctor:Kaleb Balderrama MD OT Orders: Non-Urgent Precautions: Fall, Standard, FULL PATIENT PROFILE/ADMITTING DIAGNOSIS: Pt is a 49 year old male who was admitted to the ER on 09/06/2019 with chief c/o increased blood sugar, malaise, and generalized weakness. He also presented as shaky, anxious, and tremulous. He is diagnosed with ETOH withdrawal as well as ambulatory dysfunction, continuous opioid dependence, type II DM (chronic), chronic hepatitis C, and acute hep B infection Past Medical History- Medical History Adjustment disorder, unspecified (Resolved 12/10/15) Adventitious breath sounds (Resolved) Alcohol use (Acute) Chronic hepatitis C (Chronic 08/11/05) [place] [facility] [place]; began Harvoni 08/07/14 Cirrhosis of liver (Chronic 05/06/11) Continuous opioid dependence (Chronic 03/05/05) [facility] [place], <2004; counselling Meagan Garcia; prefers tablets Folliculitis (Resolved 05/17/12) Dr Donnie ng, consult Dr. 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) [facility] [place]ychomycosis of toenail (Resolved 08/16/13) Opioid dependence on agonist therapy (Chronic) [facility] RX [place], <2004; prefers tablets (PA) due to dental plate; counselor Zhang Atkins Opioid use disorder, moderate, dependence (Chronic 12/10/15) Smoker (Chronic 05/06/11) Type II diabetes mellitus, uncontrolled (Acute) A1c 9.4 01/2014; uncontrolled; goal A1c < 7.5 Urinary frequency (Chronic 08/16/13) Surgical History Endoscopy (12/09/12) repeat in 3 years Social History/Home Situation: Pt states that he lived in a hotel previously and states that he is not sure where he will live in the future. He states that he has issues with decreased sensation in his (B) LE which limits him at his baseline level of function. Equipment owned/DME: DEANW, dania SUBJECTIVE: Pt was lying in bed when OT arrived. He was agreeable to OT session and states that he is not sure what the future holds for him. OBJECTIVE: General Observation: Pt is tired, his speech is clear and he is agreeable to OT session. He requires vc for performance of ADLs and increased performance time. Mental Status: A&Ox3 Pain: c/o pain in (B) LE and (B) UE ROM: RUE AROM WFL L UE AROM WFL STRENGTH: RUE 4/5 throughout LUE 4/5 throughout SENSATION: Decreased sensation (L) UE on ulnar nerve which he feels is related to his neuropathy. FUNCTIONAL MOBILITY/ADLS: Transfers with FWW Supine-sit (I) Sit-supine (I) Sit-Stand (S) Stand-sit (S) BATHING Pt denies DRESSING sitting on side of bed Dressing UE Pt is able to don and doff shirt with min (A) Dressing LE (I) don and doffing (B) socks with increased performance time BALANCE: Static sitting Normal Dynamic Sitting Good Static Standing Fair-Good Dynamic Standing NT SPECIAL TESTS: Daily Activity Limitations Standardized Measure [facility] AM -PAC ?6 clicks? Daily Activity Inpatient Short Form: Raw score: 20 INFORMED CONSENT/EDUCATION: Pt instructed in purpose of OT Consult and plan of care. ASSESSMENT: Patient is a 49-year-old male referred to occupational therapy services with diagnosis of ambulatory dysfunction, continuous opioid dependence, type II DM (chronic), chronic hepatitis C, and acute hep B infection . Patient presents with clinical signs and symptoms consistent with dx, as demonstrated by the following impairment level findings: Pain in (B) LE/UE, decreased AROM of (B) UE, decreased functional mobility, decreased functional activity tolerance, decreased performance of standing ADLs, decreased community supports, decreased living place and unsure where he will go next. AMPAC score 20 Patient is assessed as a Moderate 56443 complexity based on the following: History: See above Examination: see above Presentation: evolving Decision Making: [facility] 20 GOALS Goals x1 week 1. Transfers with FWW (I) 2. Dressing (I) in seated position 3. Bathing (I) sitting on side of bed 4. Toileting on toilet (I) 5. Eating (I) PLAN OF CARE/TREATMENT PLAN: 1x/day, 5 days/ week x 1week Initiate Occupational Therapy Services for bathing, dressing, grooming, toileting, eating, transfer training. DISCHARGE RECOMMENDATIONS OT recommends HHOT/PT when medically cleared per MD. OT recommends that pt have a shower seat/bench to decrease fall risk due to neuropathy during bathing routine. TREATMENT TIME/MINUTES/CODES 66515, 15 minutes (07:45) Sherri Carter OTR/L [facility]
[2019-08-29] MEDS: Heparin 5,000 UNITS/ML VIAL 5000 UNITS SC (10:17)
[2019-08-29 12:30] VITALS: BP 107/63; PULSE 41; RESP 17; TEMP 36.6; O2SAT 97
--- NOTE | 2019-08-29 12:50 | CMPROGNOTE_ITS ---
- If Service Date Differs Date of service: 08/29/19 Time of Service: 12:50 Care Management Progress Note S/O: Shaw was engaged during assessment. He was able to complete an intake with [facility] over the phone. If he is not able to transfer there he is considering a homeless fci in [facility], [facility] contacted the fci however it is closed to people until at least the end of September due to COVID. KAYLEIGH did send a referral to [facility] awaiting contact from the referral. CM provided Shaw with a housing application for [facility] A: Shaw is a 49 year old male admitted to [facility] on 08/20/19 for uncontrolled NIDDM w/hyperglycemia and alcohol withdrawal. P: Plan remains the same. Shaw will be discharged when he is medically cleared by provider. Referrals have been made to [facility] for community case management and to [facility] for inpatient substance abuse program. CM will continue to support patient and discharge planning needs.
--- NOTE | 2019-08-29 12:50 | PDOC.CMPRO ---
- If Service Date Differs Date of service: 08/29/19 Time of Service: 12:50 Care Management Progress Note S/O: Shaw was engaged during assessment. He was able to complete an intake with [facility] over the phone. If he is not able to transfer there he is considering a homeless detention in [facility], [facility] contacted the detention however it is closed to people until at least the end of September due to COVID. KAYLEIGH did send a referral to [facility] awaiting contact from the referral. CM provided Shaw with a housing application for [facility]. A: Shaw is a 49 year old male admitted to [facility] on 08/20/19 for uncontrolled NIDDM w/hyperglycemia and alcohol withdrawal. P: Plan remains the same. Shaw will be discharged when he is medically cleared by provider. Referrals have been made to [facility] for community case management and to [facility] for inpatient substance abuse program. CM will continue to support patient and discharge planning needs.
--- NOTE | 2019-08-29 13:55 | PT.INTREAT ---
Date of service: 08/29/19 Time of Service: 13:55 PT Notes Visit Reasons: UNCONTROLLED NIDDM W/HYPERGLYCEMIA, ALCOHOL WITHDR Physical Therapy Inpatient Treatment Note Date: 08/29/2019 Precautions: Fall. Standard. Activity as tolerated. Subjective: I want to see how I do with a cane Objective: General Observation: In paper clothing. Appears significantly more awake and alert today. Mental Status: He is alert and is oriented as to person, place, and time. Pain: None reported Bed Mobility/Transfers: Rolling supervision Supine to sit supervision Sit to supine supervision Sit to stand supervision Stand to sit supervision Bed to chair supervision Chair to bed supervision Gait: Patient tolerated level surface ambulation of 200' using SPC with SBA requiring minimal verbal cueing for safety. Minimal path deviation seen today. Step length considerably increased. [place] significanly improved. Gait much more steady today compared to yesterday. No LOB. No SOB. Balance: Static Sitting: Normal Dynamic Sitting: Normal Static Standing: Fair Dynamic Standing: Fair Assessment: Posture more erect. Movement more precise. Gait pattern significantly improved. Speech more clear today. Level of alertness significantly increased. Plan of Care/Treatment Plan: Continue with PT POC as initially established. Will plan on weaning off FWW as tolerated. DISCHARGE RECOMMENDATIONS: Will benefit from continued rehabilitation to regain premorbid independent functional level. Will need use of front wheeled walker for all mobility ADL performance at this time. TREATMENT CODE/TIME: 34705 x 11 minutes beginning at 13:55 PM.
--- NOTE | 2019-08-29 15:35 | W.PM.PROGNOT ---
Date of Service Date of service: 08/29/19 Time of Service: 15:35 Assessment and Plan Assessment and plan (1) Bradycardia: Status: Acute Assessment and plan: Get echo to be sure that there are no wall motion abnormalities. TSH ok. Reviewing past records, during withdrawal his heart rates go up to 60's - 70's, but his baseline appears to be in the 50's (and possibly 40s). I do not feel strongly that there is underlying cardiac disease at this time. (2) Double vision: Status: Resolved Assessment and plan: He will need an outpatient ophthalmology referral. 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 Continue working with PT. Continue decreased dose of neurontin. (4) Alcohol withdrawal: Status: Resolved Assessment and plan: Continue thimaine/multivitaimns. Qualifiers: Complication of substance-induced condition: with delirium Qualified Code(s): F10.231 - Alcohol dependence with withdrawal delirium (5) Continuous opioid dependence: Status: Chronic Assessment and plan: Continue Suboxone - patient is contacting his outpatient prescriber to have suboxone dose adjusted. (6) Type II diabetes mellitus, uncontrolled: Status: Chronic Assessment and plan: Hypoglycemic today and BGs in the 90's otherwise. Will relax carb coverage and decrease long acting insulin. Qualifiers: Glycemic state: with hyperglycemia Qualified Code(s): E11.65 - Type 2 diabetes mellitus with hyperglycemia (7) Chronic hepatitis C: Status: Chronic Assessment and plan: Continue Harvoni. Quantitative HCV RNA was undetectable Qualifiers: Hepatic coma status: without hepatic coma Qualified Code(s): B18.2 - Chronic viral hepatitis C (8) Hepatitis B infection: Status: Acute Assessment and plan: continue Tenofovir Qualifiers: Viral hepatitis chronicity: chronic Hepatic coma status: without hepatic coma Hepatitis delta agent presence: without delta-agent Qualified Code(s): B18.1 - Chronic viral hepatitis B without delta-agent (9) Cirrhosis of liver: Status: Chronic Assessment and plan: Ammonia ok. Monitor volume status. Qualifiers: Hepatic cirrhosis type: other cirrhosis Qualified Code(s): K74.69 - Other cirrhosis of liver (10) Smoker: Status: Chronic Assessment and plan: Nicotine replacement prn (11) DVT prophylaxis: Status: Acute Assessment and plan: Sc heparin, carefully monitoring platelets (12) Discharge planning issues: Status: Acute Assessment and plan: Full code On discharge, expected to go to inpatient alcohol and drug rehabilitation program vs short-term subacute rehab under swing bed status for continued PT and OT. Should be medically cleared if echo ok. Subjective Subjective Interval history since last seen: Reports feeling hypoglycemic in the shower - fingerstick after he had OJ was 70 - per him. He now drank milk and ate cereal and feels better. States he did not eat all of his lunch. The rest of his sugars have been in the 90's today. He remains bradycardic to 40s at night, 40s-60s during the day. Denies dizziness, chest pain, shortness of breath, nausea. Interested in having his suboxone dose lowered - he will call his prescriber. Exam Narrative Exam Narrative: General: middle-aged male who looks even better, speaking faster, A&OX3 HEENT: EOMI, MMM Heart: RRR, no m/r/g (HR in the 50's) Lungs: CTAB Abdomen: soft, nontender, nondistended Extremities: no e/c/c BLE's Objective Objective Clinical Data: Vital Signs Temperature 36.6 C 08/29/19 12:30 Temperature Source Tympanic 08/29/19 12:30 Pulse 41 L 08/29/19 12:30 Pulse Rhythm Regular 08/29/19 08:40 Pulse 41 L 08/25/19 20:02 Respiratory Rate 17 08/29/19 12:30 Respiratory Effort Non-Labored 08/29/19 08:40 Respiratory Depth Normal 08/29/19 08:40 Respiratory Pattern Normal 08/29/19 08:40 Blood Pressure 107/63 08/29/19 12:30 Blood Pressure Mean 85 08/26/19 12:20 Blood Pressure Position Supine 08/26/19 00:02 Pulse Oximetry 97 08/29/19 12:30 Oxygen Delivery Method Room Air 08/29/19 12:30 Oxygen Flow Rate 0 08/29/19 12:30 Pain Level 0 08/29/19 07:20 Comment 08/27/19 03:00 Intake & Output 08/28/19 08/29/19 08/29/19 23:59 11:59 23:59 Intake Total 600 / 1700 490 / 970 480 / 970 Balance 600 / 650 490 / 970 480 / 970 Weight 76.4 kg Intake: IV Oral 600 / 1700 480 / 960 480 / 960 Other: Comment voiding independently thnroughout shift Pt uses toliet independently. No urine to assess Voiding Methods Toilet Laboratory Results WBC 2.82 k/cumm (4.4-10.8) L 08/28/19 06:48 RBC 4.03 m/cumm (4.50-6.00) L 08/28/19 06:48 Hgb 13.4 g/dL (13.5-17.5) L 08/28/19 06:48 Hct 38.0 % (40.0-50.0) L 08/28/19 06:48 MCV 94.3 fL (80-95) 08/28/19 06:48 MCH 33.3 pg (27.0-33.0) H 08/28/19 06:48 MCHC 35.3 g/dL (32.0-36.0) 08/28/19 06:48 RDW 13.3 % (11.8-14.1) 08/28/19 06:48 Plt Count 107 x1000/uL (130-400) L 08/28/19 06:48 MPV 9.7 fL (8.0-11.0) 08/28/19 06:48 Immature Gran % 0.0 % 08/28/19 06:48 Neutrophils % 45.3 08/28/19 06:48 Lymphocytes % 37.6 08/28/19 06:48 Monocytes % 12.4 08/28/19 06:48 Eosinophils % 4.3 08/28/19 06:48 Basophils % 0.4 08/28/19 06:48 Absolute Neutrophils 1.28 k/cumm (1.2-6.7) 08/28/19 06:48 Absolute Lymphocytes 1.06 k/cumm (1.2-3.4) L 08/28/19 06:48 Absolute Monocytes 0.35 k/cumm (0.11-0.7) 08/28/19 06:48 Absolute Eosinophils 0.12 k/cumm (0.0-0.7) 08/28/19 06:48 Absolute Basophils 0.01 k/cumm (0.0-0.2) 08/28/19 06:48 Differential Comment Plt morph reviewed 08/25/19 08:30 RBC Morphology Normal 08/25/19 08:30 PT 10.6 sec (9.3-11.0) 08/20/19 20:39 INR 1.1 (0.9-1.1) 08/20/19 20:39 APTT 22.1 sec (21.0-31.4) 08/20/19 20:39 VBG pH 7.43 (7.35-7.45) 08/20/19 20:39 VBG pCO2 41 mm/Hg (34-47) 08/20/19 20:39 VBG pO2 40 mm/Hg (28-44) 08/20/19 20:39 VBG HCO3 27 mmol/L (22-28) 08/20/19 20:39 VBG Total CO2 24 mmol/L (22-29) 08/20/19 20:39 VBG O2 Saturation 75 % (70-80) 08/20/19 20:39 VBG Base Excess 2.6 mmol/L (-3-3) 08/20/19 20:39 Sodium 139 mmol/L (136-145) 08/28/19 06:48 Potassium 3.7 mmol/L (3.5-5.1) 08/28/19 06:48 Chloride 103 mmol/L (98-107) 08/28/19 06:48 Carbon Dioxide 30.7 mmol/L (21.0-32.0) 08/28/19 06:48 Anion Gap 5.3 mmol/L (3-11) 08/28/19 06:48 BUN 13 mg/dL (7-18) 08/28/19 06:48 Creatinine 0.79 mg/dL (0.70-1.30) 08/28/19 06:48 Estimated GFR/1.73 m2 >= 60.00 (mL/min/1.73m2) 08/28/19 06:48 Glucose 108 mg/dL (74-106) H 08/28/19 06:48 Hemoglobin A1c 8.6 % (3.8-5.6) H 08/22/19 06:15 Calcium 8.7 mg/dL (8.5-10.1) 08/28/19 06:48 Phosphorus 4.3 mg/dL (2.6-4.7) 08/20/19 20:33 Magnesium 1.8 mg/dL (1.8-2.4) 08/28/19 06:48 Total Bilirubin 0.5 mg/dL (0.2-1.0) 08/25/19 08:30 Conjugated Bilirubin 0.18 mg/dL (0.00-0.20) 08/22/19 06:15 AST 153 U/L (15-37) H 08/25/19 08:30 ALT 115 U/L (16-63) H 08/25/19 08:30 Alkaline Phosphatase 93 U/L (46-116) 08/25/19 08:30 Ammonia 12 umol/L (11-32) 08/27/19 08:40 Total Protein 5.5 g/dL (6.4-8.2) L 08/25/19 08:30 Albumin 2.7 g/dL (3.4-5.0) L 08/25/19 08:30 Triglycerides 195 mg/dL (<150) H 08/22/19 06:15 Total Cholesterol 212 mg/dL (<200) H 08/22/19 06:15 LDL Cholesterol, Calc 100 mg/dL (<100) 08/22/19 06:15 HDL Cholesterol 73 mg/dL (40-60) 08/22/19 06:15 TSH 1.24 uIU/mL (0.36-3.74) 08/20/19 20:39 Urine Color Yellow (Yellow) 08/21/19 03:00 Urine Clarity Clear (Clear) 08/21/19 03:00 Urine pH 6.5 (5-8) 08/21/19 03:00 Ur Specific [place] 1.020 (1.005-1.025) 08/21/19 03:00 Urine Protein Negative mg/dL (Negative) 08/21/19 03:00 Urine Ketones Trace mg/dL (Negative) H 08/21/19 03:00 Urine Blood Trace-intact (Negative) H 08/21/19 03:00 Urine Nitrite Negative (Negative) 08/21/19 03:00 Urine Bilirubin Negative (Negative) 08/21/19 03:00 Urine Urobilinogen 0.2 EU/dL (Up TO 0.2) 08/21/19 03:00 Ur Leukocyte Esterase Negative (Negative) 08/21/19 03:00 Urine RBC 3-5 HPF (0-2) H 08/21/19 03:00 Urine WBC 0-2 HPF (0-5) 08/21/19 03:00 Ur Epithelial Cells Rare HPF (Negative) 08/21/19 03:00 Urine Crystals Negative HPF (Negative) 08/21/19 03:00 Urine Bacteria Negative HPF (Negative) 08/21/19 03:00 Urine Casts Negative LPF (Negative) 08/21/19 03:00 Urine Mucus Negative (Negative) 08/21/19 03:00 Ur Culture Indicated? No 08/21/19 03:00 Urine Glucose 500 mg/dL (Negative) H 08/21/19 03:00 Urine Opiates Screen Negative (Negative) 08/21/19 03:00 Urine Methadone Screen Negative (Negative) 08/21/19 03:00 Ur Barbiturates Screen Negative (Negative) 08/21/19 03:00 Ur Tricyclics Screen Negative (Negative) 08/21/19 03:00 Ur Amphetamines Screen Negative (Negative) 08/21/19 03:00 U Benzodiazepines Scrn Negative (Negative) 08/21/19 03:00 Urine Cocaine Screen Negative (Negative) 08/21/19 03:00 Ur THC Screen Negative (Negative) 08/21/19 03:00 Ethyl Alcohol 246.1 mg/dL (<3) 08/20/19 20:39 COVID-19 PCR Negative (Negative) 08/20/19 21:38 Nasopharyn COVID-19 PCR Not Applicable 08/20/19 21:38 HCV RNA Qual (PCR) Undetected (Undetected) 08/21/19 06:30 Hepatitis C RNA Quant Not Applicable 08/21/19 06:30 Ref Test Perform Site [facility] lab 08/20/19 21:38
[2019-08-29 15:40] VITALS: BP 126/64; PULSE 50; RESP 18; TEMP 36; O2SAT 95
[2019-08-29] MEDS: Nicotine 21 MG/24 HR PATCH TD (15:57)
[2019-08-29] MEDS: Melatonin 3 MG TAB 9 MG PO (22:06)
[2019-08-29] MEDS: Insulin Glargine 300 UNITS/3 ML PEN 15 UNITS SC (22:09)
[2019-08-30 00:40] VITALS: BP 130/70; PULSE 52; RESP 18; TEMP 36.5; O2SAT 99
[2019-08-30 07:14] VITALS: BP 137/73; PULSE 54; RESP 16; TEMP 37.1; O2SAT 98
[2019-08-30] MEDS: Thiamine 100 MG TAB PO (08:21)
[2019-08-30] MEDS: Pantoprazole 40 MG TABCR PO (08:21)
[2019-08-30] MEDS: Buprenorphine/Naloxone 12 mg/3 mg FILM 1 EACH SL (08:21)
[2019-08-30] MEDS: Magnesium Oxide 400 MG TAB 800 MG PO (08:21)
[2019-08-30] MEDS: Gabapentin 600 MG TAB PO ×3 (08:22→20:10)
[2019-08-30] MEDS: Citalopram 20 MG TAB PO (08:22)
[2019-08-30] MEDS: Insulin Aspart 300 UNITS/3 ML PEN SC ×7 (08:24→22:27)
--- NOTE | 2019-08-30 08:30 | DI.US_ITS ---
APPROVED REPORT EXAM: Comprehensive 2D, Doppler, and color-flow Echocardiogram Patient Location: In-Patient Room/Bed: 226 Typing Checker: Svetlana Hernandez RDCS (AE) Indications: Bradycardia, ETOH Other Information Study Quality: Good Conclusion Left Ventricle : The left ventricle is normal size. The left ventricular systolic function is normal. The left ventricular ejection fraction is within the normal range. There is normal left ventricular wall thickness. There is normal LV segmental wall motion. The left ventricular diastolic function is normal. LVEF is 60%. Right Ventricle : The right ventricle is normal size. The right ventricular systolic function is norm al. The RVSP is 26 mmHg. Atria : The left atrium size is normal. The right atrium size is normal. Valves: There are no hemodynamically significant valvular lesions. Great Vessels : IVC is normal in size and collapses >50% with inspiration. Please see remainder of study for further details. There are no prior echocardiographic images available for comparison. Wall motion Left Ventricle The left ventricle is normal size. The left ventricular systolic function is normal. The left ventric ular ejection fraction is within the normal range. There is normal left ventricular wall thickness. T here is normal LV segmental wall motion. The left ventricular diastolic function is normal. There is no ventricular septal defect visualized. LVEF is 60%. Right Ventricle The right ventricle is normal size. The right ventricular systolic function is normal. The RVSP is 26 mmHg. Atria The left atrium size is normal. The right atrium size is normal. The interatrial septum is intact wit h no evidence for an atrial septal defect. Aortic Valve Aortic valve is trileaflet. There is no aortic valvular stenosis. No aortic regurgitation is present. Mitral Valve The mitral valve is normal in structure. No evidence of mitral valve stenosis. Trace mitral regurgita tion. Tricuspid Valve The tricuspid valve is normal in structure. There is no tricuspid valve stenosis. Trace tricuspid reg urgitation. Pulmonic Valve The pulmonary valve is normal in structure. There is no pulmonic valvular stenosis. There is no pulmo kimberly valvular regurgitation. Great Vessels The aortic root is normal in size. Ascending aorta is not well visualized. Aortic arch is normal in c aliber. IVC is normal in size and collapses >50% with inspiration. Pericardium There is no pericardial effusion. There is no pleural effusion. 2D Dimensions IVSD d PLAX 0.91 cm M: 0.6-1.2 LV Vol A2C d MOD 106.6 mL LVPW d PLAX 0.91 cm M: 0.6 - 1.2 LV Vol A4C d MOD 123.6 mL LVID d PLAX 5.16 cm M: 4.2 - 5.8 LA vol/ BSA A2C s A-L 22.9 mL/m2 LVDs 3.70 cm M: 2.5 - 4.0 LA vol/ BSA A4C s A-L 20.7 mL/m2 Ao Root d 2.88 cm M: 3.1 - 3.7 LA Vol/ BSA Biplane s A-L 22.0 mL/m2 RA Area A4C 13.52 cm2 LA Area A4C s MOD 15.32 cm2 RA Vol/ BSA A4C s A-L 18.8 mL/m2 LA Area A2C s MOD 16.29 cm2 LV EF Teichholz 53.5 % LV EF A4C MOD 59.0 % LVEF (Peoples's) 61.78 % M: 52 - 72 LV EF A2C MOD 62.7 % LV Volume 89.11 mL M: 62 - 150 LV EF Biplane MOD 61.8 % LV Volume Index 45.69 mL/m2 M: 34 - 74 SV 72.88 mL LV Vol Biplane MOD 118.0 mL SV Index 37.22 mL/m2 FS 27.75 % M-Mode TAPSE 2.67 cm (M/F) >1.7 LV Diastology MV E' medial 0.108 (>0.07 m/s) E/A Ratio 1.5 LV E/e MED 7.80 (<14) MV E Vmax 0.84 (0.4-1.3 m/s) MV E' lateral 0.153 (>0.1 m/s) MV A Vmax 0.55 (0.4-1.3 m/s) LV E/e LAT 5.45 (<14) MV E/A Ratio 1.50 MV E/E' medial 7.82 MV E/E' lateral 5.49 Aortic Valve LVOT Area 3.25 cm2 AoV Area Vmax 2.78 cm2 LVOT Vmax 1.03 m/s AoV Area/ BSA (Vmax) 1.42 cm2/m2 LVOT Mean Mike. 0.63 m/s JESSICA Mean Mike. 2.48 cm2 LVOT Peak Grad 4.2 mmHg JESSICA Mean Mike. Index 1.27 cm2/m2 LVOT Mean Grad 1.9 mmHg LVOT VTI 0.246 m LVOT Diam s 2.00 cm AoV Vmax 1.20 m/s Velocity Ratio 0.85 AoV Mean Mike. 0.83 m/s AoV Peak Grad 5.7 mmHg LVOT SV 79.88 mL AoV Mean Grad 3.1 mmHg AoV VTI 0.288 m AoV Area VTI 2.78 cm2 AoV Area/ BSA (VTI) 1.42 cm/m2 Mitral Valve MV DT 251 (160-240 msec) MV PHT 73 msec MV Area PHT 3.03 cm2 Pulmonary Valve PV Vmax 1.00 (0.5-1.5 m/s) RVOT Peak Gr. 1.99 mmHg PV Peak Grad 4.0 mmHg RVOT Mean Gr. 1.35 mmHg PV Mean Grad 2.6 mmHg RVOT VTI 0.196 m PV VTI 0.254 m RVOT Vmax 0.71 m/s Tricuspid Valve TR Peak Grad 23.9 mmHg TR Vmax 2.44 m/s RA Pressure 3.00 mmHg RVSP (TR) 26.9 mmHg
--- NOTE | 2019-08-30 09:08 | NT_ITS ---
Date of service: 08/30/19 Time of Service: 08:15 Occupational Therapy Notes 08/30/19 OT attempted to see pt who states that he would like to sleep at this time and would like to hold until after he gets some rest. He states that he did not sleep well. OT will hold on OT services at this time and resume on 08/31/19. Sherri Carter, OTR/[facility] [place], [place]
[2019-08-30 09:27] LABS: Folate 16.4 ng/mL (See Note)
[2019-08-30] MEDS: Multivitamin TAB 1 TAB PO (10:22)
[2019-08-30 10:33] LABS: Vitamin B12 1115 pg/mL (211-911)
[2019-08-30 11:16] VITALS: BP 124/69; PULSE 56; RESP 17; TEMP 37; O2SAT 97
--- NOTE | 2019-08-30 11:28 | CHAPLAIN ---
Shaw was resting in bed, in paper scrubs, when I visited him. He tells me that he is feeling better, but he's had a nightmarish few years. Both of his parents during the past year. He , who was sober, relapsed and spent a great deal of their money and he had a relapse (after 15 years) as well, he tells me. He is interested in being more spiritual when he feels better. I tell him he can ask me to visit, and call to make a time to meet, at any point, even after he is discharged. I left when the nurse arrived to provide care.
--- NOTE | 2019-08-30 14:15 | PT.INTREAT ---
Date of service: 08/30/19 Time of Service: 14:15 PT Notes Visit Reasons: UNCONTROLLED NIDDM W/HYPERGLYCEMIA, ALCOHOL WITHDR Inpatient Physical Therapy Treatment Note [facility] Date: 08/30/19 PRECAUTIONS: Fall SUBJECTIVE: Dhaval reports that he just returned from testing, and he is agreeable to participating in PT. He reports that he is having a good day today. OBJECTIVE: Patient is observed ambulating independently within room using SPC. PAIN: No complaints of pain BED MOBILITY/TRANSFERS Sit-stand: I Stand-sit: I GAIT Assistive Device: SPC Weight bearing: Full Assist: SBA Distance: 400' + 250' Deviation: Mild path deviation THEREX: Patient completed functional step-ups with 4# ankle weights, on both 4 and 6 steps. He also completed functional sit to stands without use of upper extremity support. Patient then completed NuStep biking x10 minutes with close supervision. ASSESSMENT: Patient tolerated session well, demonstrating only mild path deviation with use of SPC with gait training. He was also able to tolerate a progression in his ther ex program today. PLAN: Continue with PTs POC TREATMENT CODE/TIME: 30 minutes; [id number], [id number]
--- NOTE | 2019-08-30 14:29 | PGE_ITS ---
Date of Service Date of service: 08/30/19 Time of Service: 14:29 Assessment and Plan Assessment and plan (1) Bradycardia: Status: Acute Assessment and plan: stable and long standing. his echo shows no wall motion abnormalities or valvular disease. no further testing indicated, he is asymptomatic (2) Polysubstance abuse: Status: Acute Assessment and plan: continue suboxone, will be followed by outpatient team. is being admitted to [facility] for inpatient rehab. (3) Alcohol use: Status: Chronic Assessment and plan: stable and will continue thiamine and inpatient rehab (4) Type II diabetes mellitus, uncontrolled: Status: Chronic Assessment and plan: no more episodes of hypoglycemia. continue diabetic diet and sliding scale as needed. increase lantus to 20 units at HS, takes 40 units at home Qualifiers: Glycemic state: with hyperglycemia Qualified Code(s): E11.65 - Type 2 diabetes mellitus with hyperglycemia (5) Chronic hepatitis C: Status: Chronic Assessment and plan: Continue Harvoni. Quantitative HCV RNA was undetectable Qualifiers: Hepatic coma status: without hepatic coma Qualified Code(s): B18.2 - Chronic viral hepatitis C (6) Cirrhosis of liver: Status: Chronic Assessment and plan: stable Qualifiers: Hepatic cirrhosis type: other cirrhosis Qualified Code(s): K74.69 - Other cirrhosis of liver (7) Discharge planning issues: Status: Acute Assessment and plan: [facility] tomorrow. case management following. case discussed with dr Hardy who is in agreement with plan Subjective Subjective Patient reports: no new complaints, feels better, tolerating liquids well, tolerating a regular diet, voiding w/o difficulty and bowel movement Interval history since last seen: patient ambulating in the bell with steady gait. reports some neuropathy pain in his bilateral feet which he reports is chronic and worsened when is blood sugars are poorly controlled. he has noted blood sugars elevated since scale for coverage was adjust for some hypoglycemia, blood sugar range today from 175-240. Exam Const General: cooperative, no acute distress, frail appearing and ill appearing chronically Nutritional Appearance: thin Orientation: alert, awake and oriented x3 HENMT Head: normal to inspection, normocephalic and atraumatic Face and sinus: normal facial exam Mouth: oral mucosae normal Resp Effort & Inspection: normal respiratory effort Auscultation: clear to auscultation bilaterally Cardio Rate: regular rate Rhythm: regular rhythm Heart Sounds: no murmurs GI Inspection: normal to inspection Palpation: soft Auscultation: normal bowel sounds Neuro General: patient alert, patient awake and patient oriented x3 Extrem General: normal to inspection, full ROM and no pedal edema Psych Mental Status: mental status grossly normal Speech and Movement: speech and movement normal Mood: congruent mood Affect: normal affect Attitude: cooperative Thought Process: normal Thought Content: normal Insight: insight good Judgment: judgment good Objective Objective Clinical Data: Abnormal lab results 08/28/19 Range/Units 06:48 Vitamin B12 1115 H (211-911) ng/L Vital Signs Temperature 37.0 C 08/30/19 11:16 Temperature Source Temporal Artery Scan 08/30/19 11:16 Pulse 56 L 08/30/19 11:16 Pulse Rhythm Regular 08/30/19 09:15 Pulse 41 L 08/25/19 20:02 Respiratory Rate 17 08/30/19 11:16 Respiratory Effort 08/30/19 09:15 Respiratory Depth Normal 08/30/19 09:15 Respiratory Pattern Normal 08/30/19 09:15 Blood Pressure 124/69 08/30/19 11:16 Blood Pressure Mean 85 08/26/19 12:20 Blood Pressure Position Supine 08/26/19 00:02 Pulse Oximetry 97 08/30/19 11:16 Oxygen Delivery Method Room Air 08/30/19 11:16 Oxygen Flow Rate 0 08/30/19 11:16 Pain Level 4 08/30/19 11:16 Comment 08/27/19 03:00 Intake & Output 08/29/19 08/30/19 08/30/19 23:59 11:59 23:59 Intake Total 1000 / 1490 480 / 720 240 / 720 Balance 1000 / 1490 480 / 720 240 / 720 Weight 75 kg Intake: Oral 1000 / 1480 480 / 720 240 / 720 Other: Comment voiding independently. patient voids independently in the toilet Voiding Methods Toilet Laboratory Results WBC 2.82 k/cumm (4.4-10.8) L 08/28/19 06:48 RBC 4.03 m/cumm (4.50-6.00) L 08/28/19 06:48 Hgb 13.4 g/dL (13.5-17.5) L 08/28/19 06:48 Hct 38.0 % (40.0-50.0) L 08/28/19 06:48 MCV 94.3 fL (80-95) 08/28/19 06:48 MCH 33.3 pg (27.0-33.0) H 08/28/19 06:48 MCHC 35.3 g/dL (32.0-36.0) 08/28/19 06:48 RDW 13.3 % (11.8-14.1) 08/28/19 06:48 Plt Count 107 x1000/uL (130-400) L 08/28/19 06:48 MPV 9.7 fL (8.0-11.0) 08/28/19 06:48 Immature Gran % 0.0 % 08/28/19 06:48 Neutrophils % 45.3 08/28/19 06:48 Lymphocytes % 37.6 08/28/19 06:48 Monocytes % 12.4 08/28/19 06:48 Eosinophils % 4.3 08/28/19 06:48 Basophils % 0.4 08/28/19 06:48 Absolute Neutrophils 1.28 k/cumm (1.2-6.7) 08/28/19 06:48 Absolute Lymphocytes 1.06 k/cumm (1.2-3.4) L 08/28/19 06:48 Absolute Monocytes 0.35 k/cumm (0.11-0.7) 08/28/19 06:48 Absolute Eosinophils 0.12 k/cumm (0.0-0.7) 08/28/19 06:48 Absolute Basophils 0.01 k/cumm (0.0-0.2) 08/28/19 06:48 Differential Comment Plt morph reviewed 08/25/19 08:30 RBC Morphology Normal 08/25/19 08:30 PT 10.6 sec (9.3-11.0) 08/20/19 20:39 INR 1.1 (0.9-1.1) 08/20/19 20:39 APTT 22.1 sec (21.0-31.4) 08/20/19 20:39 VBG pH 7.43 (7.35-7.45) 08/20/19 20:39 VBG pCO2 41 mm/Hg (34-47) 08/20/19 20:39 VBG pO2 40 mm/Hg (28-44) 08/20/19 20:39 VBG HCO3 27 mmol/L (22-28) 08/20/19 20:39 VBG Total CO2 24 mmol/L (22-29) 08/20/19 20:39 VBG O2 Saturation 75 % (70-80) 08/20/19 20:39 VBG Base Excess 2.6 mmol/L (-3-3) 08/20/19 20:39 Sodium 139 mmol/L (136-145) 08/28/19 06:48 Potassium 3.7 mmol/L (3.5-5.1) 08/28/19 06:48 Chloride 103 mmol/L (98-107) 08/28/19 06:48 Carbon Dioxide 30.7 mmol/L (21.0-32.0) 08/28/19 06:48 Anion Gap 5.3 mmol/L (3-11) 08/28/19 06:48 BUN 13 mg/dL (7-18) 08/28/19 06:48 Creatinine 0.79 mg/dL (0.70-1.30) 08/28/19 06:48 Estimated GFR/1.73 m2 >= 60.00 (mL/min/1.73m2) 08/28/19 06:48 Glucose 108 mg/dL (74-106) H 08/28/19 06:48 Hemoglobin A1c 8.6 % (3.8-5.6) H 08/22/19 06:15 Calcium 8.7 mg/dL (8.5-10.1) 08/28/19 06:48 Phosphorus 4.3 mg/dL (2.6-4.7) 08/20/19 20:33 Magnesium 1.8 mg/dL (1.8-2.4) 08/28/19 06:48 Total Bilirubin 0.5 mg/dL (0.2-1.0) 08/25/19 08:30 Conjugated Bilirubin 0.18 mg/dL (0.00-0.20) 08/22/19 06:15 AST 153 U/L (15-37) H 08/25/19 08:30 ALT 115 U/L (16-63) H 08/25/19 08:30 Alkaline Phosphatase 93 U/L (46-116) 08/25/19 08:30 Ammonia 12 umol/L (11-32) 08/27/19 08:40 Total Protein 5.5 g/dL (6.4-8.2) L 08/25/19 08:30 Albumin 2.7 g/dL (3.4-5.0) L 08/25/19 08:30 Triglycerides 195 mg/dL (<150) H 08/22/19 06:15 Total Cholesterol 212 mg/dL (<200) H 08/22/19 06:15 LDL Cholesterol, Calc 100 mg/dL (<100) 08/22/19 06:15 HDL Cholesterol 73 mg/dL (40-60) 08/22/19 06:15 Vitamin B12 1115 ng/L (211-911) H 08/28/19 06:48 Folate 16.4 ug/L (See Note) 08/28/19 06:48 TSH 1.24 uIU/mL (0.36-3.74) 08/20/19 20:39 Urine Color Yellow (Yellow) 08/21/19 03:00 Urine Clarity Clear (Clear) 08/21/19 03:00 Urine pH 6.5 (5-8) 08/21/19 03:00 Ur Specific [place] 1.020 (1.005-1.025) 08/21/19 03:00 Urine Protein Negative mg/dL (Negative) 08/21/19 03:00 Urine Ketones Trace mg/dL (Negative) H 08/21/19 03:00 Urine Blood Trace-intact (Negative) H 08/21/19 03:00 Urine Nitrite Negative (Negative) 08/21/19 03:00 Urine Bilirubin Negative (Negative) 08/21/19 03:00 Urine Urobilinogen 0.2 EU/dL (Up TO 0.2) 08/21/19 03:00 Ur Leukocyte Esterase Negative (Negative) 08/21/19 03:00 Urine RBC 3-5 HPF (0-2) H 08/21/19 03:00 Urine WBC 0-2 HPF (0-5) 08/21/19 03:00 Ur Epithelial Cells Rare HPF (Negative) 08/21/19 03:00 Urine Crystals Negative HPF (Negative) 08/21/19 03:00 Urine Bacteria Negative HPF (Negative) 08/21/19 03:00 Urine Casts Negative LPF (Negative) 08/21/19 03:00 Urine Mucus Negative (Negative) 08/21/19 03:00 Ur Culture Indicated? No 08/21/19 03:00 Urine Glucose 500 mg/dL (Negative) H 08/21/19 03:00 Urine Opiates Screen Negative (Negative) 08/21/19 03:00 Urine Methadone Screen Negative (Negative) 08/21/19 03:00 Ur Barbiturates Screen Negative (Negative) 08/21/19 03:00 Ur Tricyclics Screen Negative (Negative) 08/21/19 03:00 Ur Amphetamines Screen Negative (Negative) 08/21/19 03:00 U Benzodiazepines Scrn Negative (Negative) 08/21/19 03:00 Urine Cocaine Screen Negative (Negative) 08/21/19 03:00 Ur THC Screen Negative (Negative) 08/21/19 03:00 Ethyl Alcohol 246.1 mg/dL (<3) 08/20/19 20:39 COVID-19 PCR Negative (Negative) 08/20/19 21:38 Nasopharyn COVID-19 PCR Not Applicable 08/20/19 21:38 HCV RNA Qual (PCR) Undetected (Undetected) 08/21/19 06:30 Hepatitis C RNA Quant Not Applicable 08/21/19 06:30 Ref Test Perform Site [facility] lab 08/20/19 21:38
--- NOTE | 2019-08-30 15:06 | CMPROGNOTE_ITS ---
- If Service Date Differs Date of service: 08/30/19 Time of Service: 15:06 Care Management Progress Note S/O: Shaw was engaged during assessment. He has been accepted at [facility] confirmed with Marla in admissions. He has a bed for Wednesday 08/30 and will be transported via private car through [facility] coordinated by KAYLEIGH. Shaw wants to go to [facility] and feels that this may be his opportunity to do better. Shaw is open about is history with alcohol use and how it has affected his life and relationships with his ex spouse and children. He feels that being homeless has hindered his ability to be sober. KAYLEIGH has reviewed resources including [facility] Shaw wants mental health treatment and resources when he is discharged from [facility]. KAYLEIGH has contacted [facility] and requested that they follow up with Shaw as soon as possible. KAYLEIGH had Shaw complete housing application for subsidized housing. A: Shaw is a 49 year old male admitted to [facility] on 08/20/19 for uncontrolled NIDDM w/hyperglycemia and alcohol withdrawal. P: Shaw will leave [facility] at [address] [facility] in the morning to be transferred to [facility]. CI referral sent and housing application completed.
--- NOTE | 2019-08-30 15:06 | PDOC.CMPRO ---
- If Service Date Differs Date of service: 08/30/19 Time of Service: 15:06 Care Management Progress Note S/O: Shaw was engaged during assessment. He has been accepted at [facility] confirmed with Marla in admissions. He has a bed for Wednesday 08/30 and will be transported via private car through [facility] coordinated by KAYLEIGH. Shaw wants to go to [facility] and feels that this may be his opportunity to do better. Shaw is open about is history with alcohol use and how it has affected his life and relationships with his ex spouse and children. He feels that being homeless has hindered his ability to be sober. KAYLEIGH has reviewed resources including [facility] Shaw wants mental health treatment and resources when he is discharged from [facility]. KAYLEIGH has contacted [facility] and requested that they follow up with Shaw as soon as possible. KAYLEIGH had Shwa complete housing application for subsidized housing. A: Shaw is a 49 year old male admitted to [facility] on 08/20/19 for uncontrolled NIDDM w/hyperglycemia and alcohol withdrawal. P: Shaw will leave [facility] at 0930 with [facility] in the morning to be transferred to [facility]. CI referral sent and housing application completed.
[2019-08-30] MEDS: Nicotine 21 MG/24 HR PATCH TD (15:19)
[2019-08-30 15:34] VITALS: BP 162/77; PULSE 46; RESP 19; TEMP 37; O2SAT 94
[2019-08-30 19:51] VITALS: BP 136/72; PULSE 47; RESP 18; TEMP 37; O2SAT 98
[2019-08-30] MEDS: Melatonin 3 MG TAB 9 MG PO (22:26)
[2019-08-30] MEDS: Insulin Glargine 300 UNITS/3 ML PEN 20 UNITS SC (22:28)
[2019-08-30 23:42] VITALS: BP 145/80; PULSE 48; RESP 17; TEMP 37.3; O2SAT 98
[2019-08-31 03:52] VITALS: BP 114/62; PULSE 44; RESP 18; TEMP 37; O2SAT 98
[2019-08-31 07:21] LABS: HCT 39.9 % (40.0-50.0); HGB 14.1 g/dL (13.5-17.5); Mean Corp. HGB Concentration 35.3 g/dL (32.0-36.0); Mean Corpuscular Volume 93.4 fL (80-95); Mean Platelet Volume 9.8 fL (8.0-11.0); Platelet Count 153 x1000/uL (130-400); RBC 4.27 m/cumm (4.50-6.00); RBC Distribution Width 13.1 % (11.8-14.1); White Blood Cell Count 4.31 k/cumm (4.4-10.8)
[2019-08-31 08:16] VITALS: BP 121/66; PULSE 52; RESP 20; TEMP 36.7; O2SAT 100
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
[2019-08-31] MEDS: Magnesium Oxide 400 MG TAB 800 MG PO (08:30)
[2019-08-31] MEDS: Buprenorphine/Naloxone 12 mg/3 mg FILM 1 EACH SL (08:30)
[2019-08-31] MEDS: Pantoprazole 40 MG TABCR PO (08:31)
[2019-08-31] MEDS: Thiamine 100 MG TAB PO (08:31)
[2019-08-31] MEDS: Citalopram 20 MG TAB PO (08:31)
[2019-08-31] MEDS: Gabapentin 600 MG TAB PO (08:31)
[2019-08-31] MEDS: Multivitamin TAB 1 TAB PO (08:31)
[2019-08-31] MEDS: Insulin Aspart 300 UNITS/3 ML PEN SC (08:36)
[2019-08-31] MEDS: Nicotine 21 MG/24 HR PATCH TD (08:38)
--- NOTE | 2019-08-31 09:04 | CMDISCH_ITS ---
- If Service Date Differs Date of service: 08/31/19 Time of Service: 09:04 LACE Index Scoring Tool - Questions: Length of Stay (in days): 7 - 13 Acuity (Admit via E.D.?): Yes Comorbidities: Diabetes w/o Complication E.D. Visits: 10 - Answers: Total Score: 13 Risk of Readmission: High Risk Care Management Discharge Reason for Hospitalization: Uncontrolled NIDDM with hyperglycemia, alcohol use Discharge Plan: Shaw has agreed to be discharged to [facility], CM has sent referrals to [facility] and applications for housing. He will benefit from outpatient case mangement, ongoing AA meetings and therapist services in the community. Shaw is ready and exhibts confidence in cominment to his sobriety. He continues to identify homeless as a barrier and is hopeful that he will be able to obtain assistance in this area while he is inpateint at [facility]. Shaw is open about is concerns, he engages well and makes good eye contact. CM provided him a letter of admission and discharge. Shaw will be transported to [facility] via private car through [facility] coordinated by KAYLEIGH. KAYLEIGH will fax notes to [facility] [employer] and [facility] for follow up. Patient/Family Education Needs: Discharge education, available resources and follow up plan including care management contact information for concerns or questions after discharge and information r/t addtional community resources. Services Needed at Discharge: Transportation - MH Services (Omit if N/A) Current MH Services: Psychiatric Inp
--- NOTE | 2019-08-31 18:00 | INDS_ITS ---
Date of service: 08/31/19 PT Notes Visit Reasons: UNCONTROLLED NIDDM W/HYPERGLYCEMIA, ALCOHOL WITHDR Inpatient Physical Therapy Discharge Summary Dates: 08/31/2019 Dates of Service: 08/26/2019 through 08/31/2019 This is a clinical summary of care provided on the duration of dates listed above. No charge was made in the completion of this documentation. Referring Doctor: Kaleb Valadez MD PT Orders: PT CONSULT: Extended-stay weakness Precautions: Fall. Standard. Activity as tolerated. Patient Profile/Admitting Diagnosis: Shaw is a 49-year-old who male presented to the ED on 09/06/2019 with chief presentation of increased blood sugar, malaise, and generalized weakness. He also complained of being shaky, anxious, and tremulous. He is diagnosed with initially with EtOH withdrawal but is now resolved. He is also diagnosed with ambulatory dysfunction, continuous opioid dependence, type II DM (chronic), chronic hepatitis C, and acute hep B infection l with referral for skilled physical for services to address functional mobility decline and strength deficits. PMHX: Medical History Adjustment disorder, unspecified (Resolved 12/10/15) Adventitious breath sounds (Resolved) Alcohol use (Acute) Chronic hepatitis C (Chronic 08/11/05) [place] [facility] [place] [facility] [facility]14 Cirrhosis of liver (Chronic 05/06/11) Continuous opioid dependence (Chronic 03/05/05) BUP RX SINCE LOOMIS, <2005; counselling Meagan Garcia; prefers tablets Folliculitis (Resolved 05/17/12) Dr Donnie ng, consult Dr. 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 Care management is working out discharge destination that is safest for patient. He was independent with aspects of ADLs without the need for assistive ambulatory device. 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 He is currently from his . Has been to alcohol rehabilitation facility and sobriety homes. Equipment Owned/DME: None Subjective: NT Objective: General Observation: NT Mental Status: NT Pain: NT ROM: Right Upper Extremity: Shoulder Flexion WFL. Shoulder abduction WFL. Elbow flexion WFL. Wrist flexion WFL. Opening and closing of hand WFL. Left Upper Extremity: Shoulder Flexion WFL. Shoulder abduction WFL. Elbow flexion WFL. Wrist flexion WFL. Opening and closing of hand WFL. Right Lower Extremity: Hip flexion WFL. Hip abduction WFL. Knee flexion WFL. Ankle dorsiflexion WFL. Ankle plantarflexion WFL. Left Lower Extremity: Hip flexion WFL. Hip abduction WFL. Knee flexion WFL. Ankle dorsiflexion WFL. Ankle plantarflexion WFL. Strength: Right Upper Extremity: Shoulder flexors 4/5. Shoulder abductors 5/5. Elbow flexors 5/5. Elbow extensors 5/5. Court Registry Officer strong. Left Upper Extremity: Shoulder flexors 4/5. Shoulder abductors 5/5. Elbow flexors 5/5. Elbow extensors 5/5. Court Registry Officer strong. Right Lower Extremity: Hip flexors 4/5. Hip abductors 5/5. Knee flexors 5/5. Knee extensors 4/5. Ankle dorsiflexors 4/5. Ankle plantarflexors 5/5. Left Lower Extremity:Hip flexors 4/5. Hip abductors 5/5. Knee flexors 5/5. Knee extensors 4/5. Ankle dorsiflexors 4/5. Ankle plantarflexors 5/5. Sensation: Intact as to pain and pressure on bilateral lower extremities. Bed Mobility/Transfers: Rolling supervision Supine to sit independent Sit to supine independent Sit to stand independent Stand to sit independent Bed to chair independent Chair to bed independent Gait: Patient tolerated level surface ambulation of up to 520 feet without an assistive device. Gait pattern unremarkable. No path deviation seen. Balance: Static Sitting: Normal Dynamic Sitting: Normal Static Standing: Fair Dynamic Standing: Fair Assessment: Dhaval has achieved all goals listed below upon discharge from this hospital. No equipment needs at this time. Goals: Goals X1 week 1. Supine-Sit independent MET 2. Sit-Supine independent MET 3. Sit-Stand independent MET 4. Stand-Sit independent MET 5. Bed-Chair independent MET 6. Chair-Bed independent MET 7. Independent gait on level surface with use of least restrictive device for at least 300 feet without report of pain nor dyspnea MET 8. Independent stair negotiation while holding onto bilateral rails for at least 10 steps without report of pain nor dyspnea MET 9. Independent with home exercise program MET 10. Good static and dynamic standing balance/tolerance MET DISCHARGE RECOMMENDATIONS: Patient transfers to [facility] today. TREATMENT CODE/TIME: AL. Thank you very much for this referral. Lori Avila PT, DPT, CLT [facility] [place], [place]
== END 2019-08-31 11:00 | disposition other institution (70) | DRG 638 ==
LOC: ER 22:03 → ICU 23:02 → MS 08-26 18:13
PROVIDERS: Family Medicine; Internal Medicine; Admitting Provider Family Medicine; Emergency Provider Student in an Organized Health Care Education/Training Program; PCP Nurse Practitioner Family; Visit Provider Family Medicine
DX: E11.65 Type 2 diabetes mellitus with hyperglycemia (principal); F10.231 Alcohol dependence with withdrawal delirium; B18.1 Chronic viral hepatitis B without delta-agent; F11.20 Opioid dependence, uncomplicated; Z79.4 Long term (current) use of insulin; K70.30 Alcoholic cirrhosis of liver without ascites; J45.909 Unspecified asthma, uncomplicated; B18.2 Chronic viral hepatitis C; F17.210 Nicotine dependence, cigarettes, uncomplicated; R35.0 Frequency of micturition; Z91.14 Patient's other noncompliance with medication regimen; E11.42 Type 2 diabetes mellitus with diabetic polyneuropathy; R26.81 Unsteadiness on feet; T42.4X5A Adverse effect of benzodiazepines, initial encounter; H53.2 Diplopia; H55.00 Unspecified nystagmus; R00.1 Bradycardia, unspecified; T43.215A Adverse effect of selective serotonin and norepinephrine reuptake inhibitors, initial encounter
CPT/HCPCS: 36410; 36415; 36416; 36592; 80048; 80053; 80061; 80076; 80307; 82805; 82962; 85027; 87522; 96365; 96372; 97110; 97162; 97166; 97530; 99223; 99232; 99233; 99239; 99285; 99291; U0003; 70450; 80320; 81003; 81015; 82140; 82607; 82746; 83036; 83735; 84100; 84443; 85025; 85610; 85730; 93005; 93010; 93306; 94667; 99284; J1644; J1941; J2060; J2765; J3475; J3480; J3490

== ENCOUNTER 2020-02-05 01:44 | Inpatient (IN) | payer MEDICAID, SELFPAY ==
[2020-02-05] VITALS (46 sets, daily range): BP systolic 94–171; BP diastolic 52–90; PULSE 58–100; RESP 7–85; TEMP 36.3–37.8; O2SAT 85–99
--- NOTE | 2020-02-05 01:30 | RT.EKG_ITS ---
APPROVED REPORT Exam: Resting ECG Patient Location: E HR:74 bpm ECG Measurements Heart Rate 74 AXIS AZ 140 P 29 QRSd 93 QRS 77 QT 414 T 72 QTc 461 Conclusion Sinus rhythm...normal P axis, V-rate 60- 99 Nonspecific T abnrm, anterolateral leads...T <-0.10mV, I aVL V2-V6 Normal [place] No STEMI
--- NOTE | 2020-02-05 01:38 | W.ED.GENAD ---
Discharge Plan Disposition Patient Disposition: [facility] Condition: Serious Discharge Details Clinical Impression: Alcohol withdrawal, Uncontrolled diabetes mellitus Primary Care Provider: Tamika Valdes ED Provider: Aldair Curiel [place] Meds and New Rx's Prescriptions: No Action tenofovir disoproxil fumarate [Viread] 300 mg tablet 300 mg PO DAILY Qty: 90 RF: 3 (DME) FreeStyle Lite Strips 1 EACH strip 1 ea Miscellaneous BID Qty: 100 RF: 0 (DME) blood-glucose meter [FreeStyle Lite Meter] 1 EACH kit 1 ea Miscellaneous DAILY Qty: 1 RF: 0 (DME) lancets [FreeStyle Lancets] 1 EACH misc 1 ea Miscellaneous BID Qty: 100 RF: 0 (DME) pen needle, diabetic 1 EACH needle 1 ea Miscellaneous DAILY Qty: 100 RF: 11 gabapentin 600 mg Tablet 600 mg PO TID RF: 0 metformin 1,000 mg Tablet 1,000 mg PO BID RF: 0 folic acid 1 mg Tablet 1 mg PO DAILY Qty: 30 RF: 0 ketoconazole 2 % Cream 1 applic topical DAILY Qty: 30 RF: 1 multivitamin [Multiple Vitamins] Tablet 1 tab PO DAILY Qty: 30 RF: 0 terbinafine HCl 1 % Cream 1 applic topical DAILY Qty: 30 RF: 1 pantoprazole 40 mg Tablet,Delayed Release (Dr/Ec) 40 mg PO DAILY@0730 Qty: 30 RF: 0 nicotine 21 mg/24 hr Patch 24 Hour 21 mg transdermal DAILY PRN PRNQty: 30 RF: 0 thiamine mononitrate (vit B1) [Vitamin B-1 (mononitrate)] 100 mg Tablet 100 mg PO DAILY Qty: 30 RF: 0 insulin lispro [Humalog KwikPen Insulin] 100 unit/mL Insulin Pen See Rx Instructions .ROUTE .COMPLEX Qty: 15 RF: 0 (DME) blood-glucose meter [FreeStyle Flash System] Kit See Rx Instructions .ROUTE .MEDSUPPLY Qty: 1 RF: 0 buprenorphine-naloxone 12-3 mg film sublingual DAILY RF: 0 thiamine mononitrate (vit B1) [Vitamin B-1 (mononitrate)] 100 mg tablet 100 mg PO DAILY RF: 0 citalopram 20 mg Tablet 20 mg PO DAILY Qty: 30 RF: 0 melatonin 3 mg Tablet Extended Release 9 mg PO HS Qty: 0 RF: 0 trazodone 150 mg Tablet 50 mg PO HS Qty: 0 RF: 0 Lantus Solostar U-100 Insulin 100 unit/mL (3 mL) insulin pen 20 unit subcut HS Qty: 15 RF: 0 Medical Decision Making Difficult IV stick even with ultrasound guidance. Ultimately IV obtained in the right saphenous vein. Previous admission here in August with fairly significant withdrawal and difficulty weaning benzodiazepines. Also reporting significant withdrawal and seizure at [facility] last month. Based on this, I am opting for monotherapy with phenobarbital IV. Per recommendations from [facility] as well as ACEP, loading dose of 700 mg ordered to be given been over 30 minutes. Will scan his head because of his recent frequent falls. Banana bag ordered. Laboratory studies ordered. EKG shows no evidence of ischemia or STEMI. Initial CIWA score is 23. CT head is negative. Laboratory studies show an alcohol level of zero. Troponin negative. Liver function reasonable. Sodium quite low at 127. Potassium and magnesium are fine. He has pancytopenia likely from his alcohol abuse. Case discussed with hospitalist. Patient admitted to ICU for further management of alcohol withdrawal and uncontrolled diabetes. Medical Records Medical records reviewed: Yes I reviewed the patient's medical records. Lab Data Lab results reviewed: Yes I reviewed the patient's lab results. ECG Data Attestation: I personally reviewed and interpreted this ECG (s) as follows: Interpretation: see EKG HPI General Mode of arrival: EMS. Date/Time Provider Initiated Documentation: 02/05/20 01:49. Information obtained by: patient, EMS, RN notes reviewed and old records reviewed. HPI Narrative: Patient is brought in from [facility] by EMS. They were originally called there for chest pain. On arrival here patient reports that he is detoxing from alcohol. Denies having any pain other than headache and bilateral foot pain. When questioned about the chest pain he said he had some earlier and was given aspirin for it but has none now. Reports not taking any of his medications for at least the last 4 to 5 days. Has been drinking heavily up until 25 hours ago when he stopped. He was taken into protective custody and has been at the [facility] for about 8 hours he thinks. He has previous history of pretty significant alcohol withdrawal and alcohol withdrawal seizures. He reports being at [facility] about a month ago having a seizure and cardiac arrest. He has fallen multiple times in the last few days. Denies neck or back pain. Denies neurologic changes. Complains of headache. Complains of anxiety and withdrawal. Related Data Home Medications Medication Instructions Recorded Confirmed FreeStyle Lite Strips #100 strip 03/25/16 04/11/19 blood-glucose meter [FreeStyle #1 kit 03/25/16 03/23/19 Lite Meter] lancets [FreeStyle Lancets] #100 ea 03/25/16 08/26/19 pen needle, diabetic #100 units 07/23/17 08/26/19 tenofovir disoproxil fumarate 300 300 mg PO DAILY #90 tab 07/26/18 08/26/19 mg tablet gabapentin 600 mg PO TID 01/10/19 08/26/19 metformin 1,000 mg PO BID 01/10/19 08/26/19 blood-glucose meter [FreeStyle #1 each 01/11/19 03/23/19 Flash System] folic acid 1 mg PO DAILY #30 tab 01/11/19 08/26/19 insulin lispro [Humalog KwikPen See Rx Instructions .ROUTE 01/11/19 08/26/19 Insulin] .COMPLEX #15 ml ketoconazole 1 applic TOPICAL DAILY #30 gm 01/11/19 08/26/19 multivitamin [Multiple Vitamins] 1 tab PO DAILY #30 tab 01/11/19 08/26/19 nicotine 21 mg TRANSDERMAL DAILY PRN PRN 01/11/19 04/11/19 #30 ea pantoprazole 40 mg PO DAILY@0730 #30 tab 01/11/19 08/26/19 terbinafine HCl 1 applic TOPICAL DAILY #30 gm 01/11/19 04/11/19 thiamine mononitrate (vit B1) 100 mg PO DAILY #30 tab 01/11/19 08/26/19 [Vitamin B-1 (mononitrate)] buprenorphine-naloxone SUBLINGUAL DAILY 08/27/19 thiamine mononitrate (vit B1) 100 mg PO DAILY 08/27/19 08/27/19 [Vitamin B-1 (mononitrate)] Lantus Solostar U-100 Insulin 20 unit SUBCUT HS #15 ml 08/31/19 08/26/19 citalopram 20 mg PO DAILY #30 tab 08/31/19 melatonin 9 mg PO HS #0 tab 08/31/19 trazodone 50 mg PO HS #0 tab 08/31/19 08/26/19 Previous Rx's Medication Instructions Recorded pen needle, diabetic #100 units 07/23/17 tenofovir disoproxil fumarate 300 300 mg PO DAILY #90 tab 07/26/18 mg tablet blood-glucose meter [FreeStyle #1 each 01/11/19 Flash System] folic acid 1 mg PO DAILY #30 tab 01/11/19 insulin lispro [Humalog KwikPen See Rx Instructions .ROUTE 01/11/19 Insulin] .COMPLEX #15 ml ketoconazole 1 applic TOPICAL DAILY #30 gm 01/11/19 multivitamin [Multiple Vitamins] 1 tab PO DAILY #30 tab 01/11/19 nicotine 21 mg TRANSDERMAL DAILY PRN PRN 01/11/19 #30 ea pantoprazole 40 mg PO DAILY@0730 #30 tab 01/11/19 terbinafine HCl 1 applic TOPICAL DAILY #30 gm 01/11/19 thiamine mononitrate (vit B1) 100 mg PO DAILY #30 tab 01/11/19 [Vitamin B-1 (mononitrate)] Lantus Solostar U-100 Insulin 20 unit SUBCUT HS #15 ml 08/31/19 citalopram 20 mg PO DAILY #30 tab 08/31/19 melatonin 9 mg PO HS #0 tab 08/31/19 trazodone 50 mg PO HS #0 tab 08/31/19 Allergies Allergy/AdvReac Type Severity Reaction Status Date / Time No Known Allergies Allergy Verified 02/05/20 01:51 General JAMES: 3 Review of Systems Narrative: 12/20 Review of Systems completed and is negative except as stated above in HPI (Systems reviewed: Const, Eyes, ENT, Resp, CV, GI, , MSK, Skin, Neuro) FORMERLY [facility], [facility]–1983 Medical History Adjustment disorder, unspecified (12/10/15) Alcohol use Chronic hepatitis C (08/11/05) [place] [facility] [place] [facility] began [facility] 08/07/14 Cirrhosis of liver (05/06/11) Continuous opioid dependence (03/05/05) BUP RX SINCE IVA, <2004; counselling Meagan Garcia; prefers tablets Folliculitis (05/17/12) Dr Donnie ng, consult Dr. 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 (08/11/05[place] [facility] [place]en[place]08[place]16/13) Opioid dependence on agonist therapy BUP RX SINCE IVA, <2005; prefers tablets (PA) due to dental plate; counselor Zhang Atkins Smoker (05/06/11) Type II diabetes mellitus, uncontrolled A1c 9.4 01/2014; uncontrolled; goal A1c < 7.5 Surgical History Endoscopy (12/09/12) repeat in 3 years Family History Brother No problems noted. Brother No problems noted. Sister No problems noted. 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 HEENT: NC. Old abrasion top of forehead. Old ecchymosis around right eyes. Eyes: Normal conjunctiva and sclera. PERRL and EOMI. Neck: Supple. Trachea midline. No tenderness. Lungs: Normal respiratory effort. Lungs are clear. Cor: RRR without murmur/gallop. Good radial pulses. GI: Soft. NT/ND. No guarding or rebound. Neuro: A+O x 3. Normal speech, mentation. Cranial nerves II - XII grossly intact. No gross motor or sensory deficit. Positive bilateral hand tremor. Ext: No C/C/E. Skin: Warm and dry without rash. Critical Care Time Critical Care Time Critical Care Time: Yes Total Critical Care Time: 40 Attestation: Upon my evaluation, this patient had a high probability of imminent or life-threatening deterioration, which required my direct attention, intervention, and personal management. I have personally provided 40 minutes of critical care time exclusive of time spent on separately billable procedures. Time includes review of laboratory data, radiology results, discussion with consultants, and monitoring for potential decompensation. Interventions were performed as documented above.
--- NOTE | 2020-02-05 02:00 | DI.CT_ITS ---
EXAM: CT HEAD WO CLINICAL HISTORY: multiple falls while intoxicated. TECHNIQUE: Imaging Protocol: Axial computed tomography images with coronal and sagittal reformatted images were created and reviewed COMPARISON: CT CT HEAD WO from 08/27/2019 FINDINGS: There are no skull fractures. No fluid in the left maxillary sinus. Some mucosal thickening is note d in the right maxillary sinus. Mastoid air cells are clear. There is no evidence of intracranial hemorrhage, mass effect, or shift of midline structures. There are no extra-axial fluid collections. Ventricles are not enlarged or shifted and there was no blood in the ventricular system or within the basal cisterns. IMPRESSION: No acute intracranial findings. No skull fractures. Incidentally noted is some mucosal disease in the right maxillary sinus, not associated with an acute fluid level. RADIATION DOSE DELIVERED: 766.3mGy.cm Total DLP DATA REPOSITORY: All CT scans at this facility are submitted to the National Radiology Data Registry (NRDR) Dose Index Registry (DIR) with the [employer] (ACR). RADIATION OPTIMIZATION: All CT scans at this facility use at least one of these dose optimization te chniques: automated exposure control; mA and/or kV adjustment per patient size (includes targeted exa ms where dose is matched to clinical indication); or iterative reconstruction.
[2020-02-05] MEDS: MAGNESIUM SULFATE 8.12 MEQ, MULTIVITAMIN 10 ML, THIAMINE 100 MG, FOLIC ACID 1 MG in Nor... 168.867 MG IV (02:48)
[2020-02-05 02:54] LABS: Abs Immature Grans 0.01 10^3/uL (0.0-0.06); Absolute Basophil Count 0.03 10^3/uL (0.0-0.2); Absolute Eosinophil Count 0.02 10^3/uL (0.0-0.7); Absolute Lymphocyte Count 1.24 10^3/uL (1.2-3.4); Absolute Monocyte Count 0.37 10^3/uL (0.1-0.8); Absolute Neutrophil Count 1.95 10^3/uL (1.2-6.7); Basophils % 0.8; Eosinophils % 0.6; HCT 32.3 % (40.0-50.0); HGB 11.9 g/dL (13.5-17.5); Immature Grans % 0.3; Lymphocytes % 34.3; MCH 33.6 pg (27.0-33.0); MCHC 36.8 % (32.0-36.0); MCV 91.2 fL (80-95); MPV 9.4 fL (8.0-11.0); Monocytes % 10.2; Neutrophils % 53.8; Nucleated RBC 0 %; Platelet Count 98 10^3/uL (130-400); RBC 3.54 10^6/uL (4.36-5.78); RDW 13.1 % (11.8-14.1); RDW-SD 43.7 fL; WBC 3.62 10^3/uL (4.4-10.8)
[2020-02-05] MEDS: PHENobarbital 130 MG/ML VIAL 700 MG IVP (02:58)
[2020-02-05 03:04] LABS: ETHANOL BLOOD 4.9 mg/dL (<3); Lipase 136 U/L (73-393)
[2020-02-05 03:04] LABS: *AMPHETAMINES SCREEN URINE Negative (Negative); *BARBITURATES SCREEN URINE POSITIVE (Negative); *BENZODIAZEPINES SCREEN URINE Negative (Negative); Cannabinoids THC Negative (Negative); Cocaine Screen,Urine Negative (Negative); METHADONE URINE SCREEN Negative (Negative); OPIATES URINE SCREEN Negative (Negative)
[2020-02-05 03:07] LABS: Tricyclic Antidepressants Negative (Negative)
--- NOTE | 2020-02-05 03:08 | NUR.NOTE ---
Nursing Note: Patient spewing profanities from room, complaining that we are not feeding him or giving him anything to drink. Informed patient that this RN spoke with doctor and patient is to be NPO until medically clear and stable. Patient has been made aware of this that there is no clear cut timetable for that. Requesting to speak to physician, Dr Curiel in room to speak to patient.
[2020-02-05 03:14] LABS: INR 1.1 (0.9-1.1); Prothrombin Time 10.8 sec (9.3-11.0)
[2020-02-05 03:19] LABS: ALT 61 U/L (16-63); AST 58 U/L (15-37); Albumin 4.1 g/dL (3.4-5.0); Alkaline Phosphatase 105 U/L (46-116); Anion Gap 9.6 mmol/L (3-11); BUN 6 mg/dL (7-18); Bilirubin, Total 1.1 mg/dL (0.2-1.0); CO2 27.4 mmol/L (21.0-32.0); CREATININE 0.73 mg/dL (0.70-1.30); Calcium 8.8 mg/dL (8.5-10.1); Chloride 90 mmol/L (98-107); Glucose 337 mg/dL (74-106); Magnesium 1.9 mg/dL (1.8-2.4); Potassium 3.8 mmol/L (3.5-5.1); Sodium 127 mmol/L (136-145); Total Protein 7.1 g/dL (6.4-8.2)
[2020-02-05 03:20] LABS: Troponin I < 0.05 ng/mL (<0.06)
--- NOTE | 2020-02-05 03:25 | NUR.NOTE ---
Nursing Note: Patient returned from CT, warm blanket provided to patient.
--- NOTE | 2020-02-05 03:32 | DI.VRAD_ITS ---
PROCEDURE INFORMATION: Exam: CT Head Without Contrast Exam date and time: 02/05/2020 2:09 AM Age: 49 years old Clinical indication: Injury or trauma; Other: Multiple falls while intoxicated; Abrasion; Scalp TECHNIQUE: Imaging protocol: Computed tomography of the head without contrast. Radiation optimization: All CT scans at this facility use at least one of these dose optimization techniques: automated exposure control; mA and/or kV adjustment per patient size (includes targeted exams where dose is matched to clinical indication); or iterative reconstruction. COMPARISON: CT HEAD WO 08/27/2019 5:05 PM FINDINGS: Brain: Mild volume loss No hemorrhage. Unremarkable white matter. No mass effect. Cerebral ventricles: No ventriculomegaly. Bones/joints: Chronic nasal bone/nasal septal fractures No acute fracture. Paranasal sinuses: Minimal mucosal thickening. No fluid levels. Mastoid air cells: Visualized mastoid air cells are well aerated. Soft tissues: Unremarkable. IMPRESSION: No acute intracranial hemorrhage noted Dictated and Authenticated by: Regan Boggs MD. Ordering:JAKE Quinteros MD
--- NOTE | 2020-02-05 03:46 | NUR.NOTE ---
Nursing Note: Unable to verify medication list with patient at this time, patient sleepy.
--- NOTE | 2020-02-05 04:21 | NUR.NOTE ---
Nursing Note: Patient got out of bed independently to use urinal and commode. Requested patient ring call [email or web address]. [place] and gingerale provided to patient. Patient saying please and thank you.
--- NOTE | 2020-02-05 05:57 | W.PM.HP.N ---
Date of service: 02/05/20 Time of Service: 05:57 Assessment and Plan Assessment and plan (1) Alcohol withdrawal: Start date: 02/05/20 Status: Acute Assessment and plan: This is a 49-year-old gentleman with polysubstance abuse on Suboxone and drinking a large quantity of hard liquor daily. Presently he has not drunk alcohol for more than a day but has a measurable alcohol level. He is tremulous and concerned about withdrawals especially with severe alcohol withdrawal and seizures with cardiac arrest 1 month ago reported by patient. These records were not available for review from [facility]. His initial troponin was negative and this will be checked along with the following lab as we hydrate with IV normal saline and follow [facility] protocol using monotherapy with phenobarbital for alcohol withdrawal. The patient has had problems with benzodiazepines last hospitalization at this hospital in the summer. Presently he is tachycardic and tremulous but otherwise stable. Long-term he should have alcohol rehabilitation and cessation of alcohol use especially with multiple issues affecting his liver having been cleared of hepatitis C and on treatment for hepatitis B. Follow-up with medical care is poor. Prognosis is poor for change. Qualifiers: Complication of substance-induced condition: with unspecified complication Qualified Code(s): F10.239 - Alcohol dependence with withdrawal, unspecified (2) Polysubstance abuse: Status: Chronic Assessment and plan: Continue Suboxone at 10 mg daily. When available this dosing should be confirmed with his treatment center. (3) Type II diabetes mellitus, uncontrolled: Status: Chronic Assessment and plan: IV hydration and glucometer checks before meals and at bedtime with short acting insulin coverage. Patient has poor control chronically with poor medical follow-up. Qualifiers: Glycemic state: with hyperglycemia Qualified Code(s): E11.65 - Type 2 diabetes mellitus with hyperglycemia History of Present Illness History of Present Illness Chief Complaint: Alcohol withdrawal Narrative: This is a 49-year-old male patient well-known to this facility presented to the ED in transfer from the [facility] via EMS. Initially was complaining of chest pain and did have a history of alcohol withdrawal with seizures and cardiac arrest requiring resuscitation at [facility] about 1 month ago. He did receive aspirin at the [facility] and had no complaints of chest pain and the ED. He was tremulous and said that he was having alcohol withdrawals as well as having headaches from frequent falling recently and striking his head. His CT of the head was unrevealing. His last drink was more than 24 hours ago. He still did have an alcohol level of 4.9. The patient does drink up to a gallon of hard liquor daily. He has not been able to take any of his prescribed medications for 4 to 5 days. He is on general assistance but not disability and does have the Suboxone prescribed with take-home of 16 mg daily. He states that he obtains his liquor by borrowing or stealing and does have insurance coverage for his medications. After evaluation in the ED he was noted to be hyponatremic slightly dehydrated as well as having hyperglycemia with glucose over 300. He is diabetic and not on treatment. He has a history of uncontrolled diabetes with his lifestyle. He was loaded with phenobarbital 700 mg and we will follow monotherapy for alcohol withdrawal using phenobarbital with the patient not doing well with benzodiazepines in the past. He will also have hydration with normal saline for dehydration as well as hyponatremia. He is tremulous and complaining of no headache or significant pain at the time I interviewed him. He is a poor historian. He does take treatment for hepatitis B and has ongoing alcoholism hepatitis is an issue with previous hepatitis C cured. Patient does give a history of multiple falls in the last couple of days with mostly headache as a complaint from these falls. He denies any other significant injury. He does complain of anxiety with his withdrawals. He has not been able to maintain sobriety from alcohol in the recent past. Review of Systems Narrative: 13 point review of systems otherwise unrevealing or stable. [facility] Medical History Adjustment disorder, unspecified (12/10/15) Alcohol use Chronic hepatitis C (08/11/05) RX [facility] D[facility]; began Harvoni 08/07/14 Cirrhosis of liver (05/06/11) Continuous opioid dependence (03/05/05) [facility] [place], <2004; counselling Meagan Garcia; prefers tablets Folliculitis (05/17/12) Dr Donnie ng, consult Dr. 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 (08/11/05) [facility] Onychomycosis of toenail (08/16/13) Opioid dependence on agonist therapy [facility] [place], <2004; prefers tablets ([place]) due to dental plate; counselor Zhang Wilbert Smoker (05/06/11) Type II diabetes mellitus, uncontrolled A1c 9.4 01/2014; uncontrolled; goal A1c < 7.5 Surgical History Endoscopy (12/09/12) repeat in 3 years Family History Brother No problems noted. Brother No problems noted. Sister No problems noted. 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 What is your relationship status?: living with partner Panel score (0-1 are the most socially isolated patients): 1 What type of physical activity do you participate in: none Drive intox or ride w/intox tractor driver: No Working smoke detector in home: Yes Carbon monox detector in home: Yes Do you feel safe at home: Yes Do you feel safe in your relationship?: Yes Additional Social history: HOMELESS Meds Home Medications and Allergies Home Medications Medication Instructions Recorded Confirmed Type FreeStyle Lite Strips #100 strip 03/25/16 04/11/19 History blood-glucose meter [FreeStyle #1 kit 03/25/16 03/23/19 History Lite Meter] lancets [FreeStyle Lancets] #100 ea 03/25/16 08/26/19 History pen needle, diabetic #100 units 07/23/17 08/26/19 Rx tenofovir disoproxil fumarate 300 300 mg PO DAILY #90 tab 07/26/18 08/26/19 Rx mg tablet gabapentin 600 mg PO TID 01/10/19 08/26/19 History metformin 1,000 mg PO BID 01/10/19 08/26/19 History blood-glucose meter [FreeStyle #1 each 01/11/19 03/23/19 Rx Flash System] folic acid 1 mg PO DAILY #30 tab 01/11/19 08/26/19 Rx insulin lispro [Humalog KwikPen See Rx Instructions .ROUTE 01/11/19 08/26/19 Rx Insulin] .COMPLEX #15 ml ketoconazole 1 applic TOPICAL DAILY #30 gm 01/11/19 08/26/19 Rx multivitamin [Multiple Vitamins] 1 tab PO DAILY #30 tab 01/11/19 08/26/19 Rx nicotine 21 mg TRANSDERMAL DAILY PRN PRN 01/11/19 04/11/19 Rx #30 ea pantoprazole 40 mg PO DAILY@0730 #30 tab 01/11/19 08/26/19 Rx terbinafine HCl 1 applic TOPICAL DAILY #30 gm 01/11/19 04/11/19 Rx thiamine mononitrate (vit B1) 100 mg PO DAILY #30 tab 01/11/19 08/26/19 Rx [Vitamin B-1 (mononitrate)] buprenorphine-naloxone SUBLINGUAL DAILY 08/27/19 History thiamine mononitrate (vit B1) 100 mg PO DAILY 08/27/19 08/27/19 History [Vitamin B-1 (mononitrate)] Lantus Solostar U-100 Insulin 20 unit SUBCUT HS #15 ml 08/31/19 08/26/19 Rx citalopram 20 mg PO DAILY #30 tab 08/31/19 Rx melatonin 9 mg PO HS #0 tab 08/31/19 Rx trazodone 50 mg PO HS #0 tab 08/31/19 08/26/19 Rx Allergies Allergy/AdvReac Type Severity Reaction Status Date / Time No Known Allergies Allergy Verified 02/05/20 01:51 Exam Narrative Exam Narrative: General: Patient appears older than stated age, flattened affect with poor eye contact. He is in moderate distress with alcohol withdrawal and tremulous. He is alert and oriented to person, place and time and able to answer questions about his history but is easily agitated. He is unkempt. HEENT: Normocephalic with traumatic appearance of scalp with old abrasions scabbed over without ulceration. Face has coarsened features. Eyes with pupils equal and reactive to light symmetrically, extraocular movement intact and sclera anicteric. Oropharynx with dry mucosa and poor dentition with missing teeth. External ears and nose normal. Neck: Supple without JVD. Back: Stooped posture without CVA tenderness. Lungs: Fair aeration with no focalizing rales or rhonchi. Normal inspiratory to expiratory phase ratio and no expiratory wheeze. Heart: Tachycardic rate with normal rhythm, no appreciable murmurs or gallops. Abdomen: Normal contour, soft and nontender to palpation with no palpable hepatosplenomegaly but uncomfortable with deep palpation of the upper abdomen. Bowel sounds are positive in all quadrants. Genitalia/rectal: Exam deferred Extremities: Moderate nonpitting edema of the ankles and feet with loss of hair and slightly atrophic skin over the ankles. No ulcerations. No clubbing or cyanosis. Peripheral pulses are intact but decreased. Capillary refill fair. Skin: Cool and dry. Abrasions over the scalp noted. Neuro: Cranial nerves II through XII grossly intact, no focalizing motor deficits. Psych: Anxious with an easily agitated but flattened affect and poor eye contact. No abnormal thought processes but pressured speech and short answers to questions. Depressed mood. Remote and recent memory intact. Results Imaging Imaging Studies: Exam: CT Head Without Contrast Exam date and time: 02/05/2020 2:09 AM Age: 49 years old Clinical indication: Injury or trauma; Other: Multiple falls while intoxicated; Abrasion; Scalp TECHNIQUE: Imaging protocol: Computed tomography of the head without contrast. Radiation optimization: All CT scans at this facility use at least one of these dose optimization techniques: automated exposure control; mA and/or kV adjustment per patient size (includes targeted exams where dose is matched to clinical indication); or iterative reconstruction. COMPARISON: CT HEAD WO 08/27/2019 5:05 PM FINDINGS: Brain: Mild volume loss No hemorrhage. Unremarkable white matter. No mass effect. Cerebral ventricles: No ventriculomegaly. Bones/joints: Chronic nasal bone/nasal septal fractures No acute fracture. Paranasal sinuses: Minimal mucosal thickening. No fluid levels. Mastoid air cells: Visualized mastoid air cells are well aerated. Soft tissues: Unremarkable. IMPRESSION: No acute intracranial hemorrhage noted Dictated and Authenticated by: Regan Boggs MD. Labs Result diagrams: 02/05/20 02:45 02/05/20 02:45 Labs: Laboratory Results - last 24 hr 02/05/20 02/05/20 02/05/20 02:00 02:45 02:45 WBC RBC Hgb Hct MCV MCH MCHC RDW Plt Count MPV Immature Gran % Neutrophils % Lymphocytes % Monocytes % Eosinophils % Basophils % Nucleated RBC % Absolute Neutrophils Absolute Lymphocytes Absolute Monocytes Absolute Eosinophils Absolute Basophils PT 10.8 INR 1.1 Sodium Potassium Chloride Carbon Dioxide Anion Gap BUN Creatinine Estimated GFR/1.73 m2 Glucose Calcium Magnesium Total Bilirubin AST ALT Alkaline Phosphatase Troponin I Total Protein Albumin Lipase 136 Urine Opiates Screen Negative Urine Methadone Screen Negative Ur Barbiturates Screen Positive A Ur Tricyclics Screen Negative Ur Amphetamines Screen Negative U Benzodiazepines Scrn Negative Urine Cocaine Screen Negative Ur THC Screen Negative Ethyl Alcohol 4.9 02/05/20 02/05/20 02:45 02:45 WBC 3.62 L RBC 3.54 L Hgb 11.9 L Hct 32.3 L MCV 91.2 MCH 33.6 H MCHC 36.8 H RDW 13.1 Plt Count 98 L MPV 9.4 Immature Gran % 0.3 Neutrophils % 53.8 Lymphocytes % 34.3 Monocytes % 10.2 Eosinophils % 0.6 Basophils % 0.8 Nucleated RBC % 0 Absolute Neutrophils 1.95 Absolute Lymphocytes 1.24 Absolute Monocytes 0.37 Absolute Eosinophils 0.02 Absolute Basophils 0.03 PT INR Sodium 127 L Potassium 3.8 Chloride 90 L Carbon Dioxide 27.4 Anion Gap 9.6 BUN 6 L Creatinine 0.73 Estimated GFR/1.73 m2 >= 60.00 Glucose 337 H Calcium 8.8 Magnesium 1.9 Total Bilirubin 1.1 H AST 58 H ALT 61 Alkaline Phosphatase 105 Troponin I < 0.05 Total Protein 7.1 Albumin 4.1 Lipase Urine Opiates Screen Urine Methadone Screen Ur Barbiturates Screen Ur Tricyclics Screen Ur Amphetamines Screen U Benzodiazepines Scrn Urine Cocaine Screen Ur THC Screen Ethyl Alcohol Last Vital Signs Temp 37.8 C H 02/05/20 05:24 Pulse 93 H 02/05/20 05:24 Resp 15 02/05/20 05:24 BP 149/82 H 02/05/20 05:24 Pulse Ox 98 02/05/20 05:24 COVID-19 Screening Have you, or household traveled for leisure in last 14 days?: No Had IN PERSON contact w/suspected or confirmed C-19 person: No
[2020-02-05] MEDS: PHENobarbital 130 MG/ML VIAL IVP ×2 (06:10→09:27)
[2020-02-05] MEDS: Heparin 5,000 UNITS/ML VIAL 5000 UNITS SC ×3 (06:11→21:53)
[2020-02-05 07:23] LABS: PHOSPHORUS 3.6 mg/dL (2.6-4.7)
[2020-02-05 07:27] LABS: Troponin I < 0.05 ng/mL (<0.06)
[2020-02-05 07:33] LABS: TSH 2.99 uIU/mL (0.36-3.74)
[2020-02-05] MEDS: Insulin Aspart 300 UNITS/3 ML PEN SC ×2 (07:52→11:43)
[2020-02-05] MEDS: Citalopram 20 MG TAB PO (08:06)
[2020-02-05] MEDS: Pantoprazole 40 MG TABCR PO (08:07)
[2020-02-05] MEDS: Multivitamin TAB 1 TAB PO (08:07)
[2020-02-05] MEDS: Gabapentin 600 MG TAB PO ×3 (08:07→21:55)
[2020-02-05] MEDS: Folic Acid 1 MG TAB PO (08:11)
[2020-02-05 08:20] LABS: Glucose 307 mg/dL (74-106)
[2020-02-05] MEDS: Buprenorphine/Naloxone 8 mg/2 mg FILM 2 EACH SL (09:03)
[2020-02-05] MEDS: Insulin Glargine 300 UNITS/3 ML PEN 20 UNITS SC ×2 (09:12→21:51)
[2020-02-05] MEDS: Thiamine 100 MG TAB PO (09:16)
[2020-02-05] MEDS: Normal Saline Flush 10 ML SYR IVP ×2 (09:30→11:49)
[2020-02-05] MEDS: LORazepam 2 MG/ML VIAL 1 MG IVP (09:55)
--- NOTE | 2020-02-05 09:58 | NUR.NOTE ---
Midline placement process begins. Nursing Note:
--- NOTE | 2020-02-05 10:40 | PHA.REVIEW ---
Pharmacy Admission Review - Admission Clinical Review (Last Reviewed 02/05/20 @ 06:13 by Cliff Zimmerman) Alcohol withdrawal (Acute) Uncontrolled diabetes mellitus (Acute) No Known Allergies Allergy (Verified 02/05/20 01:51) Height 5 ft 11 in Weight 71.6 kg ALCOHOL WITHDRAWL, UNCONTROLLED DIABETES - Comments Comments/Follow Ups: CIWA scores 5-23, treating with Phenobarb, patient does have history of alcohol seizures, Banana bag x1 in ED, now taking oral meds. Suboxone film 16/4 mg ordered-not sure if anyone verified that dose. Will need patient's own Viread for his hepatitis maintenance-not brought in at this time. Diabetes is not controlled, doesn't look like he's filled any prescriptions locally since August 2019. - Renal Dosing Renal Dosing: BUN 6 mg/dL (7-18) L 02/05/20 02:45 Creatinine 0.73 mg/dL (0.70-1.30) 02/05/20 02:45 Medications needing adjustments: Reviewed (CrCl>100ml/min-no med adjustments) - Anticoagulation Anticoagulation: Hgb 11.9 g/dL (13.5-17.5) L 02/05/20 02:45 Hct 32.3 % (40.0-50.0) L 02/05/20 02:45 Plt Count 98 10^3/uL (130-400) L 02/05/20 02:45 INR 1.1 (0.9-1.1) 02/05/20 02:45 Creatinine 0.73 mg/dL (0.70-1.30) 02/05/20 02:45 DVT Prohphylaxis: Reviewed Medications: Heparin - Opiate Usage Evaluate Pain Scale/Pains Meds: N/A - Relevant Labs Sodium 127 mmol/L (136-145) L 02/05/20 02:45 Potassium 3.8 mmol/L (3.5-5.1) 02/05/20 02:45 Chloride 90 mmol/L (98-107) L 02/05/20 02:45 Phosphorus 3.6 mg/dL (2.6-4.7) 02/05/20 06:55 Magnesium 1.9 mg/dL (1.8-2.4) 02/05/20 02:45 Electrolytes, C-Reactive P, ESR: Reviewed (Bilirubin slightly elevated 1.1, AST elevated 58, Na++ 127, H/H 11.9/32.3 (dilutional?)) - DM Control DM Control: Glucose 307 mg/dL (74-106) H 02/05/20 06:55 Finger Stick Blood Glucose 451 Finger Stick Blood Glucose 415 Insulin Dosing: Reviewed (Lantus/Novolog) - Heart Failure/VA Heart Failure/VA: Troponin I < 0.05 ng/mL (<0.06) 02/05/20 06:55 EF%, RUSTAM's, B-Blockers, Diuretics: N/A - BP Control BP Control: Blood Pressure [Left Arm] 166/73 Blood Pressure [Left Arm] 149/82 Blood Pressure 102/77 Blood Pressure 102/77 Blood Pressure 166/73 Blood Pressure 149/82 Blood Pressure 125/73 Blood Pressure 150/82 Blood Pressure 171/90 Blood Pressure 150/71 Blood Pressure 157/72 Blood Pressure 152/85 Blood Pressure 131/59 If elevated: N/A - Qtc Review If Elevated: Reviewed (QTC 461 (takes Celexa, Trazodone)) - IV to PO Switch IV Medications: N/A - Home Meds Home Med List reviewed: Reviewed (home med list is very out of date, many duplicates, etc.)
--- NOTE | 2020-02-05 11:08 | INITIAL_ITS ---
- If Service Date Differs Date of service: 02/05/20 Time of Service: 11:08 Care Management Initial Assess REASON FOR HOSPITALIZATION:: Alcohol withdrawal, uncontrolled diabetes PAST MEDICAL HISTORY/PAST SURGICAL HISTORY:: Medical History. Adjustment disorder, unspecified (12/10/15). Alcohol use. Chronic hepatitis C (08/11/05). RX [facility] D[facility]; began Harvoni 08/07/14. Cirrhosis of liver (05/06/11). Continuous opioid dependence (03/05/05). [facility] [place], <2004; counselling Meagan Garcia; prefers tablets. Folliculitis (05/17/12). Dr Donnie ng, consult Dr. Leblanc (not completed). Hep B w/ coma, chronic, w/o delt (08/11/05). [facility]. Onychomycosis of toenail (08/16/13). Opioid dependence on agonist therapy. [facility] [place], <2004; prefers tablets ([place]) due to dental plate; counselor Zhang Atkins. Smoker (05/06/11). Type II diabetes mellitus, uncontrolled. A1c 9.4 01/2014; uncontrolled; goal A1c < 7.5. Surgical History. Endoscopy (12/09/12). repeat in 3 years PREVIOUS FUNCTIONAL STATUS/SOCIAL/FAMILY SUPPORTS:: Shaw previously lived in [facility], but reports he is now homeless due to financial difficulties and separation from his . 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 He has sought treatment for his acohol use at [facility] (12/29/18) and was living at the [facility] in [facility] [facility] [place] until he began to drink again. More recently, he went to [facility] (Apr 2019). He reports that he does not have family in the area or any supports in the community. CURRENT FUNCTIONAL STATUS:: Shaw is currently on Covid 19 precautions awaiting a negative test to rule him out, therefore CM will not see him today. Per report, Shaw was brought in by EMS from the [facility]. He stated that he was having chest pain, but is also suffering from alcohol withdrawal. He has a significant history of withdrawal seizures, and reports that he has not taken any medication in 4-5 days. CM discussed his case with an [employer], who stated that he was having a mid line placed for IV access. CM will continue to follow. ADVANCE DIRECTIVES:: None on file, CM will offer forms once able to meet with pt. Has patient been provided with info about the portal/API?: Yes Did the patient sign up for the portal?: Yes (previously) CODE STATUS:: Full Code INSURANCE COVERAGE / FINANCIAL ISSUES:: JENNI CURRENT HOME/COMMUNITY SERVICES/EQUIPMENT:: Shaw currently receives suboxone treatment at [facility]. He has had support from [employer] in the past, as well as the [facility] at his PCP office. PRIMARY CARE PHYSICIAN:: Tamika Valdes POTENTIAL DISCHARGE NEEDS:: Housing resources, cryolite recovery operator, evaluations for further needs, follow up appointments PATIENT/FAMILY EDUCATION NEEDS:: Review discharge instructions, discussion of self care needs including Ask Me Three ANTICIPATED BARRIERS TO DISCHARGE:: None identified at this time. TRANSPORTATION:: RCT private vehicle PLAN:: Shaw is being monitored at ICU level of care. Once he is medically cleared, disposition to be determined. CM will call cryolite recovery operator to talk to him to go over options and resources in the community. Anticipate RCT transportation via private vehicle. CM will continue to follow.
--- NOTE | 2020-02-05 11:36 | NUR.NOTE ---
Patient is sleeping. Vital signs are stable.Nursing Note:
--- NOTE | 2020-02-05 12:39 | NUR.NOTE ---
Patient is set up with lunch tray. Patient begins feeding himself.
--- NOTE | 2020-02-05 14:34 | NUR.NOTE ---
Patient continues to sleep but is easily arousable.Nursing Note:
[2020-02-05] MEDS: Normal Saline 1,000 ML 150 ML IV ×2 (15:41→22:09)
[2020-02-05] MEDS: Normal Saline Flush 10 ML SYR 20 ML IVP (21:57)
[2020-02-06] VITALS (10 sets, daily range): BP systolic 116–136; BP diastolic 63–105; PULSE 55–72; RESP 9–15; TEMP 36.6–37.2; O2SAT 94–98
[2020-02-06] MEDS: Normal Saline Flush 10 ML SYR IVP (03:47)
[2020-02-06] MEDS: Normal Saline 1,000 ML 150 ML IV (04:55)
[2020-02-06] MEDS: Heparin 5,000 UNITS/ML VIAL 5000 UNITS SC (06:26)
[2020-02-06] MEDS: Multivitamin TAB 1 TAB PO (08:46)
[2020-02-06] MEDS: Buprenorphine/Naloxone 8 mg/2 mg FILM 2 EACH SL (08:46)
[2020-02-06] MEDS: Gabapentin 600 MG TAB PO (08:46)
[2020-02-06] MEDS: Pantoprazole 40 MG TABCR PO (08:46)
[2020-02-06] MEDS: Citalopram 20 MG TAB PO (08:46)
[2020-02-06] MEDS: Folic Acid 1 MG TAB PO (08:46)
[2020-02-06] MEDS: Thiamine 100 MG TAB PO (08:46)
--- NOTE | 2020-02-06 09:07 | CMDISCH_ITS ---
- If Service Date Differs Date of service: 02/06/20 Time of Service: 09:07 LACE Index Scoring Tool - Questions: Length of Stay (in days): 2 Acuity (Admit via E.D.?): Yes Comorbidities: Diabetes w/o Complication E.D. Visits: 6 - Answers: Total Score: 10 Risk of Readmission: High Risk Care Management Discharge Reason for Hospitalization: Alcohol withdrawal, uncontrolled diabetes Discharge Plan: KAYLEIGH met with Shaw at length he states that he is staying at the [facility] in [place], [place]. He has been trying to get into substance abuse treatment with [facility] he states he will be going in on Thursday this week to start dosing. He has been on treatment here and will be discharged with two doses until his appointment. KAYLEIGH contacted [facility] transportation and coordianted a discharge ride back to his home. Shaw states he spoke with a academic coach a few days ago and will continue to use the resource. He states he relasped after loss of his housing in a sober living program. He states he did try to return to [facility] however he was declined. He has been involved with treatment associates and continues to see them as a resource. Shaw states he is ready for discharge and agrees with plan. Patient/Family Education Needs: Discharge education, limitations and follow up plan of care including ask me three and self management. Services Needed at Discharge: Transportation - MH Services (Omit if N/A) Current MH Services: Other
[2020-02-06] MEDS: Insulin Aspart 300 UNITS/3 ML PEN SC (09:19)
--- NOTE | 2020-02-06 09:28 | W.PM.DS.N ---
Date of service: 02/06/20 Time of Service: 09:28 DS: Diagnosis Discharge Diagnosis (1) Alcohol withdrawal: Status: Acute (2) Polysubstance abuse: Status: Chronic (3) Type II diabetes mellitus, uncontrolled: Status: Chronic Discharge Plan Disposition Patient Disposition: OTHER Condition: Serious Discharge Details Reason For Visit: ALCOHOL WITHDRAWAL; UNCONTROLLED DIABETES Admit Date/Time: 02/05/20 03:45 Admit Provider: Cliff Zimmerman Attending Provider: Cliff Zimmerman Primary Care Provider: Tamika Valdes Hospital Course Hospital Course: This is a 49-year-old male patient well-known to this facility presented to the ED in transfer from the [facility] via EMS. Initially was complaining of chest pain and did have a history of alcohol withdrawal with seizures and cardiac arrest requiring resuscitation at [facility] about 1 month ago. He did receive aspirin at the [facility] [place] and had no complaints of chest pain and the ED. He was tremulous and said that he was having alcohol withdrawals as well as having headaches from frequent falling recently and striking his head. His CT of the head was unrevealing. His last drink was more than 24 hours ago. He still did have an alcohol level of 4.9. The patient does drink up to a gallon of hard liquor daily. He has not been able to take any of his prescribed medications for 4 to 5 days. He is on general assistance but not disability and does have the Suboxone prescribed at 16 mg daily. He stated that he obtains his liquor by borrowing or stealing and does have insurance coverage for his medications. After evaluation in the ED he was noted to be hyponatremic, slightly dehydrated as well as hyperglycemic with glucose over 300. He is diabetic and prescribed basal/bolus insulin and metformin. He has a history of uncontrolled diabetes with his lifestyle. He was loaded with phenobarbital 700 mg. Continued monotherapy for alcohol withdrawal using phenobarbital; patient has h/o not doing well with benzodiazepines. He is a poor historian. He does take treatment for hepatitis B and has ongoing alcoholism hepatitis is an issue with previous hepatitis C cured. Patient does give a history of multiple falls in the last couple of days with mostly headache as a complaint from these falls. He denies any other significant injury. He does complain of anxiety with his withdrawals. He has not been able to maintain sobriety from alcohol in the recent past. His hospital course was unremarkable. He did well with phenobarbital treatment of his Etoh withdrawal. Prior to discharge, he required no phenobarbital overnight for CIWA scoring. 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 F/U with PCP within the next 2 weeks. Home Meds and New Rx's Prescriptions: Continued tenofovir disoproxil fumarate [Viread] 300 mg tablet 300 mg PO DAILY Qty: 90 RF: 3 (DME) FreeStyle Lite Strips 1 EACH strip 1 ea Miscellaneous BID Qty: 100 RF: 0 (DME) blood-glucose meter [FreeStyle Lite Meter] 1 EACH kit 1 ea Miscellaneous DAILY Qty: 1 RF: 0 (DME) lancets [FreeStyle Lancets] 1 EACH misc 1 ea Miscellaneous BID Qty: 100 RF: 0 (DME) pen needle, diabetic 1 EACH needle 1 ea Miscellaneous DAILY Qty: 100 RF: 11 gabapentin 600 mg Tablet 600 mg PO TID RF: 0 metformin 1,000 mg Tablet 1,000 mg PO BID RF: 0 folic acid 1 mg Tablet 1 mg PO DAILY Qty: 30 RF: 0 ketoconazole 2 % Cream 1 applic topical DAILY Qty: 30 RF: 1 multivitamin [Multiple Vitamins] Tablet 1 tab PO DAILY Qty: 30 RF: 0 terbinafine HCl 1 % Cream 1 applic topical DAILY Qty: 30 RF: 1 pantoprazole 40 mg Tablet,Delayed Release (Dr/Ec) 40 mg PO DAILY@0730 Qty: 30 RF: 0 nicotine 21 mg/24 hr Patch 24 Hour 21 mg transdermal DAILY PRN PRNQty: 30 RF: 0 insulin lispro [Humalog KwikPen Insulin] 100 unit/mL Insulin Pen See Rx Instructions .ROUTE .COMPLEX Qty: 15 RF: 0 (DME) blood-glucose meter [FreeStyle Flash System] Kit See Rx Instructions .ROUTE .MEDSUPPLY Qty: 1 RF: 0 buprenorphine-naloxone 12-3 mg film sublingual DAILY RF: 0 thiamine mononitrate (vit B1) [Vitamin B-1 (mononitrate)] 100 mg tablet 100 mg PO DAILY RF: 0 citalopram 20 mg Tablet 20 mg PO DAILY Qty: 30 RF: 0 melatonin 3 mg Tablet Extended Release 9 mg PO HS Qty: 0 RF: 0 trazodone 150 mg Tablet 50 mg PO HS Qty: 0 RF: 0 Lantus Solostar U-100 Insulin 100 unit/mL (3 mL) insulin pen 20 unit subcut HS Qty: 15 RF: 0 Discontinued thiamine mononitrate (vit B1) [Vitamin B-1 (mononitrate)] 100 mg Tablet 100 mg PO DAILY Qty: 30 RF: 0 Discharge Instructions Instructions: Abuse of Alcohol (DC) Activity:: Activity as Tolerated Equipment/Supplies:: No Equipment Needed Diet:: Carb Counting Discharge Orders Discharge Orders: Discharge Order (Routine); Ordered 02/06/20 Ordered By: Francisco Jensen DS: Summary Status at Discharge Functional status at discharge: independent ambulation Overall status at discharge: patient is progressing back to baseline Mental Status: mental status grossly normal Speech and Movement: speech and movement normal Mood: congruent mood Affect: normal affect Exam Const General: cooperative and no acute distress Nutritional Appearance: average body habitus Orientation: alert and oriented x3 Eyes Sclera: sclerae normal Pupils: PERRL Resp Effort & Inspection: normal respiratory effort Auscultation: clear to auscultation bilaterally Cardio Rate: regular rate Rhythm: regular rhythm Heart Sounds: S1 normal and S2 normal Extrem General: no pedal edema and no calf tenderness Psych Appearance: grossly normal Mental Status: mental status grossly normal Speech and Movement: speech and movement normal Mood: congruent mood Affect: normal affect DS: Data Vitals/I&O Vitals and I&O: Vital Signs Temperature 36.6 C 02/06/20 01:00 Temperature Source Temporal Artery Scan 02/06/20 01:00 Pulse 57 L 02/06/20 03:01 Pulse 58 L 02/06/20 06:10 Respiratory Rate 10 L 02/06/20 06:10 Respiratory Effort 02/06/20 05:00 Respiratory Depth Normal 02/06/20 05:00 Respiratory Pattern Normal 02/06/20 05:00 Blood Pressure 122/78 02/06/20 06:10 Blood Pressure Mean 88 02/06/20 06:10 Blood Pressure Position Supine 02/05/20 21:00 Pulse Oximetry 98 02/06/20 06:10 Oxygen Delivery Method Room Air 02/06/20 05:00 Oxygen Flow Rate 0 02/06/20 05:00 Pain Level 1 02/06/20 05:00 Intake & Output 02/05/20 02/05/20 02/06/20 11:59 23:59 11:59 Intake Total 1733.200 / 3498.200 1765 / 3498.200 1000 / 1000 Output Total 3600 / 4050 450 / 4050 1200 / 1200 Balance -1866.800 / -824.023 4029 / -551.800 -200 / -200 Weight 71.6 kg 72.5 kg Intake: IV 1013.200 / 2003.200 990 / 2003.200 1000 / 1000 Oral 720 / 1495 775 / 1495 Output: Urine 3600 / 4050 450 / 4050 1200 / 1200 Other: Urine Color Yellow Dark Maria Luisa Yellow Crane Urine Appearance Clear Clear Clear Urine Odor None Strong Normal Comment needs assist to stand to void prior rn reports pt using urinal standing at bedside, pt up oob without ringing prior shift. bed alarm on now Voiding Methods Urinal Bedside Commode Urinal # Bowel Movements 1 Data Completed and Pending Labs on day of discharge: Labs from last 24 hours 02/06/20 02/06/20 05:35 05:35 WBC Pending RBC Pending Hgb Pending Hct Pending MCV Pending MCH Pending MCHC Pending RDW Pending Plt Count Pending MPV Pending Immature Gran % Pending Neutrophils % Pending Lymphocytes % Pending Monocytes % Pending Eosinophils % Pending Basophils % Pending Absolute Neutrophils Pending Absolute Lymphocytes Pending Absolute Monocytes Pending Absolute Eosinophils Pending Absolute Basophils Pending Sodium Pending Potassium Pending Chloride Pending Carbon Dioxide Pending Anion Gap Pending BUN Pending Creatinine Pending Estimated GFR/1.73 m2 Pending Glucose Pending Calcium Pending Total Bilirubin Pending AST Pending ALT Pending Alkaline Phosphatase Pending Total Protein Pending Albumin Pending [facility] Medical History Adjustment disorder, unspecified (12/10/15) Alcohol use Chronic hepatitis C (08/11/05) RX [facility] DARIO JACOB; began Harvoni 08/07/14 Cirrhosis of liver (05/06/11) Continuous opioid dependence (03/05/05) [facility] [place] [place], <2004; counselling Meagan Garcia; prefers tablets Folliculitis (05/17/12) Dr Donnie ng, consult Dr. 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 (08/11/05) [facility] Onychomycosis of toenail (08/16/13) Opioid dependence on agonist therapy [facility] [place] [place], <2005; prefers tablets (PA) due to dental plate; counselor Zhang Atkins Smoker (05/06/11) Type II diabetes mellitus, uncontrolled A1c 9.4 01/2014; uncontrolled; goal A1c < 7.5 Surgical History Endoscopy (12/09/12) repeat in 3 years Family History Brother No problems noted. Brother No problems noted. Sister No problems noted. 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
[2020-02-07 14:15] LABS: COVID-19 RT-PCR Result NEGATIVE (Negative)
== END 2020-02-06 12:31 | disposition other institution (70) | DRG 897 ==
LOC: ER 04:33 → ICU 04:38
PROVIDERS: Family Medicine; Admitting Provider Family Medicine; Emergency Provider Emergency Medicine; PCP Nurse Practitioner Family; Visit Provider Family Medicine
DX: F10.239 Alcohol dependence with withdrawal, unspecified (principal); D61.818 Other pancytopenia; F11.20 Opioid dependence, uncomplicated; B18.1 Chronic viral hepatitis B without delta-agent; E87.1 Hypo-osmolality and hyponatremia; E86.0 Dehydration; E11.65 Type 2 diabetes mellitus with hyperglycemia; K70.30 Alcoholic cirrhosis of liver without ascites; R51.9 Headache, unspecified; Z79.4 Long term (current) use of insulin; R29.6 Repeated falls; F17.210 Nicotine dependence, cigarettes, uncomplicated; B18.2 Chronic viral hepatitis C
CPT/HCPCS: 36410; 36415; 80053; 80307; 82947; 83690; 93005; 96365; 96366; 96375; 99223; 99239; 99291; U0003; 70450; 80320; 83735; 84100; 84443; 84484; 85025; 85610; 93010; J1644; J2060; J2560

== ENCOUNTER 2020-02-08 10:35 | Emergency (ER) | payer MEDICAID, SELFPAY ==
--- NOTE | 2020-02-08 10:45 | NUR.NOTE ---
Nursing Note: 1045 Mr Kowalski in entrance vestibule demanding his clothes that he states the ER has.-Is speaking loudly/argumentative/aggressive---was recently admitted to ICU---ICU and ER do not have his clothes--ICU stating he left [facility] with everything he came in with. Mr Kowalski states he was drunk last night and thinks he was in [facility] ER because he was wearing paper clothes when he woke this morning. Chart was checked and it was determined that he was not a patient at [facility] last yemi. Buffer Operator Isabelle Martinez notified of Mr Kowalski 's situation. Brand Ambassador aware. Mr. Kowalski did leave of his own accord.
== END 2020-02-08 10:45 | disposition other institution (70) ==
LOC: ER 10:38
PROVIDERS: PCP Nurse Practitioner Family
DX: Z53.21 Procedure and treatment not carried out due to patient leaving prior to being seen by health care provider (principal)

== ENCOUNTER 2020-02-08 14:38 | Emergency (ER) | payer MEDICAID, SELFPAY ==
[2020-02-08] VITALS (24 sets, daily range): BP systolic 114–142; BP diastolic 57–85; PULSE 59–79; RESP 12–16; TEMP 35.6–36.5; O2SAT 97–99
--- NOTE | 2020-02-08 15:05 | ED.GENADUL_ITS ---
Discharge Plan Disposition Patient Disposition: [facility] Condition: Stable Discharge Details Clinical Impression: Uncontrolled diabetes mellitus, Hypokalemia, Blood glucose elevated, Alcohol intoxication Primary Care Provider: Tamika Valdes ED Provider: Yaneli Barrett [place] Meds and New Rx's Prescriptions: Continued tenofovir disoproxil fumarate [Viread] 300 mg tablet 300 mg PO DAILY Qty: 90 RF: 3 (DME) FreeStyle Lite Strips 1 EACH strip 1 ea Miscellaneous BID Qty: 100 RF: 0 (DME) blood-glucose meter [FreeStyle Lite Meter] 1 EACH kit 1 ea Miscellaneous DAILY Qty: 1 RF: 0 (DME) lancets [FreeStyle Lancets] 1 EACH misc 1 ea Miscellaneous BID Qty: 100 RF: 0 (DME) pen needle, diabetic 1 EACH needle 1 ea Miscellaneous DAILY Qty: 100 RF: 11 gabapentin 600 mg Tablet 600 mg PO TID RF: 0 metformin 1,000 mg Tablet 1,000 mg PO BID RF: 0 folic acid 1 mg Tablet 1 mg PO DAILY Qty: 30 RF: 0 ketoconazole 2 % Cream 1 applic topical DAILY Qty: 30 RF: 1 multivitamin [Multiple Vitamins] Tablet 1 tab PO DAILY Qty: 30 RF: 0 terbinafine HCl 1 % Cream 1 applic topical DAILY Qty: 30 RF: 1 pantoprazole 40 mg Tablet,Delayed Release (Dr/Ec) 40 mg PO DAILY@0730 Qty: 30 RF: 0 nicotine 21 mg/24 hr Patch 24 Hour 21 mg transdermal DAILY PRN PRNQty: 30 RF: 0 insulin lispro [Humalog KwikPen Insulin] 100 unit/mL Insulin Pen See Rx Instructions .ROUTE .COMPLEX Qty: 15 RF: 0 (DME) blood-glucose meter [FreeStyle Flash System] Kit See Rx Instructions .ROUTE .MEDSUPPLY Qty: 1 RF: 0 buprenorphine-naloxone 12-3 mg film sublingual DAILY RF: 0 thiamine mononitrate (vit B1) [Vitamin B-1 (mononitrate)] 100 mg tablet 100 mg PO DAILY RF: 0 citalopram 20 mg Tablet 20 mg PO DAILY Qty: 30 RF: 0 melatonin 3 mg Tablet Extended Release 9 mg PO HS Qty: 0 RF: 0 trazodone 150 mg Tablet 50 mg PO HS Qty: 0 RF: 0 Lantus Solostar U-100 Insulin 100 unit/mL (3 mL) insulin pen 20 unit subcut HS Qty: 15 RF: 0 chlordiazepoxide HCl 5 mg capsule See Rx Instructions .ROUTE .COMPLEX PRNQty: 14 RF: 0 buprenorphine-naloxone 12-3 mg film 1 film buccal DAILY Qty: 2 RF: 0 Discharge Instructions Instructions: Hypokalemia (ED), Alcohol Intoxication (ED) Additional Instructions: Please cut back on alcohol intake. Please increase your dietary potassium. Please take your medications as prescribed. Please follow-up closely with your primary care, call tomorrow to schedule appointment within the next week for reevaluation. If you develop chest pain, difficulty breathing, shortness of breath or other new/worsening symptoms please seek care urgently once again. Referrals: Tamika Valdes [Primary Care Provider] - Discharge Data Discharge Date/Time-TO BE ENTERED AT DEPARTURE: 02/08/20 19:45 Medical Decision Making <MANDEEP Henriquez - Last Filed: 02/09/20 09:28> 49-year-old gentleman with complicated past medical history, recently discharged from our hospital on Thursday, presents to the ER after being found laying on the ground. He denies any recent illness or trauma, is belligerent, and does not want to partake in a physical examination or history of present illness. She does admit to drinking alcohol today. He is verbally aggressive and abusive towards staff, slamming the heavy wooden door in room 9 and is not allowing people to enter the room. Attempts were made to de-escalate the situation without success. I do feel as though in order to safely care for the patient and avoid any staff getting injured that he should be both physically and chemically restrained. A goyo lopez was called, patient was more cooperative with a show of force, he was escorted onto a hospital stretcher with restraints, restraints applied, given 5 IM Haldol and 2 IV Ativan. Patient is receiving 1 L IV fluid and we are obtaining CBC, CMP, urinalysis, alcohol level, lipase. Fingerstick glucose was over 500, awaiting the actual chemistry before treating. CPSO ordered and restraints ordered. I see no obvious trauma, I do not believe that emergent head CT is reflexively required at this time. I would like to see his laboratory values and alcohol level as this does appear to be likely intoxication. Clearly as things develop potentially imaging may be indicated. At time of signout to my colleague MANDEEP Barrett, patient remains restrained, awaiting laboratory values. Medical Records Medical records reviewed: Yes I reviewed the patient's medical records. <MANDEEP Zapata - Last Filed: 02/08/20 20:09> Care transition myself from Bora Patel PA-C. Please see his initial note regarding presentation, history and exam. Currently, at the time of my session of care, patient is sleeping he has a one-to-one sitter. Patient healthy clinically and physically restrained secondary to aggressive behavior in the department. There was concern for the patient potentially having Per HUS as he was noted to have a glucose of 500. Patient is doing regular high. Labs are pending. Review of the labs show chronic anemia, potassium is 3.0. Will begin replenishing this here in the department. His bicarb is normal. His creatinine is normal. Glucose 463 this does not appear to be unusual for the patient has been in the 3-5 100s several times since her hysterectomy. His lipase is within normal limits. His urine shows no ketones. I do not believe at this point that the patient is in DKA. As the patient does appear quite sedated and is not aggressive at this time, we will begin trialing to remove restraints. Patient's glucose is downtrending at 363. When I took over care, patient's restraints were removed. Please not perform her now. He is able to take p.o. potassium for supplementation. Is able to answer questions. It is unclear where the patient is currently residing as his story for this does change. It sounds that his goal is to get to [place]. However, unclear where he will stay there. Also, we have no way to transport the patient to that [facility] this evening. Patient was evaluated by [facility]. His ethyl alcohol level was 287. He is beginning to clinically sober but does have a large amount of alcohol on board. However, as he has no place to go no one to stay with those be able to ensure his safety tonight and his intoxicated state, plan to transport him to correctional facility for his own safety. Mental health did evaluate the patient and feels that this would be appropriate. I did encourage the patient continue with his routine meds. He is in poorly controlled diabetic. I encouraged that he try to cut back on alcohol intake. Prior to the patient's transportation to correctional facility, he was drinking, conversant and requesting discharge. He still does appear inebriated although much improved. Patient discharged into the care of correctional staff. HPI <MANDEEP Henriquez - Last Filed: 02/09/20 09:28> General Mode of arrival: ambulatory (With police) . Date/Time Provider Initiated Documentation: 02/08/20 15:05 . Limitations to Documentation: altered mental status (Intoxicated) . Information obtained by: patient and police . HPI Narrative: This is a 49-year-old gentleman with past medical history that includes alcohol abuse, alcohol withdrawal, uncontrolled diabetes, polysubstance abuse, depression, hepatitis B and C, cirrhosis, brought to the ER for evaluation by law enforcement. He was found laying down on the ground outside of the hospital on hospital property. Of note he presented to the ER earlier requesting clothing. He states that he woke up in scrubs, was recently at the hospital, and wanted his close back. At that time he did not seek a medical screening examination and did not become a patient of the ER. Subsequently he was removed from a local drugstore by law enforcement. And as already stated been found outside on the ground here on hospital property. He admits to drinking alcohol today however he is belligerent, yelling, screaming, noncompliant. He denies recent illness or trauma. He is slamming the exam room door, verbally abusive to myself and other ER staff. Extremely limited history and physical. Related Data Home Medications Medication Instructions Recorded Confirmed FreeStyle Lite Strips #100 strip 03/25/16 04/11/19 blood-glucose meter [FreeStyle #1 kit 03/25/16 03/23/19 Lite Meter] lancets [FreeStyle Lancets] #100 ea 03/25/16 08/26/19 pen needle, diabetic #100 units 07/23/17 08/26/19 tenofovir disoproxil fumarate 300 300 mg PO DAILY #90 tab 07/26/18 08/26/19 mg tablet gabapentin 600 mg PO TID 01/10/19 08/26/19 metformin 1,000 mg PO BID 01/10/19 08/26/19 blood-glucose meter [FreeStyle #1 each 01/11/19 03/23/19 Flash System] folic acid 1 mg PO DAILY #30 tab 01/11/19 08/26/19 insulin lispro [Humalog KwikPen See Rx Instructions .ROUTE 01/11/19 08/26/19 Insulin] .COMPLEX #15 ml ketoconazole 1 applic TOPICAL DAILY #30 gm 01/11/19 08/26/19 multivitamin [Multiple Vitamins] 1 tab PO DAILY #30 tab 01/11/19 08/26/19 nicotine 21 mg TRANSDERMAL DAILY PRN PRN 01/11/19 04/11/19 #30 ea pantoprazole 40 mg PO DAILY@0730 #30 tab 01/11/19 08/26/19 terbinafine HCl 1 applic TOPICAL DAILY #30 gm 01/11/19 04/11/19 buprenorphine-naloxone SUBLINGUAL DAILY 08/27/19 thiamine mononitrate (vit B1) 100 mg PO DAILY 08/27/19 08/27/19 [Vitamin B-1 (mononitrate)] Lantus Solostar U-100 Insulin 20 unit SUBCUT HS #15 ml 08/31/19 08/26/19 citalopram 20 mg PO DAILY #30 tab 08/31/19 melatonin 9 mg PO HS #0 tab 08/31/19 trazodone 50 mg PO HS #0 tab 08/31/19 08/26/19 buprenorphine-naloxone 1 film BUCCAL DAILY #2 ea 02/06/20 chlordiazepoxide HCl See Rx Instructions .ROUTE 02/06/20 .COMPLEX PRN #14 cap Previous Rx's Medication Instructions Recorded pen needle, diabetic #100 units 07/23/17 tenofovir disoproxil fumarate 300 300 mg PO DAILY #90 tab 07/26/18 mg tablet blood-glucose meter [FreeStyle #1 each 01/11/19 Flash System] folic acid 1 mg PO DAILY #30 tab 01/11/19 insulin lispro [Humalog KwikPen See Rx Instructions .ROUTE 01/11/19 Insulin] .COMPLEX #15 ml ketoconazole 1 applic TOPICAL DAILY #30 gm 01/11/19 multivitamin [Multiple Vitamins] 1 tab PO DAILY #30 tab 01/11/19 nicotine 21 mg TRANSDERMAL DAILY PRN PRN 01/11/19 #30 ea pantoprazole 40 mg PO DAILY@0730 #30 tab 01/11/19 terbinafine HCl 1 applic TOPICAL DAILY #30 gm 01/11/19 Lantus Solostar U-100 Insulin 20 unit SUBCUT HS #15 ml 08/31/19 citalopram 20 mg PO DAILY #30 tab 08/31/19 melatonin 9 mg PO HS #0 tab 08/31/19 trazodone 50 mg PO HS #0 tab 08/31/19 buprenorphine-naloxone 1 film BUCCAL DAILY #2 ea 02/06/20 chlordiazepoxide HCl See Rx Instructions .ROUTE 02/06/20 .COMPLEX PRN #14 cap Allergies Allergy/AdvReac Type Severity Reaction Status Date / Time No Known Allergies Allergy Verified 02/05/20 01:51 General Stated Complaint: AMS/LOC JAMES: 2 Review of Systems <MANDEEP Henriquez - Last Filed: 02/09/20 09:28> Unobtainable due to mental condition PFS <MANDEEP Henriquez - Last Filed: 02/09/20 09:28> Medical History Adjustment disorder, unspecified (12/10/15) Alcohol use Chronic hepatitis C (08/11/05) RX [facility]; [facility] 08[facility]07[facility]14 Cirrhosis of liver (05/06/11) Continuous opioid dependence (03/05/05) [facility] RX [place], <2004; counselling Meagan Garcia; prefers tablets Folliculitis (05/17/12) Dr Donnie ng, consult Dr. 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 (08/11/05) [facility] Onychomycosis of toenail (08/16/13) Opioid dependence on agonist therapy [facility] RX [place] [place], <2004; prefers tablets (MANDEEP) due to dental plate; counselor Zhang Atkins Smoker (05/06/11) Type II diabetes mellitus, uncontrolled A1c 9.4 01/2014; uncontrolled; goal A1c < 7.5 Surgical History Endoscopy (12/09/12) repeat in 3 years Family History Brother No problems noted. Brother No problems noted. Sister No problems noted. 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 What is your relationship status?: living with partner Panel score (0-1 are the most socially isolated patients): 1 What type of physical activity do you participate in: none Drive intox or ride w/intox package car driver: No Working smoke detector in home: Yes Carbon monox detector in home: Yes Do you feel safe at home: Yes Do you feel safe in your relationship?: Yes Additional Social history: HOMELESS Exam <MANDEEP Henriquez - Last Filed: 02/09/20 09:28> Const General: combative, disheveled and other (EtOH-like substance on breath) Orientation: alert, awake, oriented to person and oriented to place [facility] Head: normal to inspection, no palpable skull fracture, normocephalic and atraumatic Face and sinus: normal facial exam Mouth: moist mucous membranes Throat: posterior oropharynx normal Eyes General: appearance normal, both eyes and all related structures Alignment and Position: alignment normal Periorbital: periorbital findings normal Eyelids: eyelids normal Conjunctivae: conjunctivae normal Sclera: sclerae normal Cornea: corneas normal Pupils: PERRL EOM: EOM intact bilaterally Direct ophthalmoscopy: normal light reflex Neck Neck: normal visual inspection, full ROM, trachea midline, supple and nontender Chest Chest: other (What appears to be healing ecchymosis left side of chest) Resp Effort & Inspection: normal respiratory effort and able to speak in complete sentences Auscultation: clear to auscultation bilaterally Cardio Rate: regular rate Rhythm: regular rhythm GI Palpation: soft and nontender Back/Spine/Pelvis Back: No back tenderness Skin General skin exam: no rashes or lesions noted Neuro General: patient alert, patient awake, moves all extremities and no focal motor deficits Cranial Nerves: CN's II-XI intact bilaterally Speech: abnormal speech slurred Gait: staggering Motor: muscle tone normal throughout Sensory Exam: no sensory deficits noted Extrem General: normal to inspection, full ROM, capillary refill normal, no pedal edema and no calf tenderness Psych Appearance: disheveled Speech and Movement: agitated Mood: labile mood Affect: labile affect Attitude: belligerent Course <MANDEEP Henriquez - Last Filed: 02/09/20 09:28> Vital Signs Vital signs: Vital Signs Temperature 35.6 C L 02/08/20 14:44 Pulse 67 02/08/20 14:44 Respiratory Rate 12 02/08/20 14:44 Blood Pressure 114/57 L 02/08/20 14:44 Pulse Oximetry 97 02/08/20 14:44 Temperature 35.6 C L 02/08/20 14:44 Temperature Source Tympanic 02/08/20 14:44 Pulse 67 02/08/20 14:44 Respiratory Rate 12 02/08/20 14:44 Blood Pressure 114/57 L 02/08/20 14:44 Blood Pressure Position Sitting 02/08/20 14:44 Pulse Oximetry 97 02/08/20 14:44 Oxygen Delivery Method Room Air 02/08/20 14:44 Oxygen Flow Rate 0 02/08/20 14:44 Pain Level 0 02/08/20 14:44 Comment 02/08/20 14:44 Critical Care Time <MANDEEP Henriquez - Last Filed: 02/09/20 09:28> Critical Care Time Critical Care Time: Yes Total Critical Care Time: 35 Attestation: Upon my evaluation, this patient had a high probability of clinically significant, life-threatening deterioration due to their current medical conditions, which required my direct attention, intervention, and personal management. I have personally provided greater than 30 minutes of critical care time exclusive of the time spend on separately billable procedures. Time includes obtaining a history, examining the patient, pulse oximetry, review of laboratory data, radiology results, discussion with consultants, arranging urgent treatment with development of a management plan, evaluation of patient's response to treatment, and monitoring for potential decompensation. Interventions were performed as documented above. Sign Out <MANDEEP Henriquez - Last Filed: 02/09/20 09:28> Sign Out Data: Sign Out Comment: At time of signout, awaiting laboratory values to return. Will need to evaluate these and then treat hyperglycemia. If patient does not have elevated alcohol level then potential head CT imaging could be required. Last updated by Kaleb Patel PA at 02/08/20 16:09
[2020-02-08] MEDS: Normal Saline Flush 10 ML SYR IVP (15:10)
[2020-02-08] MEDS: Haloperidol 5 MG/ML VIAL (15:25)
[2020-02-08] MEDS: LORazepam 2 MG/ML VIAL (15:25)
[2020-02-08] MEDS: Normal Saline 1,000 ML 1000 ML IV (15:40)
[2020-02-08 15:55] LABS: Bilirubin Negative (Negative); Blood Trace-intact (Negative); Clarity Clear (Clear); Glucose 500 mg/dL (Negative); Ketones Negative (Negative); Leukocyte Esterase Negative (Negative); Nitrite Negative (Negative); pH 6.5 (5-8)
[2020-02-08 15:56] LABS: Abs Immature Grans 0.01 10^3/uL (0.0-0.06); Absolute Basophil Count 0.02 10^3/uL (0.0-0.2); Absolute Eosinophil Count 0.01 10^3/uL (0.0-0.7); Absolute Lymphocyte Count 0.62 10^3/uL (1.2-3.4); Absolute Monocyte Count 0.33 10^3/uL (0.1-0.8); Absolute Neutrophil Count 5.37 10^3/uL (1.2-6.7); Basophils % 0.3; Eosinophils % 0.2; HCT 32.8 % (40.0-50.0); HGB 11.8 g/dL (13.5-17.5); Immature Grans % 0.2; Lymphocytes % 9.7; MCH 34.5 pg (27.0-33.0); MCV 95.9 fL (80-95); MPV 10.6 fL (8.0-11.0); Monocytes % 5.2; Neutrophils % 84.4; Nucleated RBC 0 %; Platelet Count 85 10^3/uL (130-400); RBC 3.42 10^6/uL (4.36-5.78); RDW 13.1 % (11.8-14.1); RDW-SD 46.3 fL; WBC 6.36 10^3/uL (4.4-10.8)
[2020-02-08 16:07] LABS: Bacteria Negative HPF (Negative); C & S Indicated? No; Crystals Negative HPF (Negative); Epithelial Cells Negative HPF (Negative); Mucus Negative (Negative); WBC Negative HPF (0-5)
[2020-02-08 16:12] LABS: Lipase 59 U/L (73-393)
[2020-02-08 16:17] LABS: ALT 60 U/L (16-63); AST 59 U/L (15-37); Albumin 3.9 g/dL (3.4-5.0); Alkaline Phosphatase 115 U/L (46-116); Anion Gap 8.4 mmol/L (3-11); BUN 7 mg/dL (7-18); Bilirubin, Total 0.5 mg/dL (0.2-1.0); CO2 28.6 mmol/L (21.0-32.0); CREATININE 0.83 mg/dL (0.70-1.30); Calcium 8.6 mg/dL (8.5-10.1); Chloride 96 mmol/L (98-107); Glucose 463 mg/dL (74-106); Magnesium 2.3 mg/dL (1.8-2.4); Sodium 133 mmol/L (136-145); Total Protein 7.5 g/dL (6.4-8.2)
[2020-02-08] MEDS: POTASSIUM CHLORIDE 20 MEQ, POTASSIUM CHLORIDE 10 MEQ 30 MEQ PO (16:45)
== END 2020-02-08 19:45 | disposition home or self-care (01) ==
PROVIDERS: Physician Assistant; Emergency Provider Physician Assistant; PCP Nurse Practitioner Family
DX: E11.65 Type 2 diabetes mellitus with hyperglycemia (principal); Z79.4 Long term (current) use of insulin; E87.6 Hypokalemia; F10.120 Alcohol abuse with intoxication, uncomplicated; Y90.8 Blood alcohol level of 240 mg/100 ml or more; Z78.1 Physical restraint status
CPT/HCPCS: 36415; 36416; 80053; 82962; 83690; 96361; 96372; 96374; 99285; 80320; 81003; 81015; 83735; 85025; 99284; J1630; J2060

== ENCOUNTER 2020-02-09 12:56 | Emergency (ER) | payer MEDICAID, SELFPAY ==
[2020-02-09 13:00] VITALS: BP 149/85; PULSE 62; RESP 20; TEMP 35.9; O2SAT 100
--- NOTE | 2020-02-09 13:00 | DI.RAD_ITS ---
EXAM: XR ANKLE RT COMPLETE CLINICAL HISTORY: r/o fracture. TECHNIQUE: 2D digital imaging was performed. COMPARISON: No exams were available for comparison FINDINGS: There is no evidence of fracture nor widening of the mortise. Talar dome appears unremarkable. Bone density age appropriate. No osseous lesions. IMPRESSION: No ankle fracture evident. DATA REPOSITORY: RADIATION DOSE DELIVERED:
--- NOTE | 2020-02-09 13:05 | ED.GENADUL_ITS ---
Discharge Plan Disposition Patient Disposition: HOME Condition: Stable Discharge Details Clinical Impression: Alcohol intoxication Primary Care Provider: Tamika Valdes ED Provider: Kaleb Patel Home Meds and New Rx's Prescriptions: Continued tenofovir disoproxil fumarate [Viread] 300 mg tablet 300 mg PO DAILY Qty: 90 RF: 3 (DME) FreeStyle Lite Strips 1 EACH strip 1 ea Miscellaneous BID Qty: 100 RF: 0 (DME) blood-glucose meter [FreeStyle Lite Meter] 1 EACH kit 1 ea Miscellaneous DAILY Qty: 1 RF: 0 (DME) lancets [FreeStyle Lancets] 1 EACH misc 1 ea Miscellaneous BID Qty: 100 RF: 0 (DME) pen needle, diabetic 1 EACH needle 1 ea Miscellaneous DAILY Qty: 100 RF: 11 gabapentin 600 mg Tablet 600 mg PO TID RF: 0 metformin 1,000 mg Tablet 1,000 mg PO BID RF: 0 folic acid 1 mg Tablet 1 mg PO DAILY Qty: 30 RF: 0 ketoconazole 2 % Cream 1 applic topical DAILY Qty: 30 RF: 1 multivitamin [Multiple Vitamins] Tablet 1 tab PO DAILY Qty: 30 RF: 0 terbinafine HCl 1 % Cream 1 applic topical DAILY Qty: 30 RF: 1 pantoprazole 40 mg Tablet,Delayed Release (Dr/Ec) 40 mg PO DAILY@0730 Qty: 30 RF: 0 nicotine 21 mg/24 hr Patch 24 Hour 21 mg transdermal DAILY PRN PRNQty: 30 RF: 0 insulin lispro [Humalog KwikPen Insulin] 100 unit/mL Insulin Pen See Rx Instructions .ROUTE .COMPLEX Qty: 15 RF: 0 (DME) blood-glucose meter [FreeStyle Flash System] Kit See Rx Instructions .ROUTE .MEDSUPPLY Qty: 1 RF: 0 buprenorphine-naloxone 12-3 mg film sublingual DAILY RF: 0 thiamine mononitrate (vit B1) [Vitamin B-1 (mononitrate)] 100 mg tablet 100 mg PO DAILY RF: 0 citalopram 20 mg Tablet 20 mg PO DAILY Qty: 30 RF: 0 melatonin 3 mg Tablet Extended Release 9 mg PO HS Qty: 0 RF: 0 trazodone 150 mg Tablet 50 mg PO HS Qty: 0 RF: 0 Lantus Solostar U-100 Insulin 100 unit/mL (3 mL) insulin pen 20 unit subcut HS Qty: 15 RF: 0 chlordiazepoxide HCl 5 mg capsule See Rx Instructions .ROUTE .COMPLEX PRNQty: 14 RF: 0 buprenorphine-naloxone 12-3 mg film 1 film buccal DAILY Qty: 2 RF: 0 Discharge Instructions Instructions: Alcohol Intoxication (ED) Additional Instructions: Please drink alcohol in moderation and be sure to the compliance with all of your medications. Watch for new or worsening symptoms and return to the ER for any concerns. I do recommend reaching out your primary care provider tomorrow to establish outpatient follow-up. At this time you are being discharged from the ER with transportation to bring you to [place] where you reside. Discharge Data Discharge Date/Time-TO BE ENTERED AT DEPARTURE: 02/09/20 18:26 Medical Decision Making <Kami Mar - Last Filed: 02/10/20 08:15> 49-year-old male presents to the ED via EMS with chief complaint of hand laceration. Patient was seen in the ED yesterday and was sent to the ICP unit for alcohol intoxication. [place] abrasions noted to his bilateral hands he is altered mental status and appears to be intoxicated at this time. He does endorse drinking 2 beers, denies any drugs. He has abrasions noted to his bilateral anterior knees and the palmar surfaces of his hands. He was found to be hypothermic per EMS, 35 ?C upon arrival. On initial exam patient was undressed placed in warm gown and blanket, warm IV fluids ordered. Basic labs ordered. Tetanus shot is up-to-date 09/2018. 1347: Patient is up out of bed yelling obscenities at staff, patient is requesting his fucking medications. At this time Haldol 5 mg IV and Benadryl 25 mg IV ordered. We will continue to observe. 1407: Patient ambulated to the bathroom with minimal assistance, CBC shows hemoglobin of 12.4, hematocrit 34.9, BUN 3, creatinine 0.72, sodium 135, potassium 3.6, glucose is 358 liver enzymes are elevated AST is 64, ALT is 64, alk phos is 124 urine drug screen shows positive for barbiturates. Alcohol level of 263.4. 1430: Patient given Lorazepam 1mg IVP. 1447: Patient sleeping, breathing eupneic, Xray at bedside for ankle xr. EXAM: XR ANKLE RT COMPLETE FINDINGS: There is no evidence of fracture nor widening of the mortise. Talar dome appears unremarkable. Bone density age appropriate. No osseous lesions. IMPRESSION: No ankle fracture evident. 1522: Spoke with Sussy Phipps with care management regarding patient she states that she has verified previously that he is from [place]. She states that she can call [facility] to come and pick him up at around proximately 1700. We will recheck his ethanol alcohol level at approximately 1600. Care is to be handed off to oncoming provider MANDEEP Jarrett pending. Sobering up and transport to [place]. Patient's address he gave to the kennel staff member is [address] [place] [address] <MANDEEP Henriquez - Last Filed: 02/09/20 16:53> I assumed care of this patient from my colleague LOVE Mar, please see her initial HPI and examination. At shift change we were awaiting repeat alcohol level and transportation to [place] where he resides. I personally evaluated the patient who was awake, alert, ambulating steadily, protecting his airway without difficulty. Patient was able to speak in full sentences. Patient has no acute concerns or complaints. Denies recent illness or trauma. We did apply an Shola wrap to his ankle and his abrasions were cleaned and dressed appropriately. Glucose and alcohol trending down, fingerstick glucose 305 and alcohol is 207. Clinically patient appears sober. Patient is comfortable with the discharge plan set forth. He is thankful that we are arranging transportation back to [place] where he resides. He was encouraged to return to the ER for new or worsening symptoms otherwise follow-up with his primary care provider. Upon discharge patient has no additional questions or concerns. Medical Records Medical records reviewed: Yes I reviewed the patient's medical records. HPI <Kami Mar - Last Filed: 02/10/20 08:15> General Mode of arrival: EMS . Date/Time Provider Initiated Documentation: 02/09/20 13:04 . Limitations to Documentation: altered mental status . Information obtained by: EMS . HPI Narrative: 49-year-old male presents to the ED via EMS with chief complaint of hand laceration. Patient was seen in the ED yesterday and was sent to the ICP unit for alcohol intoxication. Today [place] abrasions noted to his bilateral hands he is altered mental status and appears to be intoxicated at this time. He does endorse drinking 2 beers, denies any drugs. He has abrasions noted to his bilateral anterior knees and the palmar surfaces of his hands. He was found to be hypothermic per EMS, 35 ?C upon arrival. Related Data Home Medications Medication Instructions Recorded Confirmed FreeStyle Lite Strips #100 strip 03/25/16 04/11/19 blood-glucose meter [FreeStyle #1 kit 03/25/16 03/23/19 Lite Meter] lancets [FreeStyle Lancets] #100 ea 03/25/16 08/26/19 pen needle, diabetic #100 units 07/23/17 08/26/19 tenofovir disoproxil fumarate 300 300 mg PO DAILY #90 tab 07/26/18 08/26/19 mg tablet gabapentin 600 mg PO TID 01/10/19 08/26/19 metformin 1,000 mg PO BID 01/10/19 08/26/19 blood-glucose meter [FreeStyle #1 each 01/11/19 03/23/19 Flash System] folic acid 1 mg PO DAILY #30 tab 01/11/19 08/26/19 insulin lispro [Humalog KwikPen See Rx Instructions .ROUTE 01/11/19 08/26/19 Insulin] .COMPLEX #15 ml ketoconazole 1 applic TOPICAL DAILY #30 gm 01/11/19 08/26/19 multivitamin [Multiple Vitamins] 1 tab PO DAILY #30 tab 01/11/19 08/26/19 nicotine 21 mg TRANSDERMAL DAILY PRN PRN 01/11/19 04/11/19 #30 ea pantoprazole 40 mg PO DAILY@0730 #30 tab 01/11/19 08/26/19 terbinafine HCl 1 applic TOPICAL DAILY #30 gm 01/11/19 04/11/19 buprenorphine-naloxone SUBLINGUAL DAILY 08/27/19 thiamine mononitrate (vit B1) 100 mg PO DAILY 08/27/19 08/27/19 [Vitamin B-1 (mononitrate)] Lantus Solostar U-100 Insulin 20 unit SUBCUT HS #15 ml 08/31/19 08/26/19 citalopram 20 mg PO DAILY #30 tab 08/31/19 melatonin 9 mg PO HS #0 tab 08/31/19 trazodone 50 mg PO HS #0 tab 08/31/19 08/26/19 buprenorphine-naloxone 1 film BUCCAL DAILY #2 ea 02/06/20 chlordiazepoxide HCl See Rx Instructions .ROUTE 02/06/20 .COMPLEX PRN #14 cap Previous Rx's Medication Instructions Recorded pen needle, diabetic #100 units 07/23/17 tenofovir disoproxil fumarate 300 300 mg PO DAILY #90 tab 07/26/18 mg tablet blood-glucose meter [FreeStyle #1 each 01/11/19 Flash System] folic acid 1 mg PO DAILY #30 tab 01/11/19 insulin lispro [Humalog KwikPen See Rx Instructions .ROUTE 01/11/19 Insulin] .COMPLEX #15 ml ketoconazole 1 applic TOPICAL DAILY #30 gm 01/11/19 multivitamin [Multiple Vitamins] 1 tab PO DAILY #30 tab 01/11/19 nicotine 21 mg TRANSDERMAL DAILY PRN PRN 01/11/19 #30 ea pantoprazole 40 mg PO DAILY@0730 #30 tab 01/11/19 terbinafine HCl 1 applic TOPICAL DAILY #30 gm 01/11/19 Lantus Solostar U-100 Insulin 20 unit SUBCUT HS #15 ml 08/31/19 citalopram 20 mg PO DAILY #30 tab 08/31/19 melatonin 9 mg PO HS #0 tab 08/31/19 trazodone 50 mg PO HS #0 tab 08/31/19 buprenorphine-naloxone 1 film BUCCAL DAILY #2 ea 02/06/20 chlordiazepoxide HCl See Rx Instructions .ROUTE 02/06/20 .COMPLEX PRN #14 cap Allergies Allergy/AdvReac Type Severity Reaction Status Date / Time No Known Allergies Allergy Verified 02/09/20 17:12 General JAMES: 2 Review of Systems <Kami Mar - Last Filed: 02/10/20 08:15> Unobtainable due to mental status PFSH <Kami Mar - Last Filed: 02/10/20 08:15> Medical History Adjustment disorder, unspecified (12/10/15) Alcohol use Chronic hepatitis C (08/11/05) RX [facility]; began [facility] 08/07/14 Cirrhosis of liver (05/06/11) Continuous opioid dependence (03/05/05) [facility] [place], <2004; counselling Meagan Garcia; prefers tablets Folliculitis (05/17/12) Dr Donnie ng, consult Dr. 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 Brother No problems noted. Sister No problems noted. 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 Appears stated age. Normal body habitus. Head: Normocephalic, no trauma. Old healing scab noted to his frontal scalp. Eyes: Pupils PERRLA, sluggish, Red reflex noted, EOM's intact. Eyelids symmetrical without lesions, discharge, or swelling. ENT: Bilateral TM's WNL, External ear normal to inspection, no mastoid TTP, swelling, or erythema, Nasal turbinates WNL, no nasal discharge. Normal dentition, Posterior pharynx WNL, no exudate. Chest: RRR, Normal S1, S2, distal pulses intact. Resp: Lungs clear to auscultation bilaterally, no wheezes, rales, or rhonchi. Musculoskeletal: Superficial abrasions noted to the palmar surface of his bilateral hands, anterior knees, right lateral malleolus swelling. Skin: See musculoskeletal assessment above, capillary refill less than 2 sec. he is cool to the touch. He is wearing a wet close, appears to be incontinent of urine. Neurologic: Hematologic/Lymphatic: No ecchymosis, no lymphadenopathy. Sign Out <Kami Mar - Last Filed: 02/10/20 08:15> Sign Out Data: Sign Out Comment: Pending repeat ETOH level, disposition, and transport home. Plan is for [facility] to provide transportation at 1700 to [place]. Last updated by Kami Mar at 02/09/20 15:54
[2020-02-09] MEDS: Normal Saline 1,000 ML 1000 ML IV (13:45)
[2020-02-09 13:50] LABS: Abs Immature Grans 0.01 10^3/uL (0.0-0.06); Absolute Basophil Count 0.03 10^3/uL (0.0-0.2); Absolute Eosinophil Count 0.02 10^3/uL (0.0-0.7); Absolute Monocyte Count 0.31 10^3/uL (0.1-0.8); Absolute Neutrophil Count 4.16 10^3/uL (1.2-6.7); Basophils % 0.6; Eosinophils % 0.4; HCT 34.9 % (40.0-50.0); HGB 12.4 g/dL (13.5-17.5); Immature Grans % 0.2; MCHC 35.5 % (32.0-36.0); MCV 95.6 fL (80-95); Monocytes % 5.8; Nucleated RBC 0 %; Platelet Count 100 10^3/uL (130-400); RBC 3.65 10^6/uL (4.36-5.78); RDW 13.2 % (11.8-14.1); RDW-SD 46.4 fL; WBC 5.33 10^3/uL (4.4-10.8)
[2020-02-09] MEDS: diphenhydrAMINE 50 MG/ML VIAL 25 MG IVP (13:50)
[2020-02-09] MEDS: Haloperidol 5 MG/ML VIAL IM/IV (13:54)
[2020-02-09 14:00] LABS: *AMPHETAMINES SCREEN URINE Negative (Negative); *BARBITURATES SCREEN URINE POSITIVE (Negative); *BENZODIAZEPINES SCREEN URINE Negative (Negative); Cannabinoids THC Negative (Negative); Cocaine Screen,Urine Negative (Negative); METHADONE URINE SCREEN Negative (Negative); OPIATES URINE SCREEN Negative (Negative)
[2020-02-09 14:03] LABS: Tricyclic Antidepressants Negative (Negative)
[2020-02-09 14:04] LABS: ALT 64 U/L (16-63); AST 64 U/L (15-37); Alkaline Phosphatase 124 U/L (46-116); Anion Gap 11.2 mmol/L (3-11); BUN 3 mg/dL (7-18); Bilirubin, Total 0.7 mg/dL (0.2-1.0); CO2 24.8 mmol/L (21.0-32.0); CREATININE 0.72 mg/dL (0.70-1.30); Calcium 8.8 mg/dL (8.5-10.1); Chloride 99 mmol/L (98-107); ETHANOL BLOOD 263.4 mg/dL (<3); Glucose 358 mg/dL (74-106); Potassium 3.6 mmol/L (3.5-5.1); Sodium 135 mmol/L (136-145); Total Protein 7.8 g/dL (6.4-8.2)
[2020-02-09] MEDS: LORazepam 2 MG/ML VIAL 1 MG IVP (14:12)
[2020-02-09 15:15] VITALS: BP 122/68; PULSE 67; RESP 18; O2SAT 100
[2020-02-09 15:40] VITALS: BP 117/73; BP 137/79; PULSE 67; PULSE 93; RESP 18; O2SAT 100
[2020-02-09 16:05] VITALS: BP 156/92; PULSE 87; RESP 18; O2SAT 100
[2020-02-09 16:30] VITALS: BP 117/73; PULSE 67; RESP 18; O2SAT 99
[2020-02-09 16:49] LABS: ETHANOL BLOOD 207.3 mg/dL (<3)
--- NOTE | 2020-02-09 17:45 | NUR.NOTE ---
Nursing Note:Call back from Case Management r/t patient's ride. States she was under the impression transportation would be here closer to 1800 not 1700
[2020-02-09] MEDS: Nicotine 21 MG/24 HR PATCH TD (17:52)
== END 2020-02-09 18:26 | disposition home or self-care (01) ==
PROVIDERS: Registered Nurse Emergency; Emergency Provider Physician Assistant; PCP Nurse Practitioner Family
DX: F10.120 Alcohol abuse with intoxication, uncomplicated (principal); Y90.8 Blood alcohol level of 240 mg/100 ml or more; T68.XXXA Hypothermia, initial encounter; X31.XXXA Exposure to excessive natural cold, initial encounter; S60.511A Abrasion of right hand, initial encounter; S60.512A Abrasion of left hand, initial encounter; S80.211A Abrasion, right knee, initial encounter; S80.212A Abrasion, left knee, initial encounter; X58.XXXA Exposure to other specified factors, initial encounter; E11.65 Type 2 diabetes mellitus with hyperglycemia; M25.471 Effusion, right ankle; Z79.4 Long term (current) use of insulin
CPT/HCPCS: 36415; 36416; 80053; 80307; 82962; 96361; 96372; 96374; 96375; 99284; 73610; 80320; 85025; 99285; J1200; J1630; J2060

== ENCOUNTER 2020-02-19 09:14 | Emergency (ER) | payer MEDICAID, SELFPAY ==
[2020-02-19] VITALS (23 sets, daily range): BP systolic 134–159; BP diastolic 68–88; PULSE 75–90; RESP 13–25; TEMP 36.9–37; O2SAT 95–97
--- NOTE | 2020-02-19 09:15 | RT.EKG_ITS ---
APPROVED REPORT Exam: Resting ECG Patient Location: E HR:80 bpm ECG Measurements Heart Rate 80 AXIS MS 152 P 84 QRSd 98 QRS 80 QT 438 T 87 QTc 505 Conclusion Sinus rhythm...normal P axis, V-rate 60- 99 Nonspecific T abnormalities, lateral leads...T <-0.10mV, I aVL V5 V6 Prolonged QT interval...QTc >500mS
--- NOTE | 2020-02-19 09:30 | DI.CT_ITS ---
EXAM: CT HEAD WO CLINICAL HISTORY: fall, trauma yesterday. TECHNIQUE: Imaging Protocol: Axial computed tomography images with coronal and sagittal reformatted images were created and reviewed COMPARISON: CT CT HEAD WO from 02/05/2020 FINDINGS: Ventricles and Extra axial spaces: Normal in size and morphology for the patient's age. Hemorrhage: None. Cerebral parenchyma: Normal. Midline shift: None. Brainstem/Cerebellum: Normal. Calvarium: No acute fracture. There are deformities involving the medial wall of the left orbit and the right nasal bone consistent with old fractures. These were present on the CT scan of the brain f rom 02/05/2020. Visualized Paranasal sinuses/Mastoids: There is again seen mild mucosal thickening in the right maxil sixto sinus. No air-fluid levels are present. There is opacification of a few ethmoid air cells. Th e remaining visualized paranasal sinuses are clear. Mastoid air cells are clear. Soft Tissues: Unremarkable. IMPRESSION: No acute intracranial process.No acute fracture. RADIATION DOSE DELIVERED: 777.09mGy.cm Total DLP DATA REPOSITORY: All CT scans at this facility are submitted to the National Radiology Data Registry (NRDR) Dose Index Registry (DIR) with the [employer] ([employer]). RADIATION OPTIMIZATION: All CT scans at this facility use at least one of these dose optimization te chniques: automated exposure control; mA and/or kV adjustment per patient size (includes targeted exa ms where dose is matched to clinical indication); or iterative reconstruction.
--- NOTE | 2020-02-19 09:50 | ED.GENADUL_ITS ---
Discharge Plan Disposition Patient Disposition: AGAINST MEDICAL ADVICE Discharge Details Clinical Impression: Hyperglycemia, Acidosis, Fall, Closed head injury, Alcohol abuse, QT prolongation, Hyponatremia, Hematuria Primary Care Provider: Leeanna Armas ED Provider: Kleber Fernandez Home Meds and New Rx's Prescriptions: No Action tenofovir disoproxil fumarate [Viread] 300 mg tablet 300 mg PO DAILY Qty: 90 RF: 3 (DME) FreeStyle Lite Strips 1 EACH strip 1 ea Miscellaneous BID Qty: 100 RF: 0 (DME) blood-glucose meter [FreeStyle Lite Meter] 1 EACH kit 1 ea Miscellaneous DAILY Qty: 1 RF: 0 (DME) lancets [FreeStyle Lancets] 1 EACH misc 1 ea Miscellaneous BID Qty: 100 RF: 0 (DME) pen needle, diabetic 1 EACH needle 1 ea Miscellaneous DAILY Qty: 100 RF: 11 gabapentin 600 mg Tablet 600 mg PO TID RF: 0 metformin 1,000 mg Tablet 1,000 mg PO BID RF: 0 multivitamin [Multiple Vitamins] Tablet 1 tab PO DAILY Qty: 30 RF: 0 nicotine 21 mg/24 hr Patch 24 Hour 21 mg transdermal DAILY PRN PRNQty: 30 RF: 0 insulin lispro [Humalog KwikPen Insulin] 100 unit/mL Insulin Pen See Rx Instructions .ROUTE .COMPLEX Qty: 15 RF: 0 (DME) blood-glucose meter [FreeStyle Flash System] Kit See Rx Instructions .ROUTE .MEDSUPPLY Qty: 1 RF: 0 thiamine mononitrate (vit B1) [Vitamin B-1 (mononitrate)] 100 mg tablet 100 mg PO DAILY RF: 0 citalopram 20 mg Tablet 20 mg PO DAILY Qty: 30 RF: 0 melatonin 3 mg Tablet Extended Release 9 mg PO HS Qty: 0 RF: 0 trazodone 150 mg Tablet 50 mg PO HS Qty: 0 RF: 0 Lantus Solostar U-100 Insulin 100 unit/mL (3 mL) insulin pen 20 unit subcut HS Qty: 15 RF: 0 buprenorphine-naloxone 12-3 mg film 1 film buccal DAILY Qty: 2 RF: 0 Discharge Instructions Instructions: Head Injury (ED), Abuse of Alcohol (ED), Hematuria (ED), Fall Prevention (ED) Additional Instructions: It is recommended that you remain in the emergency department for further diagnostic testing and treatment. You may have life-threatening or lifestyle modifying disease go undiagnosed and untreated. You are leaving AGAINST MEDICAL ADVICE. Please return to the emergency department at any time for further work- up and treatment as recommended. Please be sure to follow-up with your doctor. Call as soon as possible to arrange timely follow-up. Medication reconciliation could not be performed today - please be sure to review your results of lab testing today with your doctor and discuss your medications. Please stop abusing alcohol. Referrals: [facility] [Outside] Leeanna Armas [Primary Care Provider] - Medical Decision Making [id number]??49-year-old male with history of polysubstance abuse, alcohol abuse, here with chief complaint of head injury after fall from standing yesterday and also chest discomfort. Consider ACS. Screening ECG was reviewed and interpreted by me: Please see report, nondiagnostic other than QTC noted to be 505. Plan to check troponin. Consider acute intracranial traumatic hemorrhage. I will obtain CT of the head. Patient is clinically sober and has decisional making capacity. He is agreeable to work-up here today but is currently refusing involvement of [facility] services. 1125 --CT of the head interpreted by radiology: No acute findings, mild paranasal sinusitis. X-ray of the chest was reviewed and interpreted by radiology: No acute findings. Labs reviewed and significant abnormalities noted including hyperglycemia, anion gap acidosis. Consider DKA given insulin noncompliance versus alcoholic ketoacidosis. Plan to give IV fluid bolus and recheck chemistry before providing insulin. Patient received 1 L normal saline bolus and is now demanding to leave. I had a discussion with the patient about my diagnostic/treatment plan. He declines plan and wishes to leave against medical advise. I reiterated my concerns to the patient and explained the risks of leaving prior to completion of workup and treatment. I specifically emphasized that he has life-threatening or lifestyle modifying disease that would not be appropriately treated if they leave. I explained my treatment plan to the patient. He verbalized understanding of my concerns and the potential for life threatening or lifestyle modifying disease. He has capacity to make informed decision. I again explained my concerns and urged him to stay for treatment as outlined. Patient continued to refuse. I then discussed potential less ideal alternatives to diagnostic/treatment plan as outlines and patient refused. I recommended that the patient follow-up with primary care physician KELY or return to the Emergency Department at any time for further treatment. HPI General Mode of arrival: ambulatory . Date/Time Provider Initiated Documentation: 02/19/20 09:28 . Limitations to Documentation: no limitations . Information obtained by: patient . HPI Narrative: 49-year-old male with history of polysubstance abuse, alcohol abuse, insulin-dependent diabetes, chronic hepatitis C, here with chief complaint of head injury. Patient notes that yesterday he was drinking a heavy amount of alcohol and fell and hit his frontal head on a desk. Later he was at [facility] and intoxicated and was taken into police custody and transferred to [facility]. Patient notes that he was discharged from this facility this morning and has consumed a few alcoholic beverages and now presents for his headache. Headache is frontal and moderate and constant with no modifiers. No associated neck pain. He also does note these had some chest discomfort that has been persistent all morning. Chest discomfort feels like a heaviness. No posterior calf pain or new edema. No shortness of breath. Related Data Home Medications Medication Instructions Recorded Confirmed FreeStyle Lite Strips #100 strip 03/25/16 04/11/19 blood-glucose meter [FreeStyle #1 kit 03/25/16 03/23/19 Lite Meter] lancets [FreeStyle Lancets] #100 ea 03/25/16 08/26/19 pen needle, diabetic #100 units 07/23/17 08/26/19 tenofovir disoproxil fumarate 300 300 mg PO DAILY #90 tab 07/26/18 02/19/20 mg tablet gabapentin 600 mg PO TID 01/10/19 02/19/20 metformin 1,000 mg PO BID 01/10/19 02/19/20 blood-glucose meter [FreeStyle #1 each 01/11/19 03/23/19 Flash System] insulin lispro [Humalog KwikPen See Rx Instructions .ROUTE 01/11/19 02/19/20 Insulin] .COMPLEX #15 ml multivitamin [Multiple Vitamins] 1 tab PO DAILY #30 tab 01/11/19 02/19/20 nicotine 21 mg TRANSDERMAL DAILY PRN PRN 01/11/19 02/19/20 #30 ea thiamine mononitrate (vit B1) 100 mg PO DAILY 08/27/19 02/19/20 [Vitamin B-1 (mononitrate)] Lantus Solostar U-100 Insulin 20 unit SUBCUT HS #15 ml 08/31/19 02/19/20 citalopram 20 mg PO DAILY #30 tab 08/31/19 02/19/20 melatonin 9 mg PO HS #0 tab 08/31/19 02/19/20 trazodone 50 mg PO HS #0 tab 08/31/19 02/19/20 buprenorphine-naloxone 1 film BUCCAL DAILY #2 ea 02/06/20 02/19/20 Previous Rx's Medication Instructions Recorded pen needle, diabetic #100 units 07/23/17 tenofovir disoproxil fumarate 300 300 mg PO DAILY #90 tab 07/26/18 mg tablet blood-glucose meter [FreeStyle #1 each 01/11/19 Flash System] insulin lispro [Humalog KwikPen See Rx Instructions .ROUTE 01/11/19 Insulin] .COMPLEX #15 ml multivitamin [Multiple Vitamins] 1 tab PO DAILY #30 tab 01/11/19 nicotine 21 mg TRANSDERMAL DAILY PRN PRN 01/11/19 #30 ea Lantus Solostar U-100 Insulin 20 unit SUBCUT HS #15 ml 08/31/19 citalopram 20 mg PO DAILY #30 tab 08/31/19 melatonin 9 mg PO HS #0 tab 08/31/19 trazodone 50 mg PO HS #0 tab 08/31/19 buprenorphine-naloxone 1 film BUCCAL DAILY #2 ea 02/06/20 Allergies Allergy/AdvReac Type Severity Reaction Status Date / Time No Known Allergies Allergy Verified 02/19/20 10:50 General Stated Complaint: Chest Pain JAMES: 2 Review of Systems All systems reviewed & are unremarkable except as noted in HPI and below Constitutional Constitutional: Denies fever(s), Reports headache(s) and Denies weakness ENT Ears, Nose, Mouth, and Throat: Reports headache(s) Cardiovascular Cardiovascular: Reports as per HPI Respiratory Respiratory: Denies cough Musculoskeletal Musculoskeletal: Denies numbness Neurologic Neurologic: Reports headache(s), Denies numbness and Denies weakness [facility] Medical History Adjustment disorder, unspecified (12/10/15) Alcohol use Chronic hepatitis C (08/11/05) RX [facility] D[facility]IO JACOB; began Harvoni 08/07/14 Cirrhosis of liver (05/06/11) Continuous opioid dependence (03/05/05) [facility] [place], <2004; counselling Meagan Garcia; prefers tablets Folliculitis (05/17/12) Dr Donnie ng, consult Dr. 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 (08/11/05) [facility] Onychomycosis of toenail (08/16/13) Opioid dependence on agonist therapy [facility] [place], <2004; prefers tablets ([place]) due to dental plate; counselor Zhang Atkins Smoker (05/06/11) Type II diabetes mellitus, uncontrolled A1c 9.4 01/2014; uncontrolled; goal A1c < 7.5 Surgical History Endoscopy (12/09/12) repeat in 3 years Family History Brother No problems noted. Brother No problems noted. Sister No problems noted. 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 What is your relationship status?: living with partner Panel score (0-1 are the most socially isolated patients): 1 What type of physical activity do you participate in: none Drive intox or ride w/intox regional 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: No Working smoke detector in home: Yes Carbon monox detector in home: Yes Do you feel safe at home: Yes Do you feel safe in your relationship?: Yes Additional Social history: HOMELESS Exam Const General: cooperative and no acute distress HENMT Mouth: moist mucous membranes Eyes Alignment and Position: alignment normal Conjunctivae: normal conjunctivae Sclera: normal sclerae Pupils: PERRL EOM: EOM intact bilaterally Other: Left periorbital ecchymosis Neck Neck: trachea midline and supple Resp Auscultation: clear to auscultation bilaterally, no rales, no rhonchi and no wheezes Cardio Rate: regular rate and not tachycardic Rhythm: regular rhythm GI Palpation: soft, not firm, no guarding, no masses, not rigid and nontender Back/Spine/Pelvis Cervical Spine: cervical ROM normal, No cervical spinal tenderness and No step off deformity Skin General skin exam: no rashes or lesions noted Neuro General: patient alert, patient awake, patient oriented x3 and tone normal Extrem General: no calf tenderness and edema Laterality: bilateral (Trace) Psych Appearance: grossly normal Mental Status: mental status grossly normal Speech and Movement: speech and movement normal Course Vital Signs Vital signs: Vital Signs Temperature 36.9 C 02/19/20 09:22 Pulse 80 02/19/20 09:22 Respiratory Rate 22 02/19/20 09:22 Blood Pressure 141/88 H 02/19/20 09:22 Pulse Oximetry 96 02/19/20 09:22 Temperature 36.9 C 02/19/20 09:22 Temperature Source Skin 02/19/20 09:22 Pulse 80 02/19/20 09:22 Respiratory Rate 22 02/19/20 09:22 Respiratory Effort Non-Labored 02/19/20 09:22 Blood Pressure 141/88 H 02/19/20 09:22 Blood Pressure Position Supine 02/19/20 09:22 Pulse Oximetry 96 02/19/20 09:22 Oxygen Delivery Method Room Air 02/19/20 09:22 Oxygen Flow Rate 0 02/19/20 09:22 Pain Level 9 02/19/20 09:22
--- NOTE | 2020-02-19 09:58 | DI.RAD_ITS ---
EXAM: XR CHEST 1V IN DI DEPT CLINICAL HISTORY: chest discomfort TECHNIQUE: 2D digital imaging was performed. COMPARISON: CR XR CHEST 2V PA LATERAL from 03/23/2019 FINDINGS: MEDIASTINUM: Normal. HEART: Normal. PULMONARY VASCULATURE: Normal. LUNGS: Clear. PLEURAL SPACE: No pleural effusion or pneumothorax. BONE:Within normal limits for the patient's age. OTHER FINDINGS:Normal. IMPRESSION: No acute pulmonary findings. DATA REPOSITORY: RADIATION DOSE DELIVERED:
[2020-02-19 10:12] LABS: Abs Immature Grans 0.01 10^3/uL (0.0-0.06); Absolute Basophil Count 0.05 10^3/uL (0.0-0.2); Absolute Eosinophil Count 0.01 10^3/uL (0.0-0.7); Absolute Lymphocyte Count 0.62 10^3/uL (1.2-3.4); Absolute Monocyte Count 0.32 10^3/uL (0.1-0.8); Absolute Neutrophil Count 3.39 10^3/uL (1.2-6.7); Basophils % 1.1; Eosinophils % 0.2; HCT 31.4 % (40.0-50.0); HGB 11.4 g/dL (13.5-17.5); Immature Grans % 0.2; Lymphocytes % 14.1; MCHC 36.3 % (32.0-36.0); MCV 93.7 fL (80-95); MPV 8.8 fL (8.0-11.0); Monocytes % 7.3; Neutrophils % 77.1; Nucleated RBC 0 %; Platelet Count 169 10^3/uL (130-400); RBC 3.35 10^6/uL (4.36-5.78); RDW 12.7 % (11.8-14.1); RDW-SD 43.9 fL
[2020-02-19] MEDS: THIAMINE 100 MG in Normal Saline 100 ML 200 MG IVPB (10:15)
[2020-02-19] MEDS: FAMOTIDINE 20 MG/50 ML BAG 200 MG IVPB (10:20)
[2020-02-19 10:34] LABS: ALT 68 U/L (16-63); AST 55 U/L (15-37); Albumin 3.7 g/dL (3.4-5.0); Alkaline Phosphatase 148 U/L (46-116); Anion Gap 15.1 mmol/L (3-11); BUN 8 mg/dL (7-18); Bilirubin, Total 0.6 mg/dL (0.2-1.0); CO2 21.9 mmol/L (21.0-32.0); CREATININE 0.92 mg/dL (0.70-1.30); Calcium 8.5 mg/dL (8.5-10.1); Chloride 89 mmol/L (98-107); Potassium 3.8 mmol/L (3.5-5.1); Sodium 126 mmol/L (136-145); Total Protein 7.2 g/dL (6.4-8.2)
[2020-02-19 10:36] LABS: Glucose 523 mg/dL (74-106); Troponin I < 0.05 ng/mL (<0.06)
[2020-02-19 10:37] LABS: ETHANOL BLOOD 160.6 mg/dL (<3); Lipase 71 U/L (73-393)
[2020-02-19] MEDS: Normal Saline Flush 10 ML SYR IVP (10:44)
[2020-02-19 10:46] LABS: Bilirubin Negative (Negative); Blood Small (Negative); Clarity Clear (Clear); Glucose 500 mg/dL (Negative); Ketones 40 mg/dL (Negative); Leukocyte Esterase Negative (Negative); Nitrite Negative (Negative); Specific Gravity 1.015 (1.005-1.025); Urobilinogen 0.2 EU/dL (Up TO 0.2)
[2020-02-19 10:59] LABS: *AMPHETAMINES SCREEN URINE Negative (Negative); *BARBITURATES SCREEN URINE POSITIVE (Negative); *BENZODIAZEPINES SCREEN URINE POSITIVE (Negative); Bacteria Negative HPF (Negative); C & S Indicated? No; Cannabinoids THC Negative (Negative); Casts Negative LPF (Negative); Cocaine Screen,Urine Negative (Negative); Crystals Negative HPF (Negative); Epithelial Cells Negative HPF (Negative); METHADONE URINE SCREEN Negative (Negative); Mucus Negative (Negative); OPIATES URINE SCREEN Negative (Negative); WBC Negative HPF (0-5)
[2020-02-19 11:00] LABS: Tricyclic Antidepressants Negative (Negative)
[2020-02-19] MEDS: Normal Saline 1,000 ML 1000 ML IV (11:00)
--- NOTE | 2020-02-19 11:02 | DI.VRAD_ITS ---
PROCEDURE INFORMATION: Exam: CT Head Without Contrast Exam date and time: 02/19/2020 9:31 AM Age: 49 years old Clinical indication: Other: Fall, trauma yesterday TECHNIQUE: Imaging protocol: Computed tomography of the head without contrast. COMPARISON: CT HEAD WO 02/05/2020 3:11 AM FINDINGS: Brain: Normal. No hemorrhage. Unremarkable white matter. No mass effect. Cerebral ventricles: No ventriculomegaly. Bones/joints: Old fracture of the nasal bones. Paranasal sinuses: Mild membrane thickening in the ethmoid sinuses and visualized right maxillary sinus. Mastoid air cells: Visualized mastoid air cells are well aerated. Soft tissues: Unremarkable. IMPRESSION: 1. No acute findings. 2. Mild paranasal sinusitis Dictated and Authenticated by: Irish Gutierrez MD. Ordering:CHARU Shahid MD
--- NOTE | 2020-02-19 11:03 | DI.VRAD_ITS ---
PROCEDURE INFORMATION: Exam: XR Chest, 1 View Exam date and time: 02/19/2020 10:54 AM Age: 49 years old Clinical indication: Shortness of breath; Additional info: Fall, trauma yesterday TECHNIQUE: Imaging protocol: XR of the chest Views: 1 view. COMPARISON: CR XR CHEST 2V PA LATERAL 03/23/2019 12:10 PM FINDINGS: Lungs: Unremarkable. No consolidation. Pleural space: Unremarkable. No pleural effusion. No pneumothorax. Heart/Mediastinum: Unremarkable. No cardiomegaly. Bones/joints: Unremarkable. IMPRESSION: No acute findings. Dictated and Authenticated by: Irish Gutierrez MD. Ordering:CHARU Shahid MD
--- NOTE | 2020-02-19 11:56 | NUR.NOTE ---
Nursing Note: Pt inquired about his DI results- given verbally, offered to give paper copy. Declined by pt. Offered to assist with getting a ride home. Pt states he has one and chooses to walk to meet her.
== END 2020-02-19 11:26 | disposition left against medical advice (07) ==
PROVIDERS: Emergency Provider Student in an Organized Health Care Education/Training Program; PCP Family Medicine
DX: E11.65 Type 2 diabetes mellitus with hyperglycemia (principal); Z79.4 Long term (current) use of insulin; E87.2 Acidosis; R94.31 Abnormal electrocardiogram [ECG] [EKG]; S09.90XA Unspecified injury of head, initial encounter; W19.XXXA Unspecified fall, initial encounter; E87.1 Hypo-osmolality and hyponatremia; R31.9 Hematuria, unspecified; F10.120 Alcohol abuse with intoxication, uncomplicated; Y90.6 Blood alcohol level of 120-199 mg/100 ml; Z53.29 Procedure and treatment not carried out because of patient's decision for other reasons
CPT/HCPCS: 36415; 80053; 80307; 83690; 93005; 96365; 96375; 99285; 70450; 71045; 80320; 81003; 81015; 84484; 85025; 93010

== ENCOUNTER 2020-11-23 11:04 | Outpatient (CLI) | payer OTHER, SELFPAY ==
--- NOTE | 2020-11-23 10:45 | DI.RAD_ITS ---
Exam(s) XR SHOULDER LT COMPLETE 2+V EXAM: XR SHOULDER LT COMPLETE 2+V CLINICAL HISTORY: eval L shoulder fracture and h/o dislocation. TECHNIQUE: 2D digital imaging was performed of the left shoulder. Three images were obtained. AP, Y and axillary views were obtained. COMPARISON: CR SHOULDER - LEFT PORTABLE from 04/24/2020 CR SHOULDER - LEFT PORTABLE from 04/24/2020 FINDINGS: BONES: There is an old depressed fracture of the posterolateral aspect of the left humeral head. No bony destructive lesion is seen. JOINTS: No dislocation present. SOFT TISSUE: Normal. IMPRESSION: Old fracture deformity of the posterolateral aspect of the left humeral head. DATA REPOSITORY: RADIATION DOSE DELIVERED:
== END 2020-11-23 11:05 | disposition home or self-care (01) ==
LOC: DIORS 11:04
PROVIDERS: PCP Family Medicine; Referring Provider Family Medicine; Visit Provider Student in an Organized Health Care Education/Training Program
DX: S42.92XG Fracture of left shoulder girdle, part unspecified, subsequent encounter for fracture with delayed healing (principal); X58.XXXD Exposure to other specified factors, subsequent encounter
CPT/HCPCS: 73030

== ENCOUNTER 2021-01-23 00:23 | Outpatient (CLI) | payer OTHER, SELFPAY ==
--- NOTE | 2021-01-23 07:00 | DI.MRI_ITS ---
Exam(s) MR UPPER JOINT LT WO EXAM: MR UPPER JOINT LT WO CLINICAL HISTORY: pain,fx greater tuberosity humerus,s42.253g,s42.92xa. TECHNIQUE: Multiplanar multisequence MRI was performed. COMPARISON: CT CT UPPER EXTREMITY LT WO from 01/23/2021 FINDINGS: MR examination of the shoulder was performed according to the usual protocol. There is a small shoulder joint effusion and minimal fluid in the subacromial subdeltoid bursa. Ther e are mild degenerative changes of the acromioclavicular joint and mild narrowing of the acromial out let. There is a known fracture of the greater tuberosity of the humerus. This shows mild displacement. T here is mild comminution. The main fracture fragment measures roughly 16 x 30 by 32 millimeters. Th is greater tuberosity fracture fragment includes the attachments of the supraspinatus, infraspinatus, and teres minor tendons. There is Mildly abnormal signal in distal portions of supraspinatus and inf raspinatus tendons which may reflect acute trauma and/or tendinosis. There is no gross tear identifie d. A more anteriorly located fracture fragment measures roughly 16 x 15 by 12 millimeters, this lies adj acent to and just posteriorly to the bicipital groove and the anterior most fibers of the supraspinat us appear to attach to this fragment. Some fibers of the subscapularis may also attached to this fra gment. Glenoid labrum appears grossly intact as visualized. The biceps anchor and proximal biceps tendon sh ow mildly abnormal signal but no gross tear or detachment. Biceps tendon is normally located in the bicipital groove. IMPRESSION: Greater tuberosity fracture of the humerus as described above, the main fracture fragment remains att ached to supraspinatus, infraspinatus, and teres minor tendons. A smaller more anteriorly located fr acture fragment also contains portions of the supraspinatus attachment. No gross rotator cuff tear i dentified. No gross labral tear identified. DATA REPOSITORY:
--- NOTE | 2021-01-23 07:00 | DI.CT_ITS ---
Exam(s) CT UPPER EXTREMITY LT WO EXAM: CT UPPER EXTREMITY LT WO CLINICAL HISTORY: pain, surgical planning,fx greater tuberosity humerus shoulder joint TECHNIQUE: COMPARISON: No exams were available for comparison FINDINGS: CT examination the shoulder was performed. Visualized portions of the left lung are clear. No axill williams adenopathy. No rib or scapular injury. No clavicular injury. There is mildly displaced mildly comminuted fracture of the greater tuberosity of the humerus. This involves the lateral margin of the articular surface. No other fracture seen. There is little if an y joint effusion by CT criteria. IMPRESSION: RADIATION DOSE DELIVERED: 712.01mGy.cm Total DLP CTDIvol RADIATION OPTIMIZATION: All CT scans at this facility use at least one of these dose optimization te chniques: automated exposure control; mA and/or kV adjustment per patient size (includes targeted exa ms where dose is matched to clinical indication); or iterative reconstruction.
== END 2021-01-23 00:43 ==
PROVIDERS: PCP Family Medicine; Visit Provider Student in an Organized Health Care Education/Training Program
DX: S42.252A Displaced fracture of greater tuberosity of left humerus, initial encounter for closed fracture (principal); X58.XXXA Exposure to other specified factors, initial encounter
CPT/HCPCS: 73200; 73221

== ENCOUNTER 2021-04-26 01:16 | Outpatient (CLI) | payer OTHER, SELFPAY ==
[2021-04-26 12:55] LABS: Source Nasal/Nares
[2021-04-26 18:24] LABS: COVID-19 PCR Positive (Negative)
== END 2021-04-26 01:17 | disposition home or self-care (01) ==
PROVIDERS: PCP Family Medicine; Visit Provider Student in an Organized Health Care Education/Training Program
DX: Z20.822 Contact with and (suspected) exposure to COVID-19 (principal)
CPT/HCPCS: 87635

== ENCOUNTER 2022-02-06 14:21 | Emergency (ER) | payer MEDICAID, SELFPAY ==
[2022-02-06 14:25] VITALS: BP 136/77; PULSE 76; RESP 16; TEMP 36.7; O2SAT 93
--- NOTE | 2022-02-06 14:41 | ED.GENADUL_ITS ---
Discharge Plan Disposition Patient Disposition: Home Condition: Stable Discharge Details Clinical Impression: Alcohol intoxication, Hyperglycemia Primary Care Provider: Leeanna Armas ED Provider: Kami Mar Home Meds and New Rx's Prescriptions: Continued tenofovir disoproxil fumarate [Viread] 300 mg tablet 300 mg PO DAILY Qty: 90 3RF Rx Instructions: Pt takes daily at bedtime. buprenorphine-naloxone 8-2 mg tablet, sublingual 1 tab sublingual DAILY (DME) FreeStyle Lite Strips 1 EACH strip 1 ea Miscellaneous BID Qty: 100 Rx Instructions: to check bs 1-2 Xqd or as directed for DM E11.65 to get A1c under 7. (DME) blood-glucose meter [FreeStyle Lite Meter] 1 EACH kit 1 ea Miscellaneous DAILY Qty: 1 Rx Instructions: to check BS for E11.65 to get A1c under 7 (DME) lancets [FreeStyle Lancets] 1 EACH misc 1 ea Miscellaneous BID Qty: 100 Rx Instructions: to check BS 1-2 Xqd or as directed for DM E11.65 to get A1c under 7. (DME) pen needle, diabetic 1 EACH needle 1 ea Miscellaneous DAILY Qty: 100 11RF Rx Instructions: for Lantus solostar pen, E11.65 aripiprazole 5 mg tablet 5 mg PO DAILY cetirizine 10 mg tablet 10 mg PO DAILY PRN metformin 1,000 mg Tablet 1,000 mg PO BID multivitamin [Multiple Vitamins] Tablet 1 tab PO DAILY Qty: 30 0RF insulin lispro [Humalog KwikPen Insulin] 100 unit/mL Insulin Pen See Rx Instructions .ROUTE .COMPLEX Qty: 15 0RF Rx Instructions: Based on sliding scale before meals: 151-200 take 2 units 201-250 take 4 units 251-300 take 6 units 301-350 take 8 units 351-400 take 10 units. (DME) blood-glucose meter [FreeStyle Flash System] Kit See Rx Instructions .ROUTE .MEDSUPPLY Qty: 1 0RF Rx Instructions: As directed thiamine mononitrate (vit B1) [Vitamin B-1 (mononitrate)] 100 mg tablet 100 mg PO DAILY Label Comments: TAKE ONE TABLET BY MOUTH EVERY DAY trazodone 150 mg Tablet 50 mg PO HS Qty: 0 0RF Lantus Solostar U-100 Insulin 100 unit/mL (3 mL) insulin pen 20 unit subcut HS Qty: 15 0RF citalopram 40 mg Tablet 40 mg PO DAILY levothyroxine 25 mcg Tablet 25 mcg PO DAILY ibuprofen 600 mg Tablet 600 mg PO TID gabapentin 100 mg Tablet 100 mg PO HS Discharge Instructions Instructions: Alcohol Intoxication (ED), Diabetic Hyperglycemia (ED) Additional Instructions: Your blood sugar is in the 500s today. Please take your insulin medications as directed. Increase oral fluids (that are not alcohol) over the next couple of days. Follow up with primary care provider in 3-5 days. Return to ED sooner if any worsening or concerns. Increase oral fluids. Referrals: Leeanna Armas [Primary Care Provider] - 5 days Discharge Data Discharge Date/Time-TO BE ENTERED AT DEPARTURE: 02/07/22 00:08 Medical Decision Making <Socrates Alcantara NP - Last Filed: 02/07/22 09:40> Patient presenting to the emergency department for chief complaint of altered mental status. Patient is known to be noncompliant with diabetic medications and today was found by police unconscious with emesis and alcohol and hand. Patient would not allow police to check his blood sugar so EMS was called. When they were able to check his blood sugar the machine read high. At my time of assessment patient was not willing to speak with me, would arouse when spoken to but is extremely somnolent. Patient is not tachycardic, has clear lung sounds, no obvious head trauma noted. Patient does smell of ketones during assessment. We will plan on checking patient's labs and starting 2 L fluid bolus for high suspicion of DKA. Of the IV was established patient then started become agitated and irritated requesting to leave. I do not feel that patient has medical decision capacity due to high suspicion of intoxication along with DKA causing altered mental status. Patient was given opportunity to be redirected and work with us. Initially patient did lay back down in bed but then became belligerent again showing signs of aggression and forceful attempts to leave the emergency department. Again because of patient's lack of medical decision capacity patient was given Haldol for agitation but then due to continued aggression and combativeness patient was put in four-point restraints. <Kami Mar NP - Last Filed: 02/06/22 23:14> Medical Records Medical records reviewed: Yes I reviewed the patient's medical records. Medical records narrative: 1601: Care assumed from provider (Medhat Alcantara, LOVE) Please see their initial HPI, PE, and documentation. Discussed patient details and case and pending workup and disposition. Patient is currently intoxicated, with a high reading for blood glucose, combative and trying to leave. Patient was given 10 mg of Haldol IM and was placed in four-point restraints. He is intermittently awake, O2 sat is 93% on room air. IV normal saline is currently infusing at this time. Breathing is eupneic. At this time we are awaiting lab results and further stabilization, metabolization of alcohol and work-up. Blood glucose is 591, troponin negative, EtOH level is 297 anion gap is within normal limits, no leukocytosis hemoglobin 13.3 hematocrit 36.9, remainder of the labs are largely within normal limits. Patient was incontinent of urine, he is yelling. 50mg of Benadryl IV ordered. 1724: Patient seen ER staff department, he self restraints. Patient up to bathroom. He is much more cooperative at this time. Is requesting p.o. fluids. We will give an additional liter of saline and push oral fluids. 1853: Repeat BGL 324 per administrative staff supervisor, patient has received 2 L normal saline and is taking p.o. fluids without difficulty. We will seek a ride for patient to go home. At this time I do feel like patient is appropriate for discharge home. He is ambulatory in the department without assistance. 9: Patient is hemodynamically stable, ambulatory without assistance in the department and is taking p.o. fluids without difficulty. Patient will be discharged. Patient attempting to call 211 to obtain housing, he is ambulatory without assistance and was found in the breakroom. Re-directed, patient following commands. After multiple attempts to get patient arrived to be discharged home patient reports he has Suicidaln Ideations. Does not verbalize a plan. He is asking for Gatorade. Walking to the break room. 2027: Informed by administrative staff supervisor that patient upon attempting to discharge patient in the department he states that he is suicidal. Patient placed in paper scrubs belongings removed. Mental health contacted by unit staff asset protection detective. 2123: Spoke with Linnea with [employer] who reports that she spoke with the patient's state wildlife officer who states that he filed for a arrest warrant he is waiting for the chain saw mechanic to sign it. She will reach out to her supervisor uranium processing and the chain saw mechanic to hopefully get the arrest form signed. And get back to us. Patient has refused to be cooperative for the psychiatric assessment he is yelling and yelling obscenities at staff. 4625: Patient has been sleeping, breathing eupneic. Awaiting law enforcement for arrest warrant per [employer]. Lab Data Lab results reviewed: Yes I reviewed the patient's lab results. Labs: Laboratory Tests Range/Units 02/06/22 02/06/22 02/06/22 15:26 15:26 15:26 WBC (4.4-10.8) 10^3/uL 7.11 RBC (4.36-5.78) 10^6/uL 4.22 L Hgb (13.5-17.5) g/dL 13.3 L Hct (40.0-50.0) % 36.9 L MCV (80-95) fL 87 MCH (27.0-33.0) pg 31.5 MCHC (32.0-36.0) % 36.0 RDW (11.8-14.1) % 12.1 Plt Count (130-400) 10^3/uL 161 MPV (8.0-11.0) fL 8.7 Immature Gran % 0.3 Neutrophils % 71.1 Lymphocytes % 22.6 Monocytes % 5.3 Eosinophils % 0.1 Basophils % 0.6 Nucleated RBC % (0.0-0.3) % 0.0 Absolute Neutrophils (1.2-6.7) 10^3/uL 5.05 Absolute Lymphocytes (1.2-3.4) 10^3/uL 1.61 Absolute Monocytes (0.1-0.8) 10^3/uL 0.38 Absolute Eosinophils (0.0-0.7) 10^3/uL 0.01 Absolute Basophils (0.0-0.2) 10^3/uL 0.04 Sodium (136-145) mmol/L 136 Potassium (3.5-5.1) mmol/L 3.9 Chloride (98-107) mmol/L 95 L Carbon Dioxide (21.0-32.0) mmol/L 30.1 Anion Gap (3-11) mmol/L 10.9 BUN (7-18) mg/dL 11 Creatinine (0.70-1.30) mg/dL 1.2 Est GFR (CKD-EPI 2020) (mL/min/1.73m2) 72.76 Glucose (74-106) mg/dL 591 H* Calcium (8.5-10.1) mg/dL 9.3 Magnesium (1.8-2.4) mg/dL 2.2 Total Bilirubin (0.2-1.0) mg/dL 0.5 AST (15-37) U/L 59 H ALT (16-63) U/L 51 Alkaline Phosphatase (46-116) U/L 70 Ammonia (11-32) umol/L 14 Troponin I (<or=60) ng/L < 50 Total Protein (6.4-8.2) g/dL 8.1 Albumin (3.4-5.0) g/dL 4.7 Ethyl Alcohol (<10) mg/dL 297.7 H Sign Out Yes HPI <Socrates Alcantara NP - Last Filed: 02/07/22 09:40> General Mode of arrival: EMS . Date/Time Provider Initiated Documentation: 02/06/22 14:29 . Limitations to Documentation: altered mental status . Information obtained by: RN/MD, EMS and RN notes reviewed . History of Present Illness 51 year old M presents to the emergency department with the chief complaint of Altered mental status, nausea vomiting, described as similar to prior episodes, Patient started experiencing this unknown Patient did receive the following treatments prior to arrival, none Related Data Home Medications Medication Instructions Recorded Confirmed blood sugar diagnostic (FreeStyle #100 strips 03/25/16 04/26/21 Lite Strips) blood-glucose meter (FreeStyle ##1 03/25/16 04/26/21 Lite Meter kit) lancets 28 gauge (FreeStyle #100 ea 03/25/16 04/26/21 Lancets) pen needle, diabetic 29 gauge x #100 multiple units 07/23/17 04/26/21 1 tenofovir disoproxil fumarate 300 300 mg PO DAILY #90 tabs 07/26/18 04/26/21 mg tablet (Viread) metformin 1,000 mg tablet 1,000 mg PO BID 01/10/19 04/26/21 blood-glucose meter (FreeStyle #1 ea 01/11/19 04/26/21 Flash System kit) insulin lispro 100 unit/mL See Rx Instructions .Route 01/11/19 04/26/21 subcutaneous pen (Humalog KwikPen .COMPLEX #15 mL (U-100) Insulin) multivitamin (Multiple Vitamins 1 tab PO DAILY #30 tabs 01/11/19 04/26/21 tablet) thiamine mononitrate (vit B1) 100 100 mg PO DAILY 08/27/19 04/26/21 mg tablet (Vitamin B-1 (mononitrate)) insulin glargine 100 unit/mL (3 20 unit (0.2 mL) subcut HS #15 mL 08/31/19 04/26/21 mL) subcutaneous pen (Lantus Solostar U-100 Insulin) trazodone 150 mg tablet 50 mg PO HS #0 tabs 08/31/19 04/26/21 aripiprazole 5 mg tablet 5 mg PO DAILY 02/12/21 04/26/21 cetirizine 10 mg tablet 10 mg PO DAILY PRN 02/12/21 04/26/21 citalopram 40 mg tablet 40 mg PO DAILY 04/26/21 04/26/21 gabapentin 100 mg tablet 100 mg PO HS 04/26/21 04/26/21 ibuprofen 600 mg tablet 600 mg PO TID 04/26/21 04/26/21 levothyroxine 25 mcg tablet 25 mcg PO DAILY 04/26/21 04/26/21 buprenorphine 8 mg-naloxone 2 mg 1 tab sublingual DAILY 06/18/21 sublingual tablet Previous Rx's Medication Instructions Recorded pen needle, diabetic 29 gauge x #100 multiple units 07/23/1703/10 tenofovir disoproxil fumarate 300 300 mg PO DAILY #90 tabs 07/26/18 mg tablet (Viread) blood-glucose meter (FreeStyle #1 ea 01/11/19 Flash System kit) insulin lispro 100 unit/mL See Rx Instructions .Route 01/11/19 subcutaneous pen (Humalog KwikPen .COMPLEX #15 mL (U-100) Insulin) multivitamin (Multiple Vitamins 1 tab PO DAILY #30 tabs 01/11/19 tablet) insulin glargine 100 unit/mL (3 20 unit (0.2 mL) subcut HS #15 mL 08/31/19 mL) subcutaneous pen (Lantus Solostar U-100 Insulin) trazodone 150 mg tablet 50 mg PO HS #0 tabs 08/31/19 Allergies Allergy/AdvReac Type Severity Reaction Status Date / Time No Known Allergies Allergy Verified 06/18/21 09:00 General Stated Complaint: AMS/LOC JAMES: 3 Review of Systems <Socrates Alcantara NP - Last Filed: 02/07/22 09:40> Unobtainable due to mental status PFSH <Socrates Alcantara NP - Last Filed: 02/07/22 09:40> All Active Problems (Updated 02/07/22 @ 02:52 by Trey Benton MD) Alcohol intoxication (Acute) Hyperglycemia (Acute) Chest pain (Acute) Fracture dislocation of left shoulder joint (Acute 04/24/20) Fracture of greater tuberosity of humerus with delayed healing (Acute) Shoulder fracture, left (Acute) Alcohol withdrawal (Acute) Uncontrolled diabetes mellitus (Acute) Bradycardia (Acute) Discharge planning issues (Acute) Ambulatory dysfunction (Acute) Polysubstance abuse (Chronic) Depression (Chronic) Hepatitis B infection (Acute) Diabetic neuropathy (Acute) Tinea pedis (Acute) DVT prophylaxis (Acute) Alcohol use (Chronic) Cellulitis (Acute) Continuous opioid dependence (Chronic 03/05/05) Moderate opioid dependence (Acute 12/10/15) Urinary frequency (Chronic 08/16/13) Type II diabetes mellitus, uncontrolled (Chronic) A1c 9.4 01/2014; uncontrolled; goal A1c < 7.5 Smoker (Chronic 05/06/11) Opioid use disorder, moderate, dependence (Chronic 12/10/15) Opioid dependence on agonist therapy (Chronic) [facility] RX [place], <2004; prefers tablets ([place]) due to dental plate; counselor Zhang Atkins Continuous opioid dependence (Chronic 03/05/05) [facility] RX [place], <2004; counselling Meagan Garcia; prefers tablets Cirrhosis of liver (Chronic 05/06/11) Chronic hepatitis C (Chronic 08/11/05) RX [facility] D[facility]IO JACOB; began Aniceto 08/07/14 Hep B w/ coma, chronic, 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 Brother No problems noted. Sister No problems noted. 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 Current gender identity: male What is your relationship status?: living with partner Panel score (0-1 are the most socially isolated patients): 1 What type of physical activity do you participate in: none Drive intox or ride w/intox water taxi driver: No Working smoke detector in home: Yes Carbon monox detector in home: Yes Do you feel safe at home: Yes Do you feel safe in your relationship?: Yes Additional Social history: Inmate at [facility] corrections Exam <Socrates Alcantara NP - Last Filed: 02/07/22 09:40> Const General: disheveled Nutritional Appearance: average body habitus Orientation: confused and obtunded Limitations: altered mental status [facility] Head: normal to inspection, normocephalic and atraumatic Eyes General: appearance normal, both eyes and all related structures Periorbital: periorbital findings normal Eyelids: eyelids normal Conjunctivae: conjunctivae normal Pupils: PERRL Resp Effort & Inspection: normal respiratory effort Auscultation: clear to auscultation bilaterally Cardio Rate: regular rate Rhythm: regular rhythm Heart Sounds: S1 normal and S2 normal Pulses: radial pulses present and normal peripheral pulses Skin General skin exam: no rashes or lesions noted and dry skin Neuro General: patient confused and other (Significantly somnolent but arousable) Course <Socrates Alcantara NP - Last Filed: 02/07/22 09:40> Vital Signs Vital signs: Vital Signs Temperature 36.7 C 02/06/22 14:25 Pulse 76 02/06/22 14:25 Respiratory Rate 16 02/06/22 14:25 Blood Pressure 136/77 02/06/22 14:25 Pulse Oximetry 93 02/06/22 14:25 Temperature 36.7 C 02/06/22 14:25 Temperature Source Tympanic 02/06/22 14:25 Pulse 76 02/06/22 14:25 Respiratory Rate 16 02/06/22 14:25 Blood Pressure 136/77 02/06/22 14:25 Blood Pressure Position Sitting 02/06/22 14:25 Pulse Oximetry 93 02/06/22 14:25 Oxygen Delivery Method Room Air 02/06/22 14:25 Oxygen Flow Rate 0 02/06/22 14:25 Sign Out <Socrates Alcantara NP - Last Filed: 02/07/22 09:40> Sign Out Data: Sign Out Comment: Patient pending review of labs and further treatment for suspected alcohol intoxication along with DKA causing altered mental status. Last updated by Socrates Alcantara NP at 02/06/22 15:59
[2022-02-06 15:34] LABS: Abs Immature Grans 0.02 10^3/uL (0.0-0.06); Absolute Basophil Count 0.04 10^3/uL (0.0-0.2); Absolute Eosinophil Count 0.01 10^3/uL (0.0-0.7); Absolute Lymphocyte Count 1.61 10^3/uL (1.2-3.4); Absolute Monocyte Count 0.38 10^3/uL (0.1-0.8); Absolute Neutrophil Count 5.05 10^3/uL (1.2-6.7); Basophils % 0.6; Eosinophils % 0.1; HCT 36.9 % (40.0-50.0); HGB 13.3 g/dL (13.5-17.5); Immature Grans % 0.3; Lymphocytes % 22.6; MCH 31.5 pg (27.0-33.0); MCV 87 fL (80-95); MPV 8.7 fL (8.0-11.0); Monocytes % 5.3; Neutrophils % 71.1; Platelet Count 161 10^3/uL (130-400); RBC 4.22 10^6/uL (4.36-5.78); RDW 12.1 % (11.8-14.1); RDW-SD 38.9 fL; WBC 7.11 10^3/uL (4.4-10.8)
[2022-02-06] MEDS: Haloperidol 5 MG/ML VIAL (15:47)
[2022-02-06] MEDS: Haloperidol 5 MG/ML VIAL IM (15:51)
[2022-02-06 15:57] LABS: ALT 51 U/L (16-63); AST 59 U/L (15-37); Albumin 4.7 g/dL (3.4-5.0); Alkaline Phosphatase 70 U/L (46-116); Anion Gap 10.9 mmol/L (3-11); BUN 11 mg/dL (7-18); Bilirubin, Total 0.5 mg/dL (0.2-1.0); CO2 30.1 mmol/L (21.0-32.0); CREATININE 1.2 mg/dL (0.70-1.30); Calcium 9.3 mg/dL (8.5-10.1); Chloride 95 mmol/L (98-107); ETHANOL BLOOD 297.7 mg/dL (<10); Estimated GFR 72.76 (mL/min/1.73m2); Magnesium 2.2 mg/dL (1.8-2.4); Potassium 3.9 mmol/L (3.5-5.1); Sodium 136 mmol/L (136-145); Total Protein 8.1 g/dL (6.4-8.2); Troponin I < 50 ng/L (<or=60)
[2022-02-06 15:59] LABS: Ammonia 14 umol/L (11-32)
[2022-02-06 16:00] LABS: Glucose 591 mg/dL (74-106)
--- NOTE | 2022-02-06 16:06 | NUR.NOTE ---
Addendum entered by Kiki Mitchell 02/06/22 16:07: He is not his ride, but requires notification when he leaves. Original Note: Nursing Note: per Nursing Incident Response Engineer-Mona Adhikari-we can release information to Probation & [place]. Notify them when pt leaves. Officer Carmine Conklin [phone].
[2022-02-06] MEDS: Normal Saline 1,000 ML 1000 ML IV ×2 (16:22→17:24)
[2022-02-06] MEDS: diphenhydrAMINE 50 MG/ML VIAL IVP (16:22)
[2022-02-06 17:21] VITALS: BP 149/79; PULSE 70; RESP 15; O2SAT 96
[2022-02-06 17:55] VITALS: BP 149/79; PULSE 66; RESP 15; O2SAT 95
--- NOTE | 2022-02-06 20:28 | NUR.NOTE ---
went in to d/c pt who stated to this nurse I'm suicidal provider aware
[2022-02-06 21:57] LABS: Bilirubin Negative (Negative); Blood Trace-intact (Negative); Clarity Clear (Clear); Glucose 500 mg/dL (Negative); Ketones Negative (Negative); Leukocyte Esterase Negative (Negative); Nitrite Negative (Negative); Urobilinogen 0.2 EU/dL (Up TO 0.2)
[2022-02-06 22:09] LABS: Bacteria Negative HPF (Negative); C & S Indicated? No; Crystals Negative HPF (Negative); Epithelial Cells Negative HPF (Negative); Mucus Negative (Negative); WBC Negative HPF (0-5)
== END 2022-02-07 00:08 | disposition home or self-care (01) ==
PROVIDERS: Nurse Practitioner Family; Emergency Provider Registered Nurse Emergency; PCP Family Medicine
DX: R73.9 Hyperglycemia, unspecified (principal); F10.129 Alcohol abuse with intoxication, unspecified; R41.82 Altered mental status, unspecified; R45.1 Restlessness and agitation; R41.0 Disorientation, unspecified; Y90.8 Blood alcohol level of 240 mg/100 ml or more; Z79.4 Long term (current) use of insulin; Z79.84 Long term (current) use of oral hypoglycemic drugs; Z87.891 Personal history of nicotine dependence
CPT/HCPCS: 36416; 80053; 82962; 96361; 96372; 96374; 99284; 80320; 81003; 81015; 82140; 83735; 84484; 85025; J1200; J1630

== ENCOUNTER 2022-02-07 01:10 | Emergency (ER) | payer MEDICAID, SELFPAY ==
--- NOTE | 2022-02-07 01:15 | RT.EKG_ITS ---
APPROVED REPORT Exam: Resting ECG Reason for Exam: chest pain Patient Location: E HR:76 bpm ECG Measurements Heart Rate 76 AXIS CA 158 P 49 QRSd 92 QRS 72 QT 407 T 52 QTc 457 Conclusion Sinus rhythm...normal P axis, V-rate 60- 99
[2022-02-07 01:24] VITALS: RESP 22
--- NOTE | 2022-02-07 01:30 | DI.RAD_ITS ---
Exam(s) XR PORTABLE CHEST AP EXAM: XR PORTABLE CHEST AP CLINICAL HISTORY: chest pain TECHNIQUE: 2D digital imaging was performed. COMPARISON: CR,XR XR CHEST 1V IN DI DEPT from 02/19/2020 FINDINGS: LUNGS: Clear. No pleural abnormality seen. HEART: Normal size. AORTA: Normal diameter. BONES: Unremarkable for age. Soft tissues: Unremarkable. IMPRESSION: No acute findings. DATA REPOSITORY: RADIATION DOSE DELIVERED:
--- NOTE | 2022-02-07 01:35 | W.ED.GENAD ---
Discharge Plan Disposition Patient Disposition: Home Condition: Stable Discharge Details Clinical Impression: Chest pain Primary Care Provider: Leeanna Armas ED Provider: Trey Benton Home Meds and New Rx's Prescriptions: Continued tenofovir disoproxil fumarate [Viread] 300 mg tablet 300 mg PO DAILY Qty: 90 3RF Rx Instructions: Pt takes daily at bedtime. buprenorphine-naloxone 8-2 mg tablet, sublingual 1 tab sublingual DAILY (DME) FreeStyle Lite Strips 1 EACH strip 1 ea Miscellaneous BID Qty: 100 Rx Instructions: to check bs 1-2 Xqd or as directed for DM E11.65 to get A1c under 7. (DME) blood-glucose meter [FreeStyle Lite Meter] 1 EACH kit 1 ea Miscellaneous DAILY Qty: 1 Rx Instructions: to check BS for E11.65 to get A1c under 7 (DME) lancets [FreeStyle Lancets] 1 EACH misc 1 ea Miscellaneous BID Qty: 100 Rx Instructions: to check BS 1-2 Xqd or as directed for DM E11.65 to get A1c under 7. (DME) pen needle, diabetic 1 EACH needle 1 ea Miscellaneous DAILY Qty: 100 11RF Rx Instructions: for Lantus solostar pen, E11.65 aripiprazole 5 mg tablet 5 mg PO DAILY cetirizine 10 mg tablet 10 mg PO DAILY PRN metformin 1,000 mg Tablet 1,000 mg PO BID multivitamin [Multiple Vitamins] Tablet 1 tab PO DAILY Qty: 30 0RF insulin lispro [Humalog KwikPen Insulin] 100 unit/mL Insulin Pen See Rx Instructions .ROUTE .COMPLEX Qty: 15 0RF Rx Instructions: Based on sliding scale before meals: 151-200 take 2 units 201-250 take 4 units 251-300 take 6 units 301-350 take 8 units 351-400 take 10 units. (DME) blood-glucose meter [FreeStyle Flash System] Kit See Rx Instructions .ROUTE .MEDSUPPLY Qty: 1 0RF Rx Instructions: As directed thiamine mononitrate (vit B1) [Vitamin B-1 (mononitrate)] 100 mg tablet 100 mg PO DAILY Label Comments: TAKE ONE TABLET BY MOUTH EVERY DAY trazodone 150 mg Tablet 50 mg PO HS Qty: 0 0RF Lantus Solostar U-100 Insulin 100 unit/mL (3 mL) insulin pen 20 unit subcut HS Qty: 15 0RF citalopram 40 mg Tablet 40 mg PO DAILY levothyroxine 25 mcg Tablet 25 mcg PO DAILY ibuprofen 600 mg Tablet 600 mg PO TID gabapentin 100 mg Tablet 100 mg PO HS Discharge Instructions Instructions: Chest Pain (ED) Additional Instructions: follow up with your primary care provider as soon as possible if you feel more ill, have worsening symptoms or difficulty breathing return to the emergency department Medical Decision Making 51 yo male with hx of substance abuse, dm, currently homeless, who comes in with chest pain. He was seen yesterday for alcohol intoxicatiaon and discharged. He states he had no where to go so came back for evaluation for chest pain. HE states he has had constant chest pain for a day. Denies diaphoresis, radiation of pain, n/v. He arrives stable, speaking in full sentences. He localizes the pain to the left anterior chest and has tenderness to palpation here, no visible or palpable deformity of the chest. No jvd, no leg swelling, no calf tenderness. Clear lungs, no murmurs. Unclear etiology for his pain, will obtain troponin, had cbc and cmp done earlier. Has no evidence of dvt and no pleuritic chest pain so doubt pe and no tearing back pain to suggest dissection and normal vascular exam. initial troponin negative, will obtain delta troponin. Xray negative on my read. Pt sleeping on reassessment, awakens easily, will continue to monitor. second troponin negative, he is sleeping on reassessment and awakens easily. He is stable for d/c, advised to f/u with pcp estr[facility] and return precautions given Differential Diagnosis Differential Diagnosis: nstemi, chest wall pain, pneumothorax Medical Records Medical records reviewed: Yes I reviewed the patient's medical records. Imaging Data Radiologic Study: Attestation: I personally reviewed and interpreted this imaging study as follows: Imaging: X-Ray My impression: no acute findings Lab Data Lab results reviewed: Yes I reviewed the patient's lab results. ECG Data Attestation: I personally reviewed and interpreted this ECG (s) as follows: Prior ECG tracings: available for review Interpretation: sinus rhythm, rate of 74, pr 158, no stemi Sign Out No HPI General Mode of arrival: ambulatory. Date/Time Provider Initiated Documentation: 02/07/22 01:11. Limitations to Documentation: no limitations. Information obtained by: patient. History of Present Illness 51 year old M presents to the emergency department with the chief complaint of chest pain, described as moderate, Patient reports no radiation. Patient started experiencing this day(s) (1) and it has been constant. No relieving factors improve symptom(s), No exacerbating factors reported . Patient notes denies fever/chills. Patient did receive the following treatments prior to arrival, none Related Data Home Medications Medication Instructions Recorded Confirmed blood sugar diagnostic (FreeStyle #100 strips 03/25/16 04/26/21 Lite Strips) blood-glucose meter (FreeStyle ##1 03/25/16 04/26/21 Lite Meter kit) lancets 28 gauge (FreeStyle #100 ea 03/25/16 04/26/21 Lancets) pen needle, diabetic 29 gauge x #100 multiple units 07/23/17 04/26/21 1/ tenofovir disoproxil fumarate 300 300 mg PO DAILY #90 tabs 07/26/18 04/26/21 mg tablet (Viread) metformin 1,000 mg tablet 1,000 mg PO BID 01/10/19 04/26/21 blood-glucose meter (FreeStyle #1 ea 01/11/19 04/26/21 Flash System kit) insulin lispro 100 unit/mL See Rx Instructions .Route 01/11/19 04/26/21 subcutaneous pen (Humalog KwikPen .COMPLEX #15 mL (U-100) Insulin) multivitamin (Multiple Vitamins 1 tab PO DAILY #30 tabs 01/11/19 04/26/21 tablet) thiamine mononitrate (vit B1) 100 100 mg PO DAILY 08/27/19 04/26/21 mg tablet (Vitamin B-1 (mononitrate)) insulin glargine 100 unit/mL (3 20 unit (0.2 mL) subcut HS #15 mL 08/31/19 04/26/21 mL) subcutaneous pen (Lantus Solostar U-100 Insulin) trazodone 150 mg tablet 50 mg PO HS #0 tabs 08/31/19 04/26/21 aripiprazole 5 mg tablet 5 mg PO DAILY 02/12/21 04/26/21 cetirizine 10 mg tablet 10 mg PO DAILY PRN 02/12/21 04/26/21 citalopram 40 mg tablet 40 mg PO DAILY 04/26/21 04/26/21 gabapentin 100 mg tablet 100 mg PO HS 04/26/21 04/26/21 ibuprofen 600 mg tablet 600 mg PO TID 04/26/21 04/26/21 levothyroxine 25 mcg tablet 25 mcg PO DAILY 04/26/21 04/26/21 buprenorphine 8 mg-naloxone 2 mg 1 tab sublingual DAILY 06/18/21 sublingual tablet Previous Rx's Medication Instructions Recorded pen needle, diabetic 29 gauge x #100 multiple units 07/23/1703/10 tenofovir disoproxil fumarate 300 300 mg PO DAILY #90 tabs 07/26/18 mg tablet (Viread) blood-glucose meter (FreeStyle #1 ea 01/11/19 Flash System kit) insulin lispro 100 unit/mL See Rx Instructions .Route 01/11/19 subcutaneous pen (Humalog KwikPen .COMPLEX #15 mL (U-100) Insulin) multivitamin (Multiple Vitamins 1 tab PO DAILY #30 tabs 01/11/19 tablet) insulin glargine 100 unit/mL (3 20 unit (0.2 mL) subcut HS #15 mL 08/31/19 mL) subcutaneous pen (Lantus Solostar U-100 Insulin) trazodone 150 mg tablet 50 mg PO HS #0 tabs 08/31/19 Allergies Allergy/AdvReac Type Severity Reaction Status Date / Time No Known Allergies Allergy Verified 06/18/21 09:00 General Stated Complaint: Chest Pain JAMES: 4 Review of Systems All systems reviewed & are unremarkable except as noted in HPI and below Constitutional Constitutional: Denies chills, Denies fever(s) and Denies weakness Cardiovascular Cardiovascular: Denies dyspnea Respiratory Respiratory: Denies cough and Denies dyspnea Gastrointestinal Gastrointestinal: Denies abdominal pain, Denies nausea and Denies vomiting Integumentary/Breasts Skin/Breast: Denies rash Neurologic Neurologic: Denies weakness PFSH All Active Problems (Updated 02/07/22 @ 02:52 by Trey Benton MD) Alcohol intoxication (Acute) Hyperglycemia (Acute) Chest pain (Acute) Fracture dislocation of left shoulder joint (Acute 04/24/20) Fracture of greater tuberosity of humerus with delayed healing (Acute) Shoulder fracture, left (Acute) Alcohol withdrawal (Acute) Uncontrolled diabetes mellitus (Acute) Bradycardia (Acute) Discharge planning issues (Acute) Ambulatory dysfunction (Acute) Polysubstance abuse (Chronic) Depression (Chronic) Hepatitis B infection (Acute) Diabetic neuropathy (Acute) Tinea pedis (Acute) DVT prophylaxis (Acute) Alcohol use (Chronic) Cellulitis (Acute) Continuous opioid dependence (Chronic 03/05/05) Moderate opioid dependence (Acute 12/10/15) Urinary frequency (Chronic 08/16/13) Type II diabetes mellitus, uncontrolled (Chronic) A1c 9.4 01/2014; uncontrolled; goal A1c < 7.5 Smoker (Chronic 05/06/11) Opioid use disorder, moderate, dependence (Chronic 12/10/15) Opioid dependence on agonist therapy (Chronic) [facility] RX [place], <2004; prefers tablets ([place]) due to dental plate; counselor Zhang Atkins Continuous opioid dependence (Chronic 03/05/05) [facility] RX [place], <2004; counselling Meagan Garcia; prefers tablets Cirrhosis of liver (Chronic 05/06/11) Chronic hepatitis C (Chronic 08/11/05) RX [facility] DARIO JACOB; began Aniceto 08/07/14 Hep B w/ coma, chronic, 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 Brother No problems noted. Sister No problems noted. 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 Current gender identity: male What is your relationship status?: living with partner Panel score (0-1 are the most socially isolated patients): 1 What type of physical activity do you participate in: none Drive intox or ride w/intox driver license technician: No Working smoke detector in home: Yes Carbon monox detector in home: Yes Do you feel safe at home: Yes Do you feel safe in your relationship?: Yes Additional Social history: Inmate at [facility] [email or web address] Exam Const General: no acute distress Orientation: alert [facility] Head: normal to inspection Ears: external ears normal General nose exam: external nose normal Mouth: moist mucous membranes Eyes General: appearance normal, both eyes and all related structures Neck Neck: normal visual inspection Chest Chest: normal inspection of the chest and localized rib tenderness with anteroposterior compression Resp Effort & Inspection: normal respiratory effort and able to speak in complete sentences Cardio Rate: regular rate GI Palpation: soft and nontender Skin General skin exam: no rashes or lesions noted Neuro General: patient alert and patient oriented x3 Extrem General: normal to inspection, capillary refill normal, no calf tenderness and no pedal edema Psych Mental Status: mental status grossly normal Course Vital Signs Vital signs: Vital Signs Respiratory Rate 22 02/07/22 01:24 Respiratory Rate 22 02/07/22 01:24 Respiratory Effort Non-Labored 02/07/22 01:24 Respiratory Depth Normal 02/07/22 01:24 Respiratory Pattern Normal 02/07/22 01:24 Pain Level 8 02/07/22 01:24
[2022-02-07 01:45] VITALS: BP 124/78; PULSE 80; RESP 18; TEMP 36.6; O2SAT 100
[2022-02-07 02:17] LABS: Troponin I < 50 ng/L (<or=60)
--- NOTE | 2022-02-07 03:43 | DI.VRAD_ITS ---
PROCEDURE INFORMATION: Exam: XR Chest Exam date and time: 02/07/2022 1:46 AM Age: 51 years old Clinical indication: Pain; Left-sided; Additional info: Chest pain TECHNIQUE: Imaging protocol: Radiologic exam of the chest. Views: 1 view. COMPARISON: CR XR CHEST 1V IN DI DEPT 02/19/2020 10:50 AM FINDINGS: Limitations: The extreme right costophrenic angle is excluded from the field of view. Lungs: The lungs are clear and well aerated bilaterally. There is no consolidation, infiltrate, or pulmonary edema. The pulmonary vasculature is normal in caliber. Pleural spaces: Unremarkable. No pleural effusion or pneumothorax. Heart/Mediastinum: Heart size is normal. Cardiomediastinal contours are stable and satisfactory. Bones/joints: Unremarkable. IMPRESSION: No acute cardiopulmonary abnormality. Dictated and Authenticated by: Shanda Thacker MD. Ordering:DUKE Yang MD
[2022-02-07 05:26] LABS: Troponin I < 50 ng/L (<or=60)
== END 2022-02-07 18:12 | disposition home or self-care (01) ==
PROVIDERS: Emergency Provider Emergency Medicine; PCP Family Medicine
DX: R07.89 Other chest pain (principal); E11.9 Type 2 diabetes mellitus without complications; Z79.4 Long term (current) use of insulin; Z79.84 Long term (current) use of oral hypoglycemic drugs; Z59.00 Homelessness unspecified; Z87.891 Personal history of nicotine dependence
CPT/HCPCS: 36415; 93005; 99283; 71045; 84484; 93010; 99285

== ENCOUNTER 2022-02-07 09:30 | Emergency (ER) | payer MEDICAID, SELFPAY ==
[2022-02-07] VITALS (21 sets, daily range): BP systolic 109–147; BP diastolic 61–89; PULSE 64–104; RESP 10–23; TEMP 36.2–38; O2SAT 95–98
--- NOTE | 2022-02-07 09:53 | ED.GENADUL_ITS ---
Discharge Plan Discharge Details Chief Complaint: Diabetes Primary Care Provider: Leeanna Armas ED Provider: Kaleb Patel Home Meds and New Rx's Prescriptions: No Action tenofovir disoproxil fumarate [Viread] 300 mg tablet 300 mg PO DAILY Qty: 90 3RF Rx Instructions: Pt takes daily at bedtime. buprenorphine-naloxone 8-2 mg tablet, sublingual 1 tab sublingual DAILY (DME) FreeStyle Lite Strips 1 EACH strip 1 ea Miscellaneous BID Qty: 100 Rx Instructions: to check bs 1-2 Xqd or as directed for DM E11.65 to get A1c under 7. (DME) blood-glucose meter [FreeStyle Lite Meter] 1 EACH kit 1 ea Miscellaneous DAILY Qty: 1 Rx Instructions: to check BS for E11.65 to get A1c under 7 (DME) lancets [FreeStyle Lancets] 1 EACH misc 1 ea Miscellaneous BID Qty: 100 Rx Instructions: to check BS 1-2 Xqd or as directed for DM E11.65 to get A1c under 7. (DME) pen needle, diabetic 1 EACH needle 1 ea Miscellaneous DAILY Qty: 100 11RF Rx Instructions: for Lantus solostar pen, E11.65 aripiprazole 5 mg tablet 5 mg PO DAILY cetirizine 10 mg tablet 10 mg PO DAILY PRN metformin 1,000 mg Tablet 1,000 mg PO BID multivitamin [Multiple Vitamins] Tablet 1 tab PO DAILY Qty: 30 0RF insulin lispro [Humalog KwikPen Insulin] 100 unit/mL Insulin Pen See Rx Instructions .ROUTE .COMPLEX Qty: 15 0RF Rx Instructions: Based on sliding scale before meals: 151-200 take 2 units 201-250 take 4 units 251-300 take 6 units 301-350 take 8 units 351-400 take 10 units. (DME) blood-glucose meter [FreeStyle Flash System] Kit See Rx Instructions .ROUTE .MEDSUPPLY Qty: 1 0RF Rx Instructions: As directed thiamine mononitrate (vit B1) [Vitamin B-1 (mononitrate)] 100 mg tablet 100 mg PO DAILY Label Comments: TAKE ONE TABLET BY MOUTH EVERY DAY trazodone 150 mg Tablet 50 mg PO HS Qty: 0 0RF Lantus Solostar U-100 Insulin 100 unit/mL (3 mL) insulin pen 20 unit subcut HS Qty: 15 0RF citalopram 40 mg Tablet 40 mg PO DAILY levothyroxine 25 mcg Tablet 25 mcg PO DAILY ibuprofen 600 mg Tablet 600 mg PO TID gabapentin 100 mg Tablet 100 mg PO HS Medical Decision Making 51-year-old gentleman who has been evaluated here in the ER multiple times, discharged earlier today, subsequently drank alcohol, law enforcement contacted and now here for elevated glucose. He has a history of alcohol abuse, not controlled diabetes, current homelessness, current smoker. He is uncooperative and continues to scream Fuck You and refuses to answer any of my questions. When asked if he has any pain anywhere he shakes his head no. When reviewing records from earlier today glucose appears to have been in the 500s but his anion gap was normal. While this simply may be uncontrolled diabetes and acute intoxication, plan is to obtain IV access, give IV fluids, and obtain routine screening laboratory values. He is slightly tachycardic. Plan to provide 3 L IV fluid CBC does not reveal any leukocytosis or thrombocytopenia. Mild anemia appears to be at baseline. His CMP reveals a sodium of 130 potassium 3.6 anion gap elevated at 16.2 creatinine 1.2 with a GFR of 72.76. Glucose 771. Lipase 37. Urinalysis unremarkable except for greater than 1000 glucose. Concern for DKA, added on a VBG VBG reveals a pH of 7.32. Examination now less consistent with a DKA picture, more likely hyperosmolar hyperglycemia. Case discussed with Dr. Arguello I have changed one of his normal saline liters to a lactated Ringer. We will provide 10 units of insulin and monitor his glucose carefully. We will recheck a CMP once he receives his 3 L of IV fluid. Given his known noncompliance, hyperglycemia, I spoke with the patient about potential admission however he is not agreeable, would like to leave, and continues to say Fuck you. He is tolerating p.o. fluids without difficulty. At approximately 1233 he began screaming more aggressively, demanding to leave and stating that we had no right to hold him here. He is attempting to leave room 5 he is very unsteady on his feet, acting aggressively toward staff. At this time I do not consider him medically cleared and therefore I do not believe going to local corrections facility until sobriety is reached is appropriate. I do not believe he is safe or has the capacity to leave AMA at the moment. After multiple attempts of de-escalation were attempted and unsuccessful, a code jessica was called, patient was both chemically and physically restrained. 10 IV droperidol given and patient placed into four-point restraints. Plan is to continue monitoring his glucose levels, subsequent fingersticks reveal a 571 and later 444. Once he receives his third liter of IV fluid, plan to obtain repeat CMP and reassess. Repeat glucose fingerstick 364. At approximately 1433 patient began screaming to let him out of the restraints he is now awake and alert. He is not calm, unable to de-escalate the situation. He is unable to confirm that he will stay in the ER if taken out of the restraints. For safety of the patient and staff patient was given 10 IM Haldol, 50 IV Benadryl and 2 IV Ativan. Patient completed 3 L IV fluid, awaiting repeat CMP and EtOH level. Patient is now resting calmly with the IM Haldol, IV Benadryl and Ativan. If glucose is appropriate and anion gap is closed, then essentially medically cleared at this point. If alcohol level remains elevated then I believe patient could be considered an incapacitated person and likely remain at local corrections facility until clinically sober and can be evaluated by mental health. This documentation was generated using [employer] dictation system, please disregard any oddities of phrase or misspellings. Medical Records Medical records reviewed: Yes I reviewed the patient's medical records. Lab Data Lab results reviewed: Yes I reviewed the patient's lab results. Labs: Laboratory Tests Range/Units 02/07/22 02/07/22 02/07/22 10:12 10:12 10:12 WBC (4.4-10.8) 10^3/uL 6.96 RBC (4.36-5.78) 10^6/uL 4.10 L Hgb (13.5-17.5) g/dL 12.8 L Hct (40.0-50.0) % 35.6 L MCV (80-95) fL 87 MCH (27.0-33.0) pg 31.2 MCHC (32.0-36.0) % 36.0 RDW (11.8-14.1) % 12.0 Plt Count (130-400) 10^3/uL 159 MPV (8.0-11.0) fL 9.2 Immature Gran % 0.6 Neutrophils % 77.5 Lymphocytes % 15.2 Monocytes % 6.0 Eosinophils % 0.0 Basophils % 0.7 Nucleated RBC % (0.0-0.3) % 0.0 Absolute Neutrophils (1.2-6.7) 10^3/uL 5.39 Absolute Lymphocytes (1.2-3.4) 10^3/uL 1.06 L Absolute Monocytes (0.1-0.8) 10^3/uL 0.42 Absolute Eosinophils (0.0-0.7) 10^3/uL 0.00 Absolute Basophils (0.0-0.2) 10^3/uL 0.05 VBG pH (7.31-7.41) VBG pCO2 (41-51) mmHg VBG pO2 mmHg VBG HCO3 (23-28) mmol/L VBG Total CO2 (24-29) mmol/L VBG O2 Saturation % VBG Base Excess (-2-3) mmol/L Sodium (136-145) mmol/L 130 L Potassium (3.5-5.1) mmol/L 3.6 Chloride (98-107) mmol/L 93 L Carbon Dioxide (21.0-32.0) mmol/L 20.8 L Anion Gap (3-11) mmol/L 16.2 H BUN (7-18) mg/dL 11 Creatinine (0.70-1.30) mg/dL 1.2 Est GFR (CKD-EPI 2020) (mL/min/1.73m2) 72.76 Glucose (74-106) mg/dL 771 H* Calcium (8.5-10.1) mg/dL 8.7 Total Bilirubin (0.2-1.0) mg/dL 0.7 AST (15-37) U/L 68 H ALT (16-63) U/L 52 Alkaline Phosphatase (46-116) U/L 70 Total Protein (6.4-8.2) g/dL 7.7 Albumin (3.4-5.0) g/dL 4.4 Lipase (73-393) U/L 37 Urine Color (Yellow) Urine Clarity (Clear) Urine pH (5-8) Ur Specific [place] (1.005-1.025) Urine Protein (Negative) mg/dL Urine Ketones (Negative) mg/dL Urine Blood (Negative) Urine Nitrite (Negative) Urine Bilirubin (Negative) Urine Urobilinogen (Up TO 0.2) EU/dL Ur Leukocyte Esterase (Negative) Urine RBC (0-2) HPF Urine WBC (0-5) HPF Ur Epithelial Cells (Negative) HPF Urine Crystals (Negative) HPF Urine Bacteria (Negative) HPF Urine Casts (Negative) LPF Urine Mucus (Negative) Ur Culture Indicated? Urine Glucose (Negative) mg/dL Urine Opiates Screen (Negative) Ur Barbiturates Screen (Negative) Ur Tricyclics Screen (Negative) Ur Amphetamines Screen (Negative) U Benzodiazepines Scrn (Negative) Urine Cocaine Screen (Negative) Ur THC Screen (Negative) Ethyl Alcohol (<10) mg/dL 341.6 H Cancelled COVID-19 Source SARS-CoV-2 (PCR) (Negative) Influenza Type A (PCR) (Negative) Influenza Type B (PCR) (Negative) RSV (PCR) (Negative) Range/Units 02/07/22 02/07/22 02/07/22 10:45 10:45 11:21 WBC (4.4-10.8) 10^3/uL RBC (4.36-5.78) 10^6/uL Hgb (13.5-17.5) g/dL Hct (40.0-50.0) % MCV (80-95) fL MCH (27.0-33.0) pg MCHC (32.0-36.0) % RDW (11.8-14.1) % Plt Count (130-400) 10^3/uL MPV (8.0-11.0) fL Immature Gran % Neutrophils % Lymphocytes % Monocytes % Eosinophils % Basophils % Nucleated RBC % (0.0-0.3) % Absolute Neutrophils (1.2-6.7) 10^3/uL Absolute Lymphocytes (1.2-3.4) 10^3/uL Absolute Monocytes (0.1-0.8) 10^3/uL Absolute Eosinophils (0.0-0.7) 10^3/uL Absolute Basophils (0.0-0.2) 10^3/uL VBG pH (7.31-7.41) 7.32 VBG pCO2 (41-51) mmHg 41 VBG pO2 mmHg 79 VBG HCO3 (23-28) mmol/L 21 L VBG Total CO2 (24-29) mmol/L 19 L VBG O2 Saturation % 95 VBG Base Excess (-2-3) mmol/L -5 L Sodium (136-145) mmol/L Potassium (3.5-5.1) mmol/L Chloride (98-107) mmol/L Carbon Dioxide (21.0-32.0) mmol/L Anion Gap (3-11) mmol/L BUN (7-18) mg/dL Creatinine (0.70-1.30) mg/dL Est GFR (CKD-EPI 2020) (mL/min/1.73m2) Glucose (74-106) mg/dL Calcium (8.5-10.1) mg/dL Total Bilirubin (0.2-1.0) mg/dL AST (15-37) U/L ALT (16-63) U/L Alkaline Phosphatase (46-116) U/L Total Protein (6.4-8.2) g/dL Albumin (3.4-5.0) g/dL Lipase (73-393) U/L Urine Color (Yellow) Yellow Urine Clarity (Clear) Clear Urine pH (5-8) 6.0 Ur Specific [place] (1.005-1.025) 1.010 Urine Protein (Negative) mg/dL Negative Urine Ketones (Negative) mg/dL Negative Urine Blood (Negative) Trace-lysed H Urine Nitrite (Negative) Negative Urine Bilirubin (Negative) Negative Urine Urobilinogen (Up TO 0.2) EU/dL 0.2 Ur Leukocyte Esterase (Negative) Negative Urine RBC (0-2) HPF 3-5 H Urine WBC (0-5) HPF 0-2 Ur Epithelial Cells (Negative) HPF Rare Urine Crystals (Negative) HPF Negative Urine Bacteria (Negative) HPF Rare Urine Casts (Negative) LPF Negative Urine Mucus (Negative) Negative Ur Culture Indicated? No Urine Glucose (Negative) mg/dL >=1000 H Urine Opiates Screen (Negative) Negative Ur Barbiturates Screen (Negative) Negative Ur Tricyclics Screen (Negative) Negative Ur Amphetamines Screen (Negative) Negative U Benzodiazepines Scrn (Negative) Negative Urine Cocaine Screen (Negative) Negative Ur THC Screen (Negative) Negative Ethyl Alcohol (<10) mg/dL COVID-19 Source SARS-CoV-2 (PCR) (Negative) Influenza Type A (PCR) (Negative) Influenza Type B (PCR) (Negative) RSV (PCR) (Negative) Range/Units 02/07/22 11:28 WBC (4.4-10.8) 10^3/uL RBC (4.36-5.78) 10^6/uL Hgb (13.5-17.5) g/dL Hct (40.0-50.0) % MCV (80-95) fL MCH (27.0-33.0) pg MCHC (32.0-36.0) % RDW (11.8-14.1) % Plt Count (130-400) 10^3/uL MPV (8.0-11.0) fL Immature Gran % Neutrophils % Lymphocytes % Monocytes % Eosinophils % Basophils % Nucleated RBC % (0.0-0.3) % Absolute Neutrophils (1.2-6.7) 10^3/uL Absolute Lymphocytes (1.2-3.4) 10^3/uL Absolute Monocytes (0.1-0.8) 10^3/uL Absolute Eosinophils (0.0-0.7) 10^3/uL Absolute Basophils (0.0-0.2) 10^3/uL VBG pH (7.31-7.41) VBG pCO2 (41-51) mmHg VBG pO2 mmHg VBG HCO3 (23-28) mmol/L VBG Total CO2 (24-29) mmol/L VBG O2 Saturation % VBG Base Excess (-2-3) mmol/L Sodium (136-145) mmol/L Potassium (3.5-5.1) mmol/L Chloride (98-107) mmol/L Carbon Dioxide (21.0-32.0) mmol/L Anion Gap (3-11) mmol/L BUN (7-18) mg/dL Creatinine (0.70-1.30) mg/dL Est GFR (CKD-EPI 2020) (mL/min/1.73m2) Glucose (74-106) mg/dL Calcium (8.5-10.1) mg/dL Total Bilirubin (0.2-1.0) mg/dL AST (15-37) U/L ALT (16-63) U/L Alkaline Phosphatase (46-116) U/L Total Protein (6.4-8.2) g/dL Albumin (3.4-5.0) g/dL Lipase (73-393) U/L Urine Color (Yellow) Urine Clarity (Clear) Urine pH (5-8) Ur Specific [place] (1.005-1.025) Urine Protein (Negative) mg/dL Urine Ketones (Negative) mg/dL Urine Blood (Negative) Urine Nitrite (Negative) Urine Bilirubin (Negative) Urine Urobilinogen (Up TO 0.2) EU/dL Ur Leukocyte Esterase (Negative) Urine RBC (0-2) HPF Urine WBC (0-5) HPF Ur Epithelial Cells (Negative) HPF Urine Crystals (Negative) HPF Urine Bacteria (Negative) HPF Urine Casts (Negative) LPF Urine Mucus (Negative) Ur Culture Indicated? Urine Glucose (Negative) mg/dL Urine Opiates Screen (Negative) Ur Barbiturates Screen (Negative) Ur Tricyclics Screen (Negative) Ur Amphetamines Screen (Negative) U Benzodiazepines Scrn (Negative) Urine Cocaine Screen (Negative) Ur THC Screen (Negative) Ethyl Alcohol (<10) mg/dL COVID-19 Source Not Applicable SARS-CoV-2 (PCR) (Negative) Negative Influenza Type A (PCR) (Negative) Negative Influenza Type B (PCR) (Negative) Negative RSV (PCR) (Negative) Negative Sign Out Yes HPI General Mode of arrival: EMS . Date/Time Provider Initiated Documentation: 02/07/22 09:43 . Limitations to Documentation: altered mental status and other . Information obtained by: patient, police and EMS . HPI Narrative: This is a 51-year-old gentleman with a past medical history of alcohol abuse, uncontrolled diabetes, currently homeless, presenting with EMS and law enforcement from the local corrections facility with a breath alcohol level of 0.275 and a fingerstick glucose that read high. Patient refuses to answer any of my questions and only states Fuck you . I was able to speak with law enforcement. They report that he was discharged from the ER early this morning and walked down to the grocery store where he stole multiple mikes hard lemonade's, locked himself in the restroom and drink them all, came out of the restaurant intoxicated and subsequently law enforcement was called. Limited HPI given his mental state. Related Data Home Medications Medication Instructions Recorded Confirmed blood sugar diagnostic (FreeStyle #100 strips 03/25/16 04/26/21 Lite Strips) blood-glucose meter (FreeStyle ##1 03/25/16 04/26/21 Lite Meter kit) lancets 28 gauge (FreeStyle #100 ea 03/25/16 04/26/21 Lancets) pen needle, diabetic 29 gauge x #100 multiple units 07/23/17 04/26/21 1/2 tenofovir disoproxil fumarate 300 300 mg PO DAILY #90 tabs 07/26/18 04/26/21 mg tablet (Viread) metformin 1,000 mg tablet 1,000 mg PO BID 01/10/19 04/26/21 blood-glucose meter (FreeStyle #1 ea 01/11/19 04/26/21 Flash System kit) insulin lispro 100 unit/mL See Rx Instructions .Route 01/11/19 04/26/21 subcutaneous pen (Humalog KwikPen .COMPLEX #15 mL (U-100) Insulin) multivitamin (Multiple Vitamins 1 tab PO DAILY #30 tabs 01/11/19 04/26/21 tablet) thiamine mononitrate (vit B1) 100 100 mg PO DAILY 08/27/19 04/26/21 mg tablet (Vitamin B-1 (mononitrate)) insulin glargine 100 unit/mL (3 20 unit (0.2 mL) subcut HS #15 mL 08/31/19 04/26/21 mL) subcutaneous pen (Lantus Solostar U-100 Insulin) trazodone 150 mg tablet 50 mg PO HS #0 tabs 08/31/19 04/26/21 aripiprazole 5 mg tablet 5 mg PO DAILY 02/12/21 04/26/21 cetirizine 10 mg tablet 10 mg PO DAILY PRN 02/12/21 04/26/21 citalopram 40 mg tablet 40 mg PO DAILY 04/26/21 04/26/21 gabapentin 100 mg tablet 100 mg PO HS 04/26/21 04/26/21 ibuprofen 600 mg tablet 600 mg PO TID 04/26/21 04/26/21 levothyroxine 25 mcg tablet 25 mcg PO DAILY 04/26/21 04/26/21 buprenorphine 8 mg-naloxone 2 mg 1 tab sublingual DAILY 06/18/21 sublingual tablet Previous Rx's Medication Instructions Recorded pen needle, diabetic 29 gauge x #100 multiple units 07/23/17 1/2 tenofovir disoproxil fumarate 300 300 mg PO DAILY #90 tabs 07/26/18 mg tablet (Viread) blood-glucose meter (FreeStyle #1 ea 01/11/19 Flash System kit) insulin lispro 100 unit/mL See Rx Instructions .Route 01/11/19 subcutaneous pen (Humalog KwikPen .COMPLEX #15 mL (U-100) Insulin) multivitamin (Multiple Vitamins 1 tab PO DAILY #30 tabs 01/11/19 tablet) insulin glargine 100 unit/mL (3 20 unit (0.2 mL) subcut HS #15 mL 08/31/19 mL) subcutaneous pen (Lantus Solostar U-100 Insulin) trazodone 150 mg tablet 50 mg PO HS #0 tabs 08/31/19 Allergies Allergy/AdvReac Type Severity Reaction Status Date / Time No Known Allergies Allergy Verified 06/18/21 09:00 General JAMES: 4 Review of Systems Unobtainable due to mental status PFSH All Active Problems Alcohol intoxication (Acute) Hyperglycemia (Acute) Chest pain (Acute) Fracture dislocation of left shoulder joint (Acute 04/24/20) Fracture of greater tuberosity of humerus with delayed healing (Acute) Shoulder fracture, left (Acute) Alcohol withdrawal (Acute) Uncontrolled diabetes mellitus (Acute) Bradycardia (Acute) Discharge planning issues (Acute) Ambulatory dysfunction (Acute) Polysubstance abuse (Chronic) Depression (Chronic) Hepatitis B infection (Acute) Diabetic neuropathy (Acute) Tinea pedis (Acute) DVT prophylaxis (Acute) Alcohol use (Chronic) Cellulitis (Acute) Continuous opioid dependence (Chronic 03/05/05) Moderate opioid dependence (Acute 12/10/15) Urinary frequency (Chronic 08/16/13) Type II diabetes mellitus, uncontrolled (Chronic) A1c 9.4 01/2014; uncontrolled; goal A1c < 7.5 Smoker (Chronic 05/06/11) Opioid use disorder, moderate, dependence (Chronic 12/10/15) Opioid dependence on agonist therapy (Chronic) [facility] RX [place], <2004; prefers tablets (MANDEEP) due to dental plate; counselor Zhang Atkins Continuous opioid dependence (Chronic 03/05/05) [facility] RX [place], <2004; counselling Meagan Garcia; prefers tablets Cirrhosis of liver (Chronic 05/06/11) Chronic hepatitis C (Chronic 08/11/05) RX [facility]; began Aniceto 08/07/14 Hep B w/ coma, chronic, 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 Brother No problems noted. Sister No problems noted. 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 Head: normal to inspection, normocephalic and atraumatic Face and sinus: normal facial exam Mouth: moist mucous membranes abnormal (Dry) Throat: posterior oropharynx normal Eyes General: appearance normal, both eyes and all related structures Conjunctivae: conjunctivae normal Neck Neck: normal visual inspection, full ROM, no meningeal signs, trachea midline and supple Resp Effort & Inspection: normal respiratory effort and able to speak in complete sentences Auscultation: clear to auscultation bilaterally Cardio Rate: tachycardic (104) Rhythm: regular rhythm GI Inspection: normal to inspection Palpation: soft, not firm, no guarding and nontender Back/Spine/Pelvis Back: no CVA tenderness and No back tenderness Skin General skin exam: no rashes or lesions noted Neuro General: patient alert, patient awake, moves all extremities and no focal motor deficits Speech: speech normal Motor: muscle tone normal throughout, no movement abnormalities noted and no fasciculations Sensory Exam: no sensory deficits noted Extrem General: normal to inspection, full ROM, capillary refill normal, no pedal edema and no calf tenderness Psych Appearance: grossly normal Mental Status: mental status grossly normal Critical Care Time Critical Care Time Critical Care Time: Yes Total Critical Care Time: 35 Attestation: Upon my evaluation, this patient had a high probability of clinically significant, life-threatening deterioration due to their current medical conditions, which required my direct attention, intervention, and personal management. I have personally provided greater than 30 minutes of critical care time exclusive of the time spend on separately billable procedures. Time includes obtaining a history, examining the patient, pulse oximetry, review of laboratory data, radiology results, discussion with consultants, arranging urgent treatment with development of a management plan, evaluation of patient's response to treatment, and monitoring for potential decompensation. Interventions were performed as documented above. Restraint Face to Face Time of Face to Face Face to Face: Time of Face to Face: 14:33 Patient's Immediate Situation Requiring Restraints/Seclusion: Harm to Staff & Others Patient Response to Restraints: Remains Agitated and Restless Need for Continuation of Restraints Has Been Assessed: Restraints Cont inued
[2022-02-07 10:25] LABS: Abs Immature Grans 0.04 10^3/uL (0.0-0.06); Absolute Basophil Count 0.05 10^3/uL (0.0-0.2); Absolute Lymphocyte Count 1.06 10^3/uL (1.2-3.4); Absolute Monocyte Count 0.42 10^3/uL (0.1-0.8); Absolute Neutrophil Count 5.39 10^3/uL (1.2-6.7); Basophils % 0.7; HCT 35.6 % (40.0-50.0); HGB 12.8 g/dL (13.5-17.5); Immature Grans % 0.6; Lymphocytes % 15.2; MCH 31.2 pg (27.0-33.0); MCV 87 fL (80-95); MPV 9.2 fL (8.0-11.0); Neutrophils % 77.5; Platelet Count 159 10^3/uL (130-400); RDW-SD 38.1 fL; WBC 6.96 10^3/uL (4.4-10.8)
[2022-02-07 10:53] LABS: ALT 52 U/L (16-63); AST 68 U/L (15-37); Albumin 4.4 g/dL (3.4-5.0); Alkaline Phosphatase 70 U/L (46-116); Anion Gap 16.2 mmol/L (3-11); BUN 11 mg/dL (7-18); Bilirubin, Total 0.7 mg/dL (0.2-1.0); CO2 20.8 mmol/L (21.0-32.0); CREATININE 1.2 mg/dL (0.70-1.30); Calcium 8.7 mg/dL (8.5-10.1); Chloride 93 mmol/L (98-107); Estimated GFR 72.76 (mL/min/1.73m2); Lipase 37 U/L (73-393); Potassium 3.6 mmol/L (3.5-5.1); Sodium 130 mmol/L (136-145); Total Protein 7.7 g/dL (6.4-8.2)
[2022-02-07 10:55] LABS: ETHANOL BLOOD 341.6 mg/dL (<10)
[2022-02-07] MEDS: Normal Saline 1,000 ML 1000 ML IV ×2 (10:57→14:07)
[2022-02-07 11:04] LABS: Glucose 771 mg/dL (74-106)
[2022-02-07 11:23] LABS: Bilirubin Negative (Negative); Blood Trace-lysed (Negative); Clarity Clear (Clear); Glucose >=1000 mg/dL (Negative); Ketones Negative (Negative); Leukocyte Esterase Negative (Negative); Nitrite Negative (Negative); Urobilinogen 0.2 EU/dL (Up TO 0.2)
[2022-02-07 11:25] LABS: BE (Venous) -5 mmol/L (-2-3); HCO3 (Venous) 21 mmol/L (23-28); O2 Sat (Venous) 95 %; TCO2 (Venous) 19 mmol/L (24-29); pCO2 (Venous) 41 mmHg (41-51); pH (Venous) 7.32 (7.31-7.41); pO2 (Venous) 79 mmHg
[2022-02-07 11:32] LABS: *AMPHETAMINES SCREEN URINE Negative (Negative); *BARBITURATES SCREEN URINE Negative (Negative); *BENZODIAZEPINES SCREEN URINE Negative (Negative); Cannabinoids THC Negative (Negative); Cocaine Screen,Urine Negative (Negative); OPIATES URINE SCREEN Negative (Negative); Tricyclic Antidepressants Negative (Negative)
[2022-02-07] MEDS: Insulin REGULAR-Human 100 UNITS/ML UNIT 10 UNITS SC (11:41)
[2022-02-07 11:48] LABS: Bacteria Rare HPF (Negative); C & S Indicated? No; Casts Negative LPF (Negative); Crystals Negative HPF (Negative); Epithelial Cells Rare HPF (Negative); Mucus Negative (Negative); WBC 0-2 HPF (0-5)
[2022-02-07] MEDS: Lactated Ringers 1,000 ML 1000 ML IV (12:06)
[2022-02-07 12:09] LABS: COVID-19 PCR Negative (Negative); Influenza A PCR Negative (Negative); Influenza B PCR Negative (Negative); RSV PCR Negative (Negative)
[2022-02-07] MEDS: Droperidol 5 MG/2 ML VIAL 10 MG IVP ×2 (12:59→13:06)
[2022-02-07] MEDS: diphenhydrAMINE 50 MG/ML VIAL IVP (15:04)
[2022-02-07] MEDS: Haloperidol 5 MG/ML VIAL 10 MG IM (15:04)
[2022-02-07] MEDS: LORazepam 2 MG/ML VIAL IVP (15:04)
[2022-02-07 15:38] LABS: ETHANOL BLOOD 219.1 mg/dL (<10)
[2022-02-07 15:42] LABS: ALT 45 U/L (16-63); AST 54 U/L (15-37); Alkaline Phosphatase 64 U/L (46-116); Anion Gap 5.4 mmol/L (3-11); BUN 8 mg/dL (7-18); Bilirubin, Total 0.4 mg/dL (0.2-1.0); CO2 26.6 mmol/L (21.0-32.0); CREATININE 0.9 mg/dL (0.70-1.30); Calcium 8.4 mg/dL (8.5-10.1); Chloride 103 mmol/L (98-107); Estimated GFR 102.76 (mL/min/1.73m2); Glucose 321 mg/dL (74-106); Potassium 3.6 mmol/L (3.5-5.1); Sodium 135 mmol/L (136-145); Total Protein 7.1 g/dL (6.4-8.2)
--- NOTE | 2022-02-07 16:27 | W.EDPROG ---
Date of service: 02/07/22 Time of Service: 16:27 Medical Decision Making Care assumed from provider (MANDEEP Jarrett) Please see their initial HPI, PE, and documentation. Discussed patient details and case and pending workup and disposition. At the time of signout awaiting repeat labs, blood glucose and anion gap which has closed anion gap is 5.4, alcohol level is 219 glucose 321. Plan is for discharge of patient as long as he is ambulatory without difficulty. Patient is medically cleared at this time. Patient has refused admission per my colleague's report. 1715: Patient taken out of restraints, he is sleeping in the bed, I did speak with him he states he wants to leave. However at this time he is too sleepy to ambulate and do a road test. We will continue to monitor him until ready to be discharged from the department. 1843: Patient is up ambulatory without assistance in the department. He is taking p.o. without difficulty. His BGL prior to discharge is in the 200s. This text was generated using [employer] system, please disregard any oddities of phrase or misspellings. Medical Records Medical records reviewed: Yes I reviewed the patient's medical records. Lab Data Lab results reviewed: Yes I reviewed the patient's lab results. Labs: Laboratory Tests Range/Units 02/07/22 02/07/22 02/07/22 10:12 10:12 10:12 WBC (4.4-10.8) 10^3/uL 6.96 RBC (4.36-5.78) 10^6/uL 4.10 L Hgb (13.5-17.5) g/dL 12.8 L Hct (40.0-50.0) % 35.6 L MCV (80-95) fL 87 MCH (27.0-33.0) pg 31.2 MCHC (32.0-36.0) % 36.0 RDW (11.8-14.1) % 12.0 Plt Count (130-400) 10^3/uL 159 MPV (8.0-11.0) fL 9.2 Immature Gran % 0.6 Neutrophils % 77.5 Lymphocytes % 15.2 Monocytes % 6.0 Eosinophils % 0.0 Basophils % 0.7 Nucleated RBC % (0.0-0.3) % 0.0 Absolute Neutrophils (1.2-6.7) 10^3/uL 5.39 Absolute Lymphocytes (1.2-3.4) 10^3/uL 1.06 L Absolute Monocytes (0.1-0.8) 10^3/uL 0.42 Absolute Eosinophils (0.0-0.7) 10^3/uL 0.00 Absolute Basophils (0.0-0.2) 10^3/uL 0.05 VBG pH (7.31-7.41) VBG pCO2 (41-51) mmHg VBG pO2 mmHg VBG HCO3 (23-28) mmol/L VBG Total CO2 (24-29) mmol/L VBG O2 Saturation % VBG Base Excess (-2-3) mmol/L Sodium (136-145) mmol/L 130 L Potassium (3.5-5.1) mmol/L 3.6 Chloride (98-107) mmol/L 93 L Carbon Dioxide (21.0-32.0) mmol/L 20.8 L Anion Gap (3-11) mmol/L 16.2 H BUN (7-18) mg/dL 11 Creatinine (0.70-1.30) mg/dL 1.2 Est GFR (CKD-EPI 2020) (mL/min/1.73m2) 72.76 Glucose (74-106) mg/dL 771 H* Calcium (8.5-10.1) mg/dL 8.7 Total Bilirubin (0.2-1.0) mg/dL 0.7 AST (15-37) U/L 68 H ALT (16-63) U/L 52 Alkaline Phosphatase (46-116) U/L 70 Total Protein (6.4-8.2) g/dL 7.7 Albumin (3.4-5.0) g/dL 4.4 Lipase (73-393) U/L 37 Urine Color (Yellow) Urine Clarity (Clear) Urine pH (5-8) Ur Specific [place] (1.005-1.025) Urine Protein (Negative) mg/dL Urine Ketones (Negative) mg/dL Urine Blood (Negative) Urine Nitrite (Negative) Urine Bilirubin (Negative) Urine Urobilinogen (Up TO 0.2) EU/dL Ur Leukocyte Esterase (Negative) Urine RBC (0-2) HPF Urine WBC (0-5) HPF Ur Epithelial Cells (Negative) HPF Urine Crystals (Negative) HPF Urine Bacteria (Negative) HPF Urine Casts (Negative) LPF Urine Mucus (Negative) Ur Culture Indicated? Urine Glucose (Negative) mg/dL Urine Opiates Screen (Negative) Ur Barbiturates Screen (Negative) Ur Tricyclics Screen (Negative) Ur Amphetamines Screen (Negative) U Benzodiazepines Scrn (Negative) Urine Cocaine Screen (Negative) Ur THC Screen (Negative) Ethyl Alcohol (<10) mg/dL 341.6 H Cancelled COVID-19 Source SARS-CoV-2 (PCR) (Negative) Influenza Type A (PCR) (Negative) Influenza Type B (PCR) (Negative) RSV (PCR) (Negative) Range/Units 02/07/22 02/07/22 02/07/22 10:45 10:45 11:21 WBC (4.4-10.8) 10^3/uL RBC (4.36-5.78) 10^6/uL Hgb (13.5-17.5) g/dL Hct (40.0-50.0) % MCV (80-95) fL MCH (27.0-33.0) pg MCHC (32.0-36.0) % RDW (11.8-14.1) % Plt Count (130-400) 10^3/uL MPV (8.0-11.0) fL Immature Gran % Neutrophils % Lymphocytes % Monocytes % Eosinophils % Basophils % Nucleated RBC % (0.0-0.3) % Absolute Neutrophils (1.2-6.7) 10^3/uL Absolute Lymphocytes (1.2-3.4) 10^3/uL Absolute Monocytes (0.1-0.8) 10^3/uL Absolute Eosinophils (0.0-0.7) 10^3/uL Absolute Basophils (0.0-0.2) 10^3/uL VBG pH (7.31-7.41) 7.32 VBG pCO2 (41-51) mmHg 41 VBG pO2 mmHg 79 VBG HCO3 (23-28) mmol/L 21 L VBG Total CO2 (24-29) mmol/L 19 L VBG O2 Saturation % 95 VBG Base Excess (-2-3) mmol/L -5 L Sodium (136-145) mmol/L Potassium (3.5-5.1) mmol/L Chloride (98-107) mmol/L Carbon Dioxide (21.0-32.0) mmol/L Anion Gap (3-11) mmol/L BUN (7-18) mg/dL Creatinine (0.70-1.30) mg/dL Est GFR (CKD-EPI 2020) (mL/min/1.73m2) Glucose (74-106) mg/dL Calcium (8.5-10.1) mg/dL Total Bilirubin (0.2-1.0) mg/dL AST (15-37) U/L ALT (16-63) U/L Alkaline Phosphatase (46-116) U/L Total Protein (6.4-8.2) g/dL Albumin (3.4-5.0) g/dL Lipase (73-393) U/L Urine Color (Yellow) Yellow Urine Clarity (Clear) Clear Urine pH (5-8) 6.0 Ur Specific [place] (1.005-1.025) 1.010 Urine Protein (Negative) mg/dL Negative Urine Ketones (Negative) mg/dL Negative Urine Blood (Negative) Trace-lysed H Urine Nitrite (Negative) Negative Urine Bilirubin (Negative) Negative Urine Urobilinogen (Up TO 0.2) EU/dL 0.2 Ur Leukocyte Esterase (Negative) Negative Urine RBC (0-2) HPF 3-5 H Urine WBC (0-5) HPF 0-2 Ur Epithelial Cells (Negative) HPF Rare Urine Crystals (Negative) HPF Negative Urine Bacteria (Negative) HPF Rare Urine Casts (Negative) LPF Negative Urine Mucus (Negative) Negative Ur Culture Indicated? No Urine Glucose (Negative) mg/dL >=1000 H Urine Opiates Screen (Negative) Negative Ur Barbiturates Screen (Negative) Negative Ur Tricyclics Screen (Negative) Negative Ur Amphetamines Screen (Negative) Negative U Benzodiazepines Scrn (Negative) Negative Urine Cocaine Screen (Negative) Negative Ur THC Screen (Negative) Negative Ethyl Alcohol (<10) mg/dL COVID-19 Source SARS-CoV-2 (PCR) (Negative) Influenza Type A (PCR) (Negative) Influenza Type B (PCR) (Negative) RSV (PCR) (Negative) Range/Units 02/07/22 02/07/22 02/07/22 11:28 15:01 15:01 WBC (4.4-10.8) 10^3/uL RBC (4.36-5.78) 10^6/uL Hgb (13.5-17.5) g/dL Hct (40.0-50.0) % MCV (80-95) fL MCH (27.0-33.0) pg MCHC (32.0-36.0) % RDW (11.8-14.1) % Plt Count (130-400) 10^3/uL MPV (8.0-11.0) fL Immature Gran % Neutrophils % Lymphocytes % Monocytes % Eosinophils % Basophils % Nucleated RBC % (0.0-0.3) % Absolute Neutrophils (1.2-6.7) 10^3/uL Absolute Lymphocytes (1.2-3.4) 10^3/uL Absolute Monocytes (0.1-0.8) 10^3/uL Absolute Eosinophils (0.0-0.7) 10^3/uL Absolute Basophils (0.0-0.2) 10^3/uL VBG pH (7.31-7.41) VBG pCO2 (41-51) mmHg VBG pO2 mmHg VBG HCO3 (23-28) mmol/L VBG Total CO2 (24-29) mmol/L VBG O2 Saturation % VBG Base Excess (-2-3) mmol/L Sodium (136-145) mmol/L 135 L Potassium (3.5-5.1) mmol/L 3.6 Chloride (98-107) mmol/L 103 Carbon Dioxide (21.0-32.0) mmol/L 26.6 Anion Gap (3-11) mmol/L 5.4 BUN (7-18) mg/dL 8 Creatinine (0.70-1.30) mg/dL 0.9 Est GFR (CKD-EPI 2020) (mL/min/1.73m2) 102.76 Glucose (74-106) mg/dL 321 H Calcium (8.5-10.1) mg/dL 8.4 L Total Bilirubin (0.2-1.0) mg/dL 0.4 AST (15-37) U/L 54 H ALT (16-63) U/L 45 Alkaline Phosphatase (46-116) U/L 64 Total Protein (6.4-8.2) g/dL 7.1 Albumin (3.4-5.0) g/dL 4.0 Lipase (73-393) U/L Urine Color (Yellow) Urine Clarity (Clear) Urine pH (5-8) Ur Specific [place] (1.005-1.025) Urine Protein (Negative) mg/dL Urine Ketones (Negative) mg/dL Urine Blood (Negative) Urine Nitrite (Negative) Urine Bilirubin (Negative) Urine Urobilinogen (Up TO 0.2) EU/dL Ur Leukocyte Esterase (Negative) Urine RBC (0-2) HPF Urine WBC (0-5) HPF Ur Epithelial Cells (Negative) HPF Urine Crystals (Negative) HPF Urine Bacteria (Negative) HPF Urine Casts (Negative) LPF Urine Mucus (Negative) Ur Culture Indicated? Urine Glucose (Negative) mg/dL Urine Opiates Screen (Negative) Ur Barbiturates Screen (Negative) Ur Tricyclics Screen (Negative) Ur Amphetamines Screen (Negative) U Benzodiazepines Scrn (Negative) Urine Cocaine Screen (Negative) Ur THC Screen (Negative) Ethyl Alcohol (<10) mg/dL 219.1 H COVID-19 Source Not Applicable SARS-CoV-2 (PCR) (Negative) Negative Influenza Type A (PCR) (Negative) Negative Influenza Type B (PCR) (Negative) Negative RSV (PCR) (Negative) Negative Sign Out Yes Sign Out Sign Out Data: Sign Out Comment: Presented with hyperglycemia and alcohol intoxication. Required both chemical and physical restraints. No evidence of DKA. Patient did not want to be admitted. Patient given 3 L IV fluid and awaiting repeat CMP, alcohol level, and final disposition. Last updated by Kaleb Patel PA at 02/07/22 15:39 Discharge Plan Disposition Patient Disposition: Home Condition: Improving Discharge Details Clinical Impression: Alcohol intoxication, Uncontrolled diabetes mellitus Primary Care Provider: Leeanna Armas ED Provider: Kami Mar Home Meds and New Rx's Prescriptions: Continued tenofovir disoproxil fumarate [Viread] 300 mg tablet 300 mg PO DAILY Qty: 90 3RF Rx Instructions: Pt takes daily at bedtime. buprenorphine-naloxone 8-2 mg tablet, sublingual 1 tab sublingual DAILY (DME) FreeStyle Lite Strips 1 EACH strip 1 ea Miscellaneous BID Qty: 100 Rx Instructions: to check bs 1-2 Xqd or as directed for DM E11.65 to get A1c under 7. (DME) blood-glucose meter [FreeStyle Lite Meter] 1 EACH kit 1 ea Miscellaneous DAILY Qty: 1 Rx Instructions: to check BS for E11.65 to get A1c under 7 (DME) lancets [FreeStyle Lancets] 1 EACH misc 1 ea Miscellaneous BID Qty: 100 Rx Instructions: to check BS 1-2 Xqd or as directed for DM E11.65 to get A1c under 7. (DME) pen needle, diabetic 1 EACH needle 1 ea Miscellaneous DAILY Qty: 100 11RF Rx Instructions: for Lantus solostar pen, E11.65 aripiprazole 5 mg tablet 5 mg PO DAILY cetirizine 10 mg tablet 10 mg PO DAILY PRN metformin 1,000 mg Tablet 1,000 mg PO BID multivitamin [Multiple Vitamins] Tablet 1 tab PO DAILY Qty: 30 0RF insulin lispro [Humalog KwikPen Insulin] 100 unit/mL Insulin Pen See Rx Instructions .ROUTE .COMPLEX Qty: 15 0RF Rx Instructions: Based on sliding scale before meals: 151-200 take 2 units 201-250 take 4 units 251-300 take 6 units 301-350 take 8 units 351-400 take 10 units. (DME) blood-glucose meter [FreeStyle Flash System] Kit See Rx Instructions .ROUTE .MEDSUPPLY Qty: 1 0RF Rx Instructions: As directed thiamine mononitrate (vit B1) [Vitamin B-1 (mononitrate)] 100 mg tablet 100 mg PO DAILY Label Comments: TAKE ONE TABLET BY MOUTH EVERY DAY trazodone 150 mg Tablet 50 mg PO HS Qty: 0 0RF Lantus Solostar U-100 Insulin 100 unit/mL (3 mL) insulin pen 20 unit subcut HS Qty: 15 0RF citalopram 40 mg Tablet 40 mg PO DAILY levothyroxine 25 mcg Tablet 25 mcg PO DAILY ibuprofen 600 mg Tablet 600 mg PO TID gabapentin 100 mg Tablet 100 mg PO HS Discharge Instructions Instructions: Alcohol Intoxication (ED), Diabetic Hyperglycemia (ED) Additional Instructions: You may call 211 for housing in a hotel. Please take your diabetic medications as previously prescribed. Please do not drink alcohol. Follow up with primary care provider in 3-5 days. Return to ED sooner if any worsening or concerns. Increase oral fluids. Referrals: Leeanna Armas [Primary Care Provider] - 5 days
== END 2022-02-07 18:59 | disposition home or self-care (01) ==
PROVIDERS: Physician Assistant; Emergency Provider Registered Nurse Emergency; PCP Family Medicine
DX: E11.65 Type 2 diabetes mellitus with hyperglycemia (principal); F10.129 Alcohol abuse with intoxication, unspecified; Y90.7 Blood alcohol level of 200-239 mg/100 ml; Z59.00 Homelessness unspecified; Z79.84 Long term (current) use of oral hypoglycemic drugs; Z79.4 Long term (current) use of insulin; Z20.822 Contact with and (suspected) exposure to COVID-19; Z87.891 Personal history of nicotine dependence
CPT/HCPCS: 36415; 36416; 80053; 80307; 82805; 82962; 83690; 87637; 96361; 96372; 96374; 96375; 99291; 80320; 81003; 81015; 85025; J1200; J1630; J1790; J2060

== ENCOUNTER 2022-02-07 22:01 | Emergency (ER) | payer MEDICAID, SELFPAY ==
[2022-02-07 22:19] VITALS: BP 138/78; PULSE 102; RESP 18; TEMP 37; O2SAT 96
--- NOTE | 2022-02-07 22:26 | ED.GENADUL_ITS ---
Discharge Plan Discharge Details Chief Complaint: GenMedical Primary Care Provider: Leeanna Armas ED Provider: Aldair Curiel Home Meds and New Rx's Prescriptions: No Action tenofovir disoproxil fumarate [Viread] 300 mg tablet 300 mg PO DAILY Qty: 90 3RF Rx Instructions: Pt takes daily at bedtime. buprenorphine-naloxone 8-2 mg tablet, sublingual 1 tab sublingual DAILY (DME) FreeStyle Lite Strips 1 EACH strip 1 ea Miscellaneous BID Qty: 100 Rx Instructions: to check bs 1-2 Xqd or as directed for DM E11.65 to get A1c under 7. (DME) blood-glucose meter [FreeStyle Lite Meter] 1 EACH kit 1 ea Miscellaneous DAILY Qty: 1 Rx Instructions: to check BS for E11.65 to get A1c under 7 (DME) lancets [FreeStyle Lancets] 1 EACH misc 1 ea Miscellaneous BID Qty: 100 Rx Instructions: to check BS 1-2 Xqd or as directed for DM E11.65 to get A1c under 7. (DME) pen needle, diabetic 1 EACH needle 1 ea Miscellaneous DAILY Qty: 100 11RF Rx Instructions: for Lantus solostar pen, E11.65 aripiprazole 5 mg tablet 5 mg PO DAILY cetirizine 10 mg tablet 10 mg PO DAILY PRN metformin 1,000 mg Tablet 1,000 mg PO BID multivitamin [Multiple Vitamins] Tablet 1 tab PO DAILY Qty: 30 0RF insulin lispro [Humalog KwikPen Insulin] 100 unit/mL Insulin Pen See Rx Instructions .ROUTE .COMPLEX Qty: 15 0RF Rx Instructions: Based on sliding scale before meals: 151-200 take 2 units 201-250 take 4 units 251-300 take 6 units 301-350 take 8 units 351-400 take 10 units. (DME) blood-glucose meter [FreeStyle Flash System] Kit See Rx Instructions .ROUTE .MEDSUPPLY Qty: 1 0RF Rx Instructions: As directed thiamine mononitrate (vit B1) [Vitamin B-1 (mononitrate)] 100 mg tablet 100 mg PO DAILY Label Comments: TAKE ONE TABLET BY MOUTH EVERY DAY trazodone 150 mg Tablet 50 mg PO HS Qty: 0 0RF Lantus Solostar U-100 Insulin 100 unit/mL (3 mL) insulin pen 20 unit subcut HS Qty: 15 0RF citalopram 40 mg Tablet 40 mg PO DAILY levothyroxine 25 mcg Tablet 25 mcg PO DAILY ibuprofen 600 mg Tablet 600 mg PO TID gabapentin 100 mg Tablet 100 mg PO HS Medical Decision Making Patient just discharged from this ED approximately 4 hours ago. He is intoxicated once again with blood sugars high to read. He has been placed on an ICP. We need to medically clear him and get his sugar down before [facility] will take anywhere into protective custody. Plan IV fluids x2 L and regular insulin 10 units IV. Medical Records Medical records reviewed: Yes I reviewed the patient's medical records. Sign Out Yes HPI General Date/Time Provider Initiated Documentation: 02/07/22 22:26 . Limitations to Documentation: altered mental status . Information obtained by: police . HPI Narrative: Patient brought back to ED by [facility] after he was just discharged from this ED with alcohol intoxication and hyperglycemia. He has a history of being aggressive while here. He was picked up and ICP by [facility] but blood sugar read high and [facility] needs medical clearance before they can take him back. Patient is altered and intoxicated once again. There was no obvious signs of trauma. He has been incontinent of urine. Related Data Home Medications Medication Instructions Recorded Confirmed blood sugar diagnostic (FreeStyle #100 strips 03/25/16 04/26/21 Lite Strips) blood-glucose meter (FreeStyle ##1 03/25/16 04/26/21 Lite Meter kit) lancets 28 gauge (FreeStyle #100 ea 03/25/16 04/26/21 Lancets) pen needle, diabetic 29 gauge x #100 multiple units 07/23/17 04/26/21 1/2 tenofovir disoproxil fumarate 300 300 mg PO DAILY #90 tabs 07/26/18 04/26/21 mg tablet (Viread) metformin 1,000 mg tablet 1,000 mg PO BID 01/10/19 04/26/21 blood-glucose meter (FreeStyle #1 ea 01/11/19 04/26/21 Flash System kit) insulin lispro 100 unit/mL See Rx Instructions .Route 01/11/19 04/26/21 subcutaneous pen (Humalog KwikPen .COMPLEX #15 mL (U-100) Insulin) multivitamin (Multiple Vitamins 1 tab PO DAILY #30 tabs 01/11/19 04/26/21 tablet) thiamine mononitrate (vit B1) 100 100 mg PO DAILY 08/27/19 04/26/21 mg tablet (Vitamin B-1 (mononitrate)) insulin glargine 100 unit/mL (3 20 unit (0.2 mL) subcut HS #15 mL 08/31/19 04/26/21 mL) subcutaneous pen (Lantus Solostar U-100 Insulin) trazodone 150 mg tablet 50 mg PO HS #0 tabs 08/31/19 04/26/21 aripiprazole 5 mg tablet 5 mg PO DAILY 02/12/21 04/26/21 cetirizine 10 mg tablet 10 mg PO DAILY PRN 02/12/21 04/26/21 citalopram 40 mg tablet 40 mg PO DAILY 04/26/21 04/26/21 gabapentin 100 mg tablet 100 mg PO HS 04/26/21 04/26/21 ibuprofen 600 mg tablet 600 mg PO TID 04/26/21 04/26/21 levothyroxine 25 mcg tablet 25 mcg PO DAILY 04/26/21 04/26/21 buprenorphine 8 mg-naloxone 2 mg 1 tab sublingual DAILY 06/18/21 sublingual tablet Previous Rx's Medication Instructions Recorded pen needle, diabetic 29 gauge x #100 multiple units 07/23/1703/10 tenofovir disoproxil fumarate 300 300 mg PO DAILY #90 tabs 07/26/18 mg tablet (Viread) blood-glucose meter (FreeStyle #1 ea 01/11/19 Flash System kit) insulin lispro 100 unit/mL See Rx Instructions .Route 01/11/19 subcutaneous pen (Humalog KwikPen .COMPLEX #15 mL (U-100) Insulin) multivitamin (Multiple Vitamins 1 tab PO DAILY #30 tabs 01/11/19 tablet) insulin glargine 100 unit/mL (3 20 unit (0.2 mL) subcut HS #15 mL 08/31/19 mL) subcutaneous pen (Lantus Solostar U-100 Insulin) trazodone 150 mg tablet 50 mg PO HS #0 tabs 08/31/19 Allergies Allergy/AdvReac Type Severity Reaction Status Date / Time No Known Allergies Allergy Verified 06/18/21 09:00 General Stated Complaint: GenMedical JAMES: 3 Review of Systems Unobtainable due to mental status PFSH All Active Problems Alcohol intoxication (Acute) Hyperglycemia (Acute) Chest pain (Acute) Fracture dislocation of left shoulder joint (Acute 04/24/20) Fracture of greater tuberosity of humerus with delayed healing (Acute) Shoulder fracture, left (Acute) Alcohol withdrawal (Acute) Bradycardia (Acute) Discharge planning issues (Acute) Ambulatory dysfunction (Acute) Diabetic neuropathy (Acute) Tinea pedis (Acute) DVT prophylaxis (Acute) Alcohol use (Chronic) Cellulitis (Acute) Continuous opioid dependence (Chronic 03/05/05) Moderate opioid dependence (Acute 12/10/15) Urinary frequency (Chronic 08/16/13) Type II diabetes mellitus, uncontrolled (Chronic) A1c 9.4 01/2014; uncontrolled; goal A1c < 7.5 Smoker (Chronic 05/06/11) Opioid use disorder, moderate, dependence (Chronic 12/10/15) Opioid dependence on agonist therapy (Chronic) [place], <2004; prefers tablets (MANDEEP) due to dental plate; counselor Zhang Atkins Continuous opioid dependence (Chronic 03/05/05) [facility]UP RX [place], <2004; counselling Meagan Garcia; prefers tablets Cirrhosis of liver (Chronic 05/06/11) Hep B w/ [place], chronic, 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[place] [facility] [place] (08[place]11[place]05[place] [facility] [place] began [facility] 08/07/14 Depression Hepatitis B infection Polysubstance abuse Uncontrolled diabetes mellitus Surgical History Endoscopy (12/09/12) repeat in 3 years Family History Brother No problems noted. Brother No problems noted. Sister No problems noted. 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 HEENT: NC/AT. Normal facial exam. Neck: Supple. Trachea midline. Lungs: Normal respiratory effort Cor: RRR. Good radial pulses. GI: Soft. NT/ND. Neuro: Altered, somnolent. Slurred speech. Cranial nerves II - XII grossly intact. No gross motor or sensory deficit. Ext: No C/C/E. Skin: Warm and dry without rash. Course Vital Signs Vital signs: Vital Signs Temperature 98.6 F 02/07/22 22:19 Pulse 102 H 02/07/22 22:19 Respiratory Rate 18 02/07/22 22:19 Blood Pressure 138/78 02/07/22 22:19 Pulse Oximetry 96 02/07/22 22:19 Temperature 98.6 F 02/07/22 22:19 Temperature Source Temporal Artery Scan 02/07/22 22:19 Pulse 102 H 02/07/22 22:19 Respiratory Rate 18 02/07/22 22:19 Respiratory Effort 02/07/22 22:24 Blood Pressure 138/78 02/07/22 22:19 Pulse Oximetry 96 02/07/22 22:19 Oxygen Delivery Method Room Air 02/07/22 22:19 Oxygen Flow Rate 0 02/07/22 22:19 Pain Level 0 02/07/22 22:19 Sign Out Sign Out Data: Sign Out Comment: Patient returned with intoxication and elevated blood sugar after just being discharged from this ED for same about 4 hours ago. He has now on an ICP and wants his mental status and blood sugar have improved he will be released into [facility] protective custody. Last updated by Aldair Curiel MD at 02/07/22 23:13 PAWSS Have you Been Recently Intoxicated or Drunk Within the Last 30 days?: Yes Have you Ever Experienced Previous Episodes of Alcohol Withdrawal?: Unable to Obtain Have you ever Experienced Withdrawal Seizures?: Unable to Obtain Have you ever Experienced Delirium Tremens(DT)s?: Unable to Obtain Have you ever undergone Alcohol Rehabilitation Treatment (i.e, inpt ot outpatient treatment programs)?: Unable to Obtain Have you ever Experienced Blackouts?: Unable to Obtain Have you ever Combined Alcohol with other Downers within the last 90 days?: Unable to Obtain Have you ever Combined Alcohol with any other Substance of Abuse during the last 90 days?: Unable to Obtain Positive Blood Alcohol level on Presentation? [PCS.BAL]: Unable to Obtain Evidence of Increased Autonomic Activity (i.e. HR>120, tremor, sweating, agitation, nausea)?: Unable to Obtain Result: 1
[2022-02-07] MEDS: Insulin REGULAR-Human 100 UNITS/ML UNIT 10 UNITS IV (22:40)
[2022-02-07] MEDS: Lactated Ringers 2,000 ML 1000 ML IV (22:42)
--- NOTE | 2022-02-07 23:35 | ED.PROG_ITS ---
Date of service: 02/07/22 Time of Service: 23:35 Medical Decision Making pt pulled his IV out is clearly intoxicated, urinated on the floor. Moving all extremities, reportedly was reading Hi on the glucometer at skilled nursing and here on arrival and needed to be low enough to be checked on skilled nursing glucometer, is now reading 440 on glucometer so is stable for d/c, will be d/c'd to corrections via vsp, will provide patient with a dose of his lantus he is supposed to be taking Sign Out Yes Sign Out Sign Out Data: Sign Out Comment: Patient returned with intoxication and elevated blood sugar after just being discharged from this ED for same about 4 hours ago. He has now on an ICP and wants his mental status and blood sugar have improved he will be released into [facility] protective custody. Last updated by Aldair Curiel MD at 02/07/22 23:13 Discharge Plan Disposition Patient Disposition: [facility] Discharge Details Clinical Impression: Alcohol intoxication Primary Care Provider: Leeanna Armas ED Provider: Trey Benton [place] Meds and New Rx's Prescriptions: Continued tenofovir disoproxil fumarate [Viread] 300 mg tablet 300 mg PO DAILY Qty: 90 3RF Rx Instructions: Pt takes daily at bedtime. buprenorphine-naloxone 8-2 mg tablet, sublingual 1 tab sublingual DAILY (DME) FreeStyle Lite Strips 1 EACH strip 1 ea Miscellaneous BID Qty: 100 Rx Instructions: to check bs 1-2 Xqd or as directed for DM E11.65 to get A1c under 7. (DME) blood-glucose meter [FreeStyle Lite Meter] 1 EACH kit 1 ea Miscellaneous DAILY Qty: 1 Rx Instructions: to check BS for E11.65 to get A1c under 7 (DME) lancets [FreeStyle Lancets] 1 EACH misc 1 ea Miscellaneous BID Qty: 100 Rx Instructions: to check BS 1-2 Xqd or as directed for DM E11.65 to get A1c under 7. (DME) pen needle, diabetic 1 EACH needle 1 ea Miscellaneous DAILY Qty: 100 11RF Rx Instructions: for Lantus solostar pen, E11.65 aripiprazole 5 mg tablet 5 mg PO DAILY cetirizine 10 mg tablet 10 mg PO DAILY PRN metformin 1,000 mg Tablet 1,000 mg PO BID multivitamin [Multiple Vitamins] Tablet 1 tab PO DAILY Qty: 30 0RF insulin lispro [Humalog KwikPen Insulin] 100 unit/mL Insulin Pen See Rx Instructions .ROUTE .COMPLEX Qty: 15 0RF Rx Instructions: Based on sliding scale before meals: 151-200 take 2 units 201-250 take 4 units 251-300 take 6 units 301-350 take 8 units 351-400 take 10 units. (DME) blood-glucose meter [ZoomForthStyle Flash System] Kit See Rx Instructions .ROUTE .MEDSUPPLY Qty: 1 0RF Rx Instructions: As directed thiamine mononitrate (vit B1) [Vitamin B-1 (mononitrate)] 100 mg tablet 100 mg PO DAILY Label Comments: TAKE ONE TABLET BY MOUTH EVERY DAY trazodone 150 mg Tablet 50 mg PO HS Qty: 0 0RF Lantus Solostar U-100 Insulin 100 unit/mL (3 mL) insulin pen 20 unit subcut HS Qty: 15 0RF citalopram 40 mg Tablet 40 mg PO DAILY levothyroxine 25 mcg Tablet 25 mcg PO DAILY ibuprofen 600 mg Tablet 600 mg PO TID gabapentin 100 mg Tablet 100 mg PO HS Discharge Instructions Instructions: Alcohol Intoxication (ED)
[2022-02-07 23:36] VITALS: PULSE 79
[2022-02-07] MEDS: Insulin Glargine 100 UNITS/ML UNIT 20 UNITS SC (23:48)
[2022-02-08 00:15] VITALS: BP 135/70; PULSE 102; RESP 16; TEMP 37; O2SAT 96
--- NOTE | 2022-02-08 01:36 | NUR.NOTE ---
Received 600ml of fluid before pulling his IV out.Nursing Note:
== END 2022-02-08 00:07 ==
PROVIDERS: Emergency Provider Emergency Medicine; PCP Family Medicine
DX: F10.129 Alcohol abuse with intoxication, unspecified (principal); E11.65 Type 2 diabetes mellitus with hyperglycemia
CPT/HCPCS: 36416; 82962; 96361; 96374; 99285; 99283; J1815

== ENCOUNTER 2022-02-09 10:11 | Emergency (ER) | payer MEDICAID, SELFPAY ==
[2022-02-09 10:12] VITALS: BP 124/92; PULSE 94; RESP 18; TEMP 36.9; O2SAT 98
[2022-02-09 10:20] VITALS: RESP 18
--- NOTE | 2022-02-09 10:53 | W.ED.GENAD ---
Discharge Plan Disposition Patient Disposition: Home Condition: Stable Discharge Details Clinical Impression: Neuropathy, Hypomagnesemia, Noncompliance with medications Primary Care Provider: Leeanna Armas ED Provider: Kleber Fernandez Home Meds and New Rx's Prescriptions: Continued levothyroxine 25 mcg Tablet 25 mcg PO DAILY Qty: 30 0RF tenofovir disoproxil fumarate 300 mg tablet 300 mg PO DAILY Qty: 90 3RF Rx Instructions: Pt takes daily at bedtime. insulin lispro 100 unit/mL Insulin Pen See Rx Instructions .ROUTE .COMPLEX Qty: 15 0RF Rx Instructions: Based on sliding scale before meals: 151-200 take 2 units 201-250 take 4 units 251-300 take 6 units 301-350 take 8 units 351-400 take 10 units. thiamine mononitrate (vit B1) [Vitamin B-1 (mononitrate)] 100 mg tablet 100 mg PO DAILY Qty: 90 0RF metformin 1,000 mg Tablet 1,000 mg PO BID Qty: 60 0RF Changed insulin glargine 100 unit/mL (3 mL) insulin pen 35 unit subcut HS Qty: 15 0RF No Action buprenorphine-naloxone 8-2 mg tablet, sublingual 1 tab sublingual DAILY (DME) FreeStyle Lite Strips 1 EACH strip 1 ea Miscellaneous BID Qty: 100 Rx Instructions: to check bs 1-2 Xqd or as directed for DM E11.65 to get A1c under 7. (DME) blood-glucose meter [FreeStyle Lite Meter] 1 EACH kit 1 ea Miscellaneous DAILY Qty: 1 Rx Instructions: to check BS for E11.65 to get A1c under 7 (DME) lancets [FreeStyle Lancets] 1 EACH misc 1 ea Miscellaneous BID Qty: 100 Rx Instructions: to check BS 1-2 Xqd or as directed for DM E11.65 to get A1c under 7. (DME) pen needle, diabetic 1 EACH needle 1 ea Miscellaneous DAILY Qty: 100 11RF Rx Instructions: for Lantus solostar pen, E11.65 aripiprazole 5 mg tablet 5 mg PO DAILY cetirizine 10 mg tablet 10 mg PO DAILY PRN multivitamin [Multiple Vitamins] Tablet 1 tab PO DAILY Qty: 30 0RF (DME) blood-glucose meter [FreeStyle Flash System] Kit See Rx Instructions .ROUTE .MEDSUPPLY Qty: 1 0RF Rx Instructions: As directed trazodone 150 mg Tablet 50 mg PO HS Qty: 0 0RF citalopram 40 mg Tablet 40 mg PO DAILY ibuprofen 600 mg Tablet 600 mg PO TID gabapentin 100 mg Tablet 100 mg PO HS Discharge Instructions Instructions: Diabetic Peripheral Neuropathy (ED), Hypomagnesemia (ED), Diabetic Hyperglycemia (ED) Additional Instructions: Medication reconciliation could not be completed today. Prescriptions were sent for metformin, insulin, antiviral, thiamine as we discussed. Please be sure to take medication as prescribed. Review all medication dosing with your prescribing physician. Call your doctor tomorrow to arrange timely follow-up this week. Please contact your primary care physician to arrange follow-up. Return to the ER immediately for any worsening or new concerning symptoms. Referrals: Leeanna Armas [Primary Care Provider] - Medical Decision Making 1207 --51-year-old male, well-known to the emergency department, multiple medical problems including history of insulin-dependent diabetes, paresthesia of his bilateral lower extremities, currently experiencing ambulatory dysfunction. Patient is hyperglycemic. Considered DKA. Plan to check labs and give IV fluid. Patient is homeless and having significant challenges with housing and medication compliance. I will ask care management to assist with arranging safe discharge. -- Patient exhibiting some tremors. We will give Ativan 1 mg for mild alcohol withdrawal. Patient is not motivated to seek acute rehabilitation. 1213 --patient was seen by care management who is arranging transportation for him back to [place] where he has housing. Labs reviewed and hyperglycemia noted. Patient is not in DKA. I will provide dose of long-acting insulin, patient notes he is on Lantus 35 units. I will also provide short acting dose of insulin regular 10 units. I will send prescriptions to the patient's pharmacy of choice. Patient does have mild hypomagnesemia. I will give dose of magnesium oxide 400 mg. I suspect the patient's pain is related to neuropathy. Plan will be for discharge with outpatient follow-up with his PCP. He was encouraged to return immediately for any worsening or new concerning symptoms. Sign Out No HPI General Mode of arrival: ambulatory. Date/Time Provider Initiated Documentation: 02/09/22 10:42. Limitations to Documentation: no limitations. Information obtained by: patient. HPI Narrative: 51-year-old male with multiple medical problems including history of hepatitis B, alcohol abuse, insulin-dependent diabetes, here with chief complaint of inability to ambulate. Patient notes difficulty ambulating over the past 3 days. Symptoms are moderate. No modifiers. Patient states he has bilateral foot pain. He has a history of neuropathy of his feet. Patient notes he is currently homeless, stated a friend's house last night. He does not have access to his insulin which she notes is lost. Related Data Home Medications Medication Instructions Recorded Confirmed blood sugar diagnostic (FreeStyle #100 strips 03/25/16 04/26/21 Lite Strips) blood-glucose meter (FreeStyle ##1 03/25/16 04/26/21 Lite Meter kit) lancets 28 gauge (FreeStyle #100 ea 03/25/16 04/26/21 Lancets) pen needle, diabetic 29 gauge x #100 multiple units 07/23/17 04/26/2103/10 blood-glucose meter (FreeStyle #1 ea 01/11/19 04/26/21 Flash System kit) multivitamin (Multiple Vitamins 1 tab PO DAILY #30 tabs 01/11/19 04/26/21 tablet) trazodone 150 mg tablet 50 mg PO HS #0 tabs 08/31/19 04/26/21 aripiprazole 5 mg tablet 5 mg PO DAILY 02/12/21 04/26/21 cetirizine 10 mg tablet 10 mg PO DAILY PRN 02/12/21 04/26/21 citalopram 40 mg tablet 40 mg PO DAILY 04/26/21 04/26/21 gabapentin 100 mg tablet 100 mg PO HS 04/26/21 04/26/21 ibuprofen 600 mg tablet 600 mg PO TID 04/26/21 04/26/21 buprenorphine 8 mg-naloxone 2 mg 1 tab sublingual DAILY 06/18/21 sublingual tablet insulin glargine 100 unit/mL (3 35 unit (0.35 mL) subcut HS #15 mL 02/09/22 mL) subcutaneous pen insulin lispro 100 unit/mL See Rx Instructions .Route 02/09/22 subcutaneous pen .COMPLEX #15 mL levothyroxine 25 mcg tablet 25 mcg PO DAILY #30 tabs 02/09/22 metformin 1,000 mg tablet 1,000 mg PO BID #60 tabs 02/09/22 tenofovir disoproxil fumarate 300 300 mg PO DAILY #90 tabs 02/09/22 mg tablet thiamine mononitrate (vit B1) 100 100 mg PO DAILY #90 tabs 02/09/22 mg tablet (Vitamin B-1 (mononitrate)) Previous Rx's Medication Instructions Recorded pen needle, diabetic 29 gauge x #100 multiple units 07/23/17 1 blood-glucose meter (FreeStyle #1 ea 01/11/19 Flash System kit) multivitamin (Multiple Vitamins 1 tab PO DAILY #30 tabs 01/11/19 tablet) trazodone 150 mg tablet 50 mg PO HS #0 tabs 08/31/19 insulin glargine 100 unit/mL (3 35 unit (0.35 mL) subcut HS #15 mL 02/09/22 mL) subcutaneous pen insulin lispro 100 unit/mL See Rx Instructions .Route 02/09/22 subcutaneous pen .COMPLEX #15 mL levothyroxine 25 mcg tablet 25 mcg PO DAILY #30 tabs 02/09/22 metformin 1,000 mg tablet 1,000 mg PO BID #60 tabs 02/09/22 tenofovir disoproxil fumarate 300 300 mg PO DAILY #90 tabs 02/09/22 mg tablet thiamine mononitrate (vit B1) 100 100 mg PO DAILY #90 tabs 02/09/22 mg tablet (Vitamin B-1 (mononitrate)) Allergies Allergy/AdvReac Type Severity Reaction Status Date / Time No Known Allergies Allergy Verified 02/09/22 10:19 General Stated Complaint: GenMedical JAMES: 3 Review of Systems All systems reviewed & are unremarkable except as noted in HPI and below Constitutional Constitutional: Denies fever(s) Gastrointestinal Gastrointestinal: Denies abdominal pain PFSH All Active Problems (Updated 02/09/22 @ 12:25 by Kleber Fernandez MD) Neuropathy (Acute) Hypomagnesemia (Acute) Noncompliance with medications (Acute) Alcohol intoxication (Acute) Hyperglycemia (Acute) Chest pain (Acute) Fracture dislocation of left shoulder joint (Acute 04/24/20) Fracture of greater tuberosity of humerus with delayed healing (Acute) Shoulder fracture, left (Acute) Alcohol withdrawal (Acute) Bradycardia (Acute) Discharge planning issues (Acute) Ambulatory dysfunction (Acute) Diabetic neuropathy (Acute) Tinea pedis (Acute) DVT prophylaxis (Acute) Alcohol use (Chronic) Cellulitis (Acute) Continuous opioid dependence (Chronic 03/05/05) Moderate opioid dependence (Acute 12/10/15) Urinary frequency (Chronic 08/16/13) Type II diabetes mellitus, uncontrolled (Chronic) A1c 9.4 01/2014; uncontrolled; goal A1c < 7.5 Smoker (Chronic 05/06/11) Opioid use disorder, moderate, dependence (Chronic 12/10/15) Opioid dependence on agonist therapy (Chronic) [facility] RX [place], <2004; prefers tablets (PA) due to dental plate; counselor Zhang Atkins Continuous opioid dependence (Chronic 03/05/05) [facility] RX [place], <2004; counselling Meagan Garcia; prefers tablets Cirrhosis of liver (Chronic 05/06/11) Hep B w/ coma, chronic, 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 Brother No problems noted. Sister No problems noted. 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 Current gender identity: male What is your relationship status?: living with partner Panel score (0-1 are the most socially isolated patients): 1 What type of physical activity do you participate in: none Drive intox or ride w/intox light truck driver: No Working smoke detector in home: Yes Carbon monox detector in home: Yes Do you feel safe at home: Yes Do you feel safe in your relationship?: Yes Additional Social history: Inmate at [facility] corrections Exam Const General: cooperative and no acute distress HENMT Mouth: moist mucous membranes Eyes Conjunctivae: normal conjunctivae Sclera: normal sclerae Neck Neck: trachea midline and supple Resp Auscultation: clear to auscultation bilaterally, no rales, no rhonchi and no wheezes Cardio Rate: regular rate and not tachycardic Rhythm: regular rhythm GI Palpation: soft, not firm, no guarding, no masses, not rigid and nontender Skin General skin exam: no rashes or lesions noted Neuro General: patient alert, patient awake, patient oriented x3 and tone normal Extrem General: capillary refill normal, no calf tenderness and no edema Right lower extremity: ankle Details: no edema and foot Details: normal capillary refill, normal to inspection, no edema and vascular exam Details: dorsalis pedis pulse present Left lower extremity: ankle Details: normal to inspection and foot Details: normal capillary refill, normal to inspection, no edema and vascular exam Details: dorsalis pedis pulse present Psych Appearance: grossly normal Mental Status: mental status grossly normal Speech and Movement: speech and movement normal Course Vital Signs Vital signs: Vital Signs Temperature 36.9 C 02/09/22 10:12 Pulse 94 H 02/09/22 10:12 Respiratory Rate 18 02/09/22 10:12 Blood Pressure 124/92 H 02/09/22 10:12 Pulse Oximetry 98 02/09/22 10:12 Temperature 36.9 C 02/09/22 10:12 Temperature Source Temporal Artery Scan 02/09/22 10:12 Pulse 94 H 02/09/22 10:12 Respiratory Rate 18 02/09/22 10:20 Respiratory Effort Non-Labored 02/09/22 10:20 Respiratory Depth Normal 02/09/22 10:20 Respiratory Pattern Normal 02/09/22 10:20 Blood Pressure 124/92 H 02/09/22 10:12 Blood Pressure Position Supine 02/09/22 10:12 Pulse Oximetry 98 02/09/22 10:12 Oxygen Delivery Method Room Air 02/09/22 10:12 Oxygen Flow Rate 0 02/09/22 10:12 Pain Level 8 02/09/22 10:12 PAWSS Have you Been Recently Intoxicated or Drunk Within the Last 30 days?: No Have you Ever Experienced Previous Episodes of Alcohol Withdrawal?: Yes Have you ever Experienced Withdrawal Seizures?: Yes Have you ever Experienced Delirium Tremens(DT)s?: Yes Have you ever undergone Alcohol Rehabilitation Treatment (i.e, inpt ot outpatient treatment programs)?: Yes Have you ever Experienced Blackouts?: Yes Have you ever Combined Alcohol with other Downers within the last 90 days?: No Have you ever Combined Alcohol with any other Substance of Abuse during the last 90 days?: No Positive Blood Alcohol level on Presentation? [PCS.BAL]: No Evidence of Increased Autonomic Activity (i.e. HR>120, tremor, sweating, agitation, nausea)?: No Result: 5
[2022-02-09] MEDS: Lactated Ringers 1,000 ML 1000 ML IV (11:22)
[2022-02-09] MEDS: LORazepam 1 MG TAB PO (11:22)
[2022-02-09 11:23] LABS: Abs Immature Grans 0.02 10^3/uL (0.0-0.06); Absolute Basophil Count 0.03 10^3/uL (0.0-0.2); Absolute Eosinophil Count 0.02 10^3/uL (0.0-0.7); Absolute Lymphocyte Count 0.61 10^3/uL (1.2-3.4); Absolute Monocyte Count 0.38 10^3/uL (0.1-0.8); Absolute Neutrophil Count 7.77 10^3/uL (1.2-6.7); Basophils % 0.3; Eosinophils % 0.2; HCT 32.3 % (40.0-50.0); HGB 11.8 g/dL (13.5-17.5); Immature Grans % 0.2; Lymphocytes % 6.9; MCH 31.7 pg (27.0-33.0); MCHC 36.5 % (32.0-36.0); MCV 87 fL (80-95); MPV 8.8 fL (8.0-11.0); Monocytes % 4.3; Neutrophils % 88.1; Platelet Count 125 10^3/uL (130-400); RBC 3.72 10^6/uL (4.36-5.78); RDW 12.2 % (11.8-14.1); WBC 8.83 10^3/uL (4.4-10.8)
[2022-02-09 11:50] LABS: ALT 84 U/L (16-63); AST 84 U/L (15-37); Albumin 4.5 g/dL (3.4-5.0); Alkaline Phosphatase 78 U/L (46-116); Anion Gap 11.2 mmol/L (3-11); BUN 10 mg/dL (7-18); CO2 28.8 mmol/L (21.0-32.0); Calcium 9.3 mg/dL (8.5-10.1); Chloride 100 mmol/L (98-107); Estimated GFR 90.56 (mL/min/1.73m2); Glucose 340 mg/dL (74-106); Magnesium 1.6 mg/dL (1.8-2.4); Potassium 4.1 mmol/L (3.5-5.1); Sodium 140 mmol/L (136-145); Total Protein 7.5 g/dL (6.4-8.2)
[2022-02-09] MEDS: Insulin Glargine 100 UNITS/ML UNIT 35 UNITS SC (12:21)
[2022-02-09] MEDS: Insulin REGULAR-Human 100 UNITS/ML UNIT 10 UNITS SC (12:21)
--- NOTE | 2022-02-09 12:29 | CMPROGNOTE_ITS ---
- If Service Date Differs Date of service: 02/09/22 Time of Service: 12:29 Care Management Progress Note CM asked by ED provider to see patient re: transportation issues. Patient well known to [facility] from many ED and inpatient admissions. Presented to ED with ambulatory dysfunction secondary to peripheral neuropathy with pain in bilateral lower extremities and feet. Patient is currently homeless but has a friend to stay with in [place] as well as potential housing. He informed CM that he has an interview for an apartment there. CM coordinated transportation to [place] via [facility] driver's license examiner.
== END 2022-02-09 12:36 | disposition home or self-care (01) ==
LOC: ER 12:33
PROVIDERS: Emergency Provider Student in an Organized Health Care Education/Training Program; PCP Family Medicine
DX: E11.42 Type 2 diabetes mellitus with diabetic polyneuropathy (principal); E11.65 Type 2 diabetes mellitus with hyperglycemia; E83.42 Hypomagnesemia; R20.2 Paresthesia of skin; Z91.14 Patient's other noncompliance with medication regimen; Z79.4 Long term (current) use of insulin; Z59.00 Homelessness unspecified; Z79.84 Long term (current) use of oral hypoglycemic drugs; Z87.891 Personal history of nicotine dependence
CPT/HCPCS: 80053; 96360; 96372; 99284; 83735; 84443; 85025; J1815

== ENCOUNTER 2022-02-10 17:13 | Emergency (ER) | payer OTHER, SELFPAY ==
[2022-02-10 17:32] VITALS: BP 142/82; PULSE 111; RESP 17; TEMP 37; O2SAT 98
[2022-02-10] MEDS: Lactated Ringers 1,000 ML 1000 ML IV (19:40)
[2022-02-10] MEDS: Normal Saline 1,000 ML 1000 ML IV (19:40)
[2022-02-10 19:41] LABS: Abs Immature Grans 0.01 10^3/uL (0.0-0.06); Absolute Basophil Count 0.02 10^3/uL (0.0-0.2); Absolute Lymphocyte Count 1.85 10^3/uL (1.2-3.4); Absolute Monocyte Count 0.41 10^3/uL (0.1-0.8); Basophils % 0.3; HCT 35.4 % (40.0-50.0); HGB 12.8 g/dL (13.5-17.5); Immature Grans % 0.1; Lymphocytes % 27.2; MCH 31.4 pg (27.0-33.0); MCHC 36.2 % (32.0-36.0); MCV 87 fL (80-95); MPV 9.2 fL (8.0-11.0); Neutrophils % 66.4; Platelet Count 157 10^3/uL (130-400); RBC 4.07 10^6/uL (4.36-5.78); RDW-SD 38.4 fL; WBC 6.79 10^3/uL (4.4-10.8)
--- NOTE | 2022-02-10 19:48 | ED.GENADUL_ITS ---
Discharge Plan Disposition [facility] Condition: Improving Discharge Details Chief Complaint: Diabetes Clinical Impression: Acute hyperglycemia Primary Care Provider: Leeanna Armas ED Provider: Francisco Sultana Home Meds and New Rx's Prescriptions: No Action buprenorphine-naloxone 8-2 mg tablet, sublingual 1 tab sublingual DAILY (DME) FreeStyle Lite Strips 1 EACH strip 1 ea Miscellaneous BID Qty: 100 Rx Instructions: to check bs 1-2 Xqd or as directed for DM E11.65 to get A1c under 7. (DME) blood-glucose meter [FreeStyle Lite Meter] 1 EACH kit 1 ea Miscellaneous DAILY Qty: 1 Rx Instructions: to check BS for E11.65 to get A1c under 7 (DME) lancets [FreeStyle Lancets] 1 EACH misc 1 ea Miscellaneous BID Qty: 100 Rx Instructions: to check BS 1-2 Xqd or as directed for DM E11.65 to get A1c under 7. (DME) pen needle, diabetic 1 EACH needle 1 ea Miscellaneous DAILY Qty: 100 11RF Rx Instructions: for Lantus solostar pen, E11.65 aripiprazole 5 mg tablet 5 mg PO DAILY cetirizine 10 mg tablet 10 mg PO DAILY PRN multivitamin [Multiple Vitamins] Tablet 1 tab PO DAILY Qty: 30 0RF (DME) blood-glucose meter [FreeStyle Flash System] Kit See Rx Instructions .ROUTE .MEDSUPPLY Qty: 1 0RF Rx Instructions: As directed trazodone 150 mg Tablet 50 mg PO HS Qty: 0 0RF citalopram 40 mg Tablet 40 mg PO DAILY ibuprofen 600 mg Tablet 600 mg PO TID gabapentin 100 mg Tablet 100 mg PO HS levothyroxine 25 mcg Tablet 25 mcg PO DAILY Qty: 30 0RF tenofovir disoproxil fumarate 300 mg tablet 300 mg PO DAILY Qty: 90 3RF Rx Instructions: Pt takes daily at bedtime. insulin lispro 100 unit/mL Insulin Pen See Rx Instructions .ROUTE .COMPLEX Qty: 15 0RF Rx Instructions: Based on sliding scale before meals: 151-200 take 2 units 201-250 take 4 units 251-300 take 6 units 301-350 take 8 units 351-400 take 10 units. insulin glargine 100 unit/mL (3 mL) insulin pen 35 unit subcut HS Qty: 15 0RF thiamine mononitrate (vit B1) [Vitamin B-1 (mononitrate)] 100 mg tablet 100 mg PO DAILY Qty: 90 0RF metformin 1,000 mg Tablet 1,000 mg PO BID Qty: 60 0RF Discharge Instructions Instructions: Diabetic Hyperglycemia (ED) Additional Instructions: Please follow-up with your primary care physician. Medical Decision Making 51-year-old male history of diabetes, alcohol abuse, presents brought in by PD for medical clearance. Found of a blood sugar than 500 as an outpatient, resting comfortably no acute distress no nausea no vomiting. Sinus tachycardia on monitor. Consider hypoglycemia versus diabetes versus DKA versus hyperosmolar state lower suspicion for serious bacterial infection, no evidence of trauma. Will obtain basic labs fluid hydration, close reassessment pending potassium status will likely administer insulin. 20: 56 patient resting comfortably no acute distress. No evidence of DKA. Resolving hyperglycemia. Tolerating p.o. no acute distress. Sign Out No HPI General Date/Time Provider Initiated Documentation: 02/10/22 17:49 . HPI Narrative: 51-year-old male history of alcohol abuse, diabetes, brought in by PD for evaluation and medical clearance, before intake at police department patient was evaluated by nursing staff determined the patient's blood sugar was greater than 500. Patient endorses that he was drinking yesterday evening. No nausea no vomiting. Related Data Home Medications Medication Instructions Recorded Confirmed blood sugar diagnostic (FreeStyle #100 strips 03/25/16 02/10/22 Lite Strips) blood-glucose meter (FreeStyle ##1 03/25/16 02/10/22 Lite Meter kit) lancets 28 gauge (FreeStyle #100 ea 03/25/16 02/10/22 Lancets) pen needle, diabetic 29 gauge x #100 multiple units 07/23/17 02/10/22 1/2 blood-glucose meter (FreeStyle #1 ea 01/11/19 02/10/22 Flash System kit) multivitamin (Multiple Vitamins 1 tab PO DAILY #30 tabs 01/11/19 02/10/22 tablet) trazodone 150 mg tablet 50 mg PO HS #0 tabs 08/31/19 02/10/22 aripiprazole 5 mg tablet 5 mg PO DAILY 02/12/21 02/10/22 cetirizine 10 mg tablet 10 mg PO DAILY PRN 02/12/21 02/10/22 citalopram 40 mg tablet 40 mg PO DAILY 04/26/21 02/10/22 gabapentin 100 mg tablet 100 mg PO HS 04/26/21 02/10/22 ibuprofen 600 mg tablet 600 mg PO TID 04/26/21 02/10/22 buprenorphine 8 mg-naloxone 2 mg 1 tab sublingual DAILY 06/18/21 02/10/22 sublingual tablet insulin glargine 100 unit/mL (3 35 unit (0.35 mL) subcut HS #15 mL 02/09/22 02/10/22 mL) subcutaneous pen insulin lispro 100 unit/mL See Rx Instructions .Route 02/09/22 02/10/22 subcutaneous pen .COMPLEX #15 mL levothyroxine 25 mcg tablet 25 mcg PO DAILY #30 tabs 02/09/22 02/10/22 metformin 1,000 mg tablet 1,000 mg PO BID #60 tabs 02/09/22 02/10/22 tenofovir disoproxil fumarate 300 300 mg PO DAILY #90 tabs 02/09/22 02/10/22 mg tablet thiamine mononitrate (vit B1) 100 100 mg PO DAILY #90 tabs 02/09/22 02/10/22 mg tablet (Vitamin B-1 (mononitrate)) Previous Rx's Medication Instructions Recorded pen needle, diabetic 29 gauge x #100 multiple units 07/23/1703/10 blood-glucose meter (FreeStyle #1 ea 01/11/19 Flash System kit) multivitamin (Multiple Vitamins 1 tab PO DAILY #30 tabs 01/11/19 tablet) trazodone 150 mg tablet 50 mg PO HS #0 tabs 08/31/19 insulin glargine 100 unit/mL (3 35 unit (0.35 mL) subcut HS #15 mL 02/09/22 mL) subcutaneous pen insulin lispro 100 unit/mL See Rx Instructions .Route 02/09/22 subcutaneous pen .COMPLEX #15 mL levothyroxine 25 mcg tablet 25 mcg PO DAILY #30 tabs 02/09/22 metformin 1,000 mg tablet 1,000 mg PO BID #60 tabs 02/09/22 tenofovir disoproxil fumarate 300 300 mg PO DAILY #90 tabs 02/09/22 mg tablet thiamine mononitrate (vit B1) 100 100 mg PO DAILY #90 tabs 02/09/22 mg tablet (Vitamin B-1 (mononitrate)) Allergies Allergy/AdvReac Type Severity Reaction Status Date / Time No Known Allergies Allergy Verified 02/10/22 17:40 General Stated Complaint: Diabetes JAMES: 3 Review of Systems Narrative: Review of Systems Constitutional: negative Eyes: negative ENT: negative Cardiovascular: negative Respiratory: negative Gastrointestinal: negative : negative Musculoskeletal: negative Skin: negative Neurologic: negative Psych: negative PFSH All Active Problems (Updated 02/10/22 @ 20:58 by Francisco Sultana MD) Neuropathy (Acute) Hypomagnesemia (Acute) Noncompliance with medications (Acute) Acute hyperglycemia (Acute) Alcohol intoxication (Acute) Hyperglycemia (Acute) Chest pain (Acute) Fracture dislocation of left shoulder joint (Acute 04/24/20) Fracture of greater tuberosity of humerus with delayed healing (Acute) Shoulder fracture, left (Acute) Alcohol withdrawal (Acute) Bradycardia (Acute) Discharge planning issues (Acute) Ambulatory dysfunction (Acute) Diabetic neuropathy (Acute) Tinea pedis (Acute) DVT prophylaxis (Acute) Alcohol use (Chronic) Cellulitis (Acute) Continuous opioid dependence (Chronic 03/05/05) Moderate opioid dependence (Acute 12/10/15) Urinary frequency (Chronic 08/16/13) Type II diabetes mellitus, uncontrolled (Chronic) A1c 9.4 01/2014; uncontrolled; goal A1c < 7.5 Smoker (Chronic 05/06/11) Opioid use disorder, moderate, dependence (Chronic 12/10/15) Opioid dependence on agonist therapy (Chronic) [facility] RX [place], <2004; prefers tablets (PA) due to dental plate; counselor Zhang Atkins Continuous opioid dependence (Chronic 03/05/05) [facility] RX [place], <2004; counselling Meagan Garcia; prefers tablets Cirrhosis of liver (Chronic 05/06/11) Hep B w/ coma, chronic, 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 Brother No problems noted. Sister No problems noted. 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 Current gender identity: male What is your relationship status?: living with partner Panel score (0-1 are the most socially isolated patients): 1 What type of physical activity do you participate in: none Drive intox or ride w/intox driver license reviewing officer: No Working smoke detector in home: Yes Carbon monox detector in home: Yes Do you feel safe at home: Yes Do you feel safe in your relationship?: Yes Additional Social history: Inmate at [facility] Exam Narrative Exam Narrative: Physical Examination General: alert, awake, cooperative, resting comfortably, no acute distress HEENT: normocephalic, atraumatic; PERRL, EOM intact, conjunctiva normal; no nasal discharge; moist mucous membranes, oral and pharyngeal mucosa normal, tolerating secretions Neck: supple, trachea midline; full ROM Chest: normal to inspection Respiratory: normal respiratory effort, speaking in full sentences, clear to auscultation, no wheezing, rales or rhonchi Cardiac: Tachycardia, regular rhythm, S1S2 intact, no murmurs rubs or gallops GI: abdomen soft, non-tender, non-distended; no palpable mass or hepatosplenomegaly Skin: no lesions, rashes or trauma appreciated Neuro: AAOx3, normal speech, moving all extremities Psych: Appropriate mood and affect Course Vital Signs Vital signs: Vital Signs Temperature 37.0 C 02/10/22 17:32 Pulse 111 H 02/10/22 17:32 Respiratory Rate 17 02/10/22 17:32 Blood Pressure 142/82 H 02/10/22 17:32 Pulse Oximetry 98 02/10/22 17:32 Temperature 37.0 C 02/10/22 17:32 Temperature Source Temporal Artery Scan 02/10/22 17:32 Pulse 111 H 02/10/22 17:32 Respiratory Rate 17 02/10/22 17:32 Respiratory Effort Non-Labored 02/10/22 17:36 Blood Pressure 142/82 H 02/10/22 17:32 Blood Pressure Position Sitting 02/10/22 17:32 Pulse Oximetry 98 02/10/22 17:32 Oxygen Delivery Method Room Air 02/10/22 17:32 Oxygen Flow Rate 0 02/10/22 17:32 Pain Level 7 02/10/22 17:32 Lab/Test Results Lab/Test Results: Laboratory Tests Range/Units 02/10/22 02/10/22 19:30 19:30 WBC (4.4-10.8) 10^3/uL 6.79 RBC (4.36-5.78) 10^6/uL 4.07 L Hgb (13.5-17.5) g/dL 12.8 L Hct (40.0-50.0) % 35.4 L MCV (80-95) fL 87 MCH (27.0-33.0) pg 31.4 MCHC (32.0-36.0) % 36.2 H RDW (11.8-14.1) % 12.0 Plt Count (130-400) 10^3/uL 157 MPV (8.0-11.0) fL 9.2 Immature Gran % 0.1 Neutrophils % 66.4 Lymphocytes % 27.2 Monocytes % 6.0 Eosinophils % 0.0 Basophils % 0.3 Nucleated RBC % (0.0-0.3) % 0.0 Absolute Neutrophils (1.2-6.7) 10^3/uL 4.50 Absolute Lymphocytes (1.2-3.4) 10^3/uL 1.85 Absolute Monocytes (0.1-0.8) 10^3/uL 0.41 Absolute Eosinophils (0.0-0.7) 10^3/uL 0.00 Absolute Basophils (0.0-0.2) 10^3/uL 0.02 VBG pH Cancelled VBG pCO2 Cancelled VBG pO2 Cancelled VBG HCO3 Cancelled VBG Total CO2 Cancelled VBG O2 Saturation Cancelled VBG Base Excess Cancelled PAWSS Have you Been Recently Intoxicated or Drunk Within the Last 30 days?: Yes Have you Ever Experienced Previous Episodes of Alcohol Withdrawal?: Yes Have you ever Experienced Withdrawal Seizures?: Yes Have you ever Experienced Delirium Tremens(DT)s?: Yes Have you ever undergone Alcohol Rehabilitation Treatment (i.e, inpt ot outpatient treatment programs)?: Yes Have you ever Experienced Blackouts?: Yes Result: 6
[2022-02-10 19:51] LABS: pCO2 (Venous) 45 mmHg (41-51)
[2022-02-10 19:52] LABS: BE (Venous) 3 mmol/L (-2-3); HCO3 (Venous) 28 mmol/L (23-28); O2 Sat (Venous) 66 %; TCO2 (Venous) 29 mmol/l (24-29); pO2 (Venous) 35 mmHg
[2022-02-10 19:57] LABS: ALT 83 U/L (16-63); AST 54 U/L (15-37); Albumin 4.7 g/dL (3.4-5.0); Alkaline Phosphatase 89 U/L (46-116); Anion Gap 10.7 mmol/L (3-11); BUN 6 mg/dL (7-18); Bilirubin, Total 0.8 mg/dL (0.2-1.0); CO2 32.3 mmol/L (21.0-32.0); CREATININE 1.1 mg/dL (0.70-1.30); Calcium 9.2 mg/dL (8.5-10.1); Chloride 98 mmol/L (98-107); Estimated GFR 80.77 (mL/min/1.73m2); Potassium 3.8 mmol/L (3.5-5.1); Sodium 141 mmol/L (136-145); Total Protein 8.4 g/dL (6.4-8.2)
[2022-02-10 19:59] LABS: Glucose 501 mg/dL (74-106)
[2022-02-10] MEDS: Insulin REGULAR-Human 100 UNITS/ML UNIT 6 UNITS SC (20:14)
== END 2022-02-10 21:01 ==
PROVIDERS: Emergency Provider Emergency Medicine; PCP Family Medicine
DX: E11.65 Type 2 diabetes mellitus with hyperglycemia (principal); F10.10 Alcohol abuse, uncomplicated
CPT/HCPCS: 36416; 80053; 82805; 82962; 96361; 96372; 99284; 85025; 99283

== ENCOUNTER 2022-08-29 14:18 | Emergency (ER) | payer MEDICAID, SELFPAY ==
[2022-08-29 14:22] VITALS: BP 105/59; PULSE 66; RESP 18; TEMP 37.1; O2SAT 99
--- NOTE | 2022-08-29 14:59 | ED.GENADUL_ITS ---
Discharge Plan Disposition [facility] Discharge Details Clinical Impression: Medical clearance for incarceration Primary Care Provider: Leeanna Armas ED Provider: Aldair Curiel and New Rx's Prescriptions: No Action buprenorphine-naloxone 8-2 mg tablet, sublingual 1 tab sublingual DAILY (DME) FreeStyle Lite Strips 1 EACH strip 1 ea Miscellaneous BID Qty: 100 Rx Instructions: to check bs 1-2 Xqd or as directed for DM E11.65 to get A1c under 7. (DME) blood-glucose meter [FreeStyle Lite Meter] 1 EACH kit 1 ea Miscellaneous DAILY Qty: 1 Rx Instructions: to check BS for E11.65 to get A1c under 7 (DME) lancets [FreeStyle Lancets] 1 EACH misc 1 ea Miscellaneous BID Qty: 100 Rx Instructions: to check BS 1-2 Xqd or as directed for DM E11.65 to get A1c under 7. (DME) pen needle, diabetic 1 EACH needle 1 ea Miscellaneous DAILY Qty: 100 11RF Rx Instructions: for Lantus solostar pen, E11.65 aripiprazole 5 mg tablet 5 mg PO DAILY cetirizine 10 mg tablet 10 mg PO DAILY PRN multivitamin [Multiple Vitamins] Tablet 1 tab PO DAILY Qty: 30 0RF (DME) blood-glucose meter [FreeStyle Flash System] Kit See Rx Instructions .ROUTE .MEDSUPPLY Qty: 1 0RF Rx Instructions: As directed trazodone 150 mg Tablet 50 mg PO HS Qty: 0 0RF citalopram 40 mg Tablet 40 mg PO DAILY ibuprofen 600 mg Tablet 600 mg PO TID gabapentin 100 mg Tablet 100 mg PO HS levothyroxine 25 mcg Tablet 25 mcg PO DAILY Qty: 30 0RF tenofovir disoproxil fumarate 300 mg tablet 300 mg PO DAILY Qty: 90 3RF Rx Instructions: Pt takes daily at bedtime. insulin lispro 100 unit/mL Insulin Pen See Rx Instructions .ROUTE .COMPLEX Qty: 15 0RF Rx Instructions: Based on sliding scale before meals: 151-200 take 2 units 201-250 take 4 units 251-300 take 6 units 301-350 take 8 units 351-400 take 10 units. insulin glargine 100 unit/mL (3 mL) insulin pen 35 unit subcut HS Qty: 15 0RF thiamine mononitrate (vit B1) [Vitamin B-1 (mononitrate)] 100 mg tablet 100 mg PO DAILY Qty: 90 0RF metformin 1,000 mg Tablet 1,000 mg PO BID Qty: 60 0RF Discharge Instructions Care Plan Goals: You were seen in the ED for medical clearance prior to be taking into custody. Your blood sugar was normal. Vital signs and exam without worrisome concerns. You are released into police custody. Return for any concerns. Your medications were not reconciled/confirmed Medical Decision Making Patient presenting in custody for medical clearance to be taken to correctional facility. Patient is diabetic. Blood sugar this afternoon is 96. Patient has normal vital signs. He has no complaints of. Per offices alcohol level was just below 0.2 around 11 AM. His speech is clear. His mentation appears normal. Gait is not tested as he is in cuffs and shackles. Patient has no acute medical emergency. He will be remanded to correctional facility and being DOC custody was able to manage his meds. He denies history of alcohol withdrawal though there are records of this occurring in the past. No signs of withdrawal currently. He will be discharged into police custody. Medical Records Medical records reviewed: Yes I reviewed the patient's medical records. HPI General Mode of arrival: ambulatory . Date/Time Provider Initiated Documentation: 08/29/22 14:59 . Limitations to Documentation: no limitations . Information obtained by: patient . HPI Narrative: Patient here for medical clearance to be taken to correctional facility into DOC care. Patient presenting in [facility] with officers. He is diabetic. He had been drinking this morning. He has no complaints of. Last took his Lantus yesterday. Denies any headache, chest pain, shortness of breath, cough, abdominal pain, vomiting. Denies daily alcohol use and denies any history of alcohol withdrawal. Related Data Home Medications Medication Instructions Recorded Confirmed blood sugar diagnostic (FreeStyle #100 strips 03/25/16 02/10/22 Lite Strips) blood-glucose meter (FreeStyle ##1 03/25/16 02/10/22 Lite Meter kit) lancets 28 gauge (FreeStyle #100 ea 03/25/16 02/10/22 Lancets) pen needle, diabetic 29 gauge x #100 multiple units 07/23/17 02/10/22 1/2 blood-glucose meter (FreeStyle #1 ea 01/11/19 02/10/22 Flash System kit) multivitamin (Multiple Vitamins 1 tab PO DAILY #30 tabs 01/11/19 02/10/22 tablet) trazodone 150 mg tablet 50 mg PO HS #0 tabs 08/31/19 02/10/22 aripiprazole 5 mg tablet 5 mg PO DAILY 02/12/21 02/10/22 cetirizine 10 mg tablet 10 mg PO DAILY PRN 02/12/21 02/10/22 citalopram 40 mg tablet 40 mg PO DAILY 04/26/21 02/10/22 gabapentin 100 mg tablet 100 mg PO HS 04/26/21 02/10/22 ibuprofen 600 mg tablet 600 mg PO TID 04/26/21 02/10/22 buprenorphine 8 mg-naloxone 2 mg 1 tab sublingual DAILY 06/18/21 02/10/22 sublingual tablet insulin glargine 100 unit/mL (3 35 unit (0.35 mL) subcut HS #15 mL 02/09/22 02/10/22 mL) subcutaneous pen insulin lispro 100 unit/mL See Rx Instructions .Route 02/09/22 02/10/22 subcutaneous pen .COMPLEX #15 mL levothyroxine 25 mcg tablet 25 mcg PO DAILY #30 tabs 02/09/22 02/10/22 metformin 1,000 mg tablet 1,000 mg PO BID #60 tabs 02/09/22 02/10/22 tenofovir disoproxil fumarate 300 300 mg PO DAILY #90 tabs 02/09/22 02/10/22 mg tablet thiamine mononitrate (vit B1) 100 100 mg PO DAILY #90 tabs 02/09/22 02/10/22 mg tablet (Vitamin B-1 (mononitrate)) Previous Rx's Medication Instructions Recorded pen needle, diabetic 29 gauge x #100 multiple units 07/23/1703/10 blood-glucose meter (FreeStyle #1 ea 01/11/19 Flash System kit) multivitamin (Multiple Vitamins 1 tab PO DAILY #30 tabs 01/11/19 tablet) trazodone 150 mg tablet 50 mg PO HS #0 tabs 08/31/19 insulin glargine 100 unit/mL (3 35 unit (0.35 mL) subcut HS #15 mL 02/09/22 mL) subcutaneous pen insulin lispro 100 unit/mL See Rx Instructions .Route 02/09/22 subcutaneous pen .COMPLEX #15 mL levothyroxine 25 mcg tablet 25 mcg PO DAILY #30 tabs 02/09/22 metformin 1,000 mg tablet 1,000 mg PO BID #60 tabs 02/09/22 tenofovir disoproxil fumarate 300 300 mg PO DAILY #90 tabs 02/09/22 mg tablet thiamine mononitrate (vit B1) 100 100 mg PO DAILY #90 tabs 02/09/22 mg tablet (Vitamin B-1 (mononitrate)) Allergies Allergy/AdvReac Type Severity Reaction Status Date / Time No Known Allergies Allergy Verified 02/10/22 17:40 General Stated Complaint: GenMedical JAMES: 4 Review of Systems Narrative: Per HPI PFSH All Active Problems Medical clearance for incarceration (Acute) Fracture dislocation of left shoulder joint (Acute 04/24/20) Fracture of greater tuberosity of humerus with delayed healing (Acute) Shoulder fracture, left (Acute) Alcohol withdrawal (Acute) Bradycardia (Acute) Discharge planning issues (Acute) Ambulatory dysfunction (Acute) Diabetic neuropathy (Acute) Tinea pedis (Acute) DVT prophylaxis (Acute) Alcohol use (Chronic) Cellulitis (Acute) Continuous opioid dependence (Chronic 03/05/05) Moderate opioid dependence (Acute 12/10/15) Urinary frequency (Chronic 08/16/13) Type II diabetes mellitus, uncontrolled (Chronic) A1c 9.4 01/2014; uncontrolled; goal A1c < 7.5 Smoker (Chronic 05/06/11) Opioid use disorder, moderate, dependence (Chronic 12/10/15) Opioid dependence on agonist therapy (Chronic) [facility] RX [place], <2004; prefers tablets ([place]) due to dental plate; counselor Zhang Atkins Continuous opioid dependence (Chronic 03/05/05) [facility] RX [place], <2004; counselling Meagan Garcia; prefers tablets Cirrhosis of liver (Chronic 05/06/11) Hep B w/ coma, chronic, 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 Brother No problems noted. Sister No problems noted. 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 HEENT: NC/AT. Normal facial exam. Neck: Supple. Trachea midline. Lungs: Normal respiratory effort. Lungs are clear. Cor: RRR without murmur/gallop. Good radial pulses. GI: Soft. NT/ND. Neuro: A+O x 3. Normal speech, mentation. Cranial nerves II - XII grossly intact. No gross motor or sensory deficit. Ext: No C/C/E. Course Vital Signs Vital signs: Vital Signs Temperature 98.8 F 08/29/22 14:22 Pulse 66 08/29/22 14:22 Respiratory Rate 18 08/29/22 14:22 Blood Pressure 105/59 L 08/29/22 14:22 Pulse Oximetry 99 08/29/22 14:22 Temperature 98.8 F 08/29/22 14:22 Temperature Source Oral 08/29/22 14:22 Pulse 66 08/29/22 14:22 Respiratory Rate 18 08/29/22 14:22 Blood Pressure 105/59 L 08/29/22 14:22 Blood Pressure Position Sitting 08/29/22 14:22 Pulse Oximetry 99 08/29/22 14:22 Oxygen Delivery Method Room Air 08/29/22 14:22 Oxygen Flow Rate 0 08/29/22 14:22 Pain Level 0 08/29/22 14:22
[2022-08-29 15:13] VITALS: RESP 16
--- NOTE | 2022-08-29 15:21 | NUR.NOTE ---
Nursing Note: Pt refuses to answer questions and allow assessment. Pt responds to name and makes eye contact. MD to conduct further evaluation before clearance.
[2022-08-29 15:35] VITALS: BP 115/72; PULSE 62; RESP 18; O2SAT 99
== END 2022-08-29 16:48 ==
LOC: ER 15:34
PROVIDERS: Emergency Provider Emergency Medicine; PCP Family Medicine
DX: Z02.89 Encounter for other administrative examinations (principal); E11.9 Type 2 diabetes mellitus without complications
CPT/HCPCS: 36416; 82962; 99285; 99283

== ENCOUNTER 2023-01-28 17:22 | Emergency (ER) | payer OTHER, SELFPAY ==
[2023-01-28 17:21] VITALS: BP 133/57; PULSE 54; RESP 18; TEMP 37.8; O2SAT 98
--- NOTE | 2023-01-28 17:33 | W.ED.GENAD ---
Discharge Plan Disposition Patient Disposition: [facility] Condition: Stable Discharge Details Clinical Impression: Hypoglycemic episode in patient with diabetes mellitus Primary Care Provider: Leeanna Armas ED Provider: Brodie Asif Home Meds and New Rx's Prescriptions: Continued buprenorphine-naloxone 8-2 mg tablet, sublingual 1 tab sublingual DAILY (DME) FreeStyle Lite Strips 1 EACH strip 1 ea Miscellaneous BID Qty: 100 Rx Instructions: to check bs 1-2 Xqd or as directed for DM E11.65 to get A1c under 7. (DME) blood-glucose meter [FreeStyle Lite Meter] 1 EACH kit 1 ea Miscellaneous DAILY Qty: 1 Rx Instructions: to check BS for E11.65 to get A1c under 7 (DME) lancets [FreeStyle Lancets] 1 EACH misc 1 ea Miscellaneous BID Qty: 100 Rx Instructions: to check BS 1-2 Xqd or as directed for DM E11.65 to get A1c under 7. (DME) pen needle, diabetic 1 EACH needle 1 ea Miscellaneous DAILY Qty: 100 11RF Rx Instructions: for Lantus solostar pen, E11.65 aripiprazole 5 mg tablet 5 mg PO DAILY cetirizine 10 mg tablet 10 mg PO DAILY PRN multivitamin [Multiple Vitamins] Tablet 1 tab PO DAILY Qty: 30 0RF (DME) blood-glucose meter [FreeStyle Flash System] Kit See Rx Instructions .ROUTE .MEDSUPPLY Qty: 1 0RF Rx Instructions: As directed trazodone 150 mg Tablet 50 mg PO HS Qty: 0 0RF citalopram 40 mg Tablet 40 mg PO DAILY ibuprofen 600 mg Tablet 600 mg PO TID gabapentin 100 mg Tablet 100 mg PO HS levothyroxine 25 mcg Tablet 25 mcg PO DAILY Qty: 30 0RF tenofovir disoproxil fumarate 300 mg tablet 300 mg PO DAILY Qty: 90 3RF Rx Instructions: Pt takes daily at bedtime. insulin lispro 100 unit/mL Insulin Pen See Rx Instructions .ROUTE .COMPLEX Qty: 15 0RF Rx Instructions: Based on sliding scale before meals: 151-200 take 2 units 201-250 take 4 units 251-300 take 6 units 301-350 take 8 units 351-400 take 10 units. insulin glargine 100 unit/mL (3 mL) insulin pen 35 unit subcut HS Qty: 15 0RF thiamine mononitrate (vit B1) [Vitamin B-1 (mononitrate)] 100 mg tablet 100 mg PO DAILY Qty: 90 0RF metformin 1,000 mg Tablet 1,000 mg PO BID Qty: 60 0RF Discharge Instructions Instructions: Hypoglycemia in a Person with Diabetes (ED) Additional Instructions: You were seen in the emergency department for hypoglycemic event while in corrections, you state that he only ate breakfast today. You were able to tolerate long-acting carbohydrates since the episode and your blood sugar has increased to an normoglycemic or euglycemic level. Please continue to monitor your blood sugar multiple times this evening and perform your diabetic regimen as needed, please return to the emergency department for any further episodes of hypoglycemia or severe hyperglycemia. Referrals: Leeanna Armas [Primary Care Provider] - Discharge Data Discharge Date/Time-TO BE ENTERED AT DEPARTURE: 01/28/23 18:24 Medical Decision Making This dictation utilizes [id number] dictation software and may contain unedited grammatical errors. 52 y/o M presents to ED today with a chief complaint of low blood sugar- known diabetic in corrections custody, who ate only breakfast, had episode of hypoglycemia- 41 at scene, 68 after glucagon tablets, 132 after EMS maple syrup, 144 on arrival here, ate long-acting carbs PO here, and is 100 stable, denies trauma from the fall.. Patients' medical history: DM. Family and social history: noncontributory. Pertinent exam findings / vital signs include benign cardiopulmonary exam, nontoxic, answering questions appropriately. Differential / pathologies of concern include hypoglycemic episode, not trauma, not DKA- patient not hyperglycemic- poor PO intake. Diagnostic studies of: -FSBS stable ~100. 132 on arrival, 144 q15 recheck, 100 q30, toleraing PO Interventions of: -PO intake of long-acting carbohydrates. ED Course: Patient resting comfortably throughout the visit, was given serial fasting blood sugars with stable values, states that he would like to return to corrections custody and that he will continue p.o. intake and checking his sugars per his known diabetes at correctional center. Findings not consistent with DKA, persistent hypoglycemia. Disposition of Hypoglycemic Episode in patient with diabetes mellitus. Patient verbalized understanding of the plan and return to ED criteria and engaged in shared decision making. Medical Records Medical records reviewed: Yes I reviewed the patient's medical records. HPI General Date/Time Provider Initiated Documentation: 01/28/23 17:32. 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 Quality described as feels fine now- states he has no pain from fall, no radiation to fever, shakiness, shortness of breath, confusion, nausea/vomiting. Severity is described as 0/10. Palliating factors include PO intake of glucose with resolution of blood sugar to 68 at time of EMS arrival, 132 on arrival here, 100 q30 mins, tolerating PO intake. Provoking factors include not eating well enough since breakfast this morning. Patient not anticoagulated. Related Data Home Medications Medication Instructions Recorded Confirmed blood sugar diagnostic (FreeStyle #100 strips 03/25/16 02/10/22 Lite Strips) blood-glucose meter (FreeStyle ##1 03/25/16 02/10/22 Lite Meter kit) lancets 28 gauge (FreeStyle #100 ea 03/25/16 02/10/22 Lancets) pen needle, diabetic 29 gauge x #100 multiple units 07/23/17 02/10/22 1/2 blood-glucose meter (FreeStyle #1 ea 01/11/19 02/10/22 Flash System kit) multivitamin (Multiple Vitamins 1 tab PO DAILY #30 tabs 01/11/19 02/10/22 tablet) trazodone 150 mg tablet 50 mg (0.3333 x 150 mg) PO HS #0 08/31/19 02/10/22 tabs aripiprazole 5 mg tablet 5 mg PO DAILY 02/12/21 02/10/22 cetirizine 10 mg tablet 10 mg PO DAILY PRN 02/12/21 02/10/22 citalopram 40 mg tablet 40 mg PO DAILY 04/26/21 02/10/22 gabapentin 100 mg tablet 100 mg PO HS 04/26/21 02/10/22 ibuprofen 600 mg tablet 600 mg PO TID 04/26/21 02/10/22 buprenorphine 8 mg-naloxone 2 mg 1 tab sublingual DAILY 06/18/21 02/10/22 sublingual tablet insulin glargine 100 unit/mL (3 35 unit (0.35 mL) subcut HS #15 mL 02/09/22 02/10/22 mL) subcutaneous pen insulin lispro 100 unit/mL See Rx Instructions .Route 02/09/22 02/10/22 subcutaneous pen .COMPLEX #15 mL levothyroxine 25 mcg tablet 25 mcg PO DAILY #30 tabs 02/09/22 02/10/22 metformin 1,000 mg tablet 1,000 mg PO BID #60 tabs 02/09/22 02/10/22 tenofovir disoproxil fumarate 300 300 mg PO DAILY #90 tabs 02/09/22 02/10/22 mg tablet thiamine mononitrate (vit B1) 100 100 mg PO DAILY #90 tabs 02/09/22 02/10/22 mg tablet (Vitamin B-1 (mononitrate)) Previous Rx's Medication Instructions Recorded pen needle, diabetic 29 gauge x #100 multiple units 07/23/1703/10 blood-glucose meter (FreeStyle #1 ea 01/11/19 Flash System kit) multivitamin (Multiple Vitamins 1 tab PO DAILY #30 tabs 01/11/19 tablet) trazodone 150 mg tablet 50 mg (0.3333 x 150 mg) PO HS #0 08/31/19 tabs insulin glargine 100 unit/mL (3 35 unit (0.35 mL) subcut HS #15 mL 02/09/22 mL) subcutaneous pen insulin lispro 100 unit/mL See Rx Instructions .Route 02/09/22 subcutaneous pen .COMPLEX #15 mL levothyroxine 25 mcg tablet 25 mcg PO DAILY #30 tabs 02/09/22 metformin 1,000 mg tablet 1,000 mg PO BID #60 tabs 02/09/22 tenofovir disoproxil fumarate 300 300 mg PO DAILY #90 tabs 02/09/22 mg tablet thiamine mononitrate (vit B1) 100 100 mg PO DAILY #90 tabs 02/09/22 mg tablet (Vitamin B-1 (mononitrate)) Allergies Allergy/AdvReac Type Severity Reaction Status Date / Time No Known Allergies Allergy Verified 02/10/22 17:40 General Stated Complaint: Seizure JAMES: 3 Review of Systems All systems reviewed & are unremarkable except as noted in HPI and below PFSH All Active Problems (Updated 01/28/23 @ 18:11 by MANDEEP Mera) Hypoglycemic episode in patient with diabetes mellitus (Acute) Fracture dislocation of left shoulder joint (Acute 04/24/20) Fracture of greater tuberosity of humerus with delayed healing (Acute) Shoulder fracture, left (Acute) Alcohol withdrawal (Acute) Bradycardia (Acute) Discharge planning issues (Acute) Ambulatory dysfunction (Acute) Diabetic neuropathy (Acute) Tinea pedis (Acute) DVT prophylaxis (Acute) Alcohol use (Chronic) Cellulitis (Acute) Continuous opioid dependence (Chronic 03/05/05) Moderate opioid dependence (Acute 12/10/15) Urinary frequency (Chronic 08/16/13) Type II diabetes mellitus, uncontrolled (Chronic) A1c 9.4 01/2014; uncontrolled; goal A1c < 7.5 Smoker (Chronic 05/06/11) Opioid use disorder, moderate, dependence (Chronic 12/10/15) Opioid dependence on agonist therapy (Chronic) BUP RX S[place]CE [place], <2004; prefers tablets (MANDEEP) due to dental plate; counselor Zhang Atkins Continuous opioid dependence (Chronic 03/05/05) BUP RX [place], <2004; counselling Meagan Garcia; prefers tablets Cirrhosis of liver (Chronic 05/06/11) Hep B w/ coma, chronic, 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 Brother No problems noted. Sister No problems noted. 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 Current gender identity: male What is your relationship status?: living with partner Panel score (0-1 are the most socially isolated patients): 1 What type of physical activity do you participate in: none Drive intox or ride w/intox entry driver operator: No Working smoke detector in home: Yes Carbon monox detector in home: Yes Do you feel safe at home: Yes Do you feel safe in your relationship?: Yes Additional Social history: Inmate at [facility] corrections Exam Narrative Exam Narrative: GENERAL APPEARANCE: Well-nourished, non-toxic, awake and alert, atraumatic, no acute distress. SKIN: Warm, pink, dry, intact, without rashes/lesions/ulcerations. HEAD: Normocephalic, atraumatic, normal hair distribution for gender/age. EYES: Pupils PERRLA, EOMs intact without nystagmus, normal conjunctiva, no exudates on lids/lashes. ENT: Nares patent, no circumoral cyanosis, no facial swelling NECK: Supple, trachea midline, painless cervical ROM. LUNGS/CHEST: Lungs CTA bilaterally - no rhonchi/rales/wheezes diffusely, non-labored respirations, normal A/P diameter, symmetrical expansion, no chest wall deformity HEART (CV/PV): Regular rate and rhythm without murmur, no peripheral edema, no JVD. ABDOMEN: Soft, non-distended, no guarding. MSK: Normal ROM, no swelling/deformity to bilateral UEs or LEs, moving all extremities without weakness, no cyanosis, spine midline without tenderness, normal curvature. NEURO: Mental Status AAOx4 - alert to person, place, time, events No facial droop, no forehead involvement. Motor: No focal weakness - strength 5/5 in bilateral UEs and LEs, proximal and distal, symmetric. Sensory: sensation intact to light touch globally. Gait normal: patient ambulated without ataxia into ED room. PSYCH: euthymic, cooperative, pleasant, appropriate speech Course Vital Signs Vital signs: Vital Signs Temperature 37.8 C H 01/28/23 17:21 Pulse 54 L 01/28/23 17:21 Respiratory Rate 18 01/28/23 17:21 Blood Pressure 133/57 L 01/28/23 17:21 Pulse Oximetry 98 01/28/23 17:21 Temperature 37.8 C H 01/28/23 17:21 Pulse 54 L 01/28/23 17:21 Respiratory Rate 18 01/28/23 17:21 Respiratory Effort Normal 01/28/23 17:28 Respiratory Depth Normal 01/28/23 17:28 Blood Pressure 133/57 L 01/28/23 17:21 Pulse Oximetry 98 01/28/23 17:21 Oxygen Delivery Method Room Air 01/28/23 17:21 Oxygen Flow Rate 0 01/28/23 17:21
== END 2023-01-28 18:24 ==
LOC: ER 18:21
PROVIDERS: Emergency Provider Physician Assistant; PCP Family Medicine
DX: E11.649 Type 2 diabetes mellitus with hypoglycemia without coma (principal)
CPT/HCPCS: 36416; 82962; 99285; 99283

== ENCOUNTER → 2023-07-06 04:22 | Outpatient (CLI) | payer OTHER, SELFPAY ==
--- NOTE | 2023-07-06 | DI.DEXA_ITS ---
Exam(s) XR DEXA BONE DENSITY W/WO BABAK EXAM: XR DEXA BONE DENSITY W/WO BABAK CLINICAL HISTORY: CARE HOME MEDICATION TDF EXPOSURE,VIRAL HEP B,CIRRHOSIS TECHNIQUE: Routine DEXA evaluation of the lumbar spine, hip, or forearm. COMPARISON: No exams were available for comparison FINDINGS: Performed on a Hologic unit. Lateral image: No compression fracture evident. Lumbar Spine total T-score: 0.4 Hip total T-score:0.0 Independent reading at the level of the femoral neck yields T-score of 0.1 Forearm total T-score: -1.4 IMPRESSION: Bone mineral density measures in the normal range for the lumbar spine and hip but in the osteopenia range for the forearm bones.. Fracture risk is low-moderate. Note: Any spine fracture indicates 5x risk for subsequent spine fracture and 2x risk for subsequent h ip fracture. World Health Organization criteria for BMD interpretation classify patients: Normal...... T- Score at or above -1.0 Osteopenic... T- Score between -1.0 and -2.5 Osteoporosis... T-Score at or below -2.5
== END ==
PROVIDERS: PCP Family Medicine; Visit Provider Nurse Practitioner Adult Health
DX: Z13.820 Encounter for screening for osteoporosis (principal); M81.0 Age-related osteoporosis without current pathological fracture
CPT/HCPCS: 77080